=== PATIENT | male | born 1945 | race Caucasian/White ===

== ENCOUNTER 2017-12-15 09:26 | Emergency (ER) | payer MEDICARE ==
--- NOTE | 2017-12-15 09:56 | ED ---
General Adult HPI <Izaiah Huerta - Last Filed: 12/15/17 10:13> - General Source: patient, RN notes reviewed Mode of arrival: ambulatory Limitations: no limitations <Chan Jerome - Last Filed: 12/15/17 10:28> - General Chief complaint: Upper Respiratory Infection Stated complaint: Cough, Poss Bronchitis Time Seen by Provider: 12/15/17 09:39 - History of Present Illness Initial comments: Patient 72-year-old male presented to the emergency room today with a chief complaint of possible bronchitis. He admits to cough congestion that started yesterday. He admits to positive sputum production has been white in color. Patient states this feels like bronchitis that is had in the past. He denies any other complaints or symptoms. Patient denies any recent shortness of breath , chest pain, back pain, abdominal pain, nausea or vomiting, numbness or tingling, dysuria or hematuria, constipation or diarrhea, headaches or visual changes, or any other complaints. (Chan Jerome) - Related Data Home Medications Medication Instructions Recorded Confirmed Aspirin EC [Ecotrin Low Dose] 81 mg PO DAILY 12/15/17 12/15/17 Lisinopril [Zestril] 20 mg PO DAILY 12/15/17 12/15/17 Pantoprazole Sodium [Protonix] 40 mg PO DAILY 12/15/17 12/15/17 Simvastatin [Zocor] 10 mg PO DAILY 12/15/17 12/15/17 Previous Rx's Medication Instructions Recorded Azithromycin [Zithromax Z-pack] 0 mg PO DIRECTED #6 tab 12/15/17 Allergies Allergy/AdvReac Type Severity Reaction Status Date / Time No Known Allergies Allergy Verified 12/15/17 10:10 Review of Systems ROS Other: All systems not noted in ROS Statement are negative. <Izaiah Huerta - Last Filed: 12/15/17 10:13> ROS Other: All systems not noted in ROS Statement are negative. <Chan Jerome - Last Filed: 12/15/17 10:28> ROS Statement: Those systems with pertinent positive or pertinent negative responses have been documented in the HPI. Past Medical History Past Medical History: Hypertension Additional Past Medical History / Comment(s): polio History of Any Multi-Drug Resistant Organisms: None Reported Past Surgical History: Orthopedic Surgery Past Psychological History: No Psychological Hx Reported Smoking Status: Never smoker Past Alcohol Use History: None Reported Past Drug Use History: None Reported <Chan Jerome - Last Filed: 12/15/17 10:28> General Exam <Izaiah Huerta - Last Filed: 12/15/17 10:13> Limitations: no limitations <Chan Jerome - Last Filed: 12/15/17 10:28> - General Exam Comments Initial Comments: General: The patient is awake and alert, in no distress, and does not appear acutely ill. Eye: Pupils are equal, round and reactive to light, extra-ocular movements are intact. No nystagmus. There is normal conjunctiva bilaterally. No signs of icterus. Ears, nose, mouth and throat: There are moist mucous membranes and no oral lesions. Neck: The neck is supple, there is no tenderness or JVD. Cardiovascular: There is a regular rate and rhythm. No murmur, rub or gallop is appreciated. Respiratory: Lungs are clear to auscultation, respirations are non-labored, breath sounds are equal. No wheezes, stridor, rales, or rhonchi. Musculoskeletal: Normal ROM, no tenderness. Strength 5/5. Sensation intact. Pulses equal bilaterally 2+. Neurological: A&O x 3. CN II-XII intact, There are no obvious motor or sensory deficits. Coordination appears grossly intact. Speech is normal. Skin: Skin is warm and dry and no rashes or lesions are noted. Psychiatric: Cooperative, appropriate mood & affect, normal judgment. (Chan Jerome) Course <Izaiah Huerta - Last Filed: 12/15/17 10:13> <Chan Jerome - Last Filed: 12/15/17 10:28> Vital Signs 12/15/17 09:29 Temperature 100.1 F H Pulse Rate 82 Respiratory 20 Rate Blood Pressure 171/80 O2 Sat by Pulse 96 Oximetry - Reevaluation(s) Reevaluation #1: 12/15/17 10:13 PA supervision: I personally saw and examined the patient I have reviewed and agree with the PAs findings including all diagnostic interpretations and treatment plans is written unless otherwise stated. Patient states he is not ALLERGIC to any medication. The presentation is consistent with a bronchitis. ( Izaiah Huerta) Medical Decision Making <Izaiah Huerta - Last Filed: 12/15/17 10:13> <Chan Jerome - Last Filed: 12/15/17 10:28> - Medical Decision Making Patient chest x-ray reviewed showing no sign of pneumonia. Does have history of bronchitis. Fever 100.1 here in emergency room. Patient otherwise doing well. Patient given dose Rocephin and started on azithromycin for his advised close follow-up over the next 2 days return if symptoms increase or worsen. ( Chan Jerome) Disposition <Izaiah Huerta - Last Filed: 12/15/17 10:13> Is patient prescribed a controlled substance at d/c from ED?: No Time of Disposition: 10:28 <Chan Jerome - Last Filed: 12/15/17 10:28> Clinical Impression: Acute bronchitis Disposition: HOME SELF-CARE Condition: Good Instructions: Acute Bronchitis (ED) Additional Instructions: Please use medication as discussed. Please follow-up with family doctor in the next 2 days of symptoms have not improved. Please return to emergency room if the symptoms increase or worsen or for any other concerns. Prescriptions: Azithromycin [Zithromax Z-pack] 0 mg PO DIRECTED #6 tab Referrals: Ismael Gregorio MD [Primary Care Provider] - 1-2 days
--- NOTE | 2017-12-15 09:56 | XR ---
EXAMINATION TYPE: XR chest 2V DATE OF EXAM: 12/15/2017 COMPARISON: NONE TECHNIQUE: PA and lateral views submitted. HISTORY: Productive cough FINDINGS: The lungs are clear and there is no pneumothorax, pleural effusion, or focal pneumonia. Hypertrophi c and degenerative changes spine. Mild cardiomegaly. Apical pleural thickening. Shoulders. No overt f ailure IMPRESSION: 1. No acute process.
[2017-12-15] MEDS ORDERED: cefTRIAXone 1,000 MG VIAL (IM USE) IM STA (10:24)
[2017-12-15 10:52] VITALS: BP 164/75; PULSE 77; RESP 18; TEMP 101.2
== END 2017-12-15 10:48 | disposition home or self-care (01) ==
LOC: EC 09:26
DX: J20.9 Acute bronchitis, unspecified (principal); I10 Essential (primary) hypertension; Z86.12 Personal history of poliomyelitis; Z79.82 Long term (current) use of aspirin; Z79.899 Other long term (current) drug therapy
CPT/HCPCS: 71046; 99283; 96372; J0696

== ENCOUNTER → 2018-03-28 | Outpatient (CLI) | payer MEDICARE, OTHER ==
[~2018-03-28] MED LIST: REGADENOSON 0.4 MG/5 ML SYRINGE IV ONE
--- NOTE | 2018-03-28 11:29 | EST ---
EXERCISE STRESS DATE OF SERVICE: 03/28/2018 AGE: 72 SEX: Male HT: 5'8" WT: 209 pounds PROTOCOL: Lexiscan Cardiolite STAGE: DURATION OF EXERCISE: HEART RATE REST: 56 BLOOD PRESSURE REST: 146/82 MAXIMUM HEART RATE ACHIEVED: 84 MAXIMUM BLOOD PRESSURE: 150/75 85% MPHR: 127 100% MPHR: 144 METS: INDICATIONS: Abnormal EKG. CLINICAL INFORMATION: Pretesting physical examination showed a heart rate of 56, pressure is 146/82 mmHg. Baseline EKG showed sinus mechanism. A 0.4 mg of Lexiscan was given over 15 seconds per protocol. Max heart rate was 84 beats per minute and maximum pressure was 150/75 mmHg. Clinically the patient did not have any symptoms and the EKG did not show any significant ST or T-wave abnormalities concerning for ischemia. CONCLUSION: 1. Nondiagnostic electrocardiogram stress testing in response to Lexiscan. 2. Please follow up on the Cardiolite portion on separate report from radiology department. MMODL / IJN: [id number] /
--- NOTE | 2018-03-28 12:51 | NM ---
"EXAMINATION TYPE: NM stress lexiscan cardiolite DATE OF EXAM: 03/28/2018 COMPARISON: NONE HISTORY: Chest pain TECHNIQUE: After the intravenous administration of 9.91 mCi Tc 99m Sestamibi - Cardiolite resting SP ECT images acquired 45 minutes post injection. The patient received 0.4mg Lexiscan, 25.9 mCi Tc 99m Sestamibi - Stress images obtained [address] injection FINDINGS: Review of stress and rest SPECT images demonstrates a area of stress-induced reversible ischemia invo lving the anterior and anteroapical portion of the myocardium.. Gated analysis shows an estimated l eft ventricular ejection fraction of 40 %. Reduced small motion activity involving the apex and anter ior portion of the myocardium. IMPRESSION: 1. Exam positive for stress-induced reversible ischemia involving the apical and anteroapical portion of the myocardium. A [place] level critical message alert has been initiated for Ismael Gregorio MD via the [employer] 36 0 | Critical Results System on 03/28/2018 12:48 PM. This message alert has been sent to Ismael batista MD via the preferences provided by the clinician for the receipt of Radiology Critical Findings. [facility] – [place] [id number]."
== END ==
LOC: RADNMMAIN 08:00
PROVIDERS: ATTEND Family Medicine
DX: G45.9 Transient cerebral ischemic attack, unspecified (principal); I99.8 Other disorder of circulatory system
CPT/HCPCS: 93017; 78452; A9500; J2785

== ENCOUNTER 2018-04-04 05:49 | Day surgery (SDC) | payer MEDICARE, OTHER ==
[2018-03-30 10:41] VITALS: BMI 31.6
[~2018-04-04 05:49] MED LIST changes: +ALPRAZolam 0.25 MG TAB PO PRN; +ALPRAZolam 0.5 MG TAB PO PRN; +ASPIRIN 325 MG TAB PO STA; +NITROGLYCERIN SL TABS 0.4 MG TAB SUBLINGUAL PRN; -REGADENOSON 0.4 MG/5 ML SYRINGE IV ONE; +SODIUM CHLORIDE 0.9% 1,000 ML in EMPTY BAG 1 BAG IV ONE
[2018-04-04] MEDS ORDERED: ATORVASTATIN 80 MG TAB PO ONE (07:00)
[2018-04-04 07:14] VITALS: RESP 18; TEMP 98.1
[2018-04-04] MEDS ORDERED: fentaNYL (PF) 50 MCG/ML 2 ML AMP ONE (07:15)
[2018-04-04] MEDS ORDERED: MIDAZOLAM 2 MG/2 ML VIAL ONE (07:15)
[2018-04-04] MEDS ORDERED: fentaNYL (PF) 50 MCG/ML 2 ML AMP IV ONE (07:25)
[2018-04-04] MEDS ORDERED: MIDAZOLAM 2 MG/2 ML VIAL IV ONE (07:25)
[2018-04-04] MEDS ORDERED: LIDOCAINE 1% INJ 10MG/ML (20 ML MDV) SQ ONE (07:30)
[2018-04-04] MEDS ORDERED: IOPAMIDOL-370 50ML BTL INJ ONE (07:42)
[2018-04-04] MEDS ORDERED: IOPAMIDOL-370 125ML BTL INJ ONE (07:43)
[2018-04-04] MEDS ORDERED: RX INFO: IV CONTRAST WAS GIVEN 1 EACH MISC MISCELLANE PRN (07:51)
[2018-04-04] MEDS ORDERED: SODIUM CHLORIDE 0.9% 1,000 ML IV SCH (08:00)
--- NOTE | 2018-04-04 08:02 | P.CARDCATH ---
Date of Procedure: 04/04/18 Preoperative Diagnosis: Positive stress test hypertension and hyperlipidemia Postoperative Diagnosis: Critical lesion involving the LAD and mild to moderate disease in the left main Description of Procedure: HISTORY: This is a 73-year-old gentleman with history of hypertension and hyperlipidemia who recently had a stress test which showed evidence of ischemia involving the anterior wall and apex. Patient was advised to have a cardiac catheterization for definitive diagnosis. Patient denies any chest pains. CONSENT:I have discussed the risks, benefits and alternative therapies for the above-mentioned procedure and for both sedation/analgesia as well as necessary blood product administration, if indicated, as they pertain to this patient. The patient has indicated understanding and acceptance of the risks and procedures discussed. PROCEDURE: Patient was brought to the lab in a fasting state. Patient was given some IV sedation. The right groin is infiltrated with lidocaine and right femoral artery was entered using Seldinger technique. A 6-Yakut catheter was left in place and selective coronary arteriography and left ventriculography was performed. Patient tolerated the procedure well. Femoral angiogram was performed and Angio-Seal was applied for hemostasis. No immediate complications were noted and patient was transferred to [facility] in a stable condition Conscious Sedation: Versed 1mg Fentanyl 25 g Duration 15minutes HEMODYNAMICS: The aortic pressure is 114/66. Left ankle end-diastolic pressure is about 16-20. There was no gradient across the aortic valve SELECTIVE CORONARY ARTERIOGRAPHY: LEFT MAIN: There is mild ostial stenosis with about 30 -40% narrowing THE LEFT ANTERIOR DESCENDING CORONARY ARTERY:. This is a small-caliber vessel. This is a long stenosis involving the proximal portion and almost looks like a string. There is faint flow into the LAD and diagonal. There is competent to flow in the distal LAD from collaterals THE LEFT CIRCUMFLEX AND IS CORONARY ARTERY:. This is a moderate caliber vessel giving rise to good-sized OM branch and AV groove segment. The vessel is free of any occlusive disease THE RIGHT CORONARY ARTERY:. His is a huge and dominant vessel giving rise to good-sized PDA and PLV LEFT VENTRICULOGRAPHY:. 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 There is collateral flow from the right to the LAD. The circumflex and the right coronary artery are free of occlusive disease. There is mild disease involving the left main PLAN: Maximum medical therapy. Consultation was applied for possible revascularization PROGNOSIS: Guarded
[2018-04-04] MEDS ORDERED: METOPROLOL TARTRATE 25 MG TAB PO SCH (09:00)
[2018-04-04] MEDS ORDERED: ISOSORBIDE MONONITRATE ER 15 MG TAB PO SCH (09:00)
--- NOTE | 2018-04-04 12:36 | ECHOF ---
Referral Reason:LVF MEASUREMENTS -------- HEIGHT: 172.7 cm WEIGHT: 94.3 kg BP: 139/64 RVIDd: 3.3 cm (< 3.3) IVSd: 1.3 cm (0.6 - 1.1) LVIDd: 5.0 cm (3.9 - 5.3) LVPWd: 1.4 cm (0.6 - 1.1) IVSs: 1.9 cm LVIDs: 3.6 cm LVPWs: 1.8 cm LA Diam: 3.5 cm (2.7 - 3.8) LAESV Index (A-L): 24.22 ml/m Ao Diam: 4.0 cm (2.0 - 3.7) AV Cusp: 2.1 cm (1.5 - 2.6) MV EXCURSION: 16.659 mm (> 18.000) MV EF SLOPE: 51 mm/s (70 - 150) EPSS: 1.1 cm MV E Gamaliel: 0.69 m/s MV DecT: 220 ms MV A Gamaliel: 0.92 m/s MV E/A Ratio: 0.76 FINDINGS -------- Sinus rhythm. This was a technically difficult study with suboptimal views. The left ventricular size is normal. There is moderate concentric left ventricular hypertrophy. O verall left ventricular systolic function is mild-moderately impaired with, an EF between 40 - 45 %. Apical anterior LV wall motion is hypokinetic. Apical septum LV wall motion is hypokinetic. The right ventricle is normal in size. Normal LA size by volume 22+/-6 ml/m2. The right atrium is normal in size. 3 ml of Lumason was utilized for enhancement of images. Aortic valve is trileaflet and is mildly thickened. The mitral valve is normal. The tricuspid valve appears structurally normal. There is no pulmonic regurgitation present. The aortic root is dilated measuring 4.0cm. IVC Not well visulized. There is no pericardial effusion. CONCLUSIONS -------- 1. Sinus rhythm. 2. This was a technically difficult study with suboptimal views. 3. The left ventricular size is normal. 4. There is moderate concentric left ventricular hypertrophy. 5. Overall left ventricular systolic function is mild-moderately impaired with, an EF between 40 - 45 %. 6. Apical anterior LV wall motion is hypokinetic. 7. Apical septum LV wall motion is hypokinetic. 8. The right ventricle is normal in size. 9. Normal LA size by volume 22+/-6 ml/m2. 10. The right atrium is normal in size. 11. 3 ml of Lumason was utilized for enhancement of images. 12. Aortic valve is trileaflet and is mildly thickened. 13. The mitral valve is normal. 14. The tricuspid valve appears structurally normal. 15. There is no pulmonic regurgitation present. 16. The aortic root is dilated measuring 4.0cm. 17. IVC Not well visulized. 18. There is no pericardial effusion. [employer] OPERATOR: Tania Love RDCS
[2018-04-04 14:20] LABS: Appearance,Urine Clear (Clear); Bilirubin,Urine Negative (Negative); Blood,Urine Negative (Negative); Color,Urine Light Yellow; Glucose,Urine (UA) Negative (Negative); Ketones,Urine Negative (Negative); Leukocyte Esterase,Urine Negative (Negative); Nitrite,Urine Negative (Negative); PH, Urine 6.5 (5.0-8.0); Protein,Urine Negative (Negative); Specific Gravity,Urine 1.021 (1.001-1.035); Urobilinogen,Urine <2.0 mg/dL (<2.0)
[2018-04-04 15:26] LABS: Basophils % (A) 0 %; Eosinophils # (A) 0.2 k/uL (0-0.7); Eosinophils % (A) 3 %; HCT 41.6 % (39.0-53.0); HGB 13.6 gm/dL (13.0-17.5); Lymphocytes # (A) 1.4 k/uL (1.0-4.8); Lymphocytes % (A) 21 %; MCH 28.5 pg (25.0-35.0); MCHC 32.7 g/dL (31.0-37.0); MCV 87.1 fL (80.0-100.0); Mean Platelet Volume 7.1; Monocytes # (A) 0.5 k/uL (0-1.0); Monocytes % (A) 7 %; Neutrophils # (A) 4.7 k/uL (1.3-7.7); Neutrophils % (A) 68 %; Platelet Count 218 k/uL (150-450); RBC 4.77 m/uL (4.30-5.90); RDW 13.5 % (11.5-15.5); WBC 6.9 k/uL (3.8-10.6)
[2018-04-04 15:38] VITALS: PULSE 56
[2018-04-04 15:38] LABS: Albumin 3.8 g/dL (3.5-5.0); Calcium 10.2 mg/dL (8.4-10.2); Magnesium 2.2 mg/dL (1.6-2.3); Partial Thromboplastin Time 24.6 sec (22.0-30.0); Potassium 4.7 mmol/L (3.5-5.1); Prothrombin Time 10.1 sec (9.0-12.0); Total Bilirubin 0.8 mg/dL (0.2-1.3); Total Protein 6.5 g/dL (6.3-8.2)
[2018-04-04 15:44] VITALS: BP 127/60
--- NOTE | 2018-04-04 15:48 | US ---
EXAMINATION TYPE: US carotid duplex BILAT DATE OF EXAM: 04/04/2018 COMPARISON: NONE CLINICAL HISTORY: PreOp Cardiac Surgery. EXAM MEASUREMENTS: RIGHT: Peak Systolic Velocity (PSV) cm/sec ----- Right CCA: 50.3 ----- Right ICA: 76.4 ----- Right ECA: 123.7 ICA/CCA ratio: 1.5 RIGHT: End Diastole cm/sec ----- Right CCA: 14.5 ----- Right ICA: 21.5 ----- Right ECA: 0.0 LEFT: Peak Systolic Velocity (PSV) cm/sec ----- Left CCA: 57.8 ----- Left ICA: 121.1 ----- Left ECA: 161.7 ICA/CCA ratio: 2.1 LEFT: End Diastole cm/sec ----- Left CCA: 11.7 ----- Left ICA: 18.0 ----- Left ECA: 20.0 VERTEBRALS (direction of flow): Right Vertebral: no audible PW Doppler present or color flow is seen Left Vertebral: Antegrade Rhythm: Normal Grayscale, color Doppler, spectral Doppler imaging performed of the carotid arteries. Waveform analys is doesn't show significant stenosis of the proximal internal carotid arteries by Doppler. IMPRESSION: No hemodynamic significant stenosis of the proximal internal carotid arteries bilaterall y by Doppler criteria, an indirect measurement of carotid stenosis. Additional findings above.
--- NOTE | 2018-04-04 16:27 | XR ---
EXAMINATION TYPE: XR chest 2V DATE OF EXAM: 04/04/2018 COMPARISON: Prior chest x-ray 12/15/2017 HISTORY: Preop cardiac surgery TECHNIQUE: Frontal and lateral views of the chest are obtained. FINDINGS: There is no focal air space opacity, pleural effusion, or pneumothorax seen. The cardiac silhouette size is stable, borderline enlarged. There is eventration of the right hemidiaphragm. Th e osseous structures are intact. IMPRESSION: No acute cardiopulmonary process.
--- NOTE | 2018-04-04 18:03 | P.GSCN ---
History of Present Illness Consult date: 04/04/18 Reason for Consult: Positive stress test, coronary artery disease. Requesting physician: Butch Townsend History of present illness: This is a 73-year-old gentleman who is followed by Dr. Ismael Gregorio on an outpatient basis. His past medical history significant for hypertension, hyperlipidemia, gastroesophageal reflux disease, history of TIA in 2015 with no residual effects, history of a DVT to his left arm in 1972, obesity with a BMI of 31.6 kg/m, significant family history for early onset coronary artery disease with 2 brothers and 3 sisters having myocardial infarctions in their 50s , history of polio and he denies any history of diabetes although his most recent hemoglobin A1c in March 2018 was 6.5%. In February 2018 the patient presented to Dr. Gregorio's office for an annual physical exam. He underwent a 12-lead EKG which was suggestive of possible anterior wall infarct. For further evaluation the patient underwent a stress test Cardiolite study which showed ischemia involving the anterior wall and apex. The patient denies any complaints of chest pain, shortness of breath, nausea, vomiting, syncope. He does report that he has had some recent falls although, blames his falls on his weakness to his right leg from his history of polio. Due to the patient's abnormal EKG and stress test he was referred to Dr. Townsend from [facility] for further cardiac workup. Today 04/04/2018 the patient underwent an elective heart catheterization which demonstrated a 30-40% stenosis to his left main coronary artery, and a long 99% stenosis involving his proximal portion of his left anterior descending coronary artery with competent flow into the distal left anterior descending artery from collateral circulation. Also during the heart catheterization the left ventriculography was completed which revealed a normal sized cardiac silhouette with hypokinesis of the mid anterior wall and mild hypokinesis in the anterior apical wall. Due to the patient's abnormal stress test and cardiac catheterization results a consult was placed to Dr. Niki Cabrales from cardiothoracic surgery for recommendations on myocardial revascularization surgery. Review of Systems A 14 point review of systems was completed and was negative except as mentioned in HPI. Past Medical History Past Medical History: CVA/TIA, Deep Vein Thrombosis (DVT), GERD/Reflux, Hyperlipidemia, Hypertension Additional Past Medical History / Comment(s): Hx Polio, TIA 2016, no residual effects. States "episodes of breathing heavy and quits breathing at night per ." Lightheaded X1 recently. Hx blood clot in left arm after injury to fingers in 1972. History of Any Multi-Drug Resistant Organisms: None Reported Past Surgical History: Heart Catheterization, Orthopedic Surgery Additional Past Surgical History / Comment(s): 3 right foot surgeries due to Polio 1948. Heart catheterization 04/04/2018. Past Anesthesia/Blood Transfusion Reactions: No Reported Reaction Past Psychological History: No Psychological Hx Reported Smoking Status: Never smoker Past Alcohol Use History: None Reported Past Drug Use History: None Reported - Past Family History Mother Sister(s) Family Medical History: CVA/TIA, Hypertension Additional Family Medical History / Comment(s): His mother from a stroke at age 81 Father Family Medical History: CVA/TIA Additional Family Medical History / Comment(s): His father from a stroke at age 80. Brother(s) Family Medical History: Myocardial Infarction ([place]) Additional Family Medical History / Comment(s): 2 of his brothers have had myocardial infarctions one at age 50, and one at age 48. Sister(s) Family Medical History: Myocardial Infarction ([place]) Additional Family Medical History / Comment(s): He is 13 total siblings. One of his sisters had a myocardial infarction in her late 50s and another sister had a myocardial infarction in her 40s. Medications and Allergies Home Medications Medication Instructions Recorded Confirmed Type Aspirin EC [Ecotrin Low Dose] 81 mg PO HS 12/15/17 04/04/18 History Lisinopril [Zestril] 20 mg PO HS 12/15/17 04/04/18 History Pantoprazole Sodium [Protonix] 40 mg PO HS 12/15/17 04/04/18 History Metoprolol Succinate (ER) [Toprol 50 mg PO HS 03/30/18 04/04/18 History XL] Nitroglycerin Sl Tabs [Nitrostat] 0.4 mg SUBLINGUAL Q5M PRN 03/30/18 04/04/18 History Simvastatin 40 mg PO HS 03/30/18 04/04/18 History Isosorbide Mononitrate ER [Imdur] 15 mg PO DAILY #30 dose 04/04/18 Rx Allergies Allergy/AdvReac Type Severity Reaction Status Date / Time No Known Allergies Allergy Verified 04/04/18 06:45 Surgical - Exam Vital Signs Temp Pulse Resp BP Pulse Ox 98.1 F 60 18 159/76 97 04/04/18 07:12 04/04/18 07:12 04/04/18 07:12 04/04/18 07:12 04/04/18 07:12 - General well developed, well nourished, no distress, no pain, obese - Eyes PERRL, normal ocular movement - ENT normal pinna, normal nares, normal mucosa, no hearing loss, no congestion, dentures (Upper and lowers.) - Neck Neck is supple, no lymphadenopathy. no masses, no bruits, trachea midline, no venous distension - Respiratory Lung sounds essentially clear throughout, respirations are symmetrical and nonlabored. Oxygen saturation are 96% on room air. Recent FEV1 showed a predicted value of 3.47 which was 85% of his predicted value. - Cardiovascular Regular rhythm and rate. S1 and S2 present, negative for S3, gallop or murmur. Bedside telemetry showing sinus bradycardia heart rate 53. No edema present. - Abdomen Abdomen is soft, nontender and nondistended. Active bowel sounds all 4 abdominal quadrants. No guarding or rigidity. No organomegaly. - Genitourinary Deferred - Rectum Deferred - Integumentary no rash, no growths, no abnormal pigmentation - Neurologic normal coordination, normal sensation - Musculoskeletal Weakness to his right lower extremity. normal posture - Psychiatric oriented to time, oriented to person, oriented to place, speech is normal, memory intact Results - Labs 04/04/18 14:43 04/04/18 14:43 - Imaging Comments: Heart catheterization results reviewed. Bedside FEV1 results reviewed. Assessment and Plan (1) Coronary artery disease Current Visit: Yes Status: Acute Code(s): I25.10 - ATHSCL HEART DISEASE OF [place] CORONARY ARTERY W/O ANG PCTRS SNOMED Code(s): 60490605 (2) Hypertension Current Visit: Yes Status: Acute Code(s): I10 - ESSENTIAL (PRIMARY) HYPERTENSION SNOMED Code(s): 69945302 (3) Hyperlipidemia Current Visit: Yes Status: Acute Code(s): E78.5 - HYPERLIPIDEMIA, UNSPECIFIED SNOMED Code(s): 55851796 (4) Elevated hemoglobin A1c Current Visit: Yes Status: Acute Code(s): R73.09 - OTHER ABNORMAL GLUCOSE SNOMED Code(s): 634564621 (5) History of poliomyelitis Current Visit: Yes Status: Acute Code(s): Z86.12 - PERSONAL HISTORY OF POLIOMYELITIS SNOMED Code(s): 533462727 (6) GERD (gastroesophageal reflux disease) Current Visit: Yes Status: Acute Code(s): K21.9 - GASTRO-ESOPHAGEAL REFLUX DISEASE WITHOUT ESOPHAGITIS SNOMED Code(s): 389556724 (7) History of recent fall Current Visit: Yes Status: Acute Code(s): Z91.81 - HISTORY OF FALLING SNOMED Code(s): 138959251 (8) History of TIA (transient ischemic attack) Current Visit: Yes Status: Acute Code(s): Z86.73 - PRSNL HX OF TIA (TIA), AND CEREB INFRC W/O RESID DEFICITS SNOMED Code(s): 881691841 (9) History of deep venous thrombosis Current Visit: Yes Status: Acute Code(s): Z86.718 - PERSONAL HISTORY OF OTHER VENOUS THROMBOSIS AND EMBOLISM SNOMED Code(s): 998855720 Plan: Patient was seen and examined. His chart and diagnostics were reviewed. His case was discussed with Dr. Cabrales from cardiothoracic surgery. Preoperative testing and preoperative teaching has been initiated. Continue to optimize with medical management, aspirin, EVIE inhibitor, statin, indoor and beta nj. Medical management recommendations per Dr. Gregorio, cardiology recommendations per Dr. Townsend. Dr Cabrales has seen and examined the patient. Dr Cabrales will review all of the preoperative testing results and the patient will follow up with Dr Cabrales in the office to discuss possible myocardial revascularization surgery. The patient may benefit from a BETHEA to LAD. Thank you Dr. Townsend for this consult and we will look forward to working with you in the care of your patient. Time with Patient: Greater than 30
[2018-04-05 14:25] LABS: Hepatitis A Antibody IgM Non-Reactive (Non-Reactive); Hepatitis B Core IgM Non-Reactive (Non-Reactive)
== END 2018-04-04 18:10 | disposition home or self-care (01) ==
LOC: CATHCVL 05:49
PROVIDERS: ATTEND Internal Medicine Cardiovascular Disease
DX: I25.10 Atherosclerotic heart disease of native coronary artery without angina pectoris (principal); I11.9 Hypertensive heart disease without heart failure; R94.39 Abnormal result of other cardiovascular function study; E78.00 Pure hypercholesterolemia, unspecified; E78.5 Hyperlipidemia, unspecified; E11.9 Type 2 diabetes mellitus without complications; K21.9 Gastro-esophageal reflux disease without esophagitis; E66.9 Obesity, unspecified; Z68.31 Body mass index [BMI] 31.0-31.9, adult; Z79.82 Long term (current) use of aspirin; Z79.899 Other long term (current) drug therapy; Z82.49 Family history of ischemic heart disease and other diseases of the circulatory system; Z86.73 Personal history of transient ischemic attack (TIA), and cerebral infarction without residual deficits; Z86.718 Personal history of other venous thrombosis and embolism; Z86.12 Personal history of poliomyelitis; Z91.81 History of falling
CPT/HCPCS: 93458; 80053; 80074; 84443; 83735; 85025; 85610; 85730; 81003; 87070; 87086; 71046; 93970; 93880; C8929; C1760; C1894; C1769; J2250; J2001; J3010; Q9950; Q9967 ×2; 93306

== ENCOUNTER → 2018-06-14 | Outpatient (CLI) | payer MEDICARE, OTHER ==
[2018-06-14 10:23] LABS: INR 0.9 (<1.2); Prothrombin Time 10.2 sec (9.0-12.0)
[2018-06-14 10:24] LABS: Partial Thromboplastin Time 24.9 sec (22.0-30.0)
--- NOTE | 2018-06-14 10:59 | XR ---
EXAMINATION TYPE: XR chest 2V DATE OF EXAM: 06/14/2018 COMPARISON: 04/04/2018 TECHNIQUE: PA and lateral views submitted. HISTORY: Presurgical FINDINGS: The lungs are clear and there is no pneumothorax, pleural effusion, or focal pneumonia. Hypertrophi c and degenerative change of the spine. Subsegmental changes at both lung bases. No overt failure. Ar thropathy of the shoulders. IMPRESSION: 1. Basilar atelectasis favored over infiltrate correlate clinically..
[2018-06-14 11:48] LABS: HCT 41.4 % (39.0-53.0); HGB 13.7 gm/dL (13.0-17.5); MCH 29.1 pg (25.0-35.0); MCHC 33.1 g/dL (31.0-37.0); MCV 87.7 fL (80.0-100.0); Mean Platelet Volume 7.8; Platelet Count 212 k/uL (150-450); RBC 4.72 m/uL (4.30-5.90); RDW 13.1 % (11.5-15.5); WBC 7.3 k/uL (3.8-10.6)
--- NOTE | 2018-06-14 14:00 | P.PN ---
Progress Note - Text Progress Note Date: 06/14/18 5 meter walk test completed 06/14/18: #1 4.93 sec #2 5.76 sec #3 4.63 sec
[2018-06-14 16:29] LABS: Albumin 4.3 g/dL (3.80-4.90); Albumin/Globulin Ratio 2.39 (1.20-2.10); Anion Gap 7.4 mmol/L (4.00-12.00); Calcium 10.1 mg/dL (8.7-10.3); Carbon Dioxide 26.6 mmol/L (21.6-31.8); Globulin 1.8 g/dL (1.6-3.3); LDL Cholesterol,Calculated 84.8 mg/dL (0.0-131.0); Potassium 4.9 mmol/L (3.5-5.5); Total Bilirubin 0.6 mg/dL (0.2-1.2); Total Protein 6.1 g/dL (6.2-8.2); VLDL Calculation 27.2 mg/dL (5.00-40.00)
[2018-06-14 17:39] LABS: Hemoglobin A1C 5.4 % (4.0-6.0)
== END | disposition home or self-care (01) ==
LOC: LABWHC1 09:21
PROVIDERS: ATTEND Surgery
DX: Z01.810 Encounter for preprocedural cardiovascular examination (principal); J98.11 Atelectasis; Z01.812 Encounter for preprocedural laboratory examination; Z01.818 Encounter for other preprocedural examination
CPT/HCPCS: 36415; 71046; 80053; 80061; 83036; 85027; 85610; 85730; 93005; 94150

== ENCOUNTER 2018-06-20 05:30 | Inpatient (IN) | payer MEDICARE, OTHER ==
[~2018-06-20 05:30] MED LIST changes: +ALBUMIN HUMAN 25% 50 ML IV ONE; +ALBUMIN HUMAN 5% 250 ML IVPB ONE; -ALPRAZolam 0.25 MG TAB PO PRN; -ALPRAZolam 0.5 MG TAB PO PRN; +ASPIRIN 325 MG TAB PO ONE; -ASPIRIN 325 MG TAB PO STA; +ATORVASTATIN 10 MG TAB PO ONE; +CALCIUM CHLORIDE 100 MG/ML 10 ML SYRINGE IV ONE; +CHLORHEXIDINE GLUCONATE 15 ML CUP MUCOUS MEM ONE; +DEXTROSE 5% IN WATER 1,000 ML with POTASSIUM CHLORIDE 110 MEQ, MAGNESIUM SULFATE 16 MEQ... IV ONE; +DEXTROSE 5% IN WATER 1,000 ML with POTASSIUM CHLORIDE 25 MEQ, SODIUM CHLORIDE 2.5MEQ/ML... IRRIGATION ONE; +HEPARIN SODIUM 1,000 UN/ML (10ML VL) IV ONE; +HEPARIN SODIUM,PORCINE 5,000 UNIT in SODIUM CHLORIDE 0.9% 500 ML 500 ML IV ONE; +INSULIN REGULAR 100 UNIT in SODIUM CHLORIDE 0.9% 100 ML IV ONE; +LACTATED RINGERS 1,000 ML IV ONE; +LACTATED RINGERS 1,000 ML IV SCH; +MAGNESIUM SULFATE MG 500 MG/ML IV ONE; +MANNITOL 25% 12.5 GM/50 ML VIAL IV ONE; +METOPROLOL TARTRATE 12.5 MG TAB PO ONE; +MIDAZOLAM (PF) 2 MG/2 ML VIAL IV PRN; +MUPIROCIN 2% OINT 22 GM TUBE NASAL ONE; -NITROGLYCERIN SL TABS 0.4 MG TAB SUBLINGUAL PRN; +NITROGLYCERIN-D5W PMX 25 MG/250 ML BTL IV ONE; +NITROGLYCERIN-D5W PMX 50 MG in DEXTROSE/WATER 1 250ML.BAG IV ONE; +NOREPINEPHRINE 4 MG in SODIUM CHLORIDE 0.9% 250 ML IV ONE; +PAPAVERINE 360 MG in SODIUM CHLORIDE 0.9% 90 ML IV ONE; +PHENYLEPHRINE 40 MG in SODIUM CHLORIDE 0.9% 250 ML IV ONE; +PHENYLEPHRINE-0.9% NACL SYG 1 MG/10 ML SYRINGE IV ONE; +PROPOFOL 1,000 MG/100 ML VIAL IV ONE; +PROTAMINE SULFATE 10 MG/ML 25 ML VIAL IV ONE; +PROTAMINE SULFATE 250 MG in EMPTY BAG 1 BAG IV ONE; +SODIUM BICARB 8.4% 50 ML SYR (1 MEQ/ML) IV ONE; +SODIUM CHLORIDE 0.9% 1,000 ML IV ONE; -SODIUM CHLORIDE 0.9% 1,000 ML in EMPTY BAG 1 BAG IV ONE; +TRANEXAMIC ACID 2,000 MG in SODIUM CHLORIDE 0.9% 180 ML IV ONE; +ceFAZolin 1,000 MG in SODIUM CHLORIDE 0.9% IRRIGATIO 1,000 ML IRRIGATION ONE; +ceFAZolin 2,000 MG in SODIUM CHLORIDE 0.9% 30 ML IVPB ONE
[2018-06-20] MEDS ORDERED: MAGNESIUM SULFATE 4 MEQ/ML 10ML VIAL ONE (07:21)
[2018-06-20] MEDS ORDERED: PROPOFOL 10 MG/ML 20 ML VIAL IV ONE (07:21)
[2018-06-20] MEDS ORDERED: LIDOCAINE 1% INJ 10MG/ML (20 ML MDV) ONE (07:21)
[2018-06-20] MEDS ORDERED: SODIUM CHLORIDE 0.9% IRRIG 1,000 ML BTL IRRIGATION ONE (07:21)
[2018-06-20] MEDS ORDERED: CALCIUM CHLORIDE 100 MG/ML 10 ML SYRINGE ONE (07:21)
[2018-06-20] MEDS ORDERED: fentaNYL (PF) 50 MCG/ML 2 ML AMP ONE (07:21)
[2018-06-20] MEDS ORDERED: ELECTROLYTE-R (PH 7.4) 1,000 ML IV.SOLN IV ONE (07:21)
[2018-06-20] MEDS ORDERED: POTASSIUM CHLORIDE OPEN HEART 20 MEQ/50 ML BAG IVPB ONE (07:21)
[2018-06-20] MEDS ORDERED: fentaNYL (PF) 50 MCG/ML 50 ML VIAL ONE (07:21)
[2018-06-20] MEDS ORDERED: MIDAZOLAM 2 MG/2 ML VIAL ONE (07:21)
[2018-06-20] MEDS ORDERED: ALBUMIN HUMAN 5% (25gm) 500 ML VIAL IVPB ONE (07:21)
[2018-06-20] MEDS ORDERED: ceFAZolin 1,000 MG VIAL ONE (07:21)
[2018-06-20] MEDS ORDERED: TRANEXAMIC ACID 1,000 MG/10 ML VIAL ONE (07:21)
[2018-06-20] MEDS ORDERED: HEPARIN SODIUM,PORCINE 10,000 UNIT/ML 1 ML VIAL ONE (07:21)
[2018-06-20] MEDS ORDERED: VECURONIUM 10 MG VIAL IV ONE (07:21)
[2018-06-20] MEDS ORDERED: SODIUM CHLORIDE 0.9% 250 ML BAG ONE (07:21)
[2018-06-20] MEDS ORDERED: PROTAMINE SULFATE 10 MG/ML 25 ML VIAL IV ONE (07:21)
[2018-06-20] MEDS ORDERED: ALBUMIN HUMAN 5% (12.5gm) 250 ML BOTTLE IVPB ONE (07:21)
[2018-06-20 08:35] LABS: ABG Base Excess -0.2 mmol/L; ABG HCO3 25 mmol/L (21-25); ABG PCO2 41 mmHg (35-45); ABG PH 7.39 (7.35-7.45); ABG Potassium Whole Blood 4.2 mmol/L (3.4-4.5); ABG Sodium Whole Blood 140 mmol/L (135-146); ABG TCO2 26 mmol/L (19-24)
[2018-06-20 08:40] LABS: ABG Base Excess -0.3 mmol/L; ABG HCO3 25 mmol/L (21-25); ABG PCO2 40 mmHg (35-45); ABG PH 7.39 (7.35-7.45); ABG PO2 392 mmHg (83-108); ABG Potassium Whole Blood 4.2 mmol/L (3.4-4.5); ABG Sodium Whole Blood 140 mmol/L (135-146); ABG TCO2 26 mmol/L (19-24)
[2018-06-20 09:27] LABS: ABG PO2 >420 mmHg (83-108)
[2018-06-20 11:28] LABS: ABG Base Excess -0.3 mmol/L; ABG HCO3 24 mmol/L (21-25); ABG PCO2 38 mmHg (35-45); ABG PH 7.41 (7.35-7.45); ABG PO2 316 mmHg (83-108); ABG Sodium Whole Blood 133 mmol/L (135-146); ABG TCO2 25 mmol/L (19-24)
[2018-06-20 12:05] LABS: ABG Base Excess -0.9 mmol/L; ABG HCO3 24 mmol/L (21-25); ABG PCO2 38 mmHg (35-45); ABG PH 7.41 (7.35-7.45); ABG PO2 372 mmHg (83-108); ABG Sodium Whole Blood 134 mmol/L (135-146); ABG TCO2 25 mmol/L (19-24)
[2018-06-20 12:31] LABS: ABG Base Excess -1.7 mmol/L; ABG HCO3 23 mmol/L (21-25); ABG PCO2 39 mmHg (35-45); ABG PH 7.39 (7.35-7.45); ABG PO2 326 mmHg (83-108); ABG Potassium Whole Blood 4.6 mmol/L (3.4-4.5); ABG Sodium Whole Blood 134 mmol/L (135-146); ABG TCO2 24 mmol/L (19-24)
[2018-06-20 13:02] LABS: ABG Base Excess -2.8 mmol/L; ABG HCO3 23 mmol/L (21-25); ABG PCO2 42 mmHg (35-45); ABG PH 7.34 (7.35-7.45); ABG PO2 214 mmHg (83-108); ABG Sodium Whole Blood 136 mmol/L (135-146); ABG TCO2 24 mmol/L (19-24)
[2018-06-20 13:14] LABS: ABG Base Excess -0.5 mmol/L; ABG HCO3 25 mmol/L (21-25); ABG PCO2 43 mmHg (35-45); ABG PH 7.37 (7.35-7.45); ABG PO2 389 mmHg (83-108); ABG Potassium Whole Blood 4.1 mmol/L (3.4-4.5); ABG Sodium Whole Blood 140 mmol/L (135-146); ABG TCO2 26 mmol/L (19-24)
[2018-06-20 13:50] LABS: ABG Base Excess 2.1 mmol/L; ABG HCO3 26 mmol/L (21-25); ABG PCO2 36 mmHg (35-45); ABG PH 7.47 (7.35-7.45); ABG PO2 268 mmHg (83-108); ABG Potassium Whole Blood 3.9 mmol/L (3.4-4.5); ABG Sodium Whole Blood 138 mmol/L (135-146); ABG TCO2 27 mmol/L (19-24)
--- NOTE | 2018-06-20 14:07 | P.PN ---
Progress Note - Text Procedure performed: Transesophageal echocardiography Indication for the procedure: Coronary artery bypass graft surgery, ischemia monitoring, assessment of valvular function, intracardiac air monitoring, assessment of regional wall motion abnormalities and hemodynamic monitoring. Probe insertion: Under general anesthesia, uneventful. Pre-bypass findings: Left ventricle mildly hypertrophied and LV ejection fraction is approximately 45 - 50%. Mild apical septal and anterior hypokinesia present. Left atrium Normal in size. No thrombus seen in the appendage. Right atrium normal in size. No patent foramen ovale or ASD seen. Right ventricle normal in structure and function. Aortic valve appears to be mildly sclerotic .No Aortic Regurgitation seen. Mitral valve normal in anatomy. Mild mitral regurgitation seen. Trace tricuspid regurgitation seen. Pulmonic valve appears to be normal. Descending aorta grade 2 atheroma seen. Small pericardial effusion noted. Post-bypass findings: LV ejection fraction is 55-60%. No new regional wall motion abnormalities seen. Rest of the examination is same as pre-bypass.
[2018-06-20] MEDS ORDERED: ALBUMIN HUMAN 5% 250 ML in EMPTY BAG 1 BAG IVPB PRN (14:16)
[2018-06-20] MEDS ORDERED: IPRATROPIUM-ALBUTEROL 3 ML NEB INHALATION PRN (14:16)
[2018-06-20] MEDS ORDERED: NITROGLYCERIN-D5W PMX 50 MG in DEXTROSE/WATER 1 250ML.BAG IV SCH (14:16)
[2018-06-20] MEDS ORDERED: Phosphorus Replacement Protoco 1 EACH MISC MISCELLANE PRN (14:16)
[2018-06-20] MEDS ORDERED: BENZOCAINE/MENTHOL LOZENG 1 EACH LOZENGE MUCOUS MEM PRN (14:16)
[2018-06-20] MEDS ORDERED: Potassium Replacement Protocol 1 EACH MISC MISCELLANE PRN (14:16)
[2018-06-20] MEDS ORDERED: INSULIN REGULAR 100 UNIT in SODIUM CHLORIDE 0.9% 100 ML IV SCH (14:16)
[2018-06-20] MEDS ORDERED: CALCIUM CHLORIDE 1,000 MG in SODIUM CHLORIDE 0.9% 100 ML IV PRN (14:16)
[2018-06-20] MEDS ORDERED: AMIODARONE 450 MG in DEXTROSE 5% IN WATER 250 ML IV PRN ×2 (14:16)
[2018-06-20] MEDS ORDERED: METOCLOPRAMIDE 5 MG/ML 2 ML VIAL IVP PRN (14:16)
[2018-06-20] MEDS ORDERED: DEXTROSE 5% IN WATER 100 ML with AMIODARONE 150 MG IV PRN (14:16)
[2018-06-20] MEDS ORDERED: PROPOFOL 1,000 MG in EMPTY BAG 1 BAG IV SCH (14:16)
[2018-06-20] MEDS ORDERED: MORPHINE SULFATE 4 MG/ML SYRINGE IVP PRN (14:16)
[2018-06-20] MEDS ORDERED: Magnesium Replacement Protocol 1 EACH MISC MISCELLANE PRN (14:16)
[2018-06-20] MEDS: LACTATED RINGERS 1,000 ML IV SCH (14:30)
--- NOTE | 2018-06-20 14:45 | OP ---
OPERATIVE REPORT DATE OF SURGERY: 06/20/2018. SURGEON: Niki Cabrales MD. DISSOLVER OPERATOR: Ivelisse Solis and David Mcadams. PREOPERATIVE DIAGNOSIS: Coronary artery disease with totally occluded left anterior descending artery and ostial left main disease, hypertension, hyperlipidemia, polio myelitis, TIA's. POSTOPERATIVE DIAGNOSIS: Coronary artery disease with totally occluded left anterior descending artery and ostial left main disease, hypertension, hyperlipidemia, polio myelitis, TIA's. PROCEDURE: 1. Double coronary artery bypass grafting using the left internal mammary artery to the left anterior descending artery/diagonal system, reverse saphenous vein graft from the aorta to the ramus intermedius artery. 2. Endoscopic harvesting of the right greater saphenous vein from the groin to just below knee level. 3. Intraoperative transesophageal echocardiogram and epiaortic scanning. 4. Intraoperative graft flow measurements using the Medi-Stim system. INDICATION FOR SURGERY: Patient is a gentleman with progressive shortness of breath and found to have a totally occluded left anterior descending artery system collateralized by a large dominant disease-free right coronary artery. However, his ostial left main seems to be significant leading to two high obtuse marginal arteries and the plan today is to proceed with revascularization of the LAD system and the marginal system. The SDS risk was discussed with him and his family. They understood them and agreed to proceed. DESCRIPTION OF THE PROCEDURE: Patient in supine position. The right internal jugular [place]-Jaswant catheter and right radial arterial line were placed. The patient had the PA pressure 40/20,. cardiac index of 2.3. Subsequently, general endotracheal anesthesia was induced uneventfully. Patient received 2 g of cefazolin intravenously. Simms catheter was inserted. The chest, abdomen and both lower extremities were prepped and draped using ChloraPrep. Ioban was used to cover the skin. Transesophageal echocardiogram showed global mild hypokinesia. There was mild mitral valve regurgitation. Midline sternotomy was performed and the bone was quite dense. No bone wax was used. The left hemisternum was elevated and left internal mammary artery was harvested in a semi-skeletonized fashion. The left pleura was intentionally opened in this process and was drained with a 19-Albanian Alphonse drain. There were adhesions between the lung and the chest wall inferiorly. They were left alone. In the same setting, the right greater saphenous vein was harvested endoscopically from groin to below-knee level after administration of 2000 units of heparin. The branches were tied. The leg incisions were closed over a drain. The vein appeared to be of excellent quality, around 4 mm in diameter. Mediastinal fat was transected between 2 ties and I could not see the innominate vein. Epiaortic scanning revealed concentric intimal thickening but no protruding atheroma. The pericardium was opened in an inverted T-fashion and a pericardial cradle was created. Findings included normal size heart and normal size aorta. There was no evidence of persistent left superior vena cava. After systemic heparinization after placement of respective pledgeted pursestring, aortic cannulation with a 21-Albanian soft flow cannula and venous cannulation with a 3- stage 29-Albanian cannula was performed. Antegrade as well as retrograde cardioplegia catheter were placed. The mammary artery was double clipped distally and tied and transected had an excellent pulsatile flow in it and was around 2 mm in diameter. Cardiopulmonary bypass was initiated with the heart empty and warm and beating we looked at the target. The LAD diagonal system was a trifurcating system and I picked a spot before one of the bifurcations which was quite deep intrapericardial leading to even a deeper main vessel high up by the base of the heart as site for bypass. That would probably correspond to the very high diagonal system which is in communication with the LAD. The LAD distally appeared to be a very small vessel. Looking at the lateral wall, we were able to find the high ramus intermedius artery and the rest appeared to be very small, nonbypassable small vessels. Aorta was clamped and during aortic clamping, myocardial protection was achieved with initial dose of 600 mL of antegrade cold blood cardioplegia with adequate arrest at around 3:00 am mL followed by 400 mL of retrograde cold blood cardioplegia. All subsequent doses were given combined antegrade and retrograde at 15-20 minute interval. I started by identifying a small vessel at the mid ventricular aspect of the lateral wall. In that vessel, it appeared to be small. However, I thought it could be bypassed. I opened it and actually would not except a 1 mm probe and could not put a 1 mm shunt in it, making it almost not feasible to bypass it. For that reason, that small branch was oversewn with Prolene 7-0 in each over the arteriotomy opening. Looking more medially, I was able to trace back a bifurcating small branches and get to a main trunk which correspond to one of the high obtuse marginal arteries. That was opened. It was around 1.25 mm in diameter and a piece of reverse saphenous vein graft was anastomosed to it using Prolene 7-0 in continuous fashion. There was excellent flow into the vein, which was cut to length and suspended. The second to last distal anastomosis was between the left internal mammary artery in the very high LAD/diagonal system, which was opened, was around 1.5 mm in diameter using Prolene 7-0 in continuous fashion. At the shunt in each of the 2 anastomosis effectively probing the heel and toe. Rewarming was started as we punched out a button of 5 mm of the ascending aorta and anastomosed the vein with Prolene 6 0. The patient was given lidocaine and magnesium. De-airing maneuvers were done and the aorta was unclamped. The patient regained spontaneous sinus rhythm. There were no evidence of any ischemia. After a period of reperfusion, we were able to wean off the bypass without the need of any inotropic or vasopressor support. CHON showed much improved left ventricle function. With that test was then full dose protamine was given. Floseal was sprayed over the scratched area on the lateral wall and over each anastomosis. One bipolar ventricular pacing wires was placed via the inferior aspect of the right ventricle. No atrial pacing wires were placed. A groove was made in the left pleura pericardial fat to accommodate the mammary artery medial to the lung and away from the posterior sternal table. The mammary artery pedicle was affixed to the epicardium with 1 Prolene 6-0 suture. Decannulation was done and the aortic as well as the venous cannulation site were both oversewn with Prolene. After ensuring adequate hemostasis, hemodynamic and after correct sponge, instrument, and needle count, the sternum was closed using a pineal cable after interposing fibular between the sternal edges. Thorough irrigation of cefazolin followed. The rest of the closure proceeded in layers. Skin glue was applied. Patient did not receive any blood bank product but received around 350 mL of Cell Saver blood. Transferred to the ICU with excellent hemodynamic on low-dose nitroglycerin. Graft flow measurements, which had been performed obviously before closing the sternum showed excellent functioning graft with a flow into the vein of around 46 mL/minute, and diastolic filling of 76% and a pulsatility index of 1.7 showing an excellent functioning graft. The flow into the mammary artery was 45 mL/minute, pulsatility index of 2, and diastolic filling of 77% showing also excellent graft. With that, the procedure was terminated. LEIA / RACQUEL: [id number] /
[2018-06-20 14:57] LABS: Glucose,Whole Blood 105 mg/dL (75-99)
[2018-06-20 15:03] LABS: Basophils % (A) 0 %; Eosinophils # (A) 0.1 k/uL (0-0.7); Eosinophils % (A) 2 %; Lymphocytes # (A) 0.9 k/uL (1.0-4.8); Lymphocytes % (A) 14 %; MCH 29.5 pg (25.0-35.0); MCHC 34.1 g/dL (31.0-37.0); MCV 86.6 fL (80.0-100.0); Mean Platelet Volume 8.4; Monocytes # (A) 0.5 k/uL (0-1.0); Monocytes % (A) 8 %; Neutrophils # (A) 5.1 k/uL (1.3-7.7); Neutrophils % (A) 76 %; RBC 2.66 m/uL (4.30-5.90); WBC 6.7 k/uL (3.8-10.6)
[2018-06-20 15:10] LABS: ABG Base Excess 1.4 mmol/L; ABG HCO3 27 mmol/L (21-25); ABG PCO2 46 mmHg (35-45); ABG PH 7.37 (7.35-7.45); ABG PO2 338 mmHg (83-108); ABG TCO2 28 mmol/L (19-24)
[2018-06-20 15:10] LABS: INR 1.3 (<1.2); Partial Thromboplastin Time 34.1 sec (22.0-30.0); Prothrombin Time 12.9 sec (9.0-12.0)
--- NOTE | 2018-06-20 15:10 | XR ---
EXAMINATION TYPE: XR chest 1V portable DATE OF EXAM: 06/20/2018 CLINICAL HISTORY: Post open cardiac surgery. TECHNIQUE: Single AP portable semiupright view of the chest is obtained. COMPARISON: Chest x-ray from June 14, 2018. FINDINGS: There is new endotracheal tube with tip at inferior clavicular margin approximately 5 to 6 cm above lora. There is new orogastric tube terminating distal esophageal level needs to be advanc ed roughly 12 cm. There is new right internal jugular [place]-Jaswant catheter with tip not well identified may be in right ventricle or beginning of the pulmonary outflow track. There is new mediastinal drai nage catheter and left-sided chest tube. New sternal wires and mediastinal clips are present. Cardiomegaly is identified with central vascular congestion now seen. No large pleural effusion or pn eumothorax is noted bilaterally. Multilevel spurring in thoracic spine is noted. IMPRESSION: 1. New tubes and lines as detailed above. Advise advancement of orogastric tube. 2. Cardiomegaly with mild central vascular congestion felt present.
[2018-06-20 15:15] LABS: HGB 7.8 gm/dL (13.0-17.5)
[2018-06-20] MEDS: IPRATROPIUM-ALBUTEROL 3 ML NEB INHALATION SCH ×3 (15:32→20:42)
[2018-06-20 15:38] LABS: Albumin 2.4 g/dL (3.5-5.0); Calcium 7.9 mg/dL (8.4-10.2); Magnesium 2.8 mg/dL (1.6-2.3); Potassium 4.5 mmol/L (3.5-5.1); Total Bilirubin 0.8 mg/dL (0.2-1.3); Total Protein 3.9 g/dL (6.3-8.2)
[2018-06-20] MEDS: ceFAZolin IN SWFI 2 GM/20 ML SYRINGE IVP SCH ×2 (15:39→23:58)
--- NOTE | 2018-06-20 15:39 | P.CNPUL ---
History of Present Illness Consult date: 06/20/18 Chief complaint: Post thoracotomy, coronary artery bypass surgery History of present illness: A 73-year-old male patient, known history of coronary artery disease, previous history of anterior wall myocardial infarction, underwent a repeat cardiac catheterization and following that the patient was advised to undergo bypass surgery. The cath showed critical lesion in the LAD and a moderate lesion in the left main. This patient has an overall LV function of 40-45% in addition to segmental wall motion abnormalities. The patient was taken to bypass surgery and the patient underwent double vessel bypass surgery with BETHEA to LAD and saphenous vein graft to ramus intermedius artery. and following that the patient was brought into the intensive care unit intubated on a mechanical ventilator. Currently, the patient assist-control mode of ventilation with a rate of 12, tidal volume of 500, FiO2 of 100% and a PEEP of 5. The blood gases after arriving this patient to the ICU showed a pH of 7.37 with a pCO2 of 45 and pO2 of around 338. This x-ray showed a. She'll that is sitting high in the trachea. This was pushed by another centimeters. Meanwhile, hemodynamically the patient is doing well. The patient is sedated with Diprivan. The patient has, comfortable and sedated with the mechanical ventilator. The cardiac output is at 4.5, index is at 2.1, PA pressures 38/24, the output from the left pleural chest tube is 400 mL since arrival from the operating room and mediastinal chest tube is around 35 mL. The patient is on nitroglycerin drip. Review of Systems ROS unobtainable: due to endotracheal tube Past Medical History Past Medical History: CVA/TIA, Deep Vein Thrombosis (DVT), GERD/Reflux, Hyperlipidemia, Hypertension, Osteoarthritis (OA) Additional Past Medical History / Comment(s): Coronary artery disease, history of polio, history of TIA back in 2016, history of a blood clot in the left upper extremity, chronic back pain, hypertension, hyperlipidemia, acid reflux, osteoarthritis History of Any Multi-Drug Resistant Organisms: None Reported Past Surgical History: Heart Catheterization, Orthopedic Surgery Additional Past Surgical History / Comment(s): 3 right foot surgeries due to Polio 1948. Heart catheterization 04/04/2018. Past Anesthesia/Blood Transfusion Reactions: No Reported Reaction Smoking Status: Never smoker - Past Family History Mother Sister(s) Family Medical History: CVA/TIA, Hypertension Additional Family Medical History / Comment(s): His mother from a stroke at age 81 Father Family Medical History: CVA/TIA Additional Family Medical History / Comment(s): His father from a stroke at age 80. Brother(s) Family Medical History: Myocardial Infarction ([place]) Additional Family Medical History / Comment(s): 2 of his brothers have had myocardial infarctions one at age 50, and one at age 48. Sister(s) Family Medical History: Myocardial Infarction ([place]) Additional Family Medical History / Comment(s): He is 13 total siblings. One of his sisters had a myocardial infarction in her late 50s and another sister had a myocardial infarction in her 40s. Medications and Allergies Home Medications Medication Instructions Recorded Confirmed Type Aspirin EC [Ecotrin Low Dose] 81 mg PO HS 12/15/17 06/20/18 History Lisinopril [Zestril] 20 mg PO QAM 12/15/17 06/20/18 History Pantoprazole Sodium [Protonix] 40 mg PO QAM 12/15/17 06/20/18 History Metoprolol Succinate (ER) [Toprol 50 mg PO QAM 03/30/18 06/20/18 History XL] Nitroglycerin Sl Tabs [Nitrostat] 0.4 mg SUBLINGUAL Q5M PRN 03/30/18 06/20/18 History Simvastatin 40 mg PO QAM 03/30/18 06/20/18 History Isosorbide Mononitrate ER [Imdur] 15 mg PO DAILY #30 dose 04/04/18 06/20/18 Rx Allergies Allergy/AdvReac Type Severity Reaction Status Date / Time atorvastatin [From Lipitor] AdvReac muscle Verified 06/20/18 14:43 cramps Physical Exam Vitals: Vital Signs Temp Pulse Pulse Resp BP BP Pulse Ox 06/20/18 06:10 98.1 F 67 68 16 145/65 169/80 96 Intake and Output 06/20/18 06/20/18 06/20/18 06:59 14:59 22:59 Intake Total 3 Output Total 1800 Balance -1797 Intake: IV 3 Output: Urine 600 Estimated Blood Loss 1200 Other: Weight 96.3 kg Gen. appearance intubated, comfortable sedated on mechanical ventilator, orogastric and orotracheal tube are both in place. The patient has a right IJ [place]-Jaswant catheter. Head exam was generally normal. There was no scleral icterus or corneal arcus. Mucous membranes were moist. Neck was supple and without jugular venous distension, thyromegaly, or carotid bruits. Carotids were easily palpable bilaterally. There was no adenopathy. Lungs were clear to auscultation and percussion, and with normal diaphragmatic excursion. No wheezes or rales were noted. Sternum stable clean and intact. Cardiac exam revealed the PMI to be normally situated and sized. The rhythm was regular and no extrasystoles were noted during several minutes of auscultation. The first and second heart sounds were normal and physiologic splitting of the second heart sound was noted. There were no murmurs, rubs, clicks, or gallops. Patient has a chest tube including a left pleural chest tube and a mediastinal chest tube. Abdominal exam revealed normal bowel sounds. The abdomen was soft, non-tender, and without masses, organomegaly, or appreciable enlargement of the abdominal aorta. Examination of the extremities revealed easily palpable radial, femoral and pedal pulses. There was no cyanosis, clubbing or edema. Examination of the skin revealed no evidence of significant rashes, suspicious appearing nevi or other concerning lesions. Results - Laboratory Findings CBC and BMP: 06/20/18 14:45 ABG ABG pH 7.37 (7.35-7.45) 06/20/18 15:05 ABG pCO2 46 mmHg (35-45) H 06/20/18 15:05 ABG pO2 338 mmHg (83-108) H 06/20/18 15:05 ABG O2 Saturation 100.0 % (94-97) H 06/20/18 15:05 PT/INR, D-dimer PT 12.9 sec (9.0-12.0) H 06/20/18 14:45 INR 1.3 (<1.2) H 06/20/18 14:45 Abnormal lab findings: Abnormal Labs 06/14/18 06/20/18 06/20/18 09:25 08:35 08:40 RBC Hgb Hct PT INR APTT ABG pH ABG pCO2 ABG pO2 >420 H 392 H ABG HCO3 ABG Total CO2 26 H 26 H ABG O2 Saturation 100.0 H 100.0 H ABG Hematocrit ABG Sodium ABG Potassium ABG Ionized Calcium ABG Glucose ABG Lactic Acid Hemoglobin 12.2 L 12.2 L POC Glucose (mg/dL) Arterial Blood Potassium Arterial Blood Glucose Crossmatch See Detail 06/20/18 06/20/18 06/20/18 10:17 11:28 12:05 RBC Hgb Hct PT INR APTT ABG pH ABG pCO2 ABG pO2 389 H 316 H 372 H ABG HCO3 ABG Total CO2 26 H 25 H 25 H ABG O2 Saturation 100.0 H 100.0 H 100.0 H ABG Hematocrit 26 L 26 L ABG Sodium 133 L 134 L ABG Potassium 5.0 H 5.0 H ABG Ionized Calcium ABG Glucose 113 H 241 H 232 H ABG Lactic Acid 2.1 H Hemoglobin 11.6 L 8.6 L 8.6 L POC Glucose (mg/dL) Arterial Blood Potassium 5.0 H 5.0 H Arterial Blood Glucose 113 H 241 H 232 H Crossmatch 06/20/18 06/20/18 06/20/18 12:31 13:01 13:56 RBC Hgb Hct PT INR APTT ABG pH 7.34 L 7.47 H ABG pCO2 ABG pO2 326 H 214 H 268 H ABG HCO3 26 H ABG Total CO2 27 H ABG O2 Saturation 100.0 H 100.0 H 100.0 H ABG Hematocrit 25 L 25 L 25 L ABG Sodium 134 L ABG Potassium 4.6 H ABG Ionized Calcium 4.4 L ABG Glucose 221 H 183 H 122 H ABG Lactic Acid 2.5 H* 2.8 H* 2.3 H* Hemoglobin 8.2 L 8.0 L 8.1 L POC Glucose (mg/dL) Arterial Blood Potassium 4.6 H Arterial Blood Glucose 221 H 183 H 122 H Crossmatch 06/20/18 06/20/18 06/20/18 14:45 14:45 14:45 RBC 2.66 L Hgb 7.8 L D Hct 23.0 L PT 12.9 H INR 1.3 H APTT 34.1 H ABG pH ABG pCO2 ABG pO2 ABG HCO3 ABG Total CO2 ABG O2 Saturation ABG Hematocrit ABG Sodium ABG Potassium ABG Ionized Calcium ABG Glucose ABG Lactic Acid Hemoglobin POC Glucose (mg/dL) 105 H Arterial Blood Potassium Arterial Blood Glucose Crossmatch 06/20/18 15:05 RBC Hgb Hct PT INR APTT ABG pH ABG pCO2 46 H ABG pO2 338 H ABG HCO3 27 H ABG Total CO2 28 H ABG O2 Saturation 100.0 H ABG Hematocrit ABG Sodium ABG Potassium ABG Ionized Calcium ABG Glucose ABG Lactic Acid Hemoglobin POC Glucose (mg/dL) Arterial Blood Potassium Arterial Blood Glucose Crossmatch - Diagnostic Findings Chest x-ray: image reviewed Assessment and Plan Plan: Assessment 1 coronary artery disease, status post two-vessel bypass surgery with BETHEA to LAD and saphenous graft to ramus intermedius artery. The patient is postop day 0. The patient is hemodynamically stable at this point in time. 2 post thoracotomy, currently intubated on a mechanical ventilator. 3 previous history of TIA 4 acid reflux 5 hypertension 6 hyperlipidemia 7 history of polio Plan Wean down the FiO2 as tolerated to maintain a saturation above 90%. Monitor the output from the chest tubes. Keep the patient sedated for now. Gradually wean down the sedation and assess the patient's weaning parameters and assess his candidacy to wean over the next few hours. Anticipate extubation within less than 6 hours from the time to arrival to the ICU. The patient is hemodynamically stable.
[2018-06-20 16:01] LABS: Anisocytosis (M) Present; Hypochromasia (M) Present; Platelet Count 94 k/uL (150-450); Polychromasia Present
[2018-06-20 16:04] LABS: Glucose,Whole Blood 95 mg/dL (75-99)
--- NOTE | 2018-06-20 16:15 | CONS ---
CONSULTATION Mr. Bro is a 73-year-old male who has underwent coronary artery bypass grafting today. The patient has been followed by Dr. Townsend and has underwent a cardiac catheterization in March of 2018. He has a history of hypertension, hyperlipidemia and a family history of premature coronary artery disease. He was complaining of symptoms of discomfort. He subsequently underwent a cardiac catheterization that showed hypokinesis of the mid anterior anteroapical wall with near total occlusion of the left anterior descending artery with collaterals from the right to the LAD. He underwent coronary bypass grafting today by Dr. Cabrales and he received a BETHEA to the LAD and saphenous vein graft to the ramus intermedius. His past history is remarkable for history of polio, history of TIA, hyperlipidemia and hypertension. The patient is intubated and sedated at this point. His echocardiogram preoperatively showed an ejection fraction of 40% to 45% with apical anterior wall and septal hypokinesis. MEDICATION: Prior to the admission included simvastatin 40 mg daily, metoprolol succinate 50 mg daily, lisinopril 20 mg daily, isosorbide mononitrate 15 mg daily and aspirin once a day. REVIEW OF SYSTEMS: Could not be obtained at this time. PHYSICAL EXAMINATION: He is a 73-year-old male, intubated, sedated. Blood pressure 145/60 with a heart rate in the 60s. HEAD: Normocephalic. Eyes sclerae anicteric. Neck [place]-Jaswant noted. LUNGS: Clear to auscultation anteriorly. HEART: Regular rhythm S1, S2. No S3. No rub appreciated. ABDOMEN: Soft. Hypoactive bowel sounds. No organomegaly. EXTREMITIES: Rajeev wrapping in place. IMPRESSION: 1. Status post coronary artery bypass grafting. 2. Hypertension. 3. Hyperlipidemia. 4. History of polio. RECOMMENDATIONS: From the cardiac standpoint, we will continue routine postoperative care. I am hoping that he can be extubated soon and will resume his oral medication. Thank you for this consult. We will follow with you. MMODL / IJN: [id number] /
--- NOTE | 2018-06-20 16:23 | P.CONS ---
History of Present Illness - Reason for Consult Consult date: 06/20/18 medical mangement Requesting physician: Niki Cabrales - History of Present Illness HPI: This is a 73-year-old male patient being seen examined and evaluated today for consultation while covering for Dr. Ismael Gregorio. This patient does have a history of IA and underwent a cardiac catheterization and he was advised to undergo a CABG. With cardiothoracic surgeon. He did have a CABG today and had BETHEA to the LAD and SVG to the ramus. The patient is currently on mechanical ventilation with propofol for sedation. He is on assist control mode with respiratory of rate of 12, tidal volume 500, FiO2 50% and a PEEP of 5. He is being followed with an malt liquors sales supervisor as well. Currently the patient is hemodynamically stable. He does have 2 chest tubes present please see flowsheet for output. He continues on a nitro drip. Please see surgical notes for further details. Review of Systems Review of systems unable to be obtained due to endotracheal intubation Past Medical History Past Medical History: CVA/TIA, Deep Vein Thrombosis (DVT), GERD/Reflux, Hyperlipidemia, Hypertension, Osteoarthritis (OA) Additional Past Medical History / Comment(s): Coronary artery disease, history of polio, history of TIA back in 2016, history of a blood clot in the left upper extremity, chronic back pain, hypertension, hyperlipidemia, acid reflux, osteoarthritis History of Any Multi-Drug Resistant Organisms: None Reported Past Surgical History: Heart Catheterization, Orthopedic Surgery Additional Past Surgical History / Comment(s): 3 right foot surgeries due to Polio 1948. Heart catheterization 04/04/2018. Past Anesthesia/Blood Transfusion Reactions: No Reported Reaction Smoking Status: Never smoker - Past Family History Mother Sister(s) Family Medical History: CVA/TIA, Hypertension Additional Family Medical History / Comment(s): His mother from a stroke at age 81 Father Family Medical History: CVA/TIA Additional Family Medical History / Comment(s): His father from a stroke at age 80. Brother(s) Family Medical History: Myocardial Infarction (IA) Additional Family Medical History / Comment(s): 2 of his brothers have had myocardial infarctions one at age 50, and one at age 48. Sister(s) Family Medical History: Myocardial Infarction (IA) Additional Family Medical History / Comment(s): He is 13 total siblings. One of his sisters had a myocardial infarction in her late 50s and another sister had a myocardial infarction in her 40s. Medications and Allergies Home Medications Medication Instructions Recorded Confirmed Type Aspirin EC [Ecotrin Low Dose] 81 mg PO HS 12/15/17 06/20/18 History Lisinopril [Zestril] 20 mg PO QAM 12/15/17 06/20/18 History Pantoprazole Sodium [Protonix] 40 mg PO QAM 12/15/17 06/20/18 History Metoprolol Succinate (ER) [Toprol 50 mg PO QAM 03/30/18 06/20/18 History XL] Nitroglycerin Sl Tabs [Nitrostat] 0.4 mg SUBLINGUAL Q5M PRN 03/30/18 06/20/18 History Simvastatin 40 mg PO QAM 03/30/18 06/20/18 History Isosorbide Mononitrate ER [Imdur] 15 mg PO DAILY #30 dose 04/04/18 06/20/18 Rx Allergies Allergy/AdvReac Type Severity Reaction Status Date / Time atorvastatin [From Lipitor] AdvReac muscle Verified 06/20/18 14:43 cramps Physical Exam Vitals: Vital Signs Temp Pulse Pulse Pulse Resp BP BP 06/20/18 15:50 61 06/20/18 15:32 62 06/20/18 15:30 63 12 06/20/18 15:15 61 12 06/20/18 15:00 62 16 06/20/18 14:45 59 L 12 06/20/18 14:32 63 21 06/20/18 06:10 98.1 F 67 68 16 145/65 169/80 Pulse Ox 06/20/18 15:50 06/20/18 15:32 06/20/18 15:30 100 06/20/18 15:15 100 06/20/18 15:00 100 06/20/18 14:45 100 06/20/18 14:32 06/20/18 06:10 96 Intake and Output 06/20/18 06/20/18 06/20/18 06:59 14:59 22:59 Intake Total 3 Output Total 1800 Balance -1797 Intake: IV 3 Output: Urine 600 Estimated Blood Loss 1200 Other: Weight 96.3 kg ABP, PAP, CO, CI - Last 8 Hours Arterial Blood Pressure 118/57 Arterial Blood Pressure 116/56 Arterial Blood Pressure 128/62 Arterial Blood Pressure 120/59 Pulmonary Artery Pressure 39/23 Pulmonary Artery Pressure 35/20 Pulmonary Artery Pressure 37/21 Pulmonary Artery Pressure 40/22 Cardiac Output 4.5 Cardiac Output 4.5 Cardiac Output 4.5 Cardiac Index 2.1 GENERAL EXAM: On mechanical ventilation with propofol for sedation HEAD: Normocephalic. EYES: Normal reaction of pupils, equal size. NOSE: Clear with pink turbinates. THROAT: No erythema or exudates. NECK: No masses, no JVD. Right IJ [place]-Jaswant catheter CHEST: Midline incision clean dry and intact, left pleural chest tube and mediastinal chest tube LUNGS: Equal air entry with no crackles, wheeze, rhonchi or dullness. Bases diminished CVS: S1 and S2 normal with no audible mumurs, regular rhythm. ABDOMEN: No hepatosplenomegaly, normal bowel sounds, no guarding or rigidity. EXTREMITIES: No edema noted, pedal pulses palpable. CENTRAL NERVOUS SYSTEM: Sedated Results CBC & Chem 7: 06/20/18 14:45 06/20/18 14:45 Labs: Abnormal Lab Results - Last 24 Hours (Table) 06/14/18 06/20/18 06/20/18 Range/Units 09:25 08:35 08:40 RBC (4.30-5.90) m/uL Hgb (13.0-17.5) gm/dL Hct (39.0-53.0) % Plt Count (150-450) k/uL Lymphocytes # (1.0-4.8) k/uL PT (9.0-12.0) sec INR (<1.2) APTT (22.0-30.0) sec ABG pH (7.35-7.45) ABG pCO2 (35-45) mmHg ABG pO2 >420 H 392 H (83-108) mmHg ABG HCO3 (21-25) mmol/L ABG Total CO2 26 H 26 H (19-24) mmol/L ABG O2 Saturation 100.0 H 100.0 H (94-97) % ABG Hematocrit (34.0-46.0) % ABG Sodium (135-146) mmol/L ABG Potassium (3.4-4.5) mmol/L ABG Ionized Calcium (4.5-5.3) mg/dL ABG Glucose (75-99) mg/dL ABG Lactic Acid (0.5-1.6) mmol/L Hemoglobin 12.2 L 12.2 L (13.0-17.5) gm/dL Chloride (98-107) mmol/L POC Glucose (mg/dL) (75-99) mg/dL Calcium (8.4-10.2) mg/dL Magnesium (1.6-2.3) mg/dL Alkaline Phosphatase (38-126) U/L Total Protein (6.3-8.2) g/dL Albumin (3.5-5.0) g/dL Arterial Blood Potassium (3.4-4.5) mmol/L Arterial Blood Glucose (75-99) mg/dL Crossmatch See Detail 06/20/18 06/20/18 06/20/18 Range/Units 10:17 11:28 12:05 RBC (4.30-5.90) m/uL Hgb (13.0-17.5) gm/dL Hct (39.0-53.0) % Plt Count (150-450) k/uL Lymphocytes # (1.0-4.8) k/uL PT (9.0-12.0) sec INR (<1.2) APTT (22.0-30.0) sec ABG pH (7.35-7.45) ABG pCO2 (35-45) mmHg ABG pO2 389 H 316 H 372 H (83-108) mmHg ABG HCO3 (21-25) mmol/L ABG Total CO2 26 H 25 H 25 H (19-24) mmol/L ABG O2 Saturation 100.0 H 100.0 H 100.0 H (94-97) % ABG Hematocrit 26 L 26 L (34.0-46.0) % ABG Sodium 133 L 134 L (135-146) mmol/L ABG Potassium 5.0 H 5.0 H (3.4-4.5) mmol/L ABG Ionized Calcium (4.5-5.3) mg/dL ABG Glucose 113 H 241 H 232 H (75-99) mg/dL ABG Lactic Acid 2.1 H (0.5-1.6) mmol/L Hemoglobin 11.6 L 8.6 L 8.6 L (13.0-17.5) gm/dL Chloride (98-107) mmol/L POC Glucose (mg/dL) (75-99) mg/dL Calcium (8.4-10.2) mg/dL Magnesium (1.6-2.3) mg/dL Alkaline Phosphatase (38-126) U/L Total Protein (6.3-8.2) g/dL Albumin (3.5-5.0) g/dL Arterial Blood Potassium 5.0 H 5.0 H (3.4-4.5) mmol/L Arterial Blood Glucose 113 H 241 H 232 H (75-99) mg/dL Crossmatch 06/20/18 06/20/18 06/20/18 Range/Units 12:31 13:01 13:56 RBC (4.30-5.90) m/uL Hgb (13.0-17.5) gm/dL Hct (39.0-53.0) % Plt Count (150-450) k/uL Lymphocytes # (1.0-4.8) k/uL PT (9.0-12.0) sec INR (<1.2) APTT (22.0-30.0) sec ABG pH 7.34 L 7.47 H (7.35-7.45) ABG pCO2 (35-45) mmHg ABG pO2 326 H 214 H 268 H (83-108) mmHg ABG HCO3 26 H (21-25) mmol/L ABG Total CO2 27 H (19-24) mmol/L ABG O2 Saturation 100.0 H 100.0 H 100.0 H (94-97) % ABG Hematocrit 25 L 25 L 25 L (34.0-46.0) % ABG Sodium 134 L (135-146) mmol/L ABG Potassium 4.6 H (3.4-4.5) mmol/L ABG Ionized Calcium 4.4 L (4.5-5.3) mg/dL ABG Glucose 221 H 183 H 122 H (75-99) mg/dL ABG Lactic Acid 2.5 H* 2.8 H* 2.3 H* (0.5-1.6) mmol/L Hemoglobin 8.2 L 8.0 L 8.1 L (13.0-17.5) gm/dL Chloride (98-107) mmol/L POC Glucose (mg/dL) (75-99) mg/dL Calcium (8.4-10.2) mg/dL Magnesium (1.6-2.3) mg/dL Alkaline Phosphatase (38-126) U/L Total Protein (6.3-8.2) g/dL Albumin (3.5-5.0) g/dL Arterial Blood Potassium 4.6 H (3.4-4.5) mmol/L Arterial Blood Glucose 221 H 183 H 122 H (75-99) mg/dL Crossmatch 06/20/18 06/20/18 06/20/18 Range/Units 14:45 14:45 14:45 RBC 2.66 L (4.30-5.90) m/uL Hgb 7.8 L D (13.0-17.5) gm/dL Hct 23.0 L (39.0-53.0) % Plt Count 94 L D (150-450) k/uL Lymphocytes # 0.9 L (1.0-4.8) k/uL PT 12.9 H (9.0-12.0) sec INR 1.3 H (<1.2) APTT 34.1 H (22.0-30.0) sec ABG pH (7.35-7.45) ABG pCO2 (35-45) mmHg ABG pO2 (83-108) mmHg ABG HCO3 (21-25) mmol/L ABG Total CO2 (19-24) mmol/L ABG O2 Saturation (94-97) % ABG Hematocrit (34.0-46.0) % ABG Sodium (135-146) mmol/L ABG Potassium (3.4-4.5) mmol/L ABG Ionized Calcium (4.5-5.3) mg/dL ABG Glucose (75-99) mg/dL ABG Lactic Acid (0.5-1.6) mmol/L Hemoglobin (13.0-17.5) gm/dL Chloride 108 H (98-107) mmol/L POC Glucose (mg/dL) (75-99) mg/dL Calcium 7.9 L (8.4-10.2) mg/dL Magnesium 2.8 H (1.6-2.3) mg/dL Alkaline Phosphatase 27 L (38-126) U/L Total Protein 3.9 L (6.3-8.2) g/dL Albumin 2.4 L (3.5-5.0) g/dL Arterial Blood Potassium (3.4-4.5) mmol/L Arterial Blood Glucose (75-99) mg/dL Crossmatch 06/20/18 06/20/18 Range/Units 14:45 15:05 RBC (4.30-5.90) m/uL Hgb (13.0-17.5) gm/dL Hct (39.0-53.0) % Plt Count (150-450) k/uL Lymphocytes # (1.0-4.8) k/uL PT (9.0-12.0) sec INR (<1.2) APTT (22.0-30.0) sec ABG pH (7.35-7.45) ABG pCO2 46 H (35-45) mmHg ABG pO2 338 H (83-108) mmHg ABG HCO3 27 H (21-25) mmol/L ABG Total CO2 28 H (19-24) mmol/L ABG O2 Saturation 100.0 H (94-97) % ABG Hematocrit (34.0-46.0) % ABG Sodium (135-146) mmol/L ABG Potassium (3.4-4.5) mmol/L ABG Ionized Calcium (4.5-5.3) mg/dL ABG Glucose (75-99) mg/dL ABG Lactic Acid (0.5-1.6) mmol/L Hemoglobin (13.0-17.5) gm/dL Chloride (98-107) mmol/L POC Glucose (mg/dL) 105 H (75-99) mg/dL Calcium (8.4-10.2) mg/dL Magnesium (1.6-2.3) mg/dL Alkaline Phosphatase (38-126) U/L Total Protein (6.3-8.2) g/dL Albumin (3.5-5.0) g/dL Arterial Blood Potassium (3.4-4.5) mmol/L Arterial Blood Glucose (75-99) mg/dL Crossmatch Chest x-ray: report reviewed, image reviewed Assessment and Plan Assessment: Assessment Coronary artery disease status post CABG BETHEA to the LAD and SVG to the ramus History of TIA GERD history of polio history of DVT in the left arm History of TIA in 2016 no deficits Hypertension Plan Medications have been reviewed and will be continued as ordered. Appreciate input of the malt liquors sales supervisor, cardiothoracic surgeon Extubation per malt liquors sales supervisor Monitor chest tubes Continue with pulmonary hygiene, coughing and deep breathing exercises, and supportive care. Supplemental oxygen to maintain oxygen saturations of 92% or better. GI and DVT prophylaxis. We will continue to monitor labs/results and adjust treatment as necessary. Further recommendations pending. I, the signing physician performed an examination of the patient, discussed and directed their management with the nurse practitioner. I have reviewed the nurse practitioner's note and agree with the documented findings, orders and plan of care. Nurse practitioner acting as a scribe for the signing physician. Please note we are covering for Dr. Ismael Gregorio
[2018-06-20] MEDS: CLEVIDIPINE BUTYRATE 25 MG in EMPTY BAG 1 BAG IV SCH (16:30)
[2018-06-20] MEDS: CLEVIDIPINE BUTYRATE 25 MG in EMPTY BAG 1 BAG IV ONE (16:30)
[2018-06-20] MEDS: ACETAMINOPHEN IV (For NPO) 1,000 MG in EMPTY BAG 1 BAG IVPB SCH (17:37)
[2018-06-20 17:42] LABS: Glucose,Whole Blood 139 mg/dL (75-99)
[2018-06-20 18:53] LABS: Glucose,Whole Blood 159 mg/dL (75-99)
[2018-06-20 18:55] LABS: Basophils % (A) 0 %; Eosinophils # (A) 0.1 k/uL (0-0.7); Eosinophils % (A) 1 %; HCT 29.2 % (39.0-53.0); Lymphocytes # (A) 0.9 k/uL (1.0-4.8); Lymphocytes % (A) 6 %; MCHC 33.1 g/dL (31.0-37.0); MCV 87.7 fL (80.0-100.0); Monocytes # (A) 0.9 k/uL (0-1.0); Monocytes % (A) 7 %; Neutrophils # (A) 11.4 k/uL (1.3-7.7); Neutrophils % (A) 86 %; RBC 3.33 m/uL (4.30-5.90); RDW 13.4 % (11.5-15.5); WBC 13.3 k/uL (3.8-10.6)
[2018-06-20 19:01] LABS: HGB 9.7 gm/dL (13.0-17.5); Platelet Count 167 k/uL (150-450)
[2018-06-20 19:20] LABS: Glucose,Whole Blood 175 mg/dL (75-99)
[2018-06-20 19:53] LABS: ABG Base Excess -1.5 mmol/L; ABG HCO3 24 mmol/L (21-25); ABG Oxygen Saturation 93.9 % (94-97); ABG PCO2 46 mmHg (35-45); ABG PH 7.33 (7.35-7.45); ABG PO2 68 mmHg (83-108); ABG TCO2 26 mmol/L (19-24)
[2018-06-20 20:21] LABS: Glucose,Whole Blood 172 mg/dL (75-99)
[2018-06-20] MEDS ORDERED: METOPROLOL TARTRATE 12.5 MG TAB PO ONE (21:00)
[2018-06-20 21:11] LABS: Glucose,Whole Blood 165 mg/dL (75-99)
[2018-06-20] MEDS: ONDANSETRON 4 MG/2 ML VIAL IVP PRN (21:36)
[2018-06-20 22:15] LABS: Glucose,Whole Blood 145 mg/dL (75-99)
[2018-06-20 22:39] LABS: HCT 27.2 % (39.0-53.0); HGB 9.3 gm/dL (13.0-17.5); MCH 29.8 pg (25.0-35.0); MCHC 34.1 g/dL (31.0-37.0); MCV 87.5 fL (80.0-100.0); Mean Platelet Volume 8.5; Platelet Count 130 k/uL (150-450); RBC 3.11 m/uL (4.30-5.90); RDW 13.2 % (11.5-15.5); WBC 11.5 k/uL (3.8-10.6)
[2018-06-20 22:52] LABS: Calcium 8.5 mg/dL (8.4-10.2); Potassium 5.2 mmol/L (3.5-5.1)
[2018-06-20 23:13] LABS: Glucose,Whole Blood 133 mg/dL (75-99)
[2018-06-20] MEDS: HEPARIN SODIUM,PORCINE 5,000 UNIT/ML 1 ML VIAL SQ SCH (23:21)
[2018-06-20] MEDS: MUPIROCIN 2% OINT 22 GM TUBE NASAL SCH (23:57)
[2018-06-21] MEDS: ACETAMINOPHEN IV (For NPO) 1,000 MG in EMPTY BAG 1 BAG IVPB SCH ×4 (00:04→17:13)
[2018-06-21 00:21] LABS: Glucose,Whole Blood 117 mg/dL (75-99)
[2018-06-21 01:26] LABS: Glucose,Whole Blood 119 mg/dL (75-99)
[2018-06-21 02:24] LABS: Glucose,Whole Blood 122 mg/dL (75-99)
[2018-06-21 03:13] LABS: Glucose,Whole Blood 121 mg/dL (75-99)
[2018-06-21 04:31] LABS: Glucose,Whole Blood 126 mg/dL (75-99)
[2018-06-21 04:33] LABS: Ionized Calcium 4.9 mg/dL (4.5-5.3)
[2018-06-21 04:42] LABS: Albumin 2.9 g/dL (3.5-5.0); Calcium 8.5 mg/dL (8.4-10.2); Magnesium 2.4 mg/dL (1.6-2.3); Potassium 5.4 mmol/L (3.5-5.1); Total Bilirubin 0.8 mg/dL (0.2-1.3); Total Protein 4.6 g/dL (6.3-8.2)
[2018-06-21 04:47] LABS: Basophils % (A) 0 %; Eosinophils % (A) 0 %; HCT 27.6 % (39.0-53.0); HGB 8.6 gm/dL (13.0-17.5); Lymphocytes # (A) 0.5 k/uL (1.0-4.8); Lymphocytes % (A) 5 %; MCH 27.4 pg (25.0-35.0); MCHC 31.3 g/dL (31.0-37.0); MCV 87.5 fL (80.0-100.0); Mean Platelet Volume 8.8; Monocytes # (A) 0.8 k/uL (0-1.0); Monocytes % (A) 7 %; Neutrophils # (A) 10.2 k/uL (1.3-7.7); Neutrophils % (A) 88 %; Platelet Count 131 k/uL (150-450); RBC 3.15 m/uL (4.30-5.90); RDW 13.5 % (11.5-15.5); WBC 11.6 k/uL (3.8-10.6)
[2018-06-21 04:52] LABS: Partial Thromboplastin Time 29.6 sec (22.0-30.0)
[2018-06-21 06:13] LABS: Glucose,Whole Blood 128 mg/dL (75-99)
[2018-06-21] MEDS: ONDANSETRON 4 MG/2 ML VIAL IVP PRN (06:13)
[2018-06-21 07:23] LABS: Glucose,Whole Blood 129 mg/dL (75-99)
[2018-06-21] MEDS: IPRATROPIUM-ALBUTEROL 3 ML NEB INHALATION SCH ×4 (07:30→20:32)
[2018-06-21] MEDS: ceFAZolin IN SWFI 2 GM/20 ML SYRINGE IVP SCH (08:13)
--- NOTE | 2018-06-21 08:15 | XR ---
EXAMINATION TYPE: XR chest 1V portable DATE OF EXAM: 06/21/2018 COMPARISON: Prior chest x-ray dated 06/20/2018 HISTORY: Status post cardiac surgery TECHNIQUE: Single frontal view of the chest is obtained. FINDINGS: Endotracheal tube and NG tube have been removed. Right jugular central venous sheath and c oaxial [place]-Jaswant catheter remain in place, the catheter tip is overlying the pulmonary artery. There are cardiac leads. There is a left chest tube, median sternal drain in place. No sizable pneumothorax or pleural effusion. Heart remains enlarged. Mediastinal widening is stable status post median bethea otomy. Interstitium mildly increased, lung volumes are low, patchy bibasilar density is noted. IMPRESSION: Interval extubation. There may be a component of volume overload, pulmonary venous hyper tension and interstitial edema, basilar atelectasis, additional follow-up recommended.
[2018-06-21] MEDS: METOPROLOL TARTRATE 12.5 MG TAB PO SCH ×2 (08:16→08:17)
[2018-06-21] MEDS: HEPARIN SODIUM,PORCINE 5,000 UNIT/ML 1 ML VIAL SQ SCH ×3 (08:17→23:32)
[2018-06-21] MEDS: CLOPIDOGREL 75 MG TAB PO SCH (08:17)
[2018-06-21] MEDS: ASPIRIN 325 MG TAB PO SCH (08:17)
[2018-06-21] MEDS: MUPIROCIN 2% OINT 22 GM TUBE NASAL SCH ×2 (08:18→20:59)
[2018-06-21] MEDS ORDERED: METOPROLOL TARTRATE 12.5 MG TAB PO ONE (08:30)
--- NOTE | 2018-06-21 08:37 | PN ---
PROGRESS NOTE Mr. Bro is a 73-year-old male who underwent coronary artery bypass grafting yesterday. He is doing well this morning. He denies any symptoms of chest pain. His breathing is stable. He got extubated yesterday. He denies any dizziness or palpitation. He continued be in sinus mechanism. He continues to be on IV nitroglycerin and IV insulin, aspirin, Lipitor and metoprolol 12.5 mg twice a day. PHYSICAL EXAMINATION: Blood pressure 124/50 with the heart rate in 70s. LUNGS: A few crackles at the bases. HEART: Regular rate and rhythm. S1, S2. No S3. No rub appreciated. ABDOMEN: Soft, nontender. Positive bowel sounds. EXTREMITIES: No edema. IMPRESSION: 1. Status post coronary artery bypass grafting, stable. 2. History of hyperlipidemia. 3. History of polio. 4. Hypertension. RECOMMENDATION: From the cardiac standpoint, we will continue present therapy. Continue to increase his activity. Continue incentive spirometry and depending on his progress further recommendation will be made. MMODL / IJN: [id number] /
[2018-06-21 08:42] LABS: Glucose,Whole Blood 131 mg/dL (75-99)
[2018-06-21] MEDS ORDERED: METOPROLOL TARTRATE 12.5 MG TAB PO SCH (09:00)
[2018-06-21] MEDS ORDERED: PANTOPRAZOLE 40 MG/10 ML VIAL IVP SCH (09:00)
--- NOTE | 2018-06-21 09:11 | P.PN ---
Subjective Progress Note Date: 06/21/18 Principal diagnosis: Coronary artery disease with totally occluded left anterior descending artery and ostial left main disease, hypertension, hyperlipidemia, diabetes with preoperative hemoglobin A1c 5.4%, poliomyelitis, TIAs, GERD, DVT in 1972, obesity, significant family history for early onset coronary artery disease with 2 brothers and 3 sisters having myocardial infarctions in their 50s. POD #1 double coronary artery bypass grafting using the left internal mammary artery to the left anterior descending artery/diagonal system, reverse saphenous vein graft from the aorta to the ramus intermedius artery. Endoscopic harvesting of the right greater saphenous vein from the groin to just below the knee level. Intraoperative transesophageal echocardiogram and epi-aortic scanning. Intraoperative graft flow measurements using the M2G system. Postoperative acute blood loss anemia, expected outcome of surgery secondary to cardiopulmonary bypass pump and hemodilution. The patient's currently sitting up in a recliner in no acute distress in the intensive care unit. He was successfully extubated last night at 20:20. Remains hemodynamically stable on no inotropes or pressors. Working diligently on his incentive spirometry. States surgical pain is well-controlled on current medication regimen, denies shortness of breath. No new complaints. Objective - Vital Signs Vital signs: Vital Signs Temp 36 F L 06/21/18 08:00 Pulse 79 06/21/18 08:00 Resp 12 06/21/18 08:00 BP 169/80 06/20/18 06:10 Pulse Ox 97 06/21/18 08:00 Intake & Output 06/20/18 06/21/18 06/21/18 18:59 06:59 18:59 Intake Total 223.439 665.379 70 Output Total 2730 1102 98 Balance -2506.561 -436.621 -28 Weight 99.79 kg Intake: IV 203 600 70 Lactated Ringers 1,000 ml 200 600 70 @ 20 mls/hr IV .Q24H [facility] Rx#:[id number] Intake, IV Titration 20.439 65.379 Amount Clevidipine Butyrate 25 7.5 42.5 mg In Empty Bag 1 bag @ 1 MG/HR 2 mls/hr IV .Q24H [facility] Rx#:[id number] Insulin Regular 100 unit 22.879 In Sodium Chloride 0.9% 100 ml @ Per Protocol IV .Q0M [facility] Rx#:[id number] Propofol 1,000 mg In 12.939 Empty Bag 1 bag @ Titrate IV .Q0M [facility] Rx#: [id number] Output: Chest Tube Drainage 390 245 30 Chest Tube Left Lateral 270 50 10 Chest Chest Tube Mediastinal 120 195 20 Urine 1140 857 68 Estimated Blood Loss 1200 Other: Voiding Method Indwelling Catheter Indwelling Catheter Indwelling Catheter ABP, PAP, CO, CI - Last Documented Arterial Blood Pressure 129/52 Pulmonary Artery Pressure 24/4 Cardiac Output 6.3 Cardiac Index 2.9 - Constitutional General appearance: Present: cooperative, no acute distress, obese - Respiratory Details: Lungs sounds diminished bilaterally. Respirations even, nonlabored. Currently on 2 L nasal cannula with oxygen saturation 96%. Strong cough. Able to achieve 1750 mL on his incentive spirometry. Mediastinal chest tube to continuous wall suction, 355 mL serosanguineous drainage in the last 12 hours, 540 mL since surgery. Left pleural chest tube to continuous wall suction, 120 mL serosanguineous drainage in the last 12 hours, 450 mL since surgery. No air leaks present. - Cardiovascular Details: S1, S2 present. Regular rate and rhythm, sinus rhythm on telemetry. Sternum stable. Ventricular epicardial pacemaker wires present, grounded. Palpable peripheral pulses bilaterally. No edema present. No calf pain or tenderness noted. Right internal jugular [place], right brachial arterial line present. Last CO/CI 6.1/2.9 on no inotropes or pressors. Heart hugger in place with patient demonstrating appropriate use. Antiembolism stockings, SCDs present. - Gastrointestinal Gastrointestinal Comment(s): Abdomen soft, nontender, nondistended. Hypoactive bowel sounds present 4 quadrants. Tolerating clear liquids although did have some nausea last night. Positive belching, negative flatus. - Genitourinary Genitourinary Comment(s): Simms present draining clear, yellow urine. Output 40-65 mL per hour overnight. - Integumentary Integumentary Comment(s): Skin is warm and dry with evidence of good perfusion. Anterior chest incision well approximated and covered with dry intact dressing. Right lower extremity EVH site well approximated, HAZEL drain present with minimal serosanguineous drainage. - Neurologic Neurologic: Present: CNII-XII intact - Musculoskeletal Musculoskeletal: Present: strength equal bilaterally - Psychiatric Psychiatric: Present: A&O x's 3, appropriate affect, intact judgment & insight - Labs CBC & Chem 7: 06/21/18 04:18 06/21/18 04:18 Labs: Abnormal Lab Results - Last 24 Hours (Table) 06/14/18 06/20/18 06/20/18 Range/Units 09:25 08:35 08:40 WBC (3.8-10.6) k/uL RBC (4.30-5.90) m/uL Hgb (13.0-17.5) gm/dL Hct (39.0-53.0) % Plt Count (150-450) k/uL Neutrophils # (1.3-7.7) k/uL Lymphocytes # (1.0-4.8) k/uL PT (9.0-12.0) sec INR (<1.2) APTT (22.0-30.0) sec ABG pH (7.35-7.45) ABG pCO2 (35-45) mmHg ABG pO2 >420 H 392 H (83-108) mmHg ABG HCO3 (21-25) mmol/L ABG Total CO2 26 H 26 H (19-24) mmol/L ABG O2 Saturation 100.0 H 100.0 H (94-97) % ABG Hematocrit (34.0-46.0) % ABG Sodium (135-146) mmol/L ABG Potassium (3.4-4.5) mmol/L ABG Ionized Calcium (4.5-5.3) mg/dL ABG Glucose (75-99) mg/dL ABG Lactic Acid (0.5-1.6) mmol/L Hemoglobin 12.2 L 12.2 L (13.0-17.5) gm/dL Potassium (3.5-5.1) mmol/L Chloride (98-107) mmol/L Glucose (74-99) mg/dL POC Glucose (mg/dL) (75-99) mg/dL Calcium (8.4-10.2) mg/dL Magnesium (1.6-2.3) mg/dL AST (17-59) U/L Alkaline Phosphatase (38-126) U/L Total Protein (6.3-8.2) g/dL Albumin (3.5-5.0) g/dL Arterial Blood Potassium (3.4-4.5) mmol/L Arterial Blood Glucose (75-99) mg/dL Crossmatch See Detail 06/20/18 06/20/18 06/20/18 Range/Units 10:17 11:28 12:05 WBC (3.8-10.6) k/uL RBC (4.30-5.90) m/uL Hgb (13.0-17.5) gm/dL Hct (39.0-53.0) % Plt Count (150-450) k/uL Neutrophils # (1.3-7.7) k/uL Lymphocytes # (1.0-4.8) k/uL PT (9.0-12.0) sec INR (<1.2) APTT (22.0-30.0) sec ABG pH (7.35-7.45) ABG pCO2 (35-45) mmHg ABG pO2 389 H 316 H 372 H (83-108) mmHg ABG HCO3 (21-25) mmol/L ABG Total CO2 26 H 25 H 25 H (19-24) mmol/L ABG O2 Saturation 100.0 H 100.0 H 100.0 H (94-97) % ABG Hematocrit 26 L 26 L (34.0-46.0) % ABG Sodium 133 L 134 L (135-146) mmol/L ABG Potassium 5.0 H 5.0 H (3.4-4.5) mmol/L ABG Ionized Calcium (4.5-5.3) mg/dL ABG Glucose 113 H 241 H 232 H (75-99) mg/dL ABG Lactic Acid 2.1 H (0.5-1.6) mmol/L Hemoglobin 11.6 L 8.6 L 8.6 L (13.0-17.5) gm/dL Potassium (3.5-5.1) mmol/L Chloride (98-107) mmol/L Glucose (74-99) mg/dL POC Glucose (mg/dL) (75-99) mg/dL Calcium (8.4-10.2) mg/dL Magnesium (1.6-2.3) mg/dL AST (17-59) U/L Alkaline Phosphatase (38-126) U/L Total Protein (6.3-8.2) g/dL Albumin (3.5-5.0) g/dL Arterial Blood Potassium 5.0 H 5.0 H (3.4-4.5) mmol/L Arterial Blood Glucose 113 H 241 H 232 H (75-99) mg/dL Crossmatch 06/20/18 06/20/18 06/20/18 Range/Units 12:31 13:01 13:56 WBC (3.8-10.6) k/uL RBC (4.30-5.90) m/uL Hgb (13.0-17.5) gm/dL Hct (39.0-53.0) % Plt Count (150-450) k/uL Neutrophils # (1.3-7.7) k/uL Lymphocytes # (1.0-4.8) k/uL PT (9.0-12.0) sec INR (<1.2) APTT (22.0-30.0) sec ABG pH 7.34 L 7.47 H (7.35-7.45) ABG pCO2 (35-45) mmHg ABG pO2 326 H 214 H 268 H (83-108) mmHg ABG HCO3 26 H (21-25) mmol/L ABG Total CO2 27 H (19-24) mmol/L ABG O2 Saturation 100.0 H 100.0 H 100.0 H (94-97) % ABG Hematocrit 25 L 25 L 25 L (34.0-46.0) % ABG Sodium 134 L (135-146) mmol/L ABG Potassium 4.6 H (3.4-4.5) mmol/L ABG Ionized Calcium 4.4 L (4.5-5.3) mg/dL ABG Glucose 221 H 183 H 122 H (75-99) mg/dL ABG Lactic Acid 2.5 H* 2.8 H* 2.3 H* (0.5-1.6) mmol/L Hemoglobin 8.2 L 8.0 L 8.1 L (13.0-17.5) gm/dL Potassium (3.5-5.1) mmol/L Chloride (98-107) mmol/L Glucose (74-99) mg/dL POC Glucose (mg/dL) (75-99) mg/dL Calcium (8.4-10.2) mg/dL Magnesium (1.6-2.3) mg/dL AST (17-59) U/L Alkaline Phosphatase (38-126) U/L Total Protein (6.3-8.2) g/dL Albumin (3.5-5.0) g/dL Arterial Blood Potassium 4.6 H (3.4-4.5) mmol/L Arterial Blood Glucose 221 H 183 H 122 H (75-99) mg/dL Crossmatch 06/20/18 06/20/18 06/20/18 Range/Units 14:45 14:45 14:45 WBC (3.8-10.6) k/uL RBC 2.66 L (4.30-5.90) m/uL Hgb 7.8 L D (13.0-17.5) gm/dL Hct 23.0 L (39.0-53.0) % Plt Count 94 L D (150-450) k/uL Neutrophils # (1.3-7.7) k/uL Lymphocytes # 0.9 L (1.0-4.8) k/uL PT 12.9 H (9.0-12.0) sec INR 1.3 H (<1.2) APTT 34.1 H (22.0-30.0) sec ABG pH (7.35-7.45) ABG pCO2 (35-45) mmHg ABG pO2 (83-108) mmHg ABG HCO3 (21-25) mmol/L ABG Total CO2 (19-24) mmol/L ABG O2 Saturation (94-97) % ABG Hematocrit (34.0-46.0) % ABG Sodium (135-146) mmol/L ABG Potassium (3.4-4.5) mmol/L ABG Ionized Calcium (4.5-5.3) mg/dL ABG Glucose (75-99) mg/dL ABG Lactic Acid (0.5-1.6) mmol/L Hemoglobin (13.0-17.5) gm/dL Potassium (3.5-5.1) mmol/L Chloride 108 H (98-107) mmol/L Glucose (74-99) mg/dL POC Glucose (mg/dL) (75-99) mg/dL Calcium 7.9 L (8.4-10.2) mg/dL Magnesium 2.8 H (1.6-2.3) mg/dL AST (17-59) U/L Alkaline Phosphatase 27 L (38-126) U/L Total Protein 3.9 L (6.3-8.2) g/dL Albumin 2.4 L (3.5-5.0) g/dL Arterial Blood Potassium (3.4-4.5) mmol/L Arterial Blood Glucose (75-99) mg/dL Crossmatch 06/20/18 06/20/18 06/20/18 Range/Units 14:45 15:05 17:31 WBC (3.8-10.6) k/uL RBC (4.30-5.90) m/uL Hgb (13.0-17.5) gm/dL Hct (39.0-53.0) % Plt Count (150-450) k/uL Neutrophils # (1.3-7.7) k/uL Lymphocytes # (1.0-4.8) k/uL PT (9.0-12.0) sec INR (<1.2) APTT (22.0-30.0) sec ABG pH (7.35-7.45) ABG pCO2 46 H (35-45) mmHg ABG pO2 338 H (83-108) mmHg ABG HCO3 27 H (21-25) mmol/L ABG Total CO2 28 H (19-24) mmol/L ABG O2 Saturation 100.0 H (94-97) % ABG Hematocrit (34.0-46.0) % ABG Sodium (135-146) mmol/L ABG Potassium (3.4-4.5) mmol/L ABG Ionized Calcium (4.5-5.3) mg/dL ABG Glucose (75-99) mg/dL ABG Lactic Acid (0.5-1.6) mmol/L Hemoglobin (13.0-17.5) gm/dL Potassium (3.5-5.1) mmol/L Chloride (98-107) mmol/L Glucose (74-99) mg/dL POC Glucose (mg/dL) 105 H 139 H (75-99) mg/dL Calcium (8.4-10.2) mg/dL Magnesium (1.6-2.3) mg/dL AST (17-59) U/L Alkaline Phosphatase (38-126) U/L Total Protein (6.3-8.2) g/dL Albumin (3.5-5.0) g/dL Arterial Blood Potassium (3.4-4.5) mmol/L Arterial Blood Glucose (75-99) mg/dL Crossmatch 06/20/18 06/20/18 06/20/18 Range/Units 18:40 18:41 19:09 WBC 13.3 H (3.8-10.6) k/uL RBC 3.33 L (4.30-5.90) m/uL Hgb 9.7 L D (13.0-17.5) gm/dL Hct 29.2 L (39.0-53.0) % Plt Count (150-450) k/uL Neutrophils # 11.4 H (1.3-7.7) k/uL Lymphocytes # 0.9 L (1.0-4.8) k/uL PT (9.0-12.0) sec INR (<1.2) APTT (22.0-30.0) sec ABG pH (7.35-7.45) ABG pCO2 (35-45) mmHg ABG pO2 (83-108) mmHg ABG HCO3 (21-25) mmol/L ABG Total CO2 (19-24) mmol/L ABG O2 Saturation (94-97) % ABG Hematocrit (34.0-46.0) % ABG Sodium (135-146) mmol/L ABG Potassium (3.4-4.5) mmol/L ABG Ionized Calcium (4.5-5.3) mg/dL ABG Glucose (75-99) mg/dL ABG Lactic Acid (0.5-1.6) mmol/L Hemoglobin (13.0-17.5) gm/dL Potassium (3.5-5.1) mmol/L Chloride (98-107) mmol/L Glucose (74-99) mg/dL POC Glucose (mg/dL) 159 H 175 H (75-99) mg/dL Calcium (8.4-10.2) mg/dL Magnesium (1.6-2.3) mg/dL AST (17-59) U/L Alkaline Phosphatase (38-126) U/L Total Protein (6.3-8.2) g/dL Albumin (3.5-5.0) g/dL Arterial Blood Potassium (3.4-4.5) mmol/L Arterial Blood Glucose (75-99) mg/dL Crossmatch 06/20/18 06/20/18 06/20/18 Range/Units 19:47 20:10 21:00 WBC (3.8-10.6) k/uL RBC (4.30-5.90) m/uL Hgb (13.0-17.5) gm/dL Hct (39.0-53.0) % Plt Count (150-450) k/uL Neutrophils # (1.3-7.7) k/uL Lymphocytes # (1.0-4.8) k/uL PT (9.0-12.0) sec INR (<1.2) APTT (22.0-30.0) sec ABG pH 7.33 L (7.35-7.45) ABG pCO2 46 H (35-45) mmHg ABG pO2 68 L (83-108) mmHg ABG HCO3 (21-25) mmol/L ABG Total CO2 26 H (19-24) mmol/L ABG O2 Saturation 93.9 L (94-97) % ABG Hematocrit (34.0-46.0) % ABG Sodium (135-146) mmol/L ABG Potassium (3.4-4.5) mmol/L ABG Ionized Calcium (4.5-5.3) mg/dL ABG Glucose (75-99) mg/dL ABG Lactic Acid (0.5-1.6) mmol/L Hemoglobin (13.0-17.5) gm/dL Potassium (3.5-5.1) mmol/L Chloride (98-107) mmol/L Glucose (74-99) mg/dL POC Glucose (mg/dL) 172 H 165 H (75-99) mg/dL Calcium (8.4-10.2) mg/dL Magnesium (1.6-2.3) mg/dL AST (17-59) U/L Alkaline Phosphatase (38-126) U/L Total Protein (6.3-8.2) g/dL Albumin (3.5-5.0) g/dL Arterial Blood Potassium (3.4-4.5) mmol/L Arterial Blood Glucose (75-99) mg/dL Crossmatch 06/20/18 06/20/18 06/20/18 Range/Units 22:04 22:20 22:20 WBC 11.5 H (3.8-10.6) k/uL RBC 3.11 L (4.30-5.90) m/uL Hgb 9.3 L (13.0-17.5) gm/dL Hct 27.2 L (39.0-53.0) % Plt Count 130 L (150-450) k/uL Neutrophils # (1.3-7.7) k/uL Lymphocytes # (1.0-4.8) k/uL PT (9.0-12.0) sec INR (<1.2) APTT (22.0-30.0) sec ABG pH (7.35-7.45) ABG pCO2 (35-45) mmHg ABG pO2 (83-108) mmHg ABG HCO3 (21-25) mmol/L ABG Total CO2 (19-24) mmol/L ABG O2 Saturation (94-97) % ABG Hematocrit (34.0-46.0) % ABG Sodium (135-146) mmol/L ABG Potassium (3.4-4.5) mmol/L ABG Ionized Calcium (4.5-5.3) mg/dL ABG Glucose (75-99) mg/dL ABG Lactic Acid (0.5-1.6) mmol/L Hemoglobin (13.0-17.5) gm/dL Potassium 5.2 H (3.5-5.1) mmol/L Chloride (98-107) mmol/L Glucose 129 H (74-99) mg/dL POC Glucose (mg/dL) 145 H (75-99) mg/dL Calcium (8.4-10.2) mg/dL Magnesium (1.6-2.3) mg/dL AST (17-59) U/L Alkaline Phosphatase (38-126) U/L Total Protein (6.3-8.2) g/dL Albumin (3.5-5.0) g/dL Arterial Blood Potassium (3.4-4.5) mmol/L Arterial Blood Glucose (75-99) mg/dL Crossmatch 06/20/18 06/21/18 06/21/18 Range/Units 23:01 00:10 01:14 WBC (3.8-10.6) k/uL RBC (4.30-5.90) m/uL Hgb (13.0-17.5) gm/dL Hct (39.0-53.0) % Plt Count (150-450) k/uL Neutrophils # (1.3-7.7) k/uL Lymphocytes # (1.0-4.8) k/uL PT (9.0-12.0) sec INR (<1.2) APTT (22.0-30.0) sec ABG pH (7.35-7.45) ABG pCO2 (35-45) mmHg ABG pO2 (83-108) mmHg ABG HCO3 (21-25) mmol/L ABG Total CO2 (19-24) mmol/L ABG O2 Saturation (94-97) % ABG Hematocrit (34.0-46.0) % ABG Sodium (135-146) mmol/L ABG Potassium (3.4-4.5) mmol/L ABG Ionized Calcium (4.5-5.3) mg/dL ABG Glucose (75-99) mg/dL ABG Lactic Acid (0.5-1.6) mmol/L Hemoglobin (13.0-17.5) gm/dL Potassium (3.5-5.1) mmol/L Chloride (98-107) mmol/L Glucose (74-99) mg/dL POC Glucose (mg/dL) 133 H 117 H 119 H (75-99) mg/dL Calcium (8.4-10.2) mg/dL Magnesium (1.6-2.3) mg/dL AST (17-59) U/L Alkaline Phosphatase (38-126) U/L Total Protein (6.3-8.2) g/dL Albumin (3.5-5.0) g/dL Arterial Blood Potassium (3.4-4.5) mmol/L Arterial Blood Glucose (75-99) mg/dL Crossmatch 06/21/18 06/21/18 06/21/18 Range/Units 02:12 03:01 04:18 WBC 11.6 H (3.8-10.6) k/uL RBC 3.15 L (4.30-5.90) m/uL Hgb 8.6 L (13.0-17.5) gm/dL Hct 27.6 L (39.0-53.0) % Plt Count 131 L (150-450) k/uL Neutrophils # 10.2 H (1.3-7.7) k/uL Lymphocytes # 0.5 L (1.0-4.8) k/uL PT (9.0-12.0) sec INR (<1.2) APTT (22.0-30.0) sec ABG pH (7.35-7.45) ABG pCO2 (35-45) mmHg ABG pO2 (83-108) mmHg ABG HCO3 (21-25) mmol/L ABG Total CO2 (19-24) mmol/L ABG O2 Saturation (94-97) % ABG Hematocrit (34.0-46.0) % ABG Sodium (135-146) mmol/L ABG Potassium (3.4-4.5) mmol/L ABG Ionized Calcium (4.5-5.3) mg/dL ABG Glucose (75-99) mg/dL ABG Lactic Acid (0.5-1.6) mmol/L Hemoglobin (13.0-17.5) gm/dL Potassium (3.5-5.1) mmol/L Chloride (98-107) mmol/L Glucose (74-99) mg/dL POC Glucose (mg/dL) 122 H 121 H (75-99) mg/dL Calcium (8.4-10.2) mg/dL Magnesium (1.6-2.3) mg/dL AST (17-59) U/L Alkaline Phosphatase (38-126) U/L Total Protein (6.3-8.2) g/dL Albumin (3.5-5.0) g/dL Arterial Blood Potassium (3.4-4.5) mmol/L Arterial Blood Glucose (75-99) mg/dL Crossmatch 06/21/18 06/21/18 06/21/18 Range/Units 04:18 04:19 06:02 WBC (3.8-10.6) k/uL RBC (4.30-5.90) m/uL Hgb (13.0-17.5) gm/dL Hct (39.0-53.0) % Plt Count (150-450) k/uL Neutrophils # (1.3-7.7) k/uL Lymphocytes # (1.0-4.8) k/uL PT (9.0-12.0) sec INR (<1.2) APTT (22.0-30.0) sec ABG pH (7.35-7.45) ABG pCO2 (35-45) mmHg ABG pO2 (83-108) mmHg ABG HCO3 (21-25) mmol/L ABG Total CO2 (19-24) mmol/L ABG O2 Saturation (94-97) % ABG Hematocrit (34.0-46.0) % ABG Sodium (135-146) mmol/L ABG Potassium (3.4-4.5) mmol/L ABG Ionized Calcium (4.5-5.3) mg/dL ABG Glucose (75-99) mg/dL ABG Lactic Acid (0.5-1.6) mmol/L Hemoglobin (13.0-17.5) gm/dL Potassium 5.4 H (3.5-5.1) mmol/L Chloride 108 H (98-107) mmol/L Glucose 118 H (74-99) mg/dL POC Glucose (mg/dL) 126 H 128 H (75-99) mg/dL Calcium (8.4-10.2) mg/dL Magnesium 2.4 H (1.6-2.3) mg/dL AST 62 H (17-59) U/L Alkaline Phosphatase 37 L (38-126) U/L Total Protein 4.6 L (6.3-8.2) g/dL Albumin 2.9 L (3.5-5.0) g/dL Arterial Blood Potassium (3.4-4.5) mmol/L Arterial Blood Glucose (75-99) mg/dL Crossmatch 06/21/18 06/21/18 Range/Units 07:06 08:32 WBC (3.8-10.6) k/uL RBC (4.30-5.90) m/uL Hgb (13.0-17.5) gm/dL Hct (39.0-53.0) % Plt Count (150-450) k/uL Neutrophils # (1.3-7.7) k/uL Lymphocytes # (1.0-4.8) k/uL PT (9.0-12.0) sec INR (<1.2) APTT (22.0-30.0) sec ABG pH (7.35-7.45) ABG pCO2 (35-45) mmHg ABG pO2 (83-108) mmHg ABG HCO3 (21-25) mmol/L ABG Total CO2 (19-24) mmol/L ABG O2 Saturation (94-97) % ABG Hematocrit (34.0-46.0) % ABG Sodium (135-146) mmol/L ABG Potassium (3.4-4.5) mmol/L ABG Ionized Calcium (4.5-5.3) mg/dL ABG Glucose (75-99) mg/dL ABG Lactic Acid (0.5-1.6) mmol/L Hemoglobin (13.0-17.5) gm/dL Potassium (3.5-5.1) mmol/L Chloride (98-107) mmol/L Glucose (74-99) mg/dL POC Glucose (mg/dL) 129 H 131 H (75-99) mg/dL Calcium (8.4-10.2) mg/dL Magnesium (1.6-2.3) mg/dL AST (17-59) U/L Alkaline Phosphatase (38-126) U/L Total Protein (6.3-8.2) g/dL Albumin (3.5-5.0) g/dL Arterial Blood Potassium (3.4-4.5) mmol/L Arterial Blood Glucose (75-99) mg/dL Crossmatch - Imaging and Cardiology Chest x-ray: report reviewed, image reviewed Assessment and Plan (1) Obesity (BMI 30-39.9) Current Visit: Yes Status: Chronic Code(s): E66.9 - OBESITY, UNSPECIFIED SNOMED Code(s): 007446394 (2) Family history of early CAD Current Visit: Yes Status: Chronic Code(s): Z82.49 - FAMILY HX OF I[place]HE[place] HEART DIS AND OTH DIS OF THE CIRC SYS SNOMED Code(s): 526818410 (3) Diabetes mellitus Current Visit: Yes Status: Chronic Code(s): E11.9 - TYPE 2 DIABETES MELLITUS WITHOUT COMPLICATIONS SNOMED Code(s): 88677203 (4) Coronary artery disease Current Visit: Yes Status: Chronic Code(s): I25.10 - ATHSCL HEART DISEASE OF [place] CORONARY ARTERY W/O ANG PCTRS SNOMED Code(s): 21659701 (5) GERD (gastroesophageal reflux disease) Current Visit: Yes Status: Chronic Code(s): K21.9 - GASTRO-ESOPHAGEAL REFLUX DISEASE WITHOUT ESOPHAGITIS SNOMED Code(s): 442586469 (6) History of TIA (transient ischemic attack) Current Visit: No Status: Resolved Code(s): Z86.73 - PRSNL HX OF TIA (TIA), AND CEREB INFRC W/O RESID DEFICITS SNOMED Code(s): 356827242 (7) History of deep venous thrombosis Current Visit: No Status: Resolved Code(s): Z86.718 - PERSONAL HISTORY OF OTHER VENOUS THROMBOSIS AND EMBOLISM SNOMED Code(s): 122229032 (8) History of poliomyelitis Current Visit: Yes Status: Chronic Code(s): Z86.12 - PERSONAL HISTORY OF POLIOMYELITIS SNOMED Code(s): 994478084 (9) Hyperlipidemia Current Visit: Yes Status: Chronic Code(s): E78.5 - HYPERLIPIDEMIA, UNSPECIFIED SNOMED Code(s): 45429496 (10) Hypertension Current Visit: Yes Status: Chronic Code(s): I10 - ESSENTIAL (PRIMARY) HYPERTENSION SNOMED Code(s): 37544020 Plan: 1. Continue aspirin, statin, Plavix, nj therapy. Will increase beta nj therapy as tolerated, increased today to 25 mg twice daily. Will add EVIE inhibitor as tolerated. 2. Wean O2 as tolerated. Encourage incentive spirometry use 10 times every hour while awake. 3. Bronchodilators per pulmonology. 4. Increase activity, ambulate as tolerated. PT/OT/cardiac rehab following. 5. Discontinue [place] catheter. Connect Cordis to continuous CVP monitoring. 6. Pain control with current medication regimen. Toradol added. 7. Will monitor daily labs, x-rays. Electrolyte replacement per protocol. No transfusion at this point. 8. Insulin management per primary care service. 9. GI prophylaxis with Protonix. DVT prophylaxis with subcu heparin, SCDs. 10. Will keep chest tubes, [place]ms catheter for another 24 hours. 11. More recommendations to follow based on patient's progress. Time with Patient: Greater than 30
[2018-06-21 10:07] VITALS: BMI 33.4
[2018-06-21 10:51] LABS: Glucose,Whole Blood 117 mg/dL (75-99)
--- NOTE | 2018-06-21 10:53 | P.PN ---
Subjective Progress Note Date: 06/21/18 A 73-year-old male patient, known history of coronary artery disease, previous history of anterior wall myocardial infarction, underwent a repeat cardiac catheterization and following that the patient was advised to undergo bypass surgery. The cath showed critical lesion in the LAD and a moderate lesion in the left main. This patient has an overall LV function of 40-45% in addition to segmental wall motion abnormalities. The patient was taken to bypass surgery and the patient underwent double vessel bypass surgery with BETHEA to LAD and saphenous vein graft to ramus intermedius artery. and following that the patient was brought into the intensive care unit intubated on a mechanical ventilator. Currently, the patient assist-control mode of ventilation with a rate of 12, tidal volume of 500, FiO2 of 100% and a PEEP of 5. The blood gases after arriving this patient to the ICU showed a pH of 7.37 with a pCO2 of 45 and pO2 of around 338. This x-ray showed a. She'll that is sitting high in the trachea. This was pushed by another centimeters. Meanwhile, hemodynamically the patient is doing well. The patient is sedated with Diprivan. The patient has, comfortable and sedated with the mechanical ventilator. The cardiac output is at 4.5, index is at 2.1, PA pressures 38/24, the output from the left pleural chest tube is 400 mL since arrival from the operating room and mediastinal chest tube is around 35 mL. The patient is on nitroglycerin drip. On 06/21/2018 I'm seeing this patient for a follow-up in the patient's postop day #1. The patient underwent a two-vessel bypass surgery. He is doing extremely well. He was extubated immediately allowing surgery and overnight the patient was resting comfortably in bed without any major complaints or complications. Hemodynamically stable. The patient is using incentive spirometer and pulling approximately 1500 on the incentive spirometer. Chest x- ray from today shows the tubes being all in good location. There has been no other significant issues or events over the past 24 hours. Chest tubes are in place. The cardiac rhythm is sinus. The total output from the mediastinal chest tube has been to 195 mL over the past 8 hours and 50 mL from the left pleural chest tube. The cardiac output is at 6.3 with an index of 2.9. Objective - Vital Signs Vital signs: Vital Signs Temp 36 F L 06/21/18 08:00 Pulse 73 06/21/18 10:00 Resp 10 L 06/21/18 10:00 BP 169/80 06/20/18 06:10 Pulse Ox 94 L 06/21/18 10:00 Intake & Output 06/20/18 06/21/18 06/21/18 18:59 06:59 18:59 Intake Total 223.439 665.379 181.918 Output Total 2730 1102 188 Balance -2506.561 -436.621 -6.082 Weight 99.79 kg 99.79 kg Intake: IV 203 600 170 Lactated Ringers 1,000 ml 200 600 170 @ 20 mls/hr IV .Q24H RAÚL Rx#:[id number] Intake, IV Titration 20.439 65.379 11.918 Amount Clevidipine Butyrate 25 7.5 42.5 mg In Empty Bag 1 bag @ 1 MG/HR 2 mls/hr IV .Q24H RAÚL Rx#:[id number] Insulin Regular 100 unit 22.879 11.918 In Sodium Chloride 0.9% 100 ml @ Per Protocol IV .Q0M RAÚL Rx#:[id number] Propofol 1,000 mg In 12.939 Empty Bag 1 bag @ Titrate IV .Q0M RAÚL Rx#: [id number] Output: Chest Tube Drainage 390 245 60 Chest Tube Left Lateral 270 50 20 Chest Chest Tube Mediastinal 120 195 40 Urine 1140 857 128 Estimated Blood Loss 1200 Other: Voiding Method Indwelling Catheter Indwelling Catheter Indwelling Catheter ABP, PAP, CO, CI - Last Documented Arterial Blood Pressure 135/50 Pulmonary Artery Pressure 23/6 Cardiac Output 6.3 Cardiac Index 2.9 - Exam - Constitutional General appearance: Present: cooperative, no acute distress, obese - Respiratory Details: Lungs sounds diminished bilaterally. Respirations even, nonlabored. Currently on 2 L nasal cannula with oxygen saturation 96%. Strong cough. Able to achieve 1750 mL on his incentive spirometry. Mediastinal chest tube to continuous wall suction, 355 mL serosanguineous drainage in the last 12 hours, 540 mL since surgery. Left pleural chest tube to continuous wall suction, 120 mL serosanguineous drainage in the last 12 hours, 450 mL since surgery. No air leaks present. - Cardiovascular Details: S1, S2 present. Regular rate and rhythm, sinus rhythm on telemetry. Sternum stable. Ventricular epicardial pacemaker wires present, grounded. Palpable peripheral pulses bilaterally. No edema present. No calf pain or tenderness noted. Right internal jugular [place]is, right brachial arterial line present. Last CO/CI 6.1/2.9 on no inotropes or pressors. Heart hugger in place with patient demonstrating appropriate use. Antiembolism stockings, SCDs present. - Gastrointestinal Gastrointestinal Comment(s): Abdomen soft, nontender, nondistended. Hypoactive bowel sounds present 4 quadrants. Tolerating clear liquids although did have some nausea last night. Positive belching, negative flatus. - Genitourinary Genitourinary Comment(s): Simms present draining clear, yellow urine. Output 40-65 mL per hour overnight. - Integumentary Integumentary Comment(s): Skin is warm and dry with evidence of good perfusion. Anterior chest incision well approximated and covered with dry intact dressing. Right lower extremity EVH site well approximated, HAZEL drain present with minimal serosanguineous drainage. - Neurologic Neurologic: Present: CNII-XII intact - Musculoskeletal Musculoskeletal: Present: strength equal bilaterally - Psychiatric Psychiatric: Present: A&O x's 3, appropriate affect, intact judgment & insight - Labs CBC & Chem 7: 06/21/18 04:18 06/21/18 04:18 Labs: Abnormal Lab Results - Last 24 Hours (Table) 06/14/18 06/20/18 06/20/18 Range/Units 09:25 10:17 11:28 WBC (3.8-10.6) k/uL RBC (4.30-5.90) m/uL Hgb (13.0-17.5) gm/dL Hct (39.0-53.0) % Plt Count (150-450) k/uL Neutrophils # (1.3-7.7) k/uL Lymphocytes # (1.0-4.8) k/uL PT (9.0-12.0) sec INR (<1.2) APTT (22.0-30.0) sec ABG pH (7.35-7.45) ABG pCO2 (35-45) mmHg ABG pO2 389 H 316 H (83-108) mmHg ABG HCO3 (21-25) mmol/L ABG Total CO2 26 H 25 H (19-24) mmol/L ABG O2 Saturation 100.0 H 100.0 H (94-97) % ABG Hematocrit 26 L (34.0-46.0) % ABG Sodium 133 L (135-146) mmol/L ABG Potassium 5.0 H (3.4-4.5) mmol/L ABG Ionized Calcium (4.5-5.3) mg/dL ABG Glucose 113 H 241 H (75-99) mg/dL ABG Lactic Acid (0.5-1.6) mmol/L Hemoglobin 11.6 L 8.6 L (13.0-17.5) gm/dL Potassium (3.5-5.1) mmol/L Chloride (98-107) mmol/L Glucose (74-99) mg/dL POC Glucose (mg/dL) (75-99) mg/dL Calcium (8.4-10.2) mg/dL Magnesium (1.6-2.3) mg/dL AST (17-59) U/L Alkaline Phosphatase (38-126) U/L Total Protein (6.3-8.2) g/dL Albumin (3.5-5.0) g/dL Arterial Blood Potassium 5.0 H (3.4-4.5) mmol/L Arterial Blood Glucose 113 H 241 H (75-99) mg/dL Crossmatch See Detail 06/20/18 06/20/18 06/20/18 Range/Units 12:05 12:31 13:01 WBC (3.8-10.6) k/uL RBC (4.30-5.90) m/uL Hgb (13.0-17.5) gm/dL Hct (39.0-53.0) % Plt Count (150-450) k/uL Neutrophils # (1.3-7.7) k/uL Lymphocytes # (1.0-4.8) k/uL PT (9.0-12.0) sec INR (<1.2) APTT (22.0-30.0) sec ABG pH 7.34 L (7.35-7.45) ABG pCO2 (35-45) mmHg ABG pO2 372 H 326 H 214 H (83-108) mmHg ABG HCO3 (21-25) mmol/L ABG Total CO2 25 H (19-24) mmol/L ABG O2 Saturation 100.0 H 100.0 H 100.0 H (94-97) % ABG Hematocrit 26 L 25 L 25 L (34.0-46.0) % ABG Sodium 134 L 134 L (135-146) mmol/L ABG Potassium 5.0 H 4.6 H (3.4-4.5) mmol/L ABG Ionized Calcium 4.4 L (4.5-5.3) mg/dL ABG Glucose 232 H 221 H 183 H (75-99) mg/dL ABG Lactic Acid 2.1 H 2.5 H* 2.8 H* (0.5-1.6) mmol/L Hemoglobin 8.6 L 8.2 L 8.0 L (13.0-17.5) gm/dL Potassium (3.5-5.1) mmol/L Chloride (98-107) mmol/L Glucose (74-99) mg/dL POC Glucose (mg/dL) (75-99) mg/dL Calcium (8.4-10.2) mg/dL Magnesium (1.6-2.3) mg/dL AST (17-59) U/L Alkaline Phosphatase (38-126) U/L Total Protein (6.3-8.2) g/dL Albumin (3.5-5.0) g/dL Arterial Blood Potassium 5.0 H 4.6 H (3.4-4.5) mmol/L Arterial Blood Glucose 232 H 221 H 183 H (75-99) mg/dL Crossmatch 06/20/18 06/20/18 06/20/18 Range/Units 13:56 14:45 14:45 WBC (3.8-10.6) k/uL RBC 2.66 L (4.30-5.90) m/uL Hgb 7.8 L D (13.0-17.5) gm/dL Hct 23.0 L (39.0-53.0) % Plt Count 94 L D (150-450) k/uL Neutrophils # (1.3-7.7) k/uL Lymphocytes # 0.9 L (1.0-4.8) k/uL PT (9.0-12.0) sec INR (<1.2) APTT (22.0-30.0) sec ABG pH 7.47 H (7.35-7.45) ABG pCO2 (35-45) mmHg ABG pO2 268 H (83-108) mmHg ABG HCO3 26 H (21-25) mmol/L ABG Total CO2 27 H (19-24) mmol/L ABG O2 Saturation 100.0 H (94-97) % ABG Hematocrit 25 L (34.0-46.0) % ABG Sodium (135-146) mmol/L ABG Potassium (3.4-4.5) mmol/L ABG Ionized Calcium (4.5-5.3) mg/dL ABG Glucose 122 H (75-99) mg/dL ABG Lactic Acid 2.3 H* (0.5-1.6) mmol/L Hemoglobin 8.1 L (13.0-17.5) gm/dL Potassium (3.5-5.1) mmol/L Chloride 108 H (98-107) mmol/L Glucose (74-99) mg/dL POC Glucose (mg/dL) (75-99) mg/dL Calcium 7.9 L (8.4-10.2) mg/dL Magnesium 2.8 H (1.6-2.3) mg/dL AST (17-59) U/L Alkaline Phosphatase 27 L (38-126) U/L Total Protein 3.9 L (6.3-8.2) g/dL Albumin 2.4 L (3.5-5.0) g/dL Arterial Blood Potassium (3.4-4.5) mmol/L Arterial Blood Glucose 122 H (75-99) mg/dL Crossmatch 06/20/18 06/20/18 06/20/18 Range/Units 14:45 14:45 15:05 WBC (3.8-10.6) k/uL RBC (4.30-5.90) m/uL Hgb (13.0-17.5) gm/dL Hct (39.0-53.0) % Plt Count (150-450) k/uL Neutrophils # (1.3-7.7) k/uL Lymphocytes # (1.0-4.8) k/uL PT 12.9 H (9.0-12.0) sec INR 1.3 H (<1.2) APTT 34.1 H (22.0-30.0) sec ABG pH (7.35-7.45) ABG pCO2 46 H (35-45) mmHg ABG pO2 338 H (83-108) mmHg ABG HCO3 27 H (21-25) mmol/L ABG Total CO2 28 H (19-24) mmol/L ABG O2 Saturation 100.0 H (94-97) % ABG Hematocrit (34.0-46.0) % ABG Sodium (135-146) mmol/L ABG Potassium (3.4-4.5) mmol/L ABG Ionized Calcium (4.5-5.3) mg/dL ABG Glucose (75-99) mg/dL ABG Lactic Acid (0.5-1.6) mmol/L Hemoglobin (13.0-17.5) gm/dL Potassium (3.5-5.1) mmol/L Chloride (98-107) mmol/L Glucose (74-99) mg/dL POC Glucose (mg/dL) 105 H (75-99) mg/dL Calcium (8.4-10.2) mg/dL Magnesium (1.6-2.3) mg/dL AST (17-59) U/L Alkaline Phosphatase (38-126) U/L Total Protein (6.3-8.2) g/dL Albumin (3.5-5.0) g/dL Arterial Blood Potassium (3.4-4.5) mmol/L Arterial Blood Glucose (75-99) mg/dL Crossmatch 06/20/18 06/20/18 06/20/18 Range/Units 17:31 18:40 18:41 WBC 13.3 H (3.8-10.6) k/uL RBC 3.33 L (4.30-5.90) m/uL Hgb 9.7 L D (13.0-17.5) gm/dL Hct 29.2 L (39.0-53.0) % Plt Count (150-450) k/uL Neutrophils # 11.4 H (1.3-7.7) k/uL Lymphocytes # 0.9 L (1.0-4.8) k/uL PT (9.0-12.0) sec INR (<1.2) APTT (22.0-30.0) sec ABG pH (7.35-7.45) ABG pCO2 (35-45) mmHg ABG pO2 (83-108) mmHg ABG HCO3 (21-25) mmol/L ABG Total CO2 (19-24) mmol/L ABG O2 Saturation (94-97) % ABG Hematocrit (34.0-46.0) % ABG Sodium (135-146) mmol/L ABG Potassium (3.4-4.5) mmol/L ABG Ionized Calcium (4.5-5.3) mg/dL ABG Glucose (75-99) mg/dL ABG Lactic Acid (0.5-1.6) mmol/L Hemoglobin (13.0-17.5) gm/dL Potassium (3.5-5.1) mmol/L Chloride (98-107) mmol/L Glucose (74-99) mg/dL POC Glucose (mg/dL) 139 H 159 H (75-99) mg/dL Calcium (8.4-10.2) mg/dL Magnesium (1.6-2.3) mg/dL AST (17-59) U/L Alkaline Phosphatase (38-126) U/L Total Protein (6.3-8.2) g/dL Albumin (3.5-5.0) g/dL Arterial Blood Potassium (3.4-4.5) mmol/L Arterial Blood Glucose (75-99) mg/dL Crossmatch 06/20/18 06/20/18 06/20/18 Range/Units 19:09 19:47 20:10 WBC (3.8-10.6) k/uL RBC (4.30-5.90) m/uL Hgb (13.0-17.5) gm/dL Hct (39.0-53.0) % Plt Count (150-450) k/uL Neutrophils # (1.3-7.7) k/uL Lymphocytes # (1.0-4.8) k/uL PT (9.0-12.0) sec INR (<1.2) APTT (22.0-30.0) sec ABG pH 7.33 L (7.35-7.45) ABG pCO2 46 H (35-45) mmHg ABG pO2 68 L (83-108) mmHg ABG HCO3 (21-25) mmol/L ABG Total CO2 26 H (19-24) mmol/L ABG O2 Saturation 93.9 L (94-97) % ABG Hematocrit (34.0-46.0) % ABG Sodium (135-146) mmol/L ABG Potassium (3.4-4.5) mmol/L ABG Ionized Calcium (4.5-5.3) mg/dL ABG Glucose (75-99) mg/dL ABG Lactic Acid (0.5-1.6) mmol/L Hemoglobin (13.0-17.5) gm/dL Potassium (3.5-5.1) mmol/L Chloride (98-107) mmol/L Glucose (74-99) mg/dL POC Glucose (mg/dL) 175 H 172 H (75-99) mg/dL Calcium (8.4-10.2) mg/dL Magnesium (1.6-2.3) mg/dL AST (17-59) U/L Alkaline Phosphatase (38-126) U/L Total Protein (6.3-8.2) g/dL Albumin (3.5-5.0) g/dL Arterial Blood Potassium (3.4-4.5) mmol/L Arterial Blood Glucose (75-99) mg/dL Crossmatch 06/20/18 06/20/18 06/20/18 Range/Units 21:00 22:04 22:20 WBC (3.8-10.6) k/uL RBC (4.30-5.90) m/uL Hgb (13.0-17.5) gm/dL Hct (39.0-53.0) % Plt Count (150-450) k/uL Neutrophils # (1.3-7.7) k/uL Lymphocytes # (1.0-4.8) k/uL PT (9.0-12.0) sec INR (<1.2) APTT (22.0-30.0) sec ABG pH (7.35-7.45) ABG pCO2 (35-45) mmHg ABG pO2 (83-108) mmHg ABG HCO3 (21-25) mmol/L ABG Total CO2 (19-24) mmol/L ABG O2 Saturation (94-97) % ABG Hematocrit (34.0-46.0) % ABG Sodium (135-146) mmol/L ABG Potassium (3.4-4.5) mmol/L ABG Ionized Calcium (4.5-5.3) mg/dL ABG Glucose (75-99) mg/dL ABG Lactic Acid (0.5-1.6) mmol/L Hemoglobin (13.0-17.5) gm/dL Potassium 5.2 H (3.5-5.1) mmol/L Chloride (98-107) mmol/L Glucose 129 H (74-99) mg/dL POC Glucose (mg/dL) 165 H 145 H (75-99) mg/dL Calcium (8.4-10.2) mg/dL Magnesium (1.6-2.3) mg/dL AST (17-59) U/L Alkaline Phosphatase (38-126) U/L Total Protein (6.3-8.2) g/dL Albumin (3.5-5.0) g/dL Arterial Blood Potassium (3.4-4.5) mmol/L Arterial Blood Glucose (75-99) mg/dL Crossmatch 06/20/18 06/20/18 06/21/18 Range/Units 22:20 23:01 00:10 WBC 11.5 H (3.8-10.6) k/uL RBC 3.11 L (4.30-5.90) m/uL Hgb 9.3 L (13.0-17.5) gm/dL Hct 27.2 L (39.0-53.0) % Plt Count 130 L (150-450) k/uL Neutrophils # (1.3-7.7) k/uL Lymphocytes # (1.0-4.8) k/uL PT (9.0-12.0) sec INR (<1.2) APTT (22.0-30.0) sec ABG pH (7.35-7.45) ABG pCO2 (35-45) mmHg ABG pO2 (83-108) mmHg ABG HCO3 (21-25) mmol/L ABG Total CO2 (19-24) mmol/L ABG O2 Saturation (94-97) % ABG Hematocrit (34.0-46.0) % ABG Sodium (135-146) mmol/L ABG Potassium (3.4-4.5) mmol/L ABG Ionized Calcium (4.5-5.3) mg/dL ABG Glucose (75-99) mg/dL ABG Lactic Acid (0.5-1.6) mmol/L Hemoglobin (13.0-17.5) gm/dL Potassium (3.5-5.1) mmol/L Chloride (98-107) mmol/L Glucose (74-99) mg/dL POC Glucose (mg/dL) 133 H 117 H (75-99) mg/dL Calcium (8.4-10.2) mg/dL Magnesium (1.6-2.3) mg/dL AST (17-59) U/L Alkaline Phosphatase (38-126) U/L Total Protein (6.3-8.2) g/dL Albumin (3.5-5.0) g/dL Arterial Blood Potassium (3.4-4.5) mmol/L Arterial Blood Glucose (75-99) mg/dL Crossmatch 06/21/18 06/21/18 06/21/18 Range/Units 01:14 02:12 03:01 WBC (3.8-10.6) k/uL RBC (4.30-5.90) m/uL Hgb (13.0-17.5) gm/dL Hct (39.0-53.0) % Plt Count (150-450) k/uL Neutrophils # (1.3-7.7) k/uL Lymphocytes # (1.0-4.8) k/uL PT (9.0-12.0) sec INR (<1.2) APTT (22.0-30.0) sec ABG pH (7.35-7.45) ABG pCO2 (35-45) mmHg ABG pO2 (83-108) mmHg ABG HCO3 (21-25) mmol/L ABG Total CO2 (19-24) mmol/L ABG O2 Saturation (94-97) % ABG Hematocrit (34.0-46.0) % ABG Sodium (135-146) mmol/L ABG Potassium (3.4-4.5) mmol/L ABG Ionized Calcium (4.5-5.3) mg/dL ABG Glucose (75-99) mg/dL ABG Lactic Acid (0.5-1.6) mmol/L Hemoglobin (13.0-17.5) gm/dL Potassium (3.5-5.1) mmol/L Chloride (98-107) mmol/L Glucose (74-99) mg/dL POC Glucose (mg/dL) 119 H 122 H 121 H (75-99) mg/dL Calcium (8.4-10.2) mg/dL Magnesium (1.6-2.3) mg/dL AST (17-59) U/L Alkaline Phosphatase (38-126) U/L Total Protein (6.3-8.2) g/dL Albumin (3.5-5.0) g/dL Arterial Blood Potassium (3.4-4.5) mmol/L Arterial Blood Glucose (75-99) mg/dL Crossmatch 06/21/18 06/21/18 06/21/18 Range/Units 04:18 04:18 04:19 WBC 11.6 H (3.8-10.6) k/uL RBC 3.15 L (4.30-5.90) m/uL Hgb 8.6 L (13.0-17.5) gm/dL Hct 27.6 L (39.0-53.0) % Plt Count 131 L (150-450) k/uL Neutrophils # 10.2 H (1.3-7.7) k/uL Lymphocytes # 0.5 L (1.0-4.8) k/uL PT (9.0-12.0) sec INR (<1.2) APTT (22.0-30.0) sec ABG pH (7.35-7.45) ABG pCO2 (35-45) mmHg ABG pO2 (83-108) mmHg ABG HCO3 (21-25) mmol/L ABG Total CO2 (19-24) mmol/L ABG O2 Saturation (94-97) % ABG Hematocrit (34.0-46.0) % ABG Sodium (135-146) mmol/L ABG Potassium (3.4-4.5) mmol/L ABG Ionized Calcium (4.5-5.3) mg/dL ABG Glucose (75-99) mg/dL ABG Lactic Acid (0.5-1.6) mmol/L Hemoglobin (13.0-17.5) gm/dL Potassium 5.4 H (3.5-5.1) mmol/L Chloride 108 H (98-107) mmol/L Glucose 118 H (74-99) mg/dL POC Glucose (mg/dL) 126 H (75-99) mg/dL Calcium (8.4-10.2) mg/dL Magnesium 2.4 H (1.6-2.3) mg/dL AST 62 H (17-59) U/L Alkaline Phosphatase 37 L (38-126) U/L Total Protein 4.6 L (6.3-8.2) g/dL Albumin 2.9 L (3.5-5.0) g/dL Arterial Blood Potassium (3.4-4.5) mmol/L Arterial Blood Glucose (75-99) mg/dL Crossmatch 06/21/18 06/21/18 06/21/18 Range/Units 06:02 07:06 08:32 WBC (3.8-10.6) k/uL RBC (4.30-5.90) m/uL Hgb (13.0-17.5) gm/dL Hct (39.0-53.0) % Plt Count (150-450) k/uL Neutrophils # (1.3-7.7) k/uL Lymphocytes # (1.0-4.8) k/uL PT (9.0-12.0) sec INR (<1.2) APTT (22.0-30.0) sec ABG pH (7.35-7.45) ABG pCO2 (35-45) mmHg ABG pO2 (83-108) mmHg ABG HCO3 (21-25) mmol/L ABG Total CO2 (19-24) mmol/L ABG O2 Saturation (94-97) % ABG Hematocrit (34.0-46.0) % ABG Sodium (135-146) mmol/L ABG Potassium (3.4-4.5) mmol/L ABG Ionized Calcium (4.5-5.3) mg/dL ABG Glucose (75-99) mg/dL ABG Lactic Acid (0.5-1.6) mmol/L Hemoglobin (13.0-17.5) gm/dL Potassium (3.5-5.1) mmol/L Chloride (98-107) mmol/L Glucose (74-99) mg/dL POC Glucose (mg/dL) 128 H 129 H 131 H (75-99) mg/dL Calcium (8.4-10.2) mg/dL Magnesium (1.6-2.3) mg/dL AST (17-59) U/L Alkaline Phosphatase (38-126) U/L Total Protein (6.3-8.2) g/dL Albumin (3.5-5.0) g/dL Arterial Blood Potassium (3.4-4.5) mmol/L Arterial Blood Glucose (75-99) mg/dL Crossmatch Assessment and Plan Plan: Assessment 1 coronary artery disease, status post two-vessel bypass surgery with BETHEA to LAD and saphenous graft to ramus intermedius artery. The patient is postop day 1. 2 post thoracotomy, the patient was extubated and the patient is currently off the mechanical ventilator. No active pulmonary issues for now. Chest tubes are in place. Hemodynamically stable. No pressors. 3 previous history of TIA 4 acid reflux 5 hypertension 6 hyperlipidemia 7 history of polio 8 postoperative anemia, and expected outcome of surgery, he'll go is at 8.6 Plan The patient leak continue using incentive spirometer. Continue aspirin. Continue Plavix. Continue beta blockers and the patient, Toprol 25 mg by mouth twice a day. Add EVIE inhibitor. Continue statins. Chest tube will be kept in place for today. May remove the [place]as[place] catheter. Keep the patient ICU and will continue to follow. No altered mentation. Hemodynamic is stable. Reasonable recovery following cardiac surgery.
[2018-06-21 11:22] LABS: Glucose,Whole Blood 109 mg/dL (75-99)
--- NOTE | 2018-06-21 11:50 | P.PN ---
Subjective Progress Note Date: 06/21/18 HPI: This is a 73-year-old male patient being seen examined and evaluated today for consultation while covering for Dr. Ismael Gregorio. This patient does have a history of [place] and underwent a cardiac catheterization and he was advised to undergo a CABG. With cardiothoracic surgeon. He did have a CABG today and had BETHEA to the LAD and SVG to the ramus. The patient is currently on mechanical ventilation with propofol for sedation. He is on assist control mode with respiratory of rate of 12, tidal volume 500, FiO2 50% and a PEEP of 5. He is being followed with an assisted living housekeeper as well. Currently the patient is hemodynamically stable. He does have 2 chest tubes present please see flowsheet for output. He continues on a nitro drip. Please see surgical notes for further details. Interval history: 06/21/2018- patient is being seen examined and evaluated today while covering for Dr. Gregorio on rounds in the intensive care unit. He has postop day 2. The patient was successfully extubated yesterday. His chest x-ray is reviewed and does show some volume overload with some interstitial edema and bibasilar atelectasis. The patient has been hemodynamically stable. Using his incentive spirometer and pulling volumes of 1500 ML's. His Stephenson-Jaswant catheter should be removed today. His chest tubes will remain. See chest tube flowsheet for output. Objective - Vital Signs Vital signs: Vital Signs Temp 36 F L 06/21/18 08:00 Pulse 69 06/21/18 11:40 Resp 10 L 06/21/18 11:36 BP 169/80 06/20/18 06:10 Pulse Ox 98 06/21/18 11:00 Intake & Output 06/20/18 06/21/18 06/21/18 18:59 06:59 18:59 Intake Total 223.439 665.379 233.353 Output Total 2730 1102 243 Balance -2506.561 -436.621 -9.647 Weight 99.79 kg 99.79 kg Intake: IV 203 600 220 Lactated Ringers 1,000 ml 200 600 220 @ 20 mls/hr IV .Q24H RAÚL Rx#:[id number] Intake, IV Titration 20.439 65.379 13.353 Amount Clevidipine Butyrate 25 7.5 42.5 mg In Empty Bag 1 bag @ 1 MG/HR 2 mls/hr IV .Q24H RAÚL Rx#:[id number] Insulin Regular 100 unit 22.879 13.353 In Sodium Chloride 0.9% 100 ml @ Per Protocol IV .Q0M RAÚL Rx#:[id number] Propofol 1,000 mg In 12.939 Empty Bag 1 bag @ Titrate IV .Q0M RAÚL Rx#: [id number] Output: Chest Tube Drainage 390 245 80 Chest Tube Left Lateral 270 50 20 Chest Chest Tube Mediastinal 120 195 60 Urine 1140 857 163 Estimated Blood Loss 1200 Other: Voiding Method Indwelling Catheter Indwelling Catheter Indwelling Catheter ABP, PAP, CO, CI - Last Documented Arterial Blood Pressure 130/48 Pulmonary Artery Pressure 23/6 Cardiac Output 6.3 Cardiac Index 2.9 - Exam GENERAL EXAM: Alert, comfortable in no apparent distress. HEAD: Normocephalic. EYES: Normal reaction of pupils, equal size. NOSE: Clear with pink turbinates. THROAT: No erythema or exudates. NECK: No masses, no JVD. Right IJ Stephenson-Jaswant catheter CHEST: Midline incision clean dry and intact, left pleural chest tube and mediastinal chest tube LUNGS: Equal air entry with no crackles, wheeze, rhonchi or dullness. CVS: S1 and S2 normal with no audible mumurs, regular rhythm. ABDOMEN: No hepatosplenomegaly, normal bowel sounds, no guarding or rigidity. EXTREMITIES: No edema noted, pedal pulses palpable. CENTRAL NERVOUS SYSTEM: No focal deficits, tone is normal in all 4 extremities. - Labs CBC & Chem 7: 06/21/18 04:18 06/21/18 04:18 Labs: Abnormal Lab Results - Last 24 Hours (Table) 06/14/18 06/20/18 06/20/18 Range/Units 09:25 10:17 11:28 WBC (3.8-10.6) k/uL RBC (4.30-5.90) m/uL Hgb (13.0-17.5) gm/dL Hct (39.0-53.0) % Plt Count (150-450) k/uL Neutrophils # (1.3-7.7) k/uL Lymphocytes # (1.0-4.8) k/uL PT (9.0-12.0) sec INR (<1.2) APTT (22.0-30.0) sec ABG pH (7.35-7.45) ABG pCO2 (35-45) mmHg ABG pO2 389 H 316 H (83-108) mmHg ABG HCO3 (21-25) mmol/L ABG Total CO2 26 H 25 H (19-24) mmol/L ABG O2 Saturation 100.0 H 100.0 H (94-97) % ABG Hematocrit 26 L (34.0-46.0) % ABG Sodium 133 L (135-146) mmol/L ABG Potassium 5.0 H (3.4-4.5) mmol/L ABG Ionized Calcium (4.5-5.3) mg/dL ABG Glucose 113 H 241 H (75-99) mg/dL ABG Lactic Acid (0.5-1.6) mmol/L Hemoglobin 11.6 L 8.6 L (13.0-17.5) gm/dL Potassium (3.5-5.1) mmol/L Chloride (98-107) mmol/L Glucose (74-99) mg/dL POC Glucose (mg/dL) (75-99) mg/dL Calcium (8.4-10.2) mg/dL Magnesium (1.6-2.3) mg/dL AST (17-59) U/L Alkaline Phosphatase (38-126) U/L Total Protein (6.3-8.2) g/dL Albumin (3.5-5.0) g/dL Arterial Blood Potassium 5.0 H (3.4-4.5) mmol/L Arterial Blood Glucose 113 H 241 H (75-99) mg/dL Crossmatch See Detail 06/20/18 06/20/18 06/20/18 Range/Units 12:05 12:31 13:01 WBC (3.8-10.6) k/uL RBC (4.30-5.90) m/uL Hgb (13.0-17.5) gm/dL Hct (39.0-53.0) % Plt Count (150-450) k/uL Neutrophils # (1.3-7.7) k/uL Lymphocytes # (1.0-4.8) k/uL PT (9.0-12.0) sec INR (<1.2) APTT (22.0-30.0) sec ABG pH 7.34 L (7.35-7.45) ABG pCO2 (35-45) mmHg ABG pO2 372 H 326 H 214 H (83-108) mmHg ABG HCO3 (21-25) mmol/L ABG Total CO2 25 H (19-24) mmol/L ABG O2 Saturation 100.0 H 100.0 H 100.0 H (94-97) % ABG Hematocrit 26 L 25 L 25 L (34.0-46.0) % ABG Sodium 134 L 134 L (135-146) mmol/L ABG Potassium 5.0 H 4.6 H (3.4-4.5) mmol/L ABG Ionized Calcium 4.4 L (4.5-5.3) mg/dL ABG Glucose 232 H 221 H 183 H (75-99) mg/dL ABG Lactic Acid 2.1 H 2.5 H* 2.8 H* (0.5-1.6) mmol/L Hemoglobin 8.6 L 8.2 L 8.0 L (13.0-17.5) gm/dL Potassium (3.5-5.1) mmol/L Chloride (98-107) mmol/L Glucose (74-99) mg/dL POC Glucose (mg/dL) (75-99) mg/dL Calcium (8.4-10.2) mg/dL Magnesium (1.6-2.3) mg/dL AST (17-59) U/L Alkaline Phosphatase (38-126) U/L Total Protein (6.3-8.2) g/dL Albumin (3.5-5.0) g/dL Arterial Blood Potassium 5.0 H 4.6 H (3.4-4.5) mmol/L Arterial Blood Glucose 232 H 221 H 183 H (75-99) mg/dL Crossmatch 06/20/18 06/20/18 06/20/18 Range/Units 13:56 14:45 14:45 WBC (3.8-10.6) k/uL RBC 2.66 L (4.30-5.90) m/uL Hgb 7.8 L D (13.0-17.5) gm/dL Hct 23.0 L (39.0-53.0) % Plt Count 94 L D (150-450) k/uL Neutrophils # (1.3-7.7) k/uL Lymphocytes # 0.9 L (1.0-4.8) k/uL PT (9.0-12.0) sec INR (<1.2) APTT (22.0-30.0) sec ABG pH 7.47 H (7.35-7.45) ABG pCO2 (35-45) mmHg ABG pO2 268 H (83-108) mmHg ABG HCO3 26 H (21-25) mmol/L ABG Total CO2 27 H (19-24) mmol/L ABG O2 Saturation 100.0 H (94-97) % ABG Hematocrit 25 L (34.0-46.0) % ABG Sodium (135-146) mmol/L ABG Potassium (3.4-4.5) mmol/L ABG Ionized Calcium (4.5-5.3) mg/dL ABG Glucose 122 H (75-99) mg/dL ABG Lactic Acid 2.3 H* (0.5-1.6) mmol/L Hemoglobin 8.1 L (13.0-17.5) gm/dL Potassium (3.5-5.1) mmol/L Chloride 108 H (98-107) mmol/L Glucose (74-99) mg/dL POC Glucose (mg/dL) (75-99) mg/dL Calcium 7.9 L (8.4-10.2) mg/dL Magnesium 2.8 H (1.6-2.3) mg/dL AST (17-59) U/L Alkaline Phosphatase 27 L (38-126) U/L Total Protein 3.9 L (6.3-8.2) g/dL Albumin 2.4 L (3.5-5.0) g/dL Arterial Blood Potassium (3.4-4.5) mmol/L Arterial Blood Glucose 122 H (75-99) mg/dL Crossmatch 06/20/18 06/20/18 06/20/18 Range/Units 14:45 14:45 15:05 WBC (3.8-10.6) k/uL RBC (4.30-5.90) m/uL Hgb (13.0-17.5) gm/dL Hct (39.0-53.0) % Plt Count (150-450) k/uL Neutrophils # (1.3-7.7) k/uL Lymphocytes # (1.0-4.8) k/uL PT 12.9 H (9.0-12.0) sec INR 1.3 H (<1.2) APTT 34.1 H (22.0-30.0) sec ABG pH (7.35-7.45) ABG pCO2 46 H (35-45) mmHg ABG pO2 338 H (83-108) mmHg ABG HCO3 27 H (21-25) mmol/L ABG Total CO2 28 H (19-24) mmol/L ABG O2 Saturation 100.0 H (94-97) % ABG Hematocrit (34.0-46.0) % ABG Sodium (135-146) mmol/L ABG Potassium (3.4-4.5) mmol/L ABG Ionized Calcium (4.5-5.3) mg/dL ABG Glucose (75-99) mg/dL ABG Lactic Acid (0.5-1.6) mmol/L Hemoglobin (13.0-17.5) gm/dL Potassium (3.5-5.1) mmol/L Chloride (98-107) mmol/L Glucose (74-99) mg/dL POC Glucose (mg/dL) 105 H (75-99) mg/dL Calcium (8.4-10.2) mg/dL Magnesium (1.6-2.3) mg/dL AST (17-59) U/L Alkaline Phosphatase (38-126) U/L Total Protein (6.3-8.2) g/dL Albumin (3.5-5.0) g/dL Arterial Blood Potassium (3.4-4.5) mmol/L Arterial Blood Glucose (75-99) mg/dL Crossmatch 06/20/18 06/20/18 06/20/18 Range/Units 17:31 18:40 18:41 WBC 13.3 H (3.8-10.6) k/uL RBC 3.33 L (4.30-5.90) m/uL Hgb 9.7 L D (13.0-17.5) gm/dL Hct 29.2 L (39.0-53.0) % Plt Count (150-450) k/uL Neutrophils # 11.4 H (1.3-7.7) k/uL Lymphocytes # 0.9 L (1.0-4.8) k/uL PT (9.0-12.0) sec INR (<1.2) APTT (22.0-30.0) sec ABG pH (7.35-7.45) ABG pCO2 (35-45) mmHg ABG pO2 (83-108) mmHg ABG HCO3 (21-25) mmol/L ABG Total CO2 (19-24) mmol/L ABG O2 Saturation (94-97) % ABG Hematocrit (34.0-46.0) % ABG Sodium (135-146) mmol/L ABG Potassium (3.4-4.5) mmol/L ABG Ionized Calcium (4.5-5.3) mg/dL ABG Glucose (75-99) mg/dL ABG Lactic Acid (0.5-1.6) mmol/L Hemoglobin (13.0-17.5) gm/dL Potassium (3.5-5.1) mmol/L Chloride (98-107) mmol/L Glucose (74-99) mg/dL POC Glucose (mg/dL) 139 H 159 H (75-99) mg/dL Calcium (8.4-10.2) mg/dL Magnesium (1.6-2.3) mg/dL AST (17-59) U/L Alkaline Phosphatase (38-126) U/L Total Protein (6.3-8.2) g/dL Albumin (3.5-5.0) g/dL Arterial Blood Potassium (3.4-4.5) mmol/L Arterial Blood Glucose (75-99) mg/dL Crossmatch 06/20/18 06/20/18 06/20/18 Range/Units 19:09 19:47 20:10 WBC (3.8-10.6) k/uL RBC (4.30-5.90) m/uL Hgb (13.0-17.5) gm/dL Hct (39.0-53.0) % Plt Count (150-450) k/uL Neutrophils # (1.3-7.7) k/uL Lymphocytes # (1.0-4.8) k/uL PT (9.0-12.0) sec INR (<1.2) APTT (22.0-30.0) sec ABG pH 7.33 L (7.35-7.45) ABG pCO2 46 H (35-45) mmHg ABG pO2 68 L (83-108) mmHg ABG HCO3 (21-25) mmol/L ABG Total CO2 26 H (19-24) mmol/L ABG O2 Saturation 93.9 L (94-97) % ABG Hematocrit (34.0-46.0) % ABG Sodium (135-146) mmol/L ABG Potassium (3.4-4.5) mmol/L ABG Ionized Calcium (4.5-5.3) mg/dL ABG Glucose (75-99) mg/dL ABG Lactic Acid (0.5-1.6) mmol/L Hemoglobin (13.0-17.5) gm/dL Potassium (3.5-5.1) mmol/L Chloride (98-107) mmol/L Glucose (74-99) mg/dL POC Glucose (mg/dL) 175 H 172 H (75-99) mg/dL Calcium (8.4-10.2) mg/dL Magnesium (1.6-2.3) mg/dL AST (17-59) U/L Alkaline Phosphatase (38-126) U/L Total Protein (6.3-8.2) g/dL Albumin (3.5-5.0) g/dL Arterial Blood Potassium (3.4-4.5) mmol/L Arterial Blood Glucose (75-99) mg/dL Crossmatch 06/20/18 06/20/18 06/20/18 Range/Units 21:00 22:04 22:20 WBC (3.8-10.6) k/uL RBC (4.30-5.90) m/uL Hgb (13.0-17.5) gm/dL Hct (39.0-53.0) % Plt Count (150-450) k/uL Neutrophils # (1.3-7.7) k/uL Lymphocytes # (1.0-4.8) k/uL PT (9.0-12.0) sec INR (<1.2) APTT (22.0-30.0) sec ABG pH (7.35-7.45) ABG pCO2 (35-45) mmHg ABG pO2 (83-108) mmHg ABG HCO3 (21-25) mmol/L ABG Total CO2 (19-24) mmol/L ABG O2 Saturation (94-97) % ABG Hematocrit (34.0-46.0) % ABG Sodium (135-146) mmol/L ABG Potassium (3.4-4.5) mmol/L ABG Ionized Calcium (4.5-5.3) mg/dL ABG Glucose (75-99) mg/dL ABG Lactic Acid (0.5-1.6) mmol/L Hemoglobin (13.0-17.5) gm/dL Potassium 5.2 H (3.5-5.1) mmol/L Chloride (98-107) mmol/L Glucose 129 H (74-99) mg/dL POC Glucose (mg/dL) 165 H 145 H (75-99) mg/dL Calcium (8.4-10.2) mg/dL Magnesium (1.6-2.3) mg/dL AST (17-59) U/L Alkaline Phosphatase (38-126) U/L Total Protein (6.3-8.2) g/dL Albumin (3.5-5.0) g/dL Arterial Blood Potassium (3.4-4.5) mmol/L Arterial Blood Glucose (75-99) mg/dL Crossmatch 06/20/18 06/20/18 06/21/18 Range/Units 22:20 23:01 00:10 WBC 11.5 H (3.8-10.6) k/uL RBC 3.11 L (4.30-5.90) m/uL Hgb 9.3 L (13.0-17.5) gm/dL Hct 27.2 L (39.0-53.0) % Plt Count 130 L (150-450) k/uL Neutrophils # (1.3-7.7) k/uL Lymphocytes # (1.0-4.8) k/uL PT (9.0-12.0) sec INR (<1.2) APTT (22.0-30.0) sec ABG pH (7.35-7.45) ABG pCO2 (35-45) mmHg ABG pO2 (83-108) mmHg ABG HCO3 (21-25) mmol/L ABG Total CO2 (19-24) mmol/L ABG O2 Saturation (94-97) % ABG Hematocrit (34.0-46.0) % ABG Sodium (135-146) mmol/L ABG Potassium (3.4-4.5) mmol/L ABG Ionized Calcium (4.5-5.3) mg/dL ABG Glucose (75-99) mg/dL ABG Lactic Acid (0.5-1.6) mmol/L Hemoglobin (13.0-17.5) gm/dL Potassium (3.5-5.1) mmol/L Chloride (98-107) mmol/L Glucose (74-99) mg/dL POC Glucose (mg/dL) 133 H 117 H (75-99) mg/dL Calcium (8.4-10.2) mg/dL Magnesium (1.6-2.3) mg/dL AST (17-59) U/L Alkaline Phosphatase (38-126) U/L Total Protein (6.3-8.2) g/dL Albumin (3.5-5.0) g/dL Arterial Blood Potassium (3.4-4.5) mmol/L Arterial Blood Glucose (75-99) mg/dL Crossmatch 06/21/18 06/21/18 06/21/18 Range/Units 01:14 02:12 03:01 WBC (3.8-10.6) k/uL RBC (4.30-5.90) m/uL Hgb (13.0-17.5) gm/dL Hct (39.0-53.0) % Plt Count (150-450) k/uL Neutrophils # (1.3-7.7) k/uL Lymphocytes # (1.0-4.8) k/uL PT (9.0-12.0) sec INR (<1.2) APTT (22.0-30.0) sec ABG pH (7.35-7.45) ABG pCO2 (35-45) mmHg ABG pO2 (83-108) mmHg ABG HCO3 (21-25) mmol/L ABG Total CO2 (19-24) mmol/L ABG O2 Saturation (94-97) % ABG Hematocrit (34.0-46.0) % ABG Sodium (135-146) mmol/L ABG Potassium (3.4-4.5) mmol/L ABG Ionized Calcium (4.5-5.3) mg/dL ABG Glucose (75-99) mg/dL ABG Lactic Acid (0.5-1.6) mmol/L Hemoglobin (13.0-17.5) gm/dL Potassium (3.5-5.1) mmol/L Chloride (98-107) mmol/L Glucose (74-99) mg/dL POC Glucose (mg/dL) 119 H 122 H 121 H (75-99) mg/dL Calcium (8.4-10.2) mg/dL Magnesium (1.6-2.3) mg/dL AST (17-59) U/L Alkaline Phosphatase (38-126) U/L Total Protein (6.3-8.2) g/dL Albumin (3.5-5.0) g/dL Arterial Blood Potassium (3.4-4.5) mmol/L Arterial Blood Glucose (75-99) mg/dL Crossmatch 06/21/18 06/21/18 06/21/18 Range/Units 04:18 04:18 04:19 WBC 11.6 H (3.8-10.6) k/uL RBC 3.15 L (4.30-5.90) m/uL Hgb 8.6 L (13.0-17.5) gm/dL Hct 27.6 L (39.0-53.0) % Plt Count 131 L (150-450) k/uL Neutrophils # 10.2 H (1.3-7.7) k/uL Lymphocytes # 0.5 L (1.0-4.8) k/uL PT (9.0-12.0) sec INR (<1.2) APTT (22.0-30.0) sec ABG pH (7.35-7.45) ABG pCO2 (35-45) mmHg ABG pO2 (83-108) mmHg ABG HCO3 (21-25) mmol/L ABG Total CO2 (19-24) mmol/L ABG O2 Saturation (94-97) % ABG Hematocrit (34.0-46.0) % ABG Sodium (135-146) mmol/L ABG Potassium (3.4-4.5) mmol/L ABG Ionized Calcium (4.5-5.3) mg/dL ABG Glucose (75-99) mg/dL ABG Lactic Acid (0.5-1.6) mmol/L Hemoglobin (13.0-17.5) gm/dL Potassium 5.4 H (3.5-5.1) mmol/L Chloride 108 H (98-107) mmol/L Glucose 118 H (74-99) mg/dL POC Glucose (mg/dL) 126 H (75-99) mg/dL Calcium (8.4-10.2) mg/dL Magnesium 2.4 H (1.6-2.3) mg/dL AST 62 H (17-59) U/L Alkaline Phosphatase 37 L (38-126) U/L Total Protein 4.6 L (6.3-8.2) g/dL Albumin 2.9 L (3.5-5.0) g/dL Arterial Blood Potassium (3.4-4.5) mmol/L Arterial Blood Glucose (75-99) mg/dL Crossmatch 06/21/18 06/21/18 06/21/18 Range/Units 06:02 07:06 08:32 WBC (3.8-10.6) k/uL RBC (4.30-5.90) m/uL Hgb (13.0-17.5) gm/dL Hct (39.0-53.0) % Plt Count (150-450) k/uL Neutrophils # (1.3-7.7) k/uL Lymphocytes # (1.0-4.8) k/uL PT (9.0-12.0) sec INR (<1.2) APTT (22.0-30.0) sec ABG pH (7.35-7.45) ABG pCO2 (35-45) mmHg ABG pO2 (83-108) mmHg ABG HCO3 (21-25) mmol/L ABG Total CO2 (19-24) mmol/L ABG O2 Saturation (94-97) % ABG Hematocrit (34.0-46.0) % ABG Sodium (135-146) mmol/L ABG Potassium (3.4-4.5) mmol/L ABG Ionized Calcium (4.5-5.3) mg/dL ABG Glucose (75-99) mg/dL ABG Lactic Acid (0.5-1.6) mmol/L Hemoglobin (13.0-17.5) gm/dL Potassium (3.5-5.1) mmol/L Chloride (98-107) mmol/L Glucose (74-99) mg/dL POC Glucose (mg/dL) 128 H 129 H 131 H (75-99) mg/dL Calcium (8.4-10.2) mg/dL Magnesium (1.6-2.3) mg/dL AST (17-59) U/L Alkaline Phosphatase (38-126) U/L Total Protein (6.3-8.2) g/dL Albumin (3.5-5.0) g/dL Arterial Blood Potassium (3.4-4.5) mmol/L Arterial Blood Glucose (75-99) mg/dL Crossmatch 06/21/18 06/21/18 Range/Units 10:21 11:11 WBC (3.8-10.6) k/uL RBC (4.30-5.90) m/uL Hgb (13.0-17.5) gm/dL Hct (39.0-53.0) % Plt Count (150-450) k/uL Neutrophils # (1.3-7.7) k/uL Lymphocytes # (1.0-4.8) k/uL PT (9.0-12.0) sec INR (<1.2) APTT (22.0-30.0) sec ABG pH (7.35-7.45) ABG pCO2 (35-45) mmHg ABG pO2 (83-108) mmHg ABG HCO3 (21-25) mmol/L ABG Total CO2 (19-24) mmol/L ABG O2 Saturation (94-97) % ABG Hematocrit (34.0-46.0) % ABG Sodium (135-146) mmol/L ABG Potassium (3.4-4.5) mmol/L ABG Ionized Calcium (4.5-5.3) mg/dL ABG Glucose (75-99) mg/dL ABG Lactic Acid (0.5-1.6) mmol/L Hemoglobin (13.0-17.5) gm/dL Potassium (3.5-5.1) mmol/L Chloride (98-107) mmol/L Glucose (74-99) mg/dL POC Glucose (mg/dL) 117 H 109 H (75-99) mg/dL Calcium (8.4-10.2) mg/dL Magnesium (1.6-2.3) mg/dL AST (17-59) U/L Alkaline Phosphatase (38-126) U/L Total Protein (6.3-8.2) g/dL Albumin (3.5-5.0) g/dL Arterial Blood Potassium (3.4-4.5) mmol/L Arterial Blood Glucose (75-99) mg/dL Crossmatch Assessment and Plan Assessment: Assessment Coronary artery disease status post CABG BETHEA to the LAD and SVG to the ramus History of TIA GERD history of polio history of DVT in the left arm History of TIA in 2016 no deficits Hypertension Plan Medications have been reviewed and will be continued as ordered. Appreciate input of the assisted living housekeeper, cardiothoracic surgeon Hemodynamically stable Monitor chest tubes Continue with pulmonary hygiene, coughing and deep breathing exercises, and supportive care. Supplemental oxygen to maintain oxygen saturations of 92% or better. GI and DVT prophylaxis. We will continue to monitor labs/results and adjust treatment as necessary. Further recommendations pending. I, the signing physician performed an examination of the patient, discussed and directed their management with the nurse practitioner. I have reviewed the nurse practitioner's note and agree with the documented findings, orders and plan of care. Nurse practitioner acting as a scribe for the signing physician. Please note we are covering for Dr. Ismael Gregorio
[2018-06-21] MEDS: KETOROLAC 30 MG/ML 1 ML VIAL IVP SCH ×3 (12:20→23:32)
[2018-06-21 12:28] LABS: Glucose,Whole Blood 120 mg/dL (75-99)
[2018-06-21] MEDS ORDERED: BISACODYL 10 MG SUPP RECTAL PRN (14:09)
[2018-06-21] MEDS ORDERED: HYDROcodone/APAP 5-325MG 1 EACH TAB PO PRN (14:09)
[2018-06-21] MEDS ORDERED: MAGNESIUM HYDROXIDE 2,400 MG/10 ML CUP PO PRN (14:09)
[2018-06-21 14:18] LABS: Glucose,Whole Blood 141 mg/dL (75-99)
[2018-06-21 15:01] LABS: Glucose,Whole Blood 124 mg/dL (75-99)
[2018-06-21] MEDS: CLEVIDIPINE BUTYRATE 25 MG in EMPTY BAG 1 BAG IV SCH (15:38)
[2018-06-21 16:10] LABS: Glucose,Whole Blood 112 mg/dL (75-99)
[2018-06-21 17:14] LABS: Glucose,Whole Blood 142 mg/dL (75-99)
[2018-06-21] MEDS: INSULIN ASPART 100 UNIT/ML 1 ML 10 ML VIAL SQ SCH ×2 (17:20→20:58)
[2018-06-21] MEDS: SENNOSIDES-DOCUSATE SODIUM 1 EACH TAB PO SCH (20:57)
[2018-06-21] MEDS: PRAVASTATIN SODIUM 40 MG TAB PO SCH (20:58)
[2018-06-21] MEDS: METOPROLOL TARTRATE 25 MG TAB PO SCH (20:58)
[2018-06-21] MEDS: LACTATED RINGERS 1,000 ML IV SCH (20:59)
[2018-06-21 21:03] LABS: Glucose,Whole Blood 147 mg/dL (75-99)
[2018-06-22 05:40] LABS: Basophils % (A) 0 %; Eosinophils # (A) 0.2 k/uL (0-0.7); Eosinophils % (A) 2 %; HCT 23.7 % (39.0-53.0); HGB 7.9 gm/dL (13.0-17.5); Lymphocytes # (A) 1.4 k/uL (1.0-4.8); Lymphocytes % (A) 13 %; MCH 30.1 pg (25.0-35.0); MCHC 33.6 g/dL (31.0-37.0); MCV 89.6 fL (80.0-100.0); Mean Platelet Volume 8.1; Monocytes # (A) 0.7 k/uL (0-1.0); Monocytes % (A) 6 %; Neutrophils # (A) 8.5 k/uL (1.3-7.7); Neutrophils % (A) 78 %; Platelet Count 117 k/uL (150-450); RBC 2.64 m/uL (4.30-5.90); RDW 13.7 % (11.5-15.5)
[2018-06-22] MEDS: KETOROLAC 30 MG/ML 1 ML VIAL IVP SCH (05:45)
[2018-06-22 05:48] LABS: Ionized Calcium 5.1 mg/dL (4.5-5.3)
[2018-06-22 06:03] LABS: Albumin 2.7 g/dL (3.5-5.0); Calcium 8.5 mg/dL (8.4-10.2); Total Protein 4.5 g/dL (6.3-8.2)
[2018-06-22 06:16] LABS: Magnesium 2.5 mg/dL (1.6-2.3); Potassium 4.9 mmol/L (3.5-5.1)
[2018-06-22] MEDS: IPRATROPIUM-ALBUTEROL 3 ML NEB INHALATION SCH ×4 (07:29→20:20)
--- NOTE | 2018-06-22 08:02 | PN ---
PROGRESS NOTE Mr. Bro is a 73-year-old male who has underwent coronary artery bypass grafting. He is feeling well today. He is sitting up in the chair. He is in sinus mechanism. He has no chest pain. No dizziness. No palpitation. He denies any nausea. Hemodynamically, he has been stable and he is on no pressors. He continues to be on aspirin once a day, Plavix 75 mg daily, metoprolol tartrate 25 mg twice a day. PHYSICAL EXAMINATION: Blood pressure 106/50 with the heart rate in the 60s. LUNGS: With few crackles at the bases. HEART: Regular rate and rhythm. S1, S2. No S3. No rub appreciated. No rub. ABDOMEN: Soft, obese, nontender. EXTREMITIES: No significant edema. LAB DATA: Lab data revealed a hemoglobin 7.9. BUN and creatinine 22 and 1.28. IMPRESSION: 1. Status post coronary artery bypass grafting appears to be stable. 2. History of hyperlipidemia. 3. History of polio. 4. Hypertension. RECOMMENDATION: We will continue present therapy. Follow his renal function closely. Increase his level of activity and continue incentive spirometry. Depending on his progress, further recommendation will be made. MMODL / IJN: [id number] /
[2018-06-22] MEDS ORDERED: FUROSEMIDE 10 MG/ML 2 ML VIAL IV ONE (08:29)
[2018-06-22] MEDS: INSULIN ASPART 100 UNIT/ML 1 ML 10 ML VIAL SQ SCH ×4 (08:54→21:10)
[2018-06-22] MEDS: ASPIRIN 325 MG TAB PO SCH (08:56)
[2018-06-22] MEDS: METOPROLOL TARTRATE 25 MG TAB PO SCH ×2 (08:56→21:15)
[2018-06-22] MEDS: PANTOPRAZOLE 40 MG TABLET PO SCH (08:56)
[2018-06-22] MEDS: HEPARIN SODIUM,PORCINE 5,000 UNIT/ML 1 ML VIAL SQ SCH ×2 (08:56→18:55)
[2018-06-22] MEDS: CLOPIDOGREL 75 MG TAB PO SCH (08:56)
[2018-06-22] MEDS: MUPIROCIN 2% OINT 22 GM TUBE NASAL SCH ×2 (08:57→21:15)
[2018-06-22 08:59] LABS: Glucose,Whole Blood 161 mg/dL (75-99)
--- NOTE | 2018-06-22 09:26 | XR ---
EXAMINATION TYPE: XR chest 1V portable DATE OF EXAM: 06/22/2018 COMPARISON: Prior chest x-ray 06/21/2018 HISTORY: Postop cardiac surgery TECHNIQUE: Single frontal view of the chest is obtained. FINDINGS: There is been interval removal of the central venous catheter. Right jugular central venou s sheath and left-sided chest tube, median sternal drain remain in place. No evident pneumothorax or pleural effusion. Heart remains enlarged. Suspect some improvement in aeration. Aorta is dense, possi salvatore aneurysmal. Mediastinum remains widened. IMPRESSION: Improved aeration. Additional findings above.
--- NOTE | 2018-06-22 10:29 | P.PN ---
Subjective Progress Note Date: 06/22/18 Principal diagnosis: Coronary artery disease with totally occluded left anterior descending artery and ostial left main disease, hypertension, hyperlipidemia, diabetes with preoperative hemoglobin A1c 5.4%, poliomyelitis, TIAs, GERD, DVT in 1972, obesity, significant family history for early onset coronary artery disease with 2 brothers and 3 sisters having myocardial infarctions in their 50s. POD #2 double coronary artery bypass grafting using the left internal mammary artery to the left anterior descending artery/diagonal system, reverse saphenous vein graft from the aorta to the ramus intermedius artery. Endoscopic harvesting of the right greater saphenous vein from the groin to just below the knee level. Intraoperative transesophageal echocardiogram and epi-aortic scanning. Intraoperative graft flow measurements using the [employer] system. Postoperative acute blood loss anemia, expected outcome of surgery secondary to cardiopulmonary bypass pump and hemodilution. The patient's currently sitting up in a recliner in no acute distress in the intensive care unit. Remains hemodynamically stable on no inotropes or pressors. Working diligently on his incentive spirometry. States surgical pain is well-controlled on current medication regimen, denies shortness of breath. No new complaints. Objective - Vital Signs Vital signs: Vital Signs Temp 98.7 F 06/22/18 08:00 Pulse 76 06/22/18 09:00 Resp 17 06/22/18 09:00 BP 106/45 06/22/18 09:00 Pulse Ox 96 06/22/18 09:00 Intake & Output 06/21/18 06/22/18 06/22/18 18:59 06:59 18:59 Intake Total 677.814 260 46 Output Total 643 1005 20 Balance 34.814 -745 26 Weight 99.79 kg 102.6 kg Intake: IV 420 260 46 Lactated Ringers 1,000 ml 420 260 40 @ 20 mls/hr IV .Q24H RAÚL Rx#:[id number] pressure bag 6 Intake, IV Titration 17.814 Amount Insulin Regular 100 unit 17.814 In Sodium Chloride 0.9% 100 ml @ Per Protocol IV .Q0M RAÚL Rx#:[id number] Oral 240 Output: Chest Tube Drainage 240 160 0 Chest Tube Left Lateral 60 110 0 Chest Chest Tube Mediastinal 180 50 0 Urine 403 845 20 Other: Voiding Method Indwelling Catheter Indwelling Catheter ABP, PAP, CO, CI - Last Documented Arterial Blood Pressure 115/48 Pulmonary Artery Pressure 23/6 Cardiac Output 6.3 Cardiac Index 2.9 - Constitutional General appearance: Present: cooperative, no acute distress, obese - Respiratory Details: Lungs sounds diminished bilaterally. Respirations even, nonlabored. Currently on 2 L nasal cannula with oxygen saturation 97%. Strong cough. Able to achieve 1500 mL on his incentive spirometry. Mediastinal chest tube to continuous wall suction, 50 mL serosanguineous drainage in the last 8 hours, 150 mL in the last 24 hours. Left pleural chest tube to continuous wall suction , 110 mL serosanguineous drainage in the last 8 hours, 150 mL since surgery. No air leaks present. - Cardiovascular Details: S1, S2 present. Regular rate and rhythm, sinus rhythm on telemetry. Sternum stable. Ventricular epicardial pacemaker wires present, grounded. Palpable peripheral pulses bilaterally. No edema present. No calf pain or tenderness noted. Right internal jugular cordis, right brachial arterial line present. Heart hugger in place with patient demonstrating appropriate use. Antiembolism stockings, SCDs present. - Gastrointestinal Gastrointestinal Comment(s): Abdomen soft, nontender, nondistended. Hypoactive bowel sounds present 4 quadrants. Tolerating diet. Positive flatus, negative bowel movement. - Genitourinary Genitourinary Comment(s): Simms present draining clear, yellow urine. Output 35-125 mL per hour overnight. - Integumentary Integumentary Comment(s): Skin is warm and dry with evidence of good perfusion. Anterior chest incision well approximated and covered with dry intact dressing. Right lower extremity EVH site well approximated, HAZEL drain present with minimal serosanguineous drainage. - Neurologic Neurologic: Present: CNII-XII intact - Musculoskeletal Musculoskeletal: Present: strength equal bilaterally - Psychiatric Psychiatric: Present: A&O x's 3, appropriate affect, intact judgment & insight - Allied health notes Allied health notes reviewed: nursing - Labs CBC & Chem 7: 06/22/18 04:50 06/22/18 04:50 Labs: Abnormal Lab Results - Last 24 Hours (Table) 06/21/18 06/21/18 06/21/18 Range/Units 10:21 11:11 12:17 WBC (3.8-10.6) k/uL RBC (4.30-5.90) m/uL Hgb (13.0-17.5) gm/dL Hct (39.0-53.0) % Plt Count (150-450) k/uL Neutrophils # (1.3-7.7) k/uL Sodium (137-145) mmol/L BUN (9-20) mg/dL Creatinine (0.66-1.25) mg/dL Glucose (74-99) mg/dL POC Glucose (mg/dL) 117 H 109 H 120 H (75-99) mg/dL Magnesium (1.6-2.3) mg/dL Alkaline Phosphatase (38-126) U/L Total Protein (6.3-8.2) g/dL Albumin (3.5-5.0) g/dL 06/21/18 06/21/18 06/21/18 Range/Units 14:02 14:49 15:58 WBC (3.8-10.6) k/uL RBC (4.30-5.90) m/uL Hgb (13.0-17.5) gm/dL Hct (39.0-53.0) % Plt Count (150-450) k/uL Neutrophils # (1.3-7.7) k/uL Sodium (137-145) mmol/L BUN (9-20) mg/dL Creatinine (0.66-1.25) mg/dL Glucose (74-99) mg/dL POC Glucose (mg/dL) 141 H 124 H 112 H (75-99) mg/dL Magnesium (1.6-2.3) mg/dL Alkaline Phosphatase (38-126) U/L Total Protein (6.3-8.2) g/dL Albumin (3.5-5.0) g/dL 06/21/18 06/21/18 06/22/18 Range/Units 17:03 20:52 04:50 WBC (3.8-10.6) k/uL RBC (4.30-5.90) m/uL Hgb (13.0-17.5) gm/dL Hct (39.0-53.0) % Plt Count (150-450) k/uL Neutrophils # (1.3-7.7) k/uL Sodium 133 L (137-145) mmol/L BUN 22 H (9-20) mg/dL Creatinine 1.28 H (0.66-1.25) mg/dL Glucose 119 H (74-99) mg/dL POC Glucose (mg/dL) 142 H 147 H (75-99) mg/dL Magnesium 2.5 H (1.6-2.3) mg/dL Alkaline Phosphatase 34 L (38-126) U/L Total Protein 4.5 L (6.3-8.2) g/dL Albumin 2.7 L (3.5-5.0) g/dL 06/22/18 06/22/18 Range/Units 04:50 08:47 WBC 11.0 H (3.8-10.6) k/uL RBC 2.64 L (4.30-5.90) m/uL Hgb 7.9 L (13.0-17.5) gm/dL Hct 23.7 L (39.0-53.0) % Plt Count 117 L (150-450) k/uL Neutrophils # 8.5 H (1.3-7.7) k/uL Sodium (137-145) mmol/L BUN (9-20) mg/dL Creatinine (0.66-1.25) mg/dL Glucose (74-99) mg/dL POC Glucose (mg/dL) 161 H (75-99) mg/dL Magnesium (1.6-2.3) mg/dL Alkaline Phosphatase (38-126) U/L Total Protein (6.3-8.2) g/dL Albumin (3.5-5.0) g/dL - Imaging and Cardiology Chest x-ray: report reviewed, image reviewed Assessment and Plan (1) Obesity (BMI 30-39.9) Current Visit: Yes Status: Chronic Code(s): E66.9 - OBESITY, UNSPECIFIED SNOMED Code(s): 456228121 (2) Family history of early CAD Current Visit: Yes Status: Chronic Code(s): Z82.49 - FAMILY HX OF ISCHEM HEART DIS AND OTH DIS OF [facility] SNOMED Code(s): 748039170 (3) Diabetes mellitus Current Visit: Yes Status: Chronic Code(s): E11.9 - TYPE 2 DIABETES MELLITUS WITHOUT COMPLICATIONS SNOMED Code(s): 33115401 (4) Coronary artery disease Current Visit: Yes Status: Chronic Code(s): I25.10 - ATHSCL HEART DISEASE OF [place] CORONARY ARTERY W/O ANG PCTRS SNOMED Code(s): 26082527 (5) GERD (gastroesophageal reflux disease) Current Visit: Yes Status: Chronic Code(s): K21.9 - GASTRO-ESOPHAGEAL REFLUX DISEASE WITHOUT ESOPHAGITIS SNOMED Code(s): 271092599 (6) History of TIA (transient ischemic attack) Current Visit: No Status: Resolved Code(s): Z86.73 - PRSNL HX OF TIA (TIA), AND CEREB INFRC W/O RESID DEFICITS SNOMED Code(s): 576234575 (7) History of deep venous thrombosis Current Visit: No Status: Resolved Code(s): Z86.718 - PERSONAL HISTORY OF OTHER VENOUS THROMBOSIS AND EMBOLISM SNOMED Code(s): 917471191 (8) History of poliomyelitis Current Visit: Yes Status: Chronic Code(s): Z86.12 - PERSONAL HISTORY OF POLIOMYELITIS SNOMED Code(s): 460372997 (9) Hyperlipidemia Current Visit: Yes Status: Chronic Code(s): E78.5 - HYPERLIPIDEMIA, UNSPECIFIED SNOMED Code(s): 47232110 (10) Hypertension Current Visit: Yes Status: Chronic Code(s): I10 - ESSENTIAL (PRIMARY) HYPERTENSION SNOMED Code(s): 08467185 Plan: 1. Continue aspirin, statin, Plavix, nj therapy. Will increase beta nj therapy as tolerated. Will add EVIE inhibitor as tolerated. 2. Wean O2 as tolerated. Encourage incentive spirometry use 10 times every hour while awake. 3. Bronchodilators per pulmonology. 4. Will give Lasix 20 mg IV push today. 5. Increase activity, ambulate as tolerated. PT/OT/cardiac rehab following. 6. Discontinue Cordis, arterial line. 7. Pain control with current medication regimen. 8. Will monitor daily labs, x-rays. Electrolyte replacement per protocol. No transfusion at this point. 9. Insulin management per primary care service. 10. GI prophylaxis with Protonix. DVT prophylaxis with subcu heparin, SCDs. 11. Will discontinue chest tubes, Simms catheter. 12. More recommendations to follow based on patient's progress. Time with Patient: Greater than 30
[2018-06-22] MEDS: HYDROcodone/APAP 5-325MG 1 EACH TAB PO PRN ×2 (10:44→21:16)
--- NOTE | 2018-06-22 11:41 | P.PN ---
Subjective Progress Note Date: 06/22/18 HPI: This is a 73-year-old male patient being seen examined and evaluated today for consultation while covering for Dr. Ismael Gregorio. This patient does have a history of [place] and underwent a cardiac catheterization and he was advised to undergo a CABG. With cardiothoracic surgeon. He did have a CABG today and had BETHEA to the LAD and SVG to the ramus. The patient is currently on mechanical ventilation with propofol for sedation. He is on assist control mode with respiratory of rate of 12, tidal volume 500, FiO2 50% and a PEEP of 5. He is being followed with an machine shop instructor as well. Currently the patient is hemodynamically stable. He does have 2 chest tubes present please see flowsheet for output. He continues on a nitro drip. Please see surgical notes for further details. Interval history: 06/21/2018- patient is being seen examined and evaluated today while covering for Dr. Gregorio on rounds in the intensive care unit. He has postop day 2. The patient was successfully extubated yesterday. His chest x-ray is reviewed and does show some volume overload with some interstitial edema and bibasilar atelectasis. The patient has been hemodynamically stable. Using his incentive spirometer and pulling volumes of 1500 ML's. His [place] catheter should be removed today. His chest tubes will remain. See chest tube flowsheet for output. 06/22/18- patient is being seen examined and evaluated today on rounds while covering for Dr. Ismael Gregorio. He is resting up in bedside chair and is doing well. His chest x-ray shows improved aeration. He will potentially have his chest tubes removed today. He is on 2 L of supplemental oxygen via nasal cannula continues to actively use his incentive spirometer. States overall he is feeling much better today. Objective - Vital Signs Vital signs: Vital Signs Temp 98.7 F 06/22/18 08:00 Pulse 72 06/22/18 11:17 Resp 15 06/22/18 10:00 BP 106/45 06/22/18 10:00 Pulse Ox 96 06/22/18 10:00 Intake & Output 06/21/18 06/22/18 06/22/18 18:59 06:59 18:59 Intake Total 677.814 260 69 Output Total 643 1005 420 Balance 34.814 -745 -351 Weight 99.79 kg 102.6 kg Intake: IV 420 260 69 Lactated Ringers 1,000 ml 420 260 60 @ 20 mls/hr IV .Q24H RAÚL Rx#:[id number] pressure bag 9 Intake, IV Titration 17.814 Amount Insulin Regular 100 unit 17.814 In Sodium Chloride 0.9% 100 ml @ Per Protocol IV .Q0M RAÚL Rx#:[id number] Oral 240 Output: Chest Tube Drainage 240 160 0 Chest Tube Left Lateral 60 110 0 Chest Chest Tube Mediastinal 180 50 0 Drainage 50 Right Calf 50 Urine 403 845 370 Other: Voiding Method Indwelling Catheter Indwelling Catheter ABP, PAP, CO, CI - Last Documented Arterial Blood Pressure 111/47 Pulmonary Artery Pressure 23/6 Cardiac Output 6.3 Cardiac Index 2.9 - Exam GENERAL EXAM: Alert, comfortable in no apparent distress. HEAD: Normocephalic. EYES: Normal reaction of pupils, equal size. NOSE: Clear with pink turbinates. THROAT: No erythema or exudates. NECK: No masses, no JVD. Right IJ cordis catheter CHEST: Midline incision clean dry and intact, left pleural chest tube and mediastinal chest tube LUNGS: Equal air entry with no crackles, wheeze, rhonchi or dullness. CVS: S1 and S2 normal with no audible mumurs, regular rhythm. ABDOMEN: No hepatosplenomegaly, normal bowel sounds, no guarding or rigidity. EXTREMITIES: No edema noted, pedal pulses palpable. CENTRAL NERVOUS SYSTEM: No focal deficits, tone is normal in all 4 extremities. - Labs CBC & Chem 7: 06/22/18 04:50 06/22/18 04:50 Labs: Abnormal Lab Results - Last 24 Hours (Table) 06/21/18 06/21/18 06/21/18 Range/Units 12:17 14:02 14:49 WBC (3.8-10.6) k/uL RBC (4.30-5.90) m/uL Hgb (13.0-17.5) gm/dL Hct (39.0-53.0) % Plt Count (150-450) k/uL Neutrophils # (1.3-7.7) k/uL Sodium (137-145) mmol/L BUN (9-20) mg/dL Creatinine (0.66-1.25) mg/dL Glucose (74-99) mg/dL POC Glucose (mg/dL) 120 H 141 H 124 H (75-99) mg/dL Magnesium (1.6-2.3) mg/dL Alkaline Phosphatase (38-126) U/L Total Protein (6.3-8.2) g/dL Albumin (3.5-5.0) g/dL 06/21/18 06/21/18 06/21/18 Range/Units 15:58 17:03 20:52 WBC (3.8-10.6) k/uL RBC (4.30-5.90) m/uL Hgb (13.0-17.5) gm/dL Hct (39.0-53.0) % Plt Count (150-450) k/uL Neutrophils # (1.3-7.7) k/uL Sodium (137-145) mmol/L BUN (9-20) mg/dL Creatinine (0.66-1.25) mg/dL Glucose (74-99) mg/dL POC Glucose (mg/dL) 112 H 142 H 147 H (75-99) mg/dL Magnesium (1.6-2.3) mg/dL Alkaline Phosphatase (38-126) U/L Total Protein (6.3-8.2) g/dL Albumin (3.5-5.0) g/dL 06/22/18 06/22/18 06/22/18 Range/Units 04:50 04:50 08:47 WBC 11.0 H (3.8-10.6) k/uL RBC 2.64 L (4.30-5.90) m/uL Hgb 7.9 L (13.0-17.5) gm/dL Hct 23.7 L (39.0-53.0) % Plt Count 117 L (150-450) k/uL Neutrophils # 8.5 H (1.3-7.7) k/uL Sodium 133 L (137-145) mmol/L BUN 22 H (9-20) mg/dL Creatinine 1.28 H (0.66-1.25) mg/dL Glucose 119 H (74-99) mg/dL POC Glucose (mg/dL) 161 H (75-99) mg/dL Magnesium 2.5 H (1.6-2.3) mg/dL Alkaline Phosphatase 34 L (38-126) U/L Total Protein 4.5 L (6.3-8.2) g/dL Albumin 2.7 L (3.5-5.0) g/dL Assessment and Plan Assessment: Assessment Coronary artery disease status post CABG BETHEA to the LAD and SVG to the ramus History of TIA GERD history of polio history of DVT in the left arm History of TIA in 2016 no deficits Hypertension Plan Patient is currently hemodynamically stable Medications have been reviewed and will be continued as ordered. Appreciate input of the machine shop instructor, cardiothoracic surgeon Hemodynamically stable Monitor chest tubes Continue with pulmonary hygiene, coughing and deep breathing exercises, and supportive care. Supplemental oxygen to maintain oxygen saturations of 92% or better. GI and DVT prophylaxis. We will continue to monitor labs/results and adjust treatment as necessary. Further recommendations pending. I, the signing physician performed an examination of the patient, discussed and directed their management with the nurse practitioner. I have reviewed the nurse practitioner's note and agree with the documented findings, orders and plan of care. Nurse practitioner acting as a scribe for the signing physician. Please note we are covering for Dr. Ismael Gregorio
[2018-06-22 12:24] LABS: Glucose,Whole Blood 122 mg/dL (75-99)
[2018-06-22] MEDS: LACTATED RINGERS 1,000 ML IV SCH (13:14)
[2018-06-22 17:03] LABS: Glucose,Whole Blood 122 mg/dL (75-99)
--- NOTE | 2018-06-22 17:37 | P.PN ---
Subjective Progress Note Date: 06/22/18 Principal diagnosis: Coronary artery disease status post coronary artery bypass grafting. A 73-year-old male patient, known history of coronary artery disease, previous history of anterior wall myocardial infarction, underwent a repeat cardiac catheterization and following that the patient was advised to undergo bypass surgery. The cath showed critical lesion in the LAD and a moderate lesion in the left main. This patient has an overall LV function of 40-45% in addition to segmental wall motion abnormalities. The patient was taken to bypass surgery and the patient underwent double vessel bypass surgery with BETHEA to LAD and saphenous vein graft to ramus intermedius artery. and following that the patient was brought into the intensive care unit intubated on a mechanical ventilator. Currently, the patient assist-control mode of ventilation with a rate of 12, tidal volume of 500, FiO2 of 100% and a PEEP of 5. The blood gases after arriving this patient to the ICU showed a pH of 7.37 with a pCO2 of 45 and pO2 of around 338. This x-ray showed a. She'll that is sitting high in the trachea. This was pushed by another centimeters. Meanwhile, hemodynamically the patient is doing well. The patient is sedated with Diprivan. The patient has, comfortable and sedated with the mechanical ventilator. The cardiac output is at 4.5, index is at 2.1, PA pressures 38/24, the output from the left pleural chest tube is 400 mL since arrival from the operating room and mediastinal chest tube is around 35 mL. The patient is on nitroglycerin drip. On 06/21/2018 I'm seeing this patient for a follow-up in the patient's postop day #1. The patient underwent a two-vessel bypass surgery. He is doing extremely well. He was extubated immediately allowing surgery and overnight the patient was resting comfortably in bed without any major complaints or complications. Hemodynamically stable. The patient is using incentive spirometer and pulling approximately 1500 on the incentive spirometer. Chest x- ray from today shows the tubes being all in good location. There has been no other significant issues or events over the past 24 hours. Chest tubes are in place. The cardiac rhythm is sinus. The total output from the mediastinal chest tube has been to 195 mL over the past 8 hours and 50 mL from the left pleural chest tube. The cardiac output is at 6.3 with an index of 2.9. Patient is seen today 06/22/2017 in follow-up in the intensive care unit. He is postoperative day #2. He is currently sitting up in a chair at the bedside. He is awake and alert in no acute distress. He is maintaining good O2 saturations in the 90s on 2 L/m per nasal cannula. His been afebrile. Hemodynamically stable. X-ray continues to show improved aeration. He continues to work well with the incentive spirometer. Pulling approximately 1500 ML's. Mediastinal and left pleural chest tubes remain in place. White count 11.0. Hemoglobin 7.9. Creatinine 1.28. He did receive Lasix 20 mg IV push times one this morning. Objective - Vital Signs Vital signs: Vital Signs Temp 98.4 F 06/22/18 12:00 Pulse 74 06/22/18 17:09 Resp 14 06/22/18 12:00 BP 111/54 06/22/18 12:00 Pulse Ox 92 L 06/22/18 12:00 Intake & Output 06/21/18 06/22/18 06/22/18 18:59 06:59 18:59 Intake Total 677.814 260 89 Output Total 643 1005 820 Balance 34.814 -745 -731 Weight 99.79 kg 102.6 kg Intake: IV 420 260 89 Lactated Ringers 1,000 ml 420 260 80 @ 20 mls/hr IV .Q24H RAÚL Rx#:[id number] pressure bag 9 Intake, IV Titration 17.814 Amount Insulin Regular 100 unit 17.814 In Sodium Chloride 0.9% 100 ml @ Per Protocol IV .Q0M RAÚL Rx#:[id number] Oral 240 Output: Chest Tube Drainage 240 160 0 Chest Tube Left Lateral 60 110 0 Chest Chest Tube Mediastinal 180 50 0 Drainage 50 Right Calf 50 Urine 403 845 770 Other: Voiding Method Indwelling Catheter Indwelling Catheter ABP, PAP, CO, CI - Last Documented Arterial Blood Pressure 106/45 Pulmonary Artery Pressure 23/6 Cardiac Output 6.3 Cardiac Index 2.9 - Exam GENERAL EXAM: Alert, active, comfortable in no apparent distress. On 2 L nasal cannula. HEAD: Normocephalic. EYES: Normal reaction of pupils, equal size. NOSE: Clear with pink turbinates. THROAT: No erythema or exudates. NECK: No masses, no JVD. CHEST: Sternal dressing is 90. Heart Hugger in place. He is sternal and left chest tube in place. LUNGS: Equal air entry with crackles in the posterior bases. CVS: S1 and S2 normal with no audible murmur, regular rhythm. ABDOMEN: No hepatosplenomegaly, normal bowel sounds, no guarding or rigidity. SPINE: No scoliosis or deformity SKIN: No rashes CENTRAL NERVOUS SYSTEM: No focal deficits, tone is normal in all 4 extremities. EXTREMITIES: There is 1-2+ peripheral edema. Right lower extremity HAZEL drain in place. No clubbing, no cyanosis. Peripheral pulses are intact. - Labs CBC & Chem 7: 06/22/18 04:50 06/22/18 04:50 Labs: Abnormal Lab Results - Last 24 Hours (Table) 06/21/18 06/22/18 06/22/18 Range/Units 20:52 04:50 04:50 WBC 11.0 H (3.8-10.6) k/uL RBC 2.64 L (4.30-5.90) m/uL Hgb 7.9 L (13.0-17.5) gm/dL Hct 23.7 L (39.0-53.0) % Plt Count 117 L (150-450) k/uL Neutrophils # 8.5 H (1.3-7.7) k/uL Sodium 133 L (137-145) mmol/L BUN 22 H (9-20) mg/dL Creatinine 1.28 H (0.66-1.25) mg/dL Glucose 119 H (74-99) mg/dL POC Glucose (mg/dL) 147 H (75-99) mg/dL Magnesium 2.5 H (1.6-2.3) mg/dL Alkaline Phosphatase 34 L (38-126) U/L Total Protein 4.5 L (6.3-8.2) g/dL Albumin 2.7 L (3.5-5.0) g/dL 06/22/18 06/22/18 06/22/18 Range/Units 08:47 12:20 16:48 WBC (3.8-10.6) k/uL RBC (4.30-5.90) m/uL Hgb (13.0-17.5) gm/dL Hct (39.0-53.0) % Plt Count (150-450) k/uL Neutrophils # (1.3-7.7) k/uL Sodium (137-145) mmol/L BUN (9-20) mg/dL Creatinine (0.66-1.25) mg/dL Glucose (74-99) mg/dL POC Glucose (mg/dL) 161 H 122 H 122 H (75-99) mg/dL Magnesium (1.6-2.3) mg/dL Alkaline Phosphatase (38-126) U/L Total Protein (6.3-8.2) g/dL Albumin (3.5-5.0) g/dL Assessment and Plan Assessment: Assessment 1 coronary artery disease, status post two-vessel bypass surgery with BETHEA to LAD and saphenous graft to ramus intermedius artery. The patient is postop day 2. 2 post thoracotomy, the patient was extubated and the patient is currently off the mechanical ventilator. No active pulmonary issues for now. Chest tubes are in place. 3 previous history of TIA 4 acid reflux 5 hypertension 6 hyperlipidemia 7 history of polio 8 postoperative anemia, and expected outcome of surgery, current hemoglobin 7.9. Plan The patient was seen and evaluated by Dr. Hartley. Chest x-ray and labs were reviewed. Continues to improve both clinically and radiographically. Chest tubes remain in place. Working well with the incentive spirometer. Tolerating increased activity. He does remain on insulin drip at 2 units per hour. Heparin for DVT prophylaxis. We will continue to follow and make further recommendations based on his clinical status. I, the cosigning physician, performed a history & physical examination of the patient. Lungs sounds with few scattered rhonchi, faint crackles in the posterior bases. Maintaining good O2 saturations in the 90s on 2 L/m per nasal cannula. I discussed the assessment and plan of care with my nurse practitioner , Perla Wood. I attest to the above note as dictated by her. Time with Patient: Greater than 30
[2018-06-22 20:23] LABS: Glucose,Whole Blood 126 mg/dL (75-99)
[2018-06-22] MEDS: PRAVASTATIN SODIUM 40 MG TAB PO SCH (21:15)
[2018-06-22] MEDS: SENNOSIDES-DOCUSATE SODIUM 1 EACH TAB PO SCH (21:15)
[2018-06-23] MEDS: HEPARIN SODIUM,PORCINE 5,000 UNIT/ML 1 ML VIAL SQ SCH ×4 (00:15→22:50)
[2018-06-23 01:39] LABS: Glucose,Whole Blood 125 mg/dL (75-99)
[2018-06-23] MEDS: CLEVIDIPINE BUTYRATE 25 MG in EMPTY BAG 1 BAG IV ONE (03:52)
[2018-06-23] MEDS: HYDROcodone/APAP 5-325MG 1 EACH TAB PO PRN ×4 (05:23→22:52)
[2018-06-23 05:45] LABS: Glucose,Whole Blood 116 mg/dL (75-99)
[2018-06-23] MEDS: INSULIN ASPART 100 UNIT/ML 1 ML 10 ML VIAL SQ SCH ×4 (05:49→22:04)
[2018-06-23] MEDS: PANTOPRAZOLE 40 MG TABLET PO SCH (06:40)
[2018-06-23] MEDS ORDERED: ACETAMINOPHEN TAB 325 MG TAB PO PRN ×2 (06:41)
[2018-06-23] MEDS: METOPROLOL TARTRATE 25 MG TAB PO SCH ×2 (08:17→21:56)
[2018-06-23] MEDS: ASPIRIN 325 MG TAB PO SCH (08:17)
[2018-06-23] MEDS: CLOPIDOGREL 75 MG TAB PO SCH (08:18)
[2018-06-23 08:20] LABS: Albumin 2.9 g/dL (3.5-5.0); Calcium 9.1 mg/dL (8.4-10.2); Potassium 4.9 mmol/L (3.5-5.1); Total Bilirubin 0.8 mg/dL (0.2-1.3)
[2018-06-23 08:24] LABS: HCT 25.8 % (39.0-53.0); HGB 8.5 gm/dL (13.0-17.5); MCH 29.9 pg (25.0-35.0); MCHC 32.8 g/dL (31.0-37.0); MCV 91.1 fL (80.0-100.0); Mean Platelet Volume 7.7; Platelet Count 147 k/uL (150-450); RBC 2.84 m/uL (4.30-5.90); RDW 13.9 % (11.5-15.5); WBC 11.1 k/uL (3.8-10.6)
[2018-06-23] MEDS ORDERED: FUROSEMIDE 10 MG/ML 2 ML VIAL IV ONE (09:02)
--- NOTE | 2018-06-23 09:05 | P.PN ---
Subjective Progress Note Date: 06/23/18 Principal diagnosis: Coronary artery disease with totally occluded left anterior descending artery and ostial left main disease, hypertension, hyperlipidemia, diabetes with preoperative hemoglobin A1c 5.4%, poliomyelitis, TIAs, GERD, DVT in 1972, obesity, significant family history for early onset coronary artery disease with 2 brothers and 3 sisters having myocardial infarctions in their 50s. POD #3 double coronary artery bypass grafting using the left internal mammary artery to the left anterior descending artery/diagonal system, reverse saphenous vein graft from the aorta to the ramus intermedius artery. Endoscopic harvesting of the right greater saphenous vein from the groin to just below the knee level. Intraoperative transesophageal echocardiogram and epi-aortic scanning. Intraoperative graft flow measurements using the OOTU system. Postoperative acute blood loss anemia, expected outcome of surgery secondary to cardiopulmonary bypass pump and hemodilution. The patient's currently sitting up in a recliner in no acute distress. Was transferred out of ICU to 3 S cardiac stepdown unit yesterday. States surgical pain is well-controlled on current medication regimen, denies shortness of breath. No new complaints. Objective - Vital Signs Vital signs: Vital Signs Temp 98.0 F 06/23/18 05:24 Pulse 85 06/23/18 05:24 Resp 16 06/23/18 05:24 BP 131/62 06/23/18 05:24 Pulse Ox 95 06/23/18 05:24 Intake & Output 06/22/18 06/23/18 06/23/18 18:59 06:59 18:59 Intake Total 89 Output Total 1270 1380 30 Balance -1181 -1380 -30 Weight 81.5 kg Intake: IV 89 Lactated Ringers 1,000 ml 80 @ 20 mls/hr IV .Q24H [facility] Rx#:[id number] pressure bag 9 Output: Chest Tube Drainage 0 Chest Tube Left Lateral 0 Chest Chest Tube Mediastinal 0 Drainage 50 30 30 Right Calf 50 30 30 Urine 1220 1350 Other: Voiding Method Indwelling Catheter Urinal ABP, PAP, CO, CI - Last Documented Arterial Blood Pressure 106/45 Pulmonary Artery Pressure 23/6 Cardiac Output 6.3 Cardiac Index 2.9 - Constitutional General appearance: Present: cooperative, no acute distress, obese - Respiratory Details: Lungs sounds diminished bilaterally. Respirations even, nonlabored. Currently on 2 L nasal cannula with oxygen saturation 95%. Strong productive cough. Able to achieve 1500 mL on his incentive spirometry. - Cardiovascular Details: S1, S2 present. Regular rate and rhythm, sinus rhythm on telemetry. Sternum stable. Ventricular epicardial pacemaker wires present, grounded. Palpable peripheral pulses bilaterally. No edema present. No calf pain or tenderness noted. Heart hugger in place with patient demonstrating appropriate use. Antiembolism stockings, SCDs present. - Gastrointestinal Gastrointestinal Comment(s): Abdomen soft, nontender, nondistended. Active bowel sounds present 4 quadrants. Tolerating diet. Positive flatus, negative bowel movement. - Genitourinary Genitourinary Comment(s): Simms discontinued yesterday. Patient has voided clear, yellow urine approximated 400-550 mL every 4 hours. - Integumentary Integumentary Comment(s): Skin is warm and dry with evidence of good perfusion. Anterior chest incision well approximated and covered with dry intact dressing. Right lower extremity EVH site well approximated, HAZEL drain present with minimal serosanguineous drainage. - Neurologic Neurologic: Present: CNII-XII intact - Musculoskeletal Musculoskeletal: Present: gait normal, generalized weakness, strength equal bilaterally - Psychiatric Psychiatric: Present: A&O x's 3, appropriate affect, intact judgment & insight - Allied health notes Allied health notes reviewed: nursing - Labs CBC & Chem 7: 06/23/18 07:26 06/23/18 07:26 Labs: Abnormal Lab Results - Last 24 Hours (Table) 06/22/18 06/22/18 06/22/18 Range/Units 08:47 12:20 16:48 POC Glucose (mg/dL) 161 H 122 H 122 H (75-99) mg/dL 06/22/18 06/23/18 06/23/18 Range/Units 20:11 01:34 05:44 POC Glucose (mg/dL) 126 H 125 H 116 H (75-99) mg/dL - Imaging and Cardiology Chest x-ray: image reviewed Assessment and Plan (1) Obesity (BMI 30-39.9) Current Visit: Yes Status: Chronic Code(s): E66.9 - OBESITY, UNSPECIFIED SNOMED Code(s): 992056628 (2) Family history of early CAD Current Visit: Yes Status: Chronic Code(s): Z82.49 - FAMILY HX OF ISCHEM HEART DIS AND OTH DIS OF THE CIRC SYS SNOMED Code(s): 196124281 (3) Diabetes mellitus Current Visit: Yes Status: Chronic Code(s): E11.9 - TYPE 2 DIABETES MELLITUS WITHOUT COMPLICATIONS SNOMED Code(s): 56972463 (4) Coronary artery disease Current Visit: Yes Status: Chronic Code(s): I25.10 - ATHSCL HEART DISEASE OF [place] CORONARY ARTERY W/O ANG PCTRS SNOMED Code(s): 60043739 (5) GERD (gastroesophageal reflux disease) Current Visit: Yes Status: Chronic Code(s): K21.9 - GASTRO-ESOPHAGEAL REFLUX DISEASE WITHOUT ESOPHAGITIS SNOMED Code(s): 830930589 (6) History of TIA (transient ischemic attack) Current Visit: No Status: Resolved Code(s): Z86.73 - PRSNL HX OF TIA (TIA), AND CEREB INFRC W/O RESID DEFICITS SNOMED Code(s): 005947055 (7) History of deep venous thrombosis Current Visit: No Status: Resolved Code(s): Z86.718 - PERSONAL HISTORY OF OTHER VENOUS THROMBOSIS AND EMBOLISM SNOMED Code(s): 193791156 (8) History of poliomyelitis Current Visit: Yes Status: Chronic Code(s): Z86.12 - PERSONAL HISTORY OF POLIOMYELITIS SNOMED Code(s): 876123710 (9) Hyperlipidemia Current Visit: Yes Status: Chronic Code(s): E78.5 - HYPERLIPIDEMIA, UNSPECIFIED SNOMED Code(s): 72748473 (10) Hypertension Current Visit: Yes Status: Chronic Code(s): I10 - ESSENTIAL (PRIMARY) HYPERTENSION SNOMED Code(s): 46760122 Plan: 1. Continue aspirin, statin, Plavix, nj therapy. Will increase beta nj therapy as tolerated. Will add lisinopril 5 mg daily today. 2. Wean O2 as tolerated. Encourage incentive spirometry use 10 times every hour while awake. 3. Bronchodilators per pulmonology. 4. Will give 20 mg IV Lasix today. 5. Increase activity, ambulate as tolerated. PT/OT/cardiac rehab following. 6. Pain control with current medication regimen. 7. Will monitor daily labs, x-rays. Electrolyte replacement per protocol. No transfusion at this point. 8. Insulin management per primary care service. 9. GI prophylaxis with Protonix. DVT prophylaxis with subcu heparin, SCDs. 10. Likely to discharge to home with home care versus inpatient rehab in the next 24-48 hours. Will depend on patient's physical abilities today. If unable to ambulate in the hallway will consult Dr. Ferro for inpatient rehab. 11. More recommendations to follow based on patient's progress. Time with Patient: Greater than 30
[2018-06-23] MEDS: IPRATROPIUM-ALBUTEROL 3 ML NEB INHALATION SCH ×4 (09:07→20:57)
--- NOTE | 2018-06-23 09:28 | XR ---
EXAMINATION TYPE: XR chest 2V DATE OF EXAM: 06/23/2018 COMPARISON: 06/22/2017 TECHNIQUE: PA and lateral views submitted. HISTORY: Post cardiac surgery FINDINGS: There is right-sided consolidation and pleural effusion. Tiny left pleural effusion noted there is ca rdiomegaly and postoperative changes with no sizable pneumothorax. No overt failure. Arthropathy of t he shoulders. Hypertrophic and degenerative change of the vertebral column. IMPRESSION: Right lower lobe infiltrate with tiny bilateral effusions are stable. No overt failure.
--- NOTE | 2018-06-23 10:54 | P.PN ---
Subjective Progress Note Date: 06/23/18 HPI: This is a 73-year-old male patient being seen examined and evaluated today for consultation while covering for Dr. Ismael Gregorio. This patient does have a history of SD and underwent a cardiac catheterization and he was advised to undergo a CABG. With cardiothoracic surgeon. He did have a CABG today and had BETHEA to the LAD and SVG to the ramus. The patient is currently on mechanical ventilation with propofol for sedation. He is on assist control mode with respiratory of rate of 12, tidal volume 500, FiO2 50% and a PEEP of 5. He is being followed with an clinical services consultant as well. Currently the patient is hemodynamically stable. He does have 2 chest tubes present please see flowsheet for output. He continues on a nitro drip. Please see surgical notes for further details. Interval history: 06/21/2018- patient is being seen examined and evaluated today while covering for Dr. Gregorio on rounds in the intensive care unit. He has postop day 2. The patient was successfully extubated yesterday. His chest x-ray is reviewed and does show some volume overload with some interstitial edema and bibasilar atelectasis. The patient has been hemodynamically stable. Using his incentive spirometer and pulling volumes of 1500 ML's. His [place] catheter should be removed today. His chest tubes will remain. See chest tube flowsheet for output. 06/22/18- patient is being seen examined and evaluated today on rounds while covering for Dr. Ismael Gregorio. He is resting up in bedside chair and is doing well. His chest x-ray shows improved aeration. He will potentially have his chest tubes removed today. He is on 2 L of supplemental oxygen via nasal cannula continues to actively use his incentive spirometer. States overall he is feeling much better today. 06/23/18- patient is being seen examined and evaluated today on rounds COVERING Dr. Ismael Gregorio. He was downgraded from the intensive care unit yesterday. He had his chest tubes removed yesterday. He has been hemodynamically stable. Has been ambulating in the hallway. Tolerating his diet well. All labs and reports reviewed. Continues to use his incentive spirometer frequently. Objective - Vital Signs Vital signs: Vital Signs Temp 99.0 F 06/23/18 07:53 Pulse 88 06/23/18 09:17 Resp 18 06/23/18 07:53 BP 122/60 06/23/18 07:53 Pulse Ox 96 06/23/18 07:53 Intake & Output 06/22/18 06/23/18 06/23/18 18:59 06:59 18:59 Intake Total 89 360 Output Total 1270 1380 30 Balance -1181 -1380 330 Weight 81.5 kg Intake: IV 89 Lactated Ringers 1,000 ml 80 @ 20 mls/hr IV .Q24H [facility] Rx#:[id number] pressure bag 9 Oral 360 Output: Chest Tube Drainage 0 Chest Tube Left Lateral 0 Chest Chest Tube Mediastinal 0 Drainage 50 30 30 Right Calf 50 30 30 Urine 1220 1350 Other: Voiding Method Indwelling Catheter Urinal ABP, PAP, CO, CI - Last Documented Arterial Blood Pressure 106/45 Pulmonary Artery Pressure 23/6 Cardiac Output 6.3 Cardiac Index 2.9 - Exam GENERAL EXAM: Alert, comfortable in no apparent distress. HEAD: Normocephalic. EYES: Normal reaction of pupils, equal size. NOSE: Clear with pink turbinates. THROAT: No erythema or exudates. NECK: No masses, no JVD. CHEST: Midline incision clean dry and intact, LUNGS: Equal air entry with no crackles, wheeze, rhonchi or dullness. CVS: S1 and S2 normal with no audible mumurs, regular rhythm. ABDOMEN: No hepatosplenomegaly, normal bowel sounds, no guarding or rigidity. EXTREMITIES: No edema noted, pedal pulses palpable. CENTRAL NERVOUS SYSTEM: No focal deficits, tone is normal in all 4 extremities. - Labs CBC & Chem 7: 06/23/18 07:26 06/23/18 07:26 Labs: Abnormal Lab Results - Last 24 Hours (Table) 06/22/18 06/22/18 06/22/18 Range/Units 12:20 16:48 20:11 WBC (3.8-10.6) k/uL RBC (4.30-5.90) m/uL Hgb (13.0-17.5) gm/dL Hct (39.0-53.0) % Plt Count (150-450) k/uL BUN (9-20) mg/dL Glucose (74-99) mg/dL POC Glucose (mg/dL) 122 H 122 H 126 H (75-99) mg/dL ALT (21-72) U/L Total Protein (6.3-8.2) g/dL Albumin (3.5-5.0) g/dL 06/23/18 06/23/18 06/23/18 Range/Units 01:34 05:44 07:26 WBC (3.8-10.6) k/uL RBC (4.30-5.90) m/uL Hgb (13.0-17.5) gm/dL Hct (39.0-53.0) % Plt Count (150-450) k/uL BUN 23 H (9-20) mg/dL Glucose 105 H (74-99) mg/dL POC Glucose (mg/dL) 125 H 116 H (75-99) mg/dL ALT 19 L (21-72) U/L Total Protein 5.0 L (6.3-8.2) g/dL Albumin 2.9 L (3.5-5.0) g/dL 06/23/18 Range/Units 07:26 WBC 11.1 H (3.8-10.6) k/uL RBC 2.84 L (4.30-5.90) m/uL Hgb 8.5 L (13.0-17.5) gm/dL Hct 25.8 L (39.0-53.0) % Plt Count 147 L (150-450) k/uL BUN (9-20) mg/dL Glucose (74-99) mg/dL POC Glucose (mg/dL) (75-99) mg/dL ALT (21-72) U/L Total Protein (6.3-8.2) g/dL Albumin (3.5-5.0) g/dL Assessment and Plan Assessment: Assessment Coronary artery disease status post CABG BETHEA to the LAD and SVG to the ramus History of TIA GERD history of polio history of DVT in the left arm History of TIA in 2016 no deficits Hypertension Plan Patient has been downgraded from the intensive care unit Patient is currently hemodynamically stable Medications have been reviewed and will be continued as ordered. Appreciate input of the clinical services consultant, cardiothoracic surgeon Hemodynamically stable Monitor chest tubes Continue with pulmonary hygiene, coughing and deep breathing exercises, and supportive care. Supplemental oxygen to maintain oxygen saturations of 92% or better. GI and DVT prophylaxis. We will continue to monitor labs/results and adjust treatment as necessary. Further recommendations pending. I, the signing physician performed an examination of the patient, discussed and directed their management with the nurse practitioner. I have reviewed the nurse practitioner's note and agree with the documented findings, orders and plan of care. Nurse practitioner acting as a scribe for the signing physician. Please note we are covering for Dr. Ismael Gregorio
[2018-06-23] MEDS: MUPIROCIN 2% OINT 22 GM TUBE NASAL SCH ×2 (10:59→22:00)
[2018-06-23 11:13] LABS: Glucose,Whole Blood 169 mg/dL (75-99)
[2018-06-23] MEDS: LISINOPRIL 5 MG TAB PO SCH (11:42)
--- NOTE | 2018-06-23 12:19 | P.CONS ---
History of Present Illness - Chief Complaint Cardiac debility - History of Present Illness I had the opportunity to see patient for inpatient rehab consultation guard to cardiac debility. He is admitted on June 20 for elective CABG which was performed on June 21, LAD to left main. Seen in consultation by Dr. Hartley. Chest x-ray demonstrates right lower lobe infiltrate and effusions. PT reports two-person minimal to moderate assistance and ambulated 92 feet. OT reports minimal assistance for upper dressing and moderate assistance for bathing. Two-person total assistance for lower dressing and, to person maximal assistance for toileting and two-person moderate assistance for functional debility and transfers. Previous functional history as elicited from patient corroborative by brother: 73-year-old right-handed white male who is lives in one floor home with . Retired. generally does the cooking and laundry. Patient dependent driving, sink bath standing and gait without device. Dr. Ismael Gregorio regular doctor. Patient denies tobacco or alcohol. Family history mother with hypertension in both parents with stroke. Review of Systems Review of systems: ENT: Denies sneezes or discharge. Eyes: Denies discharge or photophobia. Cardiac: Some midline sternal discomfort. Pulmonary: At least mild shortness of breath. Gastrointestinal: Denies nausea, emesis, constipation, diarrhea. Genitourinary: Denies discharge or frequency. Musculoskeletal: Denies muscle or bone aches. Neurologic: At least mild generalized weakness. Endocrine: Denies shakes or sweats. Oncology: Denies cancers. Dermatologic: Denies rash, itching, pruritus. ALLERGY/immunology: Denies sneezes, rashes. Past Medical History Past Medical History: CVA/TIA, Deep Vein Thrombosis (DVT), GERD/Reflux, Hyperlipidemia, Hypertension, Osteoarthritis (OA) Additional Past Medical History / Comment(s): Coronary artery disease, history of polio, history of TIA back in 2016, history of a blood clot in the left upper extremity, chronic back pain, hypertension, hyperlipidemia, acid reflux, osteoarthritis History of Any Multi-Drug Resistant Organisms: None Reported Past Surgical History: Heart Catheterization, Orthopedic Surgery Additional Past Surgical History / Comment(s): 3 right foot surgeries due to Polio 1948. Heart catheterization 04/04/2018. Past Anesthesia/Blood Transfusion Reactions: No Reported Reaction Smoking Status: Never smoker - Past Family History Mother Sister(s) Family Medical History: CVA/TIA, Hypertension Additional Family Medical History / Comment(s): His mother from a stroke at age 81 Father Family Medical History: CVA/TIA Additional Family Medical History / Comment(s): His father from a stroke at age 80. Brother(s) Family Medical History: Myocardial Infarction ([place]) Additional Family Medical History / Comment(s): 2 of his brothers have had myocardial infarctions one at age 50, and one at age 48. Sister(s) Family Medical History: Myocardial Infarction ([place]) Additional Family Medical History / Comment(s): He is 13 total siblings. One of his sisters had a myocardial infarction in her late 50s and another sister had a myocardial infarction in her 40s. Medications and Allergies Home Medications Medication Instructions Recorded Confirmed Type Aspirin EC [Ecotrin Low Dose] 81 mg PO HS 12/15/17 06/20/18 History Lisinopril [Zestril] 20 mg PO QA 12/15/17 06/20/18 History Pantoprazole Sodium [Protonix] 40 mg PO QAM 12/15/17 06/20/18 History Metoprolol Succinate (ER) [Toprol 50 mg PO QA 03/30/18 06/20/18 History XL] Nitroglycerin Sl Tabs [Nitrostat] 0.4 mg SUBLINGUAL Q5M PRN 03/30/18 06/20/18 History Simvastatin 40 mg PO QAM 03/30/18 06/20/18 History Isosorbide Mononitrate ER [Imdur] 15 mg PO DAILY #30 dose 04/04/18 06/20/18 Rx Allergies Allergy/AdvReac Type Severity Reaction Status Date / Time atorvastatin [From Lipitor] AdvReac muscle Verified 06/20/18 14:43 cramps Physical Exam Vitals: Vital Signs Temp Pulse Pulse Pulse Pulse Resp BP 06/23/18 12:06 88 06/23/18 12:01 85 06/23/18 11:25 98.2 F 06/23/18 11:24 76 16 06/23/18 09:17 88 06/23/18 09:09 80 06/23/18 07:53 99.0 F 86 18 06/23/18 05:24 98.0 F 85 16 06/23/18 04:00 86 18 06/23/18 01:39 98.5 F 86 18 06/23/18 00:00 98.4 F 73 15 125/73 06/22/18 20:30 80 16 06/22/18 20:20 84 16 06/22/18 20:00 98.9 F 98 13 120/57 06/22/18 17:09 74 06/22/18 17:01 76 06/22/18 16:00 98.7 F 73 15 96/55 BP BP Pulse Ox 06/23/18 12:06 06/23/18 12:01 06/23/18 11:25 06/23/18 11:24 120/58 98 06/23/18 09:17 06/23/18 09:09 06/23/18 07:53 122/60 96 06/23/18 05:24 131/62 95 06/23/18 04:00 06/23/18 01:39 125/86 97 06/23/18 00:00 95 06/22/18 20:30 06/22/18 20:20 06/22/18 20:00 95 06/22/18 17:09 06/22/18 17:01 06/22/18 16:00 95 Intake and Output 06/22/18 06/23/18 06/23/18 22:59 06:59 14:59 Intake Total 0 360 Output Total 1030 800 30 Balance -1030 -800 330 Intake: IV 0 Lactated Ringers 1,000 ml 0 @ 20 mls/hr IV .Q24H [facility] Rx#:[id number] Oral 360 Output: Drainage 30 30 Right Calf 30 30 Urine 1000 800 Other: Voiding Method Urinal Urinal Weight 81.5 kg Skin: Good color, texture, turgor. General: Medium build and comfortable appearance. Head: Normocephalic, atraumatic. Eyes: Symmetric. Pupils equal round. Ears: Symmetric. Hearing within normal limits. Mouth: Clear. Neck: Supple. Carotid without bruit. Cardiac: Regular rate and rhythm. During them clean and dressed. Wearing harness. Lungs: Clear anteriorly and posteriorly. Abdomen: Soft active nontender. Extremities: Normal tone. Neurological: Mental status: Alert, cooperative, pleasant. Cranial nerves: Symmetric facial tone and trapezius. Motor: Active movement all 4 limbs. Sensation: Intact throughout. DTRs: Symmetric and equal throughout. Mobility: Has been receiving assistance for mobility in room. Results CBC & Chem 7: 06/23/18 07:26 06/23/18 07:26 Labs: Abnormal Lab Results - Last 24 Hours (Table) 06/22/18 06/22/18 06/22/18 Range/Units 12:20 16:48 20:11 WBC (3.8-10.6) k/uL RBC (4.30-5.90) m/uL Hgb (13.0-17.5) gm/dL Hct (39.0-53.0) % Plt Count (150-450) k/uL BUN (9-20) mg/dL Glucose (74-99) mg/dL POC Glucose (mg/dL) 122 H 122 H 126 H (75-99) mg/dL ALT (21-72) U/L Total Protein (6.3-8.2) g/dL Albumin (3.5-5.0) g/dL 06/23/18 06/23/18 06/23/18 Range/Units 01:34 05:44 07:26 WBC (3.8-10.6) k/uL RBC (4.30-5.90) m/uL Hgb (13.0-17.5) gm/dL Hct (39.0-53.0) % Plt Count (150-450) k/uL BUN 23 H (9-20) mg/dL Glucose 105 H (74-99) mg/dL POC Glucose (mg/dL) 125 H 116 H (75-99) mg/dL ALT 19 L (21-72) U/L Total Protein 5.0 L (6.3-8.2) g/dL Albumin 2.9 L (3.5-5.0) g/dL 06/23/18 06/23/18 Range/Units 07:26 11:09 WBC 11.1 H (3.8-10.6) k/uL RBC 2.84 L (4.30-5.90) m/uL Hgb 8.5 L (13.0-17.5) gm/dL Hct 25.8 L (39.0-53.0) % Plt Count 147 L (150-450) k/uL BUN (9-20) mg/dL Glucose (74-99) mg/dL POC Glucose (mg/dL) 169 H (75-99) mg/dL ALT (21-72) U/L Total Protein (6.3-8.2) g/dL Albumin (3.5-5.0) g/dL Assessment and Plan (1) Coronary artery disease Current Visit: Yes Status: Chronic Code(s): I25.10 - ATHSCL HEART DISEASE OF [place] CORONARY ARTERY W/O ANG PCTRS SNOMED Code(s): 45831284 (2) Obesity (BMI 30-39.9) Current Visit: Yes Status: Chronic Code(s): E66.9 - OBESITY, UNSPECIFIED SNOMED Code(s): 580018576 Plan: Impression: 1. Medical debility. 2. Coronary disease with recent CABG. 3. Hypertension. 4. Dyslipidemia. 5. Osteoarthritis. 6. History of stroke and DVT. Comments and plan: At this time PT and OT are ongoing. Definite safety concerns noted. We'll have rehab acquisition marketing coordinator discussed case with and determine her needs or goals for patient to return home.
[2018-06-23] MEDS ORDERED: AMIODARONE 360 MG in DEXTROSE 5% IN WATER 200 ML IV PRN ×2 (14:35)
[2018-06-23] MEDS ORDERED: AMIODARONE 300 MG in DEXTROSE 5% IN WATER 250 ML IV PRN ×2 (14:35)
--- NOTE | 2018-06-23 14:44 | P.PN ---
Subjective Progress Note Date: 06/23/18 A 73-year-old male patient, known history of coronary artery disease, previous history of anterior wall myocardial infarction, underwent a repeat cardiac catheterization and following that the patient was advised to undergo bypass surgery. The cath showed critical lesion in the LAD and a moderate lesion in the left main. This patient has an overall LV function of 40-45% in addition to segmental wall motion abnormalities. The patient was taken to bypass surgery and the patient underwent double vessel bypass surgery with BETHEA to LAD and saphenous vein graft to ramus intermedius artery. Patient was seen and examined this morning, sitting up in a chair at bedside. Breathing overall stable. Reaching 1500 on his incentive spirometry. Blood pressure 120/50 with a heart rate in the 70s to 80s. White blood cell count 11.1, hemoglobin 8.5, platelet count 147. Sodium 137, potassium 4.9, BUN 23 and creatinine 1.2. Objective - Vital Signs Vital signs: Vital Signs Temp 98.2 F 06/23/18 11:25 Pulse 88 06/23/18 12:06 Resp 16 06/23/18 11:24 BP 120/58 06/23/18 11:24 Pulse Ox 98 06/23/18 11:24 Intake & Output 06/22/18 06/23/18 06/23/18 18:59 06:59 18:59 Intake Total 89 540 Output Total 1270 1380 30 Balance -1181 -1380 510 Weight 81.5 kg Intake: IV 89 Lactated Ringers 1,000 ml 80 @ 20 mls/hr IV .Q24H [facility] Rx#:[id number] pressure bag 9 Oral 540 Output: Chest Tube Drainage 0 Chest Tube Left Lateral 0 Chest Chest Tube Mediastinal 0 Drainage 50 30 30 Right Calf 50 30 30 Urine 1220 1350 Other: Voiding Method Indwelling Catheter Urinal Urinal # Voids 3 ABP, PAP, CO, CI - Last Documented Arterial Blood Pressure 106/45 Pulmonary Artery Pressure 23/6 Cardiac Output 6.3 Cardiac Index 2.9 - Exam GENERAL EXAM: Alert, active, comfortable in no apparent distress. On 2 L nasal cannula. HEAD: Normocephalic. EYES: Normal reaction of pupils, equal size. NOSE: Clear with pink turbinates. THROAT: No erythema or exudates. NECK: No masses, no JVD. CHEST: Sternal dressing is 90. Heart Hugger in place. He is sternal and left chest tube in place. LUNGS: Equal air entry with crackles in the posterior bases. CVS: S1 and S2 normal with no audible murmur, regular rhythm. ABDOMEN: No hepatosplenomegaly, normal bowel sounds, no guarding or rigidity. SPINE: No scoliosis or deformity SKIN: No rashes CENTRAL NERVOUS SYSTEM: No focal deficits, tone is normal in all 4 extremities. EXTREMITIES: There is 1-2+ peripheral edema. Right lower extremity HAZEL drain in place. No clubbing, no cyanosis. Peripheral pulses are intact. - Labs CBC & Chem 7: 06/23/18 07:26 06/23/18 07:26 Labs: Abnormal Lab Results - Last 24 Hours (Table) 06/22/18 06/22/18 06/23/18 Range/Units 16:48 20:11 01:34 WBC (3.8-10.6) k/uL RBC (4.30-5.90) m/uL Hgb (13.0-17.5) gm/dL Hct (39.0-53.0) % Plt Count (150-450) k/uL BUN (9-20) mg/dL Glucose (74-99) mg/dL POC Glucose (mg/dL) 122 H 126 H 125 H (75-99) mg/dL ALT (21-72) U/L Total Protein (6.3-8.2) g/dL Albumin (3.5-5.0) g/dL 06/23/18 06/23/18 06/23/18 Range/Units 05:44 07:26 07:26 WBC 11.1 H (3.8-10.6) k/uL RBC 2.84 L (4.30-5.90) m/uL Hgb 8.5 L (13.0-17.5) gm/dL Hct 25.8 L (39.0-53.0) % Plt Count 147 L (150-450) k/uL BUN 23 H (9-20) mg/dL Glucose 105 H (74-99) mg/dL POC Glucose (mg/dL) 116 H (75-99) mg/dL ALT 19 L (21-72) U/L Total Protein 5.0 L (6.3-8.2) g/dL Albumin 2.9 L (3.5-5.0) g/dL 06/23/18 Range/Units 11:09 WBC (3.8-10.6) k/uL RBC (4.30-5.90) m/uL Hgb (13.0-17.5) gm/dL Hct (39.0-53.0) % Plt Count (150-450) k/uL BUN (9-20) mg/dL Glucose (74-99) mg/dL POC Glucose (mg/dL) 169 H (75-99) mg/dL ALT (21-72) U/L Total Protein (6.3-8.2) g/dL Albumin (3.5-5.0) g/dL Assessment and Plan Plan: Assessment 1 coronary artery disease, status post two-vessel bypass surgery with BETHEA to LAD and saphenous graft to ramus intermedius artery. 2 post thoracotomy, the patient was extubated and the patient is currently off the mechanical ventilator. No active pulmonary issues for now. 3 previous history of TIA 4 acid reflux 5 hypertension 6 hyperlipidemia 7 history of polio 8 postoperative anemia, and expected outcome of surgery, current hemoglobin 8.5. Plan From cardiology's perspective, we'll recommend to continue the patient on his current medications. He's been encouraged also regarding the use of his incentive spirometry DNP note has been reviewed, I agree with a documented findings and plan of care. Patient was seen and examined.
--- NOTE | 2018-06-23 15:36 | P.PN ---
Subjective Progress Note Date: 06/23/18 Principal diagnosis: Coronary artery disease, status post coronary artery bypass grafting A 73-year-old male patient, known history of coronary artery disease, previous history of anterior wall myocardial infarction, underwent a repeat cardiac catheterization and following that the patient was advised to undergo bypass surgery. The cath showed critical lesion in the LAD and a moderate lesion in the left main. This patient has an overall LV function of 40-45% in addition to segmental wall motion abnormalities. The patient was taken to bypass surgery and the patient underwent double vessel bypass surgery with BETHEA to LAD and saphenous vein graft to ramus intermedius artery. and following that the patient was brought into the intensive care unit intubated on a mechanical ventilator. Currently, the patient assist-control mode of ventilation with a rate of 12, tidal volume of 500, FiO2 of 100% and a PEEP of 5. The blood gases after arriving this patient to the ICU showed a pH of 7.37 with a pCO2 of 45 and pO2 of around 338. This x-ray showed a. She'll that is sitting high in the trachea. This was pushed by another centimeters. Meanwhile, hemodynamically the patient is doing well. The patient is sedated with Diprivan. The patient has, comfortable and sedated with the mechanical ventilator. The cardiac output is at 4.5, index is at 2.1, PA pressures 38/24, the output from the left pleural chest tube is 400 mL since arrival from the operating room and mediastinal chest tube is around 35 mL. The patient is on nitroglycerin drip. On 06/21/2018 I'm seeing this patient for a follow-up in the patient's postop day #1. The patient underwent a two-vessel bypass surgery. He is doing extremely well. He was extubated immediately allowing surgery and overnight the patient was resting comfortably in bed without any major complaints or complications. Hemodynamically stable. The patient is using incentive spirometer and pulling approximately 1500 on the incentive spirometer. Chest x- ray from today shows the tubes being all in good location. There has been no other significant issues or events over the past 24 hours. Chest tubes are in place. The cardiac rhythm is sinus. The total output from the mediastinal chest tube has been to 195 mL over the past 8 hours and 50 mL from the left pleural chest tube. The cardiac output is at 6.3 with an index of 2.9. Patient is seen today 06/22/2017 in follow-up in the intensive care unit. He is postoperative day #2. He is currently sitting up in a chair at the bedside. He is awake and alert in no acute distress. He is maintaining good O2 saturations in the 90s on 2 L/m per nasal cannula. His been afebrile. Hemodynamically stable. X-ray continues to show improved aeration. He continues to work well with the incentive spirometer. Pulling approximately 1500 ML's. Mediastinal and left pleural chest tubes remain in place. White count 11.0. Hemoglobin 7.9. Creatinine 1.28. He did receive Lasix 20 mg IV push times one this morning. On 06/23/2018 patient [facility]. He is sitting in a recliner, in no acute distress, pulse oximetry liters per nasal cannula was 98%, lung sounds are clear, with some minimal crackles at the bases. She has been ambulating tolerating activity well. Today's chest x-ray showed right lower lobe infiltrate with tiny bilateral effusions. Today's labs have been noted. She is working on her incentive spirometer. Objective - Vital Signs Vital signs: Vital Signs Temp 98.2 F 06/23/18 11:25 Pulse 88 06/23/18 12:06 Resp 16 06/23/18 11:24 BP 120/58 06/23/18 11:24 Pulse Ox 98 06/23/18 11:24 Intake & Output 06/22/18 06/23/18 06/23/18 18:59 06:59 18:59 Intake Total 89 540 Output Total 1270 1380 50 Balance -1181 -1380 490 Weight 81.5 kg Intake: IV 89 Lactated Ringers 1,000 ml 80 @ 20 mls/hr IV .Q24H [facility] Rx#:[id number] pressure bag 9 Oral 540 Output: Chest Tube Drainage 0 Chest Tube Left Lateral 0 Chest Chest Tube Mediastinal 0 Drainage 50 30 50 Right Calf 50 30 50 Urine 1220 1350 Other: Voiding Method Indwelling Catheter Urinal Urinal # Voids 3 ABP, PAP, CO, CI - Last Documented Arterial Blood Pressure 106/45 Pulmonary Artery Pressure 23/6 Cardiac Output 6.3 Cardiac Index 2.9 - Exam GENERAL EXAM: Alert, pleasant, 73-year-old white male, currently on 2 L per nasal cannula comfortable in no apparent distress. HEAD: Normocephalic/atraumatic. EYES: Normal reaction of pupils, equal size. Conjunctiva pink, sclera white. NOSE: Clear with pink turbinates. THROAT: No erythema or exudates. NECK: No masses, no JVD, no thyroid enlargement, no adenopathy. CHEST: No chest wall deformity. Symmetrical expansion. Midsternal incision is clean dry and intact, well approximated, stable LUNGS: Equal air entry with no crackles, wheeze, rhonchi or dullness. CVS: Regular rate and rhythm, normal S1 and S2, no gallops, no murmurs, no rubs ABDOMEN: Soft, nontender. No hepatosplenomegaly, normal bowel sounds, no guarding or rigidity. EXTREMITIES: No clubbing, no edema, no cyanosis, 2+ pulses and upper and lower extremities. MUSCULOSKELETAL: Muscle strength and tone normal. SPINE: No scoliosis or deformity SKIN: No rashes CENTRAL NERVOUS SYSTEM: Alert and oriented -3. No focal deficits, tone is normal in all 4 extremities. PSYCHIATRIC: Alert and oriented -3. Appropriate affect. Intact judgment and insight. - Labs CBC & Chem 7: 06/23/18 07:26 06/23/18 07:26 Labs: Abnormal Lab Results - Last 24 Hours (Table) 06/22/18 06/22/18 06/23/18 Range/Units 16:48 20:11 01:34 WBC (3.8-10.6) k/uL RBC (4.30-5.90) m/uL Hgb (13.0-17.5) gm/dL Hct (39.0-53.0) % Plt Count (150-450) k/uL BUN (9-20) mg/dL Glucose (74-99) mg/dL POC Glucose (mg/dL) 122 H 126 H 125 H (75-99) mg/dL ALT (21-72) U/L Total Protein (6.3-8.2) g/dL Albumin (3.5-5.0) g/dL 06/23/18 06/23/18 06/23/18 Range/Units 05:44 07:26 07:26 WBC 11.1 H (3.8-10.6) k/uL RBC 2.84 L (4.30-5.90) m/uL Hgb 8.5 L (13.0-17.5) gm/dL Hct 25.8 L (39.0-53.0) % Plt Count 147 L (150-450) k/uL BUN 23 H (9-20) mg/dL Glucose 105 H (74-99) mg/dL POC Glucose (mg/dL) 116 H (75-99) mg/dL ALT 19 L (21-72) U/L Total Protein 5.0 L (6.3-8.2) g/dL Albumin 2.9 L (3.5-5.0) g/dL 06/23/18 Range/Units 11:09 WBC (3.8-10.6) k/uL RBC (4.30-5.90) m/uL Hgb (13.0-17.5) gm/dL Hct (39.0-53.0) % Plt Count (150-450) k/uL BUN (9-20) mg/dL Glucose (74-99) mg/dL POC Glucose (mg/dL) 169 H (75-99) mg/dL ALT (21-72) U/L Total Protein (6.3-8.2) g/dL Albumin (3.5-5.0) g/dL Assessment and Plan Plan: 1 coronary artery disease, status post two-vessel bypass surgery with BETHEA to LAD and saphenous graft to ramus intermedius artery. The patient is postop day 3. 2 post thoracotomy, the patient was extubated and the patient is currently off the mechanical ventilator. No active pulmonary issues for now. Chest tubes are in place. 3 previous history of TIA 4 acid reflux 5 hypertension 6 hyperlipidemia 7 history of polio 8 postoperative anemia, and expected outcome of surgery, current hemoglobin 7.9. Plan: Today's chest x-ray has been reviewed with Dr. Hartley, labs have been reviewed , patient is doing well, tolerating ambulation, working on his incentive spirometer, vital signs are stable. He still on 2 L per nasal cannula, his pulse ox is 98%, continue to wean FiO2. He received another dose of IV Lasix per CT surgery, he is being evaluated for inpatient rehab. Will continue to follow I performed a history & physical examination of the patient and discussed their management with my nurse practitioner, Rin Marino. I reviewed the nurse practitioner's note and agree with the documented findings and plan of care. Lung sounds are positive for management breath sounds with minimal crackles at the bases. The findings and the impression was discussed with the patient. I attest to the documentation by the nurse practitioner. Time with Patient: Less than 30
[2018-06-23 16:16] LABS: Glucose,Whole Blood 122 mg/dL (75-99)
[2018-06-23 20:00] LABS: Glucose,Whole Blood 250 mg/dL (75-99)
[2018-06-23] MEDS: SENNOSIDES-DOCUSATE SODIUM 1 EACH TAB PO SCH (21:56)
[2018-06-23] MEDS: PRAVASTATIN SODIUM 40 MG TAB PO SCH (21:56)
[2018-06-24 02:22] LABS: Glucose,Whole Blood 122 mg/dL (75-99)
[2018-06-24] MEDS: HYDROcodone/APAP 5-325MG 1 EACH TAB PO PRN (04:20)
[2018-06-24 05:56] LABS: Glucose,Whole Blood 114 mg/dL (75-99)
[2018-06-24] MEDS: INSULIN ASPART 100 UNIT/ML 1 ML 10 ML VIAL SQ SCH ×2 (06:25→11:47)
[2018-06-24] MEDS: PANTOPRAZOLE 40 MG TABLET PO SCH (06:34)
[2018-06-24 06:36] LABS: HCT 24.3 % (39.0-53.0); HGB 8.2 gm/dL (13.0-17.5); MCH 30.7 pg (25.0-35.0); MCHC 33.9 g/dL (31.0-37.0); MCV 90.4 fL (80.0-100.0); Mean Platelet Volume 7.6; Platelet Count 187 k/uL (150-450); RBC 2.69 m/uL (4.30-5.90); RDW 14.4 % (11.5-15.5); WBC 9.8 k/uL (3.8-10.6)
[2018-06-24 07:05] LABS: Albumin 2.9 g/dL (3.5-5.0); Calcium 9.1 mg/dL (8.4-10.2); Potassium 4.9 mmol/L (3.5-5.1); Total Bilirubin 0.8 mg/dL (0.2-1.3)
--- NOTE | 2018-06-24 08:22 | XR ---
EXAMINATION TYPE: XR chest 2V DATE OF EXAM: 06/24/2018 COMPARISON: Prior chest x-ray 06/23/2018 HISTORY: Status post cardiac surgery TECHNIQUE: Frontal and lateral views of the chest are obtained. FINDINGS: Patient is post median sternotomy and the heart remains enlarged. No evident pneumothorax or pleural effusion. There are cardiac leads. Pulmonary vascularity and paulo are not significantly ch anged. Prominent lung volume may be indicative of COPD. There is overlying artifact. Aorta is dense, possibly aneurysmal, mediastinal widening may be postoperative. IMPRESSION: Postop changes and cardiomegaly. Patient is rotated. Additional findings above.
[2018-06-24] MEDS: IPRATROPIUM-ALBUTEROL 3 ML NEB INHALATION SCH ×2 (08:32→11:41)
[2018-06-24] MEDS: METOPROLOL TARTRATE 25 MG TAB PO SCH (09:12)
[2018-06-24] MEDS: ASPIRIN 325 MG TAB PO SCH (09:12)
[2018-06-24] MEDS: CLOPIDOGREL 75 MG TAB PO SCH (09:12)
[2018-06-24] MEDS: HEPARIN SODIUM,PORCINE 5,000 UNIT/ML 1 ML VIAL SQ SCH (09:12)
--- NOTE | 2018-06-24 10:37 | P.PN ---
Subjective Progress Note Date: 06/24/18 Principal diagnosis: Coronary artery disease with totally occluded left anterior descending artery and ostial left main disease, hypertension, hyperlipidemia, diabetes with preoperative hemoglobin A1c 5.4%, poliomyelitis, TIAs, GERD, DVT in 1972, obesity, significant family history for early onset coronary artery disease with 2 brothers and 3 sisters having myocardial infarctions in their 50s. POD #4 double coronary artery bypass grafting using the left internal mammary artery to the left anterior descending artery/diagonal system, reverse saphenous vein graft from the aorta to the ramus intermedius artery. Endoscopic harvesting of the right greater saphenous vein from the groin to just below the knee level. Intraoperative transesophageal echocardiogram and epi-aortic scanning. Intraoperative graft flow measurements using the [facility]. Postoperative acute blood loss anemia, expected outcome of surgery secondary to cardiopulmonary bypass pump and hemodilution. The patient's currently sitting up in a recliner in no acute distress. States surgical pain is well-controlled on current medication regimen, denies shortness of breath. No new complaints. Ambulated in the hallway 4 times yesterday, however distance of only 30-40 feet. Objective - Vital Signs Vital signs: Vital Signs Temp 98.2 F 06/24/18 07:20 Pulse 80 06/24/18 07:20 Resp 16 06/24/18 08:27 BP 115/69 06/24/18 07:20 Pulse Ox 94 L 06/24/18 08:27 Intake & Output 06/23/18 06/24/18 06/24/18 18:59 06:59 18:59 Intake Total 780 250 240 Output Total 1450 430 Balance -670 -180 240 Weight 81.4 kg Intake: IV 10 0.9 10 Oral 780 240 240 Output: Drainage 50 30 Right Calf 50 30 Urine 1400 400 Other: Voiding Method Urinal Urinal # Voids 1 2 ABP, PAP, CO, CI - Last Documented Arterial Blood Pressure 106/45 Pulmonary Artery Pressure 23/6 Cardiac Output 6.3 Cardiac Index 2.9 - Constitutional General appearance: Present: cooperative, no acute distress - Respiratory Details: Lungs sounds diminished bilaterally. Respirations even, nonlabored. Currently on room air with oxygen saturation 94%. Strong productive cough. Able to achieve 1500 mL on his incentive spirometry. - Cardiovascular Details: S1, S2 present. Regular rate and rhythm, sinus rhythm on telemetry. Sternum stable. Ventricular epicardial pacemaker wires present, grounded. Palpable peripheral pulses bilaterally. No edema present. No calf pain or tenderness noted. Heart hugger in place with patient demonstrating appropriate use. Antiembolism stockings, SCDs present. - Gastrointestinal Gastrointestinal Comment(s): Abdomen soft, nontender, nondistended. Active bowel sounds present 4 quadrants. Tolerating diet. Positive bowel movement 2/7. - Genitourinary Genitourinary Comment(s): Patient has voided clear, yellow urine. - Integumentary Integumentary Comment(s): Skin is warm and dry with evidence of good perfusion. Anterior chest incision well approximated and covered with dry intact dressing. Right lower extremity EVH site well approximated, HAZEL drain present with minimal serosanguineous drainage. - Neurologic Neurologic: Present: CNII-XII intact - Musculoskeletal Musculoskeletal: Present: gait normal, generalized weakness, strength equal bilaterally - Psychiatric Psychiatric: Present: A&O x's 3, appropriate affect, intact judgment & insight - Allied health notes Allied health notes reviewed: nursing - Labs CBC & Chem 7: 06/24/18 05:41 06/24/18 05:41 Labs: Abnormal Lab Results - Last 24 Hours (Table) 06/23/18 06/23/18 06/23/18 Range/Units 11:09 16:03 19:59 RBC (4.30-5.90) m/uL Hgb (13.0-17.5) gm/dL Hct (39.0-53.0) % Sodium (137-145) mmol/L BUN (9-20) mg/dL Creatinine (0.66-1.25) mg/dL POC Glucose (mg/dL) 169 H 122 H 250 H (75-99) mg/dL Total Protein (6.3-8.2) g/dL Albumin (3.5-5.0) g/dL 06/24/18 06/24/18 06/24/18 Range/Units 02:20 05:41 05:41 RBC 2.69 L (4.30-5.90) m/uL Hgb 8.2 L (13.0-17.5) gm/dL Hct 24.3 L (39.0-53.0) % Sodium 135 L (137-145) mmol/L BUN 22 H (9-20) mg/dL Creatinine 1.31 H (0.66-1.25) mg/dL POC Glucose (mg/dL) 122 H (75-99) mg/dL Total Protein 5.0 L (6.3-8.2) g/dL Albumin 2.9 L (3.5-5.0) g/dL 06/24/18 Range/Units 05:55 RBC (4.30-5.90) m/uL Hgb (13.0-17.5) gm/dL Hct (39.0-53.0) % Sodium (137-145) mmol/L BUN (9-20) mg/dL Creatinine (0.66-1.25) mg/dL POC Glucose (mg/dL) 114 H (75-99) mg/dL Total Protein (6.3-8.2) g/dL Albumin (3.5-5.0) g/dL - Imaging and Cardiology Chest x-ray: report reviewed, image reviewed Assessment and Plan (1) Obesity (BMI 30-39.9) Current Visit: Yes Status: Chronic Code(s): E66.9 - OBESITY, UNSPECIFIED SNOMED Code(s): 121186398 (2) Family history of early CAD Current Visit: Yes Status: Chronic Code(s): Z82.49 - FAMILY HX OF ISCHEM HEART DIS AND OTH DIS OF THE CIRC SYS SNOMED Code(s): 879040805 (3) Diabetes mellitus Current Visit: Yes Status: Chronic Code(s): E11.9 - TYPE 2 DIABETES MELLITUS WITHOUT COMPLICATIONS SNOMED Code(s): 49271049 (4) Coronary artery disease Current Visit: Yes Status: Chronic Code(s): I25.10 - ATHSCL HEART DISEASE OF [place] CORONARY ARTERY W/O ANG PCTRS SNOMED Code(s): 38635001 (5) GERD (gastroesophageal reflux disease) Current Visit: Yes Status: Chronic Code(s): K21.9 - GASTRO-ESOPHAGEAL REFLUX DISEASE WITHOUT ESOPHAGITIS SNOMED Code(s): 371935655 (6) History of TIA (transient ischemic attack) Current Visit: No Status: Resolved Code(s): Z86.73 - PRSNL HX OF TIA (TIA), AND CEREB INFRC W/O RESID DEFICITS SNOMED Code(s): 706882842 (7) History of deep venous thrombosis Current Visit: No Status: Resolved Code(s): Z86.718 - PERSONAL HISTORY OF OTHER VENOUS THROMBOSIS AND EMBOLISM SNOMED Code(s): 676326201 (8) History of poliomyelitis Current Visit: Yes Status: Chronic Code(s): Z86.12 - PERSONAL HISTORY OF POLIOMYELITIS SNOMED Code(s): 924163693 (9) Hyperlipidemia Current Visit: Yes Status: Chronic Code(s): E78.5 - HYPERLIPIDEMIA, UNSPECIFIED SNOMED Code(s): 34147346 (10) Hypertension Current Visit: Yes Status: Chronic Code(s): I10 - ESSENTIAL (PRIMARY) HYPERTENSION SNOMED Code(s): 13051398 Plan: 1. Continue aspirin, statin, Plavix, lisinopril, nj therapy. Will increase beta nj therapy as tolerated. 2. Encourage incentive spirometry use 10 times every hour while awake. 3. Bronchodilators per pulmonology. 4. Increase activity, ambulate as tolerated. PT/OT/cardiac rehab following. 5. Pain control with current medication regimen. 6. Will monitor daily labs, x-rays. Electrolyte replacement per protocol. No transfusion at this point. 7. Insulin management per primary care service. 8. GI prophylaxis with Protonix. DVT prophylaxis with subcu heparin, SCDs. 9. Likely to discharge to inpatient rehab as soon as insurance authorization obtained and bed is available. 10. More recommendations to follow. Time with Patient: Greater than 30
[2018-06-24 11:01] VITALS: RESP 18
[2018-06-24 11:22] LABS: Glucose,Whole Blood 122 mg/dL (75-99)
[2018-06-24 11:26] VITALS: BP 121/57
--- NOTE | 2018-06-24 11:41 | P.DS ---
Providers Date of admission: 06/20/18 05:30 Expected date of discharge: 06/24/18 Attending physician: Niki Cabrales Consults: 06/20/18 14:16 Consult Physician Routine Consulting Provider: Linnette Hartley Consult Reason/Comments: Non Profit Director Consult: post cardiac surgery Do you want consulting provider notified?: Yes Consult Physician Routine Consulting Provider: Butch Townsend Consult Reason/Comments: Direct Sales Representative Consult: post cardiac surgery Do you want consulting provider notified?: Yes Consult Physician Routine Consulting Provider: Ismael Gregorio Consult Reason/Comments: medical management Do you want consulting provider notified?: Yes 06/23/18 11:31 Consult Physician Routine Consulting Provider: Hernesto Ferro Consult Reason/Comments: IPR Do you want consulting provider notified?: Yes Primary care physician: Ismael Gregorio - Discharge Diagnosis(es) (1) Obesity (BMI 30-39.9) Current Visit: Yes Status: Chronic (2) Family history of early CAD Current Visit: Yes Status: Chronic (3) Diabetes mellitus Current Visit: Yes Status: Chronic (4) Coronary artery disease Current Visit: Yes Status: Chronic (5) GERD (gastroesophageal reflux disease) Current Visit: Yes Status: Chronic (6) History of TIA (transient ischemic attack) Current Visit: No Status: Resolved (7) History of deep venous thrombosis Current Visit: No Status: Resolved (8) History of poliomyelitis Current Visit: Yes Status: Chronic (9) Hyperlipidemia Current Visit: Yes Status: Chronic (10) Hypertension Current Visit: Yes Status: Chronic Hospital Course: FINAL DIAGNOSIS: 1. Coronary artery disease with totally occluded left anterior descending artery and ostial left main disease 2. Hypertension 3. Hyperlipidemia 4. Diabetes with preoperative hemoglobin A1c 5.4% 5. History of poliomyelitis 6. TIAs 7. GERD 8. DVT in 1972 9. Obesity 10. Significant family history of early onset coronary artery disease 11. Postoperative acute blood loss anemia PRINCIPAL PROCEDURE: 1. Double coronary artery bypass grafting using the left internal mammary artery to the left anterior descending artery/diagonal system, reverse saphenous vein graft from the aorta to the ramus intermedius artery 2. Endoscopic harvesting of the right greater saphenous vein from the groin to just below the knee level 3. Intraoperative transesophageal echocardiogram 4. Epi-aortic scanning 5. Intraoperative graft flow measurements using the [employer] system HISTORY OF PRESENT ILLNESS: This is a 73-year-old gentleman who follows with Dr. Ismael Gregorio on an outpatient basis. In February [address] Gregorio's office for an annual physical exam. He underwent 12-lead EKG which was suggestive of possible anterior wall infarct. For further evaluation the patient underwent a stress test Cardiolite study which showed ischemia involving the anterior wall and apex. He denied any complaints of chest pain, short of breath, nausea, vomiting, or syncope. He did report that he had some recent falls although he blamed this on weakness to his right leg from his history of polio. He was referred to Dr. Townsend from [facility] for further workup. He underwent heart catheterization on 2017 demonstrating 30-40% stenosis to the left main coronary artery, and long 99 % stenosis involving his proximal left anterior descending coronary artery with competent flow into the distal left anterior descending artery from collateral circulation. Left ventriculogram was completed at that time demonstrating normal cardiac silhouette with hypokinesis of the mid anterior wall and mild hypokinesis in the anterior apical wall. The patient was referred to Dr. Cabrales from cardiothoracic surgery. He was recommended to undergo coronary artery bypass graft surgery. The usual perioperative course was discussed in detail with the patient and his family, all risks and benefits were explained, all questions were answered, and consent was obtained to proceed with surgery. The patient was discharged to home on maximal medical therapy to return as an outpatient for surgery. HOSPITAL COURSE: The patient was brought to the hospital on 06/20/2018, taken to the preoperative area, prepared in the usual fashion, and subsequently taken to the operating room where Dr. Cabrales performed double coronary artery bypass grafting using the left internal mammary artery to the left anterior descending artery/diagonal system, reverse saphenous vein graft from the aorta to the ramus intermedius artery, endoscopic harvesting of the right greater saphenous vein from the groin to just below the knee level, intraoperative transesophageal echocardiogram, epi-aortic scanning, and intraoperative graft flow measurements using the [employer] system. Upon completion of surgery the patient was transferred to the cardiovascular intensive care unit where he was recovered, monitored hemodynamically, and where he progressed to cardiac rehabilitation phase 1. He was extubated, all lines, tubes, and drips were discontinued when appropriate, and he was transferred to 3 cardiac stepdown unit for further monitoring and rehabilitation. His oxygen was titrated down although he did continue to require 2 L nasal cannula, he continued to work with physical and occupational therapy, he was tolerating oral diet, his pain was controlled, and he was ready to be discharged to [facility] inpatient rehab on postoperative day #4. He received written and verbal instruction regarding his medications, activity restrictions, signs and symptoms requiring physician notification, and follow-up appointments. COMPLICATIONS: The patient experienced no postoperative complications. Patient Condition at Discharge: Stable Plan - Discharge Summary Discharge Rx Participant: Yes New Discharge Prescriptions: New Acetaminophen Tab [Tylenol] 650 mg PO Q4HR PRN tab PRN Reason: MODERATE Fever and/ or Pain Acetaminophen Tab [Tylenol] 325 mg PO Q4HR PRN tab PRN Reason: MILD Fever and/ or Pain Aspirin 325 mg PO DAILY tab Clopidogrel [Plavix] 75 mg PO DAILY tab Heparin Sodium,Porcine [Heparin Sodium] 5,000 unit SQ Q8HR vial HYDROcodone/APAP 5-325MG [[place] 5-325] 1 each PO Q4HR PRN tab PRN Reason: Moderate Pain Insulin Aspart [NovoLOG (formulary)] 0 unit SQ ACHS vial Ipratropium-Albuterol Nebulize [Duoneb 0.5 mg-3 mg/3 ml Soln] 3 ml INHALATION RT-QID ampul.neb Ipratropium-Albuterol Nebulize [Duoneb 0.5 mg-3 mg/3 ml Soln] 3 ml INHALATION RT-Q2H PRN ampul.neb PRN Reason: Shortness Of Breath Or Wheezing Lisinopril [Zestril] 5 mg PO DAILY@1200 tab Magnesium Hydroxide [Milk of Magnesia Concentrate] 2,400 mg PO BID PRN ml PRN Reason: Constipation Metoprolol Tartrate [Lopressor] 25 mg PO BID tab Sennosides-Docusate Sodium [Senokot-S] 2 each PO HS tab Continue Pantoprazole Sodium [Protonix] 40 mg PO QAM Simvastatin 40 mg PO QAM Discontinued Aspirin EC [Ecotrin Low Dose] 81 mg PO HS Lisinopril [Zestril] 20 mg PO QAM Metoprolol Succinate (ER) [Toprol XL] 50 mg PO QAM Nitroglycerin Sl Tabs [Nitrostat] 0.4 mg SUBLINGUAL Q5M PRN PRN Reason: Chest Pain Isosorbide Mononitrate ER [Imdur] 15 mg PO DAILY #30 dose Discharge Medication List Pantoprazole Sodium [Protonix] 40 mg PO QAM 12/15/17 [History] Simvastatin 40 mg PO QAM 03/30/18 [History] Acetaminophen Tab [Tylenol] 325 mg PO Q4HR PRN tab 06/24/18 [Rx] Acetaminophen Tab [Tylenol] 650 mg PO Q4HR PRN tab 06/24/18 [Rx] Aspirin 325 mg PO DAILY tab 06/24/18 [Rx] Clopidogrel [Plavix] 75 mg PO DAILY tab 06/24/18 [Rx] HYDROcodone/APAP 5-325MG [[place] 5-325] 1 each PO Q4HR PRN tab 06/24/18 [Rx] Heparin Sodium,Porcine [Heparin Sodium] 5,000 unit SQ Q8HR vial 06/24/18 [Rx] Insulin Aspart [NovoLOG (formulary)] 0 unit SQ ACHS vial 06/24/18 [Rx] Ipratropium-Albuterol Nebulize [Duoneb 0.5 mg-3 mg/3 ml Soln] 3 ml INHALATION RT -Q2H PRN ampul.neb 06/24/18 [Rx] Ipratropium-Albuterol Nebulize [Duoneb 0.5 mg-3 mg/3 ml Soln] 3 ml INHALATION RT -QID ampul.neb 06/24/18 [Rx] Lisinopril [Zestril] 5 mg PO DAILY@1200 tab 06/24/18 [Rx] Magnesium Hydroxide [Milk of Magnesia Concentrate] 2,400 mg PO BID PRN ml 06/24 [Rx] Metoprolol Tartrate [Lopressor] 25 mg PO BID tab 06/24/18 [Rx] Sennosides-Docusate Sodium [Senokot-S] 2 each PO HS tab 06/24/18 [Rx] Follow up Appointment(s)/Referral(s): Niki Cabrales MD [STAFF PHYSICIAN] - 07/22/18 10:15 am Ismael Gregorio MD [Primary Care Provider] - 1 Week (Please call for appointment upon discharge from [facility] inpatient rehab) Butch Townsend MD [Family Provider] - 1 Week (Please call for appointment upon discharge from [facility] inpatient rehab) Linnette Hartley MD [STAFF PHYSICIAN] - 1 Week (Please call for appointment upon discharge from [facility] inpatient rehab) Estella Sweet NPC [Nurse Practitioner] - As Needed Ambulatory/Diagnostic Orders: Complete Blood Count w/diff [LAB.AMB] Time Frame: 3 Days, Location: None Selected Comprehensive Metabolic Panel [LAB.AMB] Time Frame: 3 Days, Location: None Selected Activity/Diet/Wound Care/Special Instructions: CONSULTS at [facility] inpatient rehab: 1. Dr. Townsend for cardiology 2. Dr. Hartley for pulmonology DISCHARGE INSTRUCTIONS: 1. No driving for 4 weeks, or until physician gives their ok. 2. The patient should sleep in their own bed, no medical bed needed. 3. Stairs are not an issue. If the bedroom is upstairs, it is advised that the patient go up at night and down in the morning for the first week. Go slowly, using handrail and take 1 step at a time. 4. SARAH hose are to be worn for 30 days or until physician discontinues. 5. Heart hugger is to be worn 100% of the time until physician discontinues.( except when showering) 6. No lifting, pushing, or pulling more than 10 pounds for 12 weeks. The physician will advise of any restriction changes. 7. The patient is expected to continue the prescribed walking program. 8. Continue pain control per as needed orders. 9. Continue with incentive spirometry and splinting/heart hugger until otherwise directed by the physician. 10. Must shower daily using liquid antibacterial soap and a separate white washcloth for each individual incision. 11. Routine sternal incision care. No powders, lotions, ointments on incisions. 12. Please call surgeon/MACHINE LEATHER TRIMMER for temp greater than 101 F or purulent drainage from incisions. 13. A Red armband has been placed on the patient. It should be worn for 30 days post surgery and will be removed by the cardiac surgeons. If an ER visit is necessary, please make sure the number on the Red armband is called. [facility] INPATIENT REHAB/HOME HEALTH SERVICES TO PROVIDE: RN SKILLED HOME CARE SERVICES FOR POST-OP SURGICAL PATIENTS WITH THE FOLLOWING: Coronary Artery Bypass Surgery (CABG), Mitral Valve Replacement/ Repair ( MVR), Aortic Valve Replacement/Repair (AVR) RN TO CONTINUE EDUCATION FROM ``ROAD TO A HEALTH HEART PATIENT EDUCATION MANUAL (GIVEN TO PATIENT IN THE HOSPITAL) MEDICATION RECONCILIATION WITH EDUCATION NEEDED ON FIRST HOME VISIT EMPHASIZE IMPORTANCE OF WEARING BREAST SUPPORT/HEART HUGGER ENCOURAGE USE OF INCENTIVE SPIROMETER 10 X EVERY HOUR WHILE AWAKE ENCOURAGE UTILIZATION OF LOWER EXTREMITY COMPRESSION STOCKINGS/SARAH HOSE and ELEVATE LEGS ABOVE LEVEL OF HEART WHILE AT REST. ENCOURAGE AMBULATION 3-5x/day INCREASING TOLERATES, WHILE AVOID EXTREMES IN TEMPERATURE FREQUENCY: RN TO OPEN THE PATIENT WITHIN 24 HOURS OF DISCHARGE FROM [facility] IPR WITH TELEHEALTH INSTALLED AT [facility] [place], RN TO VISIT 2-3 X A WEEK FOR 4 WEEKS ESTABLISHED BY PATIENT NEEDS. LABORATORY: CBC, CMP TO BE DRAWN ON THE THIRD DAY AT REHAB THEN PER PROTOCOL, (RAN STAT) FAX RESULTS TO [phone]. TELEHEALTH PARAMETERS: WEIGHT: NOTIFY MD OF WEIGHT GAIN OF 2 LBS IN 24 HOURS OR 5 LBS IN ONE WEEK HR: NOTIFY MD OF HR <55 BPM OR HR>100 BPM BP: NOTIFY MD IF BP <90/55 OR BP>140/100 O2 SAT: NOTIFY MD IF PO2<93% ON ROOM AIR SEND TELEHEALTH REPORT TO PATIENT RESOURCE SPECIALIST AND CARDIOVASCULAR SURGEON THE FIRST WEEK OF CARE AND THEN BI-WEEKLY. PLEASE ADDITIONALLY COMMUNICATE ANY ABNORMALS AND NEW FINDINGS TO THE SURGEONS OFFICE. Discharge Disposition: DC/TRNS INTERMEDIATE CARE FAC
[2018-06-24 11:52] VITALS: PULSE 80
--- NOTE | 2018-06-24 12:11 | P.PN ---
<Jacki Granda E - Last Filed: 06/24/18 12:10> Subjective Progress Note Date: 06/24/18 HPI: This is a 73-year-old male patient being seen examined and evaluated today for consultation while covering for Dr. Ismael Gregorio. This patient does have a history of PA and underwent a cardiac catheterization and he was advised to undergo a CABG. With cardiothoracic surgeon. He did have a CABG today and had BETHEA to the LAD and SVG to the ramus. The patient is currently on mechanical ventilation with propofol for sedation. He is on assist control mode with respiratory of rate of 12, tidal volume 500, FiO2 50% and a PEEP of 5. He is being followed with an mechanical service technician as well. Currently the patient is hemodynamically stable. He does have 2 chest tubes present please see flowsheet for output. He continues on a nitro drip. Please see surgical notes for further details. Interval history: 06/21/2018- patient is being seen examined and evaluated today while covering for Dr. Gregorio on rounds in the intensive care unit. He has postop day 2. The patient was successfully extubated yesterday. His chest x-ray is reviewed and does show some volume overload with some interstitial edema and bibasilar atelectasis. The patient has been hemodynamically stable. Using his incentive spirometer and pulling volumes of 1500 ML's. His [place]-Jaswant catheter should be removed today. His chest tubes will remain. See chest tube flowsheet for output. 06/22/18- patient is being seen examined and evaluated today on rounds while covering for Dr. Ismael Gregorio. He is resting up in bedside chair and is doing well. His chest x-ray shows improved aeration. He will potentially have his chest tubes removed today. He is on 2 L of supplemental oxygen via nasal cannula continues to actively use his incentive spirometer. States overall he is feeling much better today. 06/23/18- patient is being seen examined and evaluated today on rounds COVERING Dr. Ismael Gregorio. He was downgraded from the intensive care unit yesterday. He had his chest tubes removed yesterday. He has been hemodynamically stable. Has been ambulating in the hallway. Tolerating his diet well. All labs and reports reviewed. Continues to use his incentive spirometer frequently. 06/24/18- patient is being seen examined and evaluated today on rounds while covering for Dr. Ismael Gregorio. The patient is being discharged per cardiothoracic surgery to inpatient rehab at [facility] today. He has been hemodynamically stable. Chest x-ray consistent with postoperative changes. He is over all continuing to improve. He is excited to go to rehab to build strength. Objective - Vital Signs Vital signs: Vital Signs Temp 96.2 F L 06/24/18 09:00 Pulse 80 06/24/18 11:51 Resp 18 06/24/18 11:00 BP 124/60 06/24/18 11:00 Pulse Ox 98 06/24/18 11:00 Intake & Output 06/23/18 06/24/18 06/24/18 18:59 06:59 18:59 Intake Total 780 250 240 Output Total 1450 430 500 Balance -670 -180 -260 Weight 81.4 kg Intake: IV 10 0.9 10 Oral 780 240 240 Output: Drainage 50 30 Right Calf 50 30 Urine 1400 400 500 Other: Voiding Method Urinal Urinal Urinal # Voids 1 2 ABP, PAP, CO, CI - Last Documented Arterial Blood Pressure 106/45 Pulmonary Artery Pressure 23/6 Cardiac Output 6.3 Cardiac Index 2.9 - Exam GENERAL EXAM: Alert, comfortable in no apparent distress. HEAD: Normocephalic. EYES: Normal reaction of pupils, equal size. NOSE: Clear with pink turbinates. THROAT: No erythema or exudates. NECK: No masses, no JVD. CHEST: Midline incision clean dry and intact, LUNGS: Equal air entry with no crackles, wheeze, rhonchi or dullness. CVS: S1 and S2 normal with no audible mumurs, regular rhythm. ABDOMEN: No hepatosplenomegaly, normal bowel sounds, no guarding or rigidity. EXTREMITIES: No edema noted, pedal pulses palpable. CENTRAL NERVOUS SYSTEM: No focal deficits, tone is normal in all 4 extremities. - Labs CBC & Chem 7: 06/24/18 05:41 06/24/18 05:41 Labs: Abnormal Lab Results - Last 24 Hours (Table) 06/23/18 06/23/18 06/24/18 Range/Units 16:03 19:59 02:20 RBC (4.30-5.90) m/uL Hgb (13.0-17.5) gm/dL Hct (39.0-53.0) % Sodium (137-145) mmol/L BUN (9-20) mg/dL Creatinine (0.66-1.25) mg/dL POC Glucose (mg/dL) 122 H 250 H 122 H (75-99) mg/dL Total Protein (6.3-8.2) g/dL Albumin (3.5-5.0) g/dL 06/24/18 06/24/18 06/24/18 Range/Units 05:41 05:41 05:55 RBC 2.69 L (4.30-5.90) m/uL Hgb 8.2 L (13.0-17.5) gm/dL Hct 24.3 L (39.0-53.0) % Sodium 135 L (137-145) mmol/L BUN 22 H (9-20) mg/dL Creatinine 1.31 H (0.66-1.25) mg/dL POC Glucose (mg/dL) 114 H (75-99) mg/dL Total Protein 5.0 L (6.3-8.2) g/dL Albumin 2.9 L (3.5-5.0) g/dL 06/24/18 Range/Units 11:09 RBC (4.30-5.90) m/uL Hgb (13.0-17.5) gm/dL Hct (39.0-53.0) % Sodium (137-145) mmol/L BUN (9-20) mg/dL Creatinine (0.66-1.25) mg/dL POC Glucose (mg/dL) 122 H (75-99) mg/dL Total Protein (6.3-8.2) g/dL Albumin (3.5-5.0) g/dL Assessment and Plan Assessment: Assessment Coronary artery disease status post CABG BETHEA to the LAD and SVG to the ramus History of TIA GERD history of polio history of DVT in the left arm History of TIA in 2016 no deficits Hypertension Plan Patient will be discharged today per cardiothoracic surgery to inpatient rehab at [facility] Patient is currently hemodynamically stable Medications have been reviewed and will be continued as ordered. Appreciate input of the mechanical service technician, cardiothoracic surgeon Hemodynamically stable Continue with pulmonary hygiene, coughing and deep breathing exercises, and supportive care. Supplemental oxygen to maintain oxygen saturations of 92% or better. GI and DVT prophylaxis. We will continue to monitor labs/results and adjust treatment as necessary. Further recommendations pending. I, the signing physician performed an examination of the patient, discussed and directed their management with the nurse practitioner. I have reviewed the nurse practitioner's note and agree with the documented findings, orders and plan of care. Nurse practitioner acting as a scribe for the signing physician. Please note we are covering for Dr. Ismael Gregorio <Prachi Thakkar A - Last Filed: 06/24/18 15:35> Objective - Vital Signs Vital signs: Vital Signs Temp 98.4 F 06/24/18 12:19 Pulse 80 06/24/18 11:51 Resp 18 06/24/18 11:00 BP 124/60 06/24/18 11:00 Pulse Ox 98 06/24/18 11:00 Intake & Output 06/23/18 06/24/18 06/24/18 18:59 06:59 18:59 Intake Total 780 250 480 Output Total 1450 430 500 Balance -670 -180 -20 Weight 81.4 kg Intake: IV 10 0.9 10 Oral 780 240 480 Output: Drainage 50 30 Right Calf 50 30 Urine 1400 400 500 Other: Voiding Method Urinal Urinal Urinal # Voids 1 2 # Bowel Movements 1 ABP, PAP, CO, CI - Last Documented Arterial Blood Pressure 106/45 Pulmonary Artery Pressure 23/6 Cardiac Output 6.3 Cardiac Index 2.9 - Labs CBC & Chem 7: 06/24/18 05:41 06/24/18 05:41 Labs: Abnormal Lab Results - Last 24 Hours (Table) 06/23/18 06/23/18 06/24/18 Range/Units 16:03 19:59 02:20 RBC (4.30-5.90) m/uL Hgb (13.0-17.5) gm/dL Hct (39.0-53.0) % Sodium (137-145) mmol/L BUN (9-20) mg/dL Creatinine (0.66-1.25) mg/dL POC Glucose (mg/dL) 122 H 250 H 122 H (75-99) mg/dL Total Protein (6.3-8.2) g/dL Albumin (3.5-5.0) g/dL 06/24/18 06/24/18 06/24/18 Range/Units 05:41 05:41 05:55 RBC 2.69 L (4.30-5.90) m/uL Hgb 8.2 L (13.0-17.5) gm/dL Hct 24.3 L (39.0-53.0) % Sodium 135 L (137-145) mmol/L BUN 22 H (9-20) mg/dL Creatinine 1.31 H (0.66-1.25) mg/dL POC Glucose (mg/dL) 114 H (75-99) mg/dL Total Protein 5.0 L (6.3-8.2) g/dL Albumin 2.9 L (3.5-5.0) g/dL 06/24/18 Range/Units 11:09 RBC (4.30-5.90) m/uL Hgb (13.0-17.5) gm/dL Hct (39.0-53.0) % Sodium (137-145) mmol/L BUN (9-20) mg/dL Creatinine (0.66-1.25) mg/dL POC Glucose (mg/dL) 122 H (75-99) mg/dL Total Protein (6.3-8.2) g/dL Albumin (3.5-5.0) g/dL Assessment and Plan Assessment: Patient seen and examined. Plan for discharge to inpatient rehab. ~Prachi Thakkar DO
[2018-06-24 12:21] VITALS: TEMP 98.4
[2018-06-24] MEDS: LISINOPRIL 5 MG TAB PO SCH (12:42)
--- NOTE | 2018-06-24 15:13 | P.PN ---
Subjective Progress Note Date: 06/24/18 This is a pleasant 73-year-old male patient, known history of coronary artery disease, previous history of anterior wall myocardial infarction, underwent a repeat cardiac catheterization and following that the patient was advised to undergo bypass surgery. The cath showed critical lesion in the LAD and a moderate lesion in the left main. This patient has moderately impaired LV systolic function with an ejection fraction of 40-45% in addition to segmental wall motion abnormalities. The patient was taken to bypass surgery and the patient underwent double vessel bypass surgery with BETHEA to LAD and saphenous vein graft to ramus intermedius artery. Upon examination, patient is resting comfortably in bed. He is using his incentive spirometer and getting to 1500. He is anticipating discharge to rehab today. Objective - Vital Signs Vital signs: Vital Signs Temp 98.4 F 06/24/18 12:19 Pulse 80 06/24/18 11:51 Resp 18 06/24/18 11:00 BP 124/60 06/24/18 11:00 Pulse Ox 98 06/24/18 11:00 Intake & Output 06/23/18 06/24/18 06/24/18 18:59 06:59 18:59 Intake Total 780 250 480 Output Total 1450 430 500 Balance -670 -180 -20 Weight 81.4 kg Intake: IV 10 0.9 10 Oral 780 240 480 Output: Drainage 50 30 Right Calf 50 30 Urine 1400 400 500 Other: Voiding Method Urinal Urinal Urinal # Voids 1 2 # Bowel Movements 1 ABP, PAP, CO, CI - Last Documented Arterial Blood Pressure 106/45 Pulmonary Artery Pressure 23/6 Cardiac Output 6.3 Cardiac Index 2.9 - Exam PHYSICAL EXAMINATION: HEENT: Head is atraumatic, normocephalic. Pupils equal, round. Neck is supple. There is no elevated jugular venous pressure. HEART EXAMINATION: Heart sounds regular, S1 and S2 normal. No murmur or gallop heard. CHEST EXAMINATION: Lungs revealed faint crackles bilateral bases. No chest wall tenderness is noted on palpation or with deep breathing. Sternal dressing is dry and intact, high-grade in place ABDOMEN: Soft, nontender. Bowel sounds are heard. No organomegaly noted. EXTREMITIES: 1+ peripheral pulses with evidence of trace peripheral edema and no calf tenderness noted. NEUROLOGIC patient is awake, alert and oriented x3. . - Labs CBC & Chem 7: 06/24/18 05:41 06/24/18 05:41 Labs: Abnormal Lab Results - Last 24 Hours (Table) 06/23/18 06/23/18 06/24/18 Range/Units 16:03 19:59 02:20 RBC (4.30-5.90) m/uL Hgb (13.0-17.5) gm/dL Hct (39.0-53.0) % Sodium (137-145) mmol/L BUN (9-20) mg/dL Creatinine (0.66-1.25) mg/dL POC Glucose (mg/dL) 122 H 250 H 122 H (75-99) mg/dL Total Protein (6.3-8.2) g/dL Albumin (3.5-5.0) g/dL 06/24/18 06/24/18 06/24/18 Range/Units 05:41 05:41 05:55 RBC 2.69 L (4.30-5.90) m/uL Hgb 8.2 L (13.0-17.5) gm/dL Hct 24.3 L (39.0-53.0) % Sodium 135 L (137-145) mmol/L BUN 22 H (9-20) mg/dL Creatinine 1.31 H (0.66-1.25) mg/dL POC Glucose (mg/dL) 114 H (75-99) mg/dL Total Protein 5.0 L (6.3-8.2) g/dL Albumin 2.9 L (3.5-5.0) g/dL 06/24/18 Range/Units 11:09 RBC (4.30-5.90) m/uL Hgb (13.0-17.5) gm/dL Hct (39.0-53.0) % Sodium (137-145) mmol/L BUN (9-20) mg/dL Creatinine (0.66-1.25) mg/dL POC Glucose (mg/dL) 122 H (75-99) mg/dL Total Protein (6.3-8.2) g/dL Albumin (3.5-5.0) g/dL Assessment and Plan Assessment: #1 coronary artery disease, status post two-vessel bypass surgery with BETHEA to the LAD and saphenous vein graft to the ramus intermedius #2 post thoracotomy #3 history of TIA #4 hypertension #5 hyperlipidemia Plan: From cardiology's perspective, medications reviewed and we will continue the same. We'll follow up with the patient as an outpatient. 3D ANIMATOR note has been reviewed, I agree with a documented findings and plan of care. Patient was seen and examined.
--- NOTE | 2018-06-24 16:54 | P.PN ---
Subjective Progress Note Date: 06/24/18 Principal diagnosis: Coronary artery disease, status post coronary artery bypass grafting A 73-year-old male patient, known history of coronary artery disease, previous history of anterior wall myocardial infarction, underwent a repeat cardiac catheterization and following that the patient was advised to undergo bypass surgery. The cath showed critical lesion in the LAD and a moderate lesion in the left main. This patient has an overall LV function of 40-45% in addition to segmental wall motion abnormalities. The patient was taken to bypass surgery and the patient underwent double vessel bypass surgery with BETHEA to LAD and saphenous vein graft to ramus intermedius artery. and following that the patient was brought into the intensive care unit intubated on a mechanical ventilator. Currently, the patient assist-control mode of ventilation with a rate of 12, tidal volume of 500, FiO2 of 100% and a PEEP of 5. The blood gases after arriving this patient to the ICU showed a pH of 7.37 with a pCO2 of 45 and pO2 of around 338. This x-ray showed a. She'll that is sitting high in the trachea. This was pushed by another centimeters. Meanwhile, hemodynamically the patient is doing well. The patient is sedated with Diprivan. The patient has, comfortable and sedated with the mechanical ventilator. The cardiac output is at 4.5, index is at 2.1, PA pressures 38/24, the output from the left pleural chest tube is 400 mL since arrival from the operating room and mediastinal chest tube is around 35 mL. The patient is on nitroglycerin drip. On 06/21/2018 I'm seeing this patient for a follow-up in the patient's postop day #1. The patient underwent a two-vessel bypass surgery. He is doing extremely well. He was extubated immediately allowing surgery and overnight the patient was resting comfortably in bed without any major complaints or complications. Hemodynamically stable. The patient is using incentive spirometer and pulling approximately 1500 on the incentive spirometer. Chest x- ray from today shows the tubes being all in good location. There has been no other significant issues or events over the past 24 hours. Chest tubes are in place. The cardiac rhythm is sinus. The total output from the mediastinal chest tube has been to 195 mL over the past 8 hours and 50 mL from the left pleural chest tube. The cardiac output is at 6.3 with an index of 2.9. Patient is seen today 06/22/2017 in follow-up in the intensive care unit. He is postoperative day #2. He is currently sitting up in a chair at the bedside. He is awake and alert in no acute distress. He is maintaining good O2 saturations in the 90s on 2 L/m per nasal cannula. His been afebrile. Hemodynamically stable. X-ray continues to show improved aeration. He continues to work well with the incentive spirometer. Pulling approximately 1500 ML's. Mediastinal and left pleural chest tubes remain in place. White count 11.0. Hemoglobin 7.9. Creatinine 1.28. He did receive Lasix 20 mg IV push times one this morning. On 06/23/2018 patient seen in follow-up on selective care floor. He is sitting in a recliner, in no acute distress, pulse oximetry liters per nasal cannula was 98%, lung sounds are clear, with some minimal crackles at the bases. She has been ambulating tolerating activity well. Today's chest x-ray showed right lower lobe infiltrate with tiny bilateral effusions. Today's labs have been noted. She is working on her incentive spirometer. On June 24, 2018 he is seen in follow-up on selective care unit. patient is doing well, no difficulty breathing, pulse ox is 97% on 2 L per nasal cannula, today's chest x-ray showed cardiomegaly, and postoperative changes, no evident pneumothorax or pleural effusion. lab work showed a white blood cell count of 9.8, hemoglobin of 8.2, sodium of 135, potassium is 4.9, B1 is 22, creatinine is 1.31. Patient is stable, he is going to inpatient rehab today. Objective - Vital Signs Vital signs: Vital Signs Temp 98.4 F 06/24/18 12:19 Pulse 80 06/24/18 11:51 Resp 18 06/24/18 11:00 BP 124/60 06/24/18 11:00 Pulse Ox 98 06/24/18 11:00 Intake & Output 06/23/18 06/24/18 06/24/18 18:59 06:59 18:59 Intake Total 780 250 480 Output Total 1450 430 500 Balance -670 -180 -20 Weight 81.4 kg Intake: IV 10 0.9 10 Oral 780 240 480 Output: Drainage 50 30 Right Calf 50 30 Urine 1400 400 500 Other: Voiding Method Urinal Urinal Urinal # Voids 1 2 # Bowel Movements 1 ABP, PAP, CO, CI - Last Documented Arterial Blood Pressure 106/45 Pulmonary Artery Pressure 23/6 Cardiac Output 6.3 Cardiac Index 2.9 - Exam GENERAL EXAM: Alert, pleasant, 73-year-old white male, currently on 2 L per nasal cannula comfortable in no apparent distress. HEAD: Normocephalic/atraumatic. EYES: Normal reaction of pupils, equal size. Conjunctiva pink, sclera white. NOSE: Clear with pink turbinates. THROAT: No erythema or exudates. NECK: No masses, no JVD, no thyroid enlargement, no adenopathy. CHEST: No chest wall deformity. Symmetrical expansion. Midsternal incision is clean dry and intact, well approximated, stable LUNGS: Equal air entry with no crackles, wheeze, rhonchi or dullness. CVS: Regular rate and rhythm, normal S1 and S2, no gallops, no murmurs, no rubs ABDOMEN: Soft, nontender. No hepatosplenomegaly, normal bowel sounds, no guarding or rigidity. EXTREMITIES: No clubbing, no edema, no cyanosis, 2+ pulses and upper and lower extremities. MUSCULOSKELETAL: Muscle strength and tone normal. SPINE: No scoliosis or deformity SKIN: No rashes CENTRAL NERVOUS SYSTEM: Alert and oriented -3. No focal deficits, tone is normal in all 4 extremities. PSYCHIATRIC: Alert and oriented -3. Appropriate affect. Intact judgment and insight. - Labs CBC & Chem 7: 06/24/18 05:41 06/24/18 05:41 Labs: Abnormal Lab Results - Last 24 Hours (Table) 06/23/18 06/24/18 06/24/18 Range/Units 19:59 02:20 05:41 RBC 2.69 L (4.30-5.90) m/uL Hgb 8.2 L (13.0-17.5) gm/dL Hct 24.3 L (39.0-53.0) % Sodium (137-145) mmol/L BUN (9-20) mg/dL Creatinine (0.66-1.25) mg/dL POC Glucose (mg/dL) 250 H 122 H (75-99) mg/dL Total Protein (6.3-8.2) g/dL Albumin (3.5-5.0) g/dL 06/24/18 06/24/18 06/24/18 Range/Units 05:41 05:55 11:09 RBC (4.30-5.90) m/uL Hgb (13.0-17.5) gm/dL Hct (39.0-53.0) % Sodium 135 L (137-145) mmol/L BUN 22 H (9-20) mg/dL Creatinine 1.31 H (0.66-1.25) mg/dL POC Glucose (mg/dL) 114 H 122 H (75-99) mg/dL Total Protein 5.0 L (6.3-8.2) g/dL Albumin 2.9 L (3.5-5.0) g/dL Assessment and Plan Plan: 1 coronary artery disease, status post two-vessel bypass surgery with BETHEA to LAD and saphenous graft to ramus intermedius artery. The patient is postop day 4. 2 post thoracotomy, the patient was extubated and the patient is currently off the mechanical ventilator. No active pulmonary issues for now. Chest tubes are in place. 3 previous history of TIA 4 acid reflux 5 hypertension 6 hyperlipidemia 7 history of polio 8 postoperative anemia, and expected outcome of surgery, current hemoglobin 7.9. Plan: Patient is doing well, no worsening dyspnea, he has been ambulating, tolerating activity well, patient is being discharged to inpatient rehab today, will follow the patient there. Stable for discharge from pulmonary perspective. I performed a history & physical examination of the patient and discussed their management with my nurse practitioner, Rin Marino. I reviewed the nurse practitioner's note and agree with the documented findings and plan of care. Lung sounds are positive for management breath sounds with minimal crackles at the bases. The findings and the impression was discussed with the patient. I attest to the documentation by the nurse practitioner. Time with Patient: Less than 30
== END 2018-06-24 15:08 | DRG 236 ==
LOC: 2ORMAIN 05:30 → 2SICU 14:39 → 3SCARD 06-23 01:22
PROVIDERS: ADMIT Surgery; ATTEND Surgery
PROC: 06BP4ZZ Excision of Right Saphenous Vein, Percutaneous Endoscopic Approach (ICD-10-PCS; 2018-06-20)
PROC: 5A1221Z Performance of Cardiac Output, Continuous (ICD-10-PCS; 2018-06-20)
PROC: 30233N0 Transfusion of Autologous Red Blood Cells into Peripheral Vein, Percutaneous Approach (ICD-10-PCS; 2018-06-20)
PROC: B24BZZ4 Ultrasonography of Heart with Aorta, Transesophageal (ICD-10-PCS; 2018-06-20)
PROC: 02100Z9 Bypass Coronary Artery, One Artery from Left Internal Mammary, Open Approach (ICD-10-PCS; principal; 2018-06-20 08:00)
PROC: 021009W Bypass Coronary Artery, One Artery from Aorta with Autologous Venous Tissue, Open Approach (ICD-10-PCS; 2018-06-20 08:00)
DX: I25.10 Atherosclerotic heart disease of native coronary artery without angina pectoris (principal); D62 Acute posthemorrhagic anemia; J98.11 Atelectasis; E87.70 Fluid overload, unspecified; I25.82 Chronic total occlusion of coronary artery; I34.0 Nonrheumatic mitral (valve) insufficiency; I11.9 Hypertensive heart disease without heart failure; E11.9 Type 2 diabetes mellitus without complications; E66.9 Obesity, unspecified; E78.5 Hyperlipidemia, unspecified; I10 Essential (primary) hypertension; I25.2 Old myocardial infarction; K21.9 Gastro-esophageal reflux disease without esophagitis; M19.90 Unspecified osteoarthritis, unspecified site; G89.29 Other chronic pain; M54.9 Dorsalgia, unspecified; R29.6 Repeated falls; Z86.12 Personal history of poliomyelitis; Z86.718 Personal history of other venous thrombosis and embolism; Z86.73 Personal history of transient ischemic attack (TIA), and cerebral infarction without residual deficits; Z79.82 Long term (current) use of aspirin; Z79.899 Other long term (current) drug therapy; Z88.8 Allergy status to other drugs, medicaments and biological substances; Z68.30 Body mass index [BMI] 30.0-30.9, adult; Z82.3 Family history of stroke; Z82.49 Family history of ischemic heart disease and other diseases of the circulatory system
CPT/HCPCS: 71045; 71046; 80048; 80053; 82330; 82805; 83735; 85025; 85027; 85520; 85610; 85730; 86850; 86891; 86900; 86901; 86920; 94002; 94640

== ENCOUNTER 2018-08-15 16:22 | Emergency (ER) | payer OTHER, MEDICARE ==
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
[2018-08-15 17:50] LABS: Calcium 10.3 mg/dL (8.4-10.2); Potassium 4.4 mmol/L (3.5-5.1)
[2018-08-15 18:07] LABS: Basophils % (A) 1 %; Eosinophils # (A) 0.3 k/uL (0-0.7); Eosinophils % (A) 6 %; HCT 35.8 % (39.0-53.0); Lymphocytes # (A) 1.2 k/uL (1.0-4.8); Lymphocytes % (A) 22 %; MCHC 31.9 g/dL (31.0-37.0); Mean Platelet Volume 7.2; Monocytes # (A) 0.5 k/uL (0-1.0); Monocytes % (A) 9 %; Neutrophils # (A) 3.5 k/uL (1.3-7.7); Neutrophils % (A) 62 %; Platelet Count 206 k/uL (150-450); RBC 4.24 m/uL (4.30-5.90); RDW 14.4 % (11.5-15.5); WBC 5.7 k/uL (3.8-10.6)
[2018-08-15 18:08] LABS: Prothrombin Time 10.4 sec (9.0-12.0)
[2018-08-15 18:10] LABS: HGB 11.4 gm/dL (13.0-17.5); MCV 84.4 fL (80.0-100.0)
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
[2018-08-15 18:31] VITALS: BP 132/65; PULSE 64; RESP 20; TEMP 98
== END 2018-08-15 18:51 | disposition home or self-care (01) ==
LOC: EC 16:22
DX: M25.511 Pain in right shoulder (principal); K21.9 Gastro-esophageal reflux disease without esophagitis; E78.5 Hyperlipidemia, unspecified; I10 Essential (primary) hypertension; I25.10 Atherosclerotic heart disease of native coronary artery without angina pectoris; Z86.14 Personal history of Methicillin resistant Staphylococcus aureus infection; Z95.5 Presence of coronary angioplasty implant and graft; Z87.39 Personal history of other diseases of the musculoskeletal system and connective tissue; Z79.899 Other long term (current) drug therapy; Z88.8 Allergy status to other drugs, medicaments and biological substances; V89.2XXA Person injured in unspecified motor-vehicle accident, traffic, initial encounter; Y92.89 Other specified places as the place of occurrence of the external cause
CPT/HCPCS: 36415; 71046; 80048; 85025; 85610; 99284

== ENCOUNTER → 2018-12-21 | Outpatient (CLI) | payer MEDICARE, OTHER ==
--- NOTE | 2018-12-21 19:34 | CT ---
EXAMINATION TYPE: CT chest wo con DATE OF EXAM: 12/21/2018 COMPARISON: None HISTORY: Chronic bronchitis CT DLP: 434 mGycm. Automated Exposure Control for Dose Reduction was Utilized. TECHNIQUE: CT scan of the thorax is performed without IV contrast. FINDINGS: LUNGS: The lungs are grossly clear, there is no concerning parenchymal mass or nodule identified. T here is no pleural effusion or pneumothorax seen. The tracheobronchial tree is patent. There is mild interlobular septal thickening. MEDIASTINUM: Lack of IV contrast is noted to limit evaluation for mediastinal and especially hilar ad enopathy. There are no definitive greater than 1 cm hilar or mediastinal lymph nodes. The heart is en larged. Coronary artery calcification noted. Ascending aorta measures 4.2 cm compatible with mild ane urysmal dilation. OTHER: Poststernotomy changes are seen. Hypertrophic and degenerative changes of the vertebral column .. Parapelvic renal cysts are noted. IMPRESSION: 1. Mild interlobular septal thickening can be associated with chronic interstitial lung disease. Juwan elate clinically 2. Ascending thoracic aorta measures 4.2 cm compatible with mild aneurysmal dilation
== END | disposition home or self-care (01) ==
LOC: RADCTMAIN 16:07
PROVIDERS: ATTEND Family Medicine
DX: J98.4 Other disorders of lung (principal); J42 Unspecified chronic bronchitis
CPT/HCPCS: 71250

== ENCOUNTER 2019-01-09 08:45 | Observation (INO) | payer MEDICARE, OTHER ==
[2019-01-09] MEDS ORDERED: NITROGLYCERIN OINT 1 INCH/GM PACKET TOPICAL STA (09:07)
[2019-01-09] MEDS ORDERED: ASPIRIN 81 MG PO STA (09:07)
--- NOTE | 2019-01-09 09:11 | ED ---
General Adult HPI - General Chief complaint: Chest Pain Stated complaint: chest pain Time Seen by Provider: 01/09/19 08:48 Source: patient, RN notes reviewed Mode of arrival: ambulatory Limitations: no limitations - History of Present Illness Initial comments: Patient is a pleasant 73-year-old male presenting to the emergency Department with complaints of chest discomfort. Onset of symptoms was yesterday. Discomfort was mild yesterday and worse this morning. Patient describes discomfort as pressure. There is some radiation towards the back. Discomfort is now near resolved rated 1/10. Patient did have some nausea and vomiting this morning. No diaphoresis. No dyspnea. No history of similar symptoms previously. Patient did have CABG a proximally 6 months ago however did not have any symptoms prior to that. Discomfort was 8/10 earlier this morning. - Related Data Home Medications Medication Instructions Recorded Confirmed Pantoprazole Sodium [Protonix] 40 mg PO QAM 12/15/17 01/09/19 Simvastatin 40 mg PO HS 03/30/18 01/09/19 Nitroglycerin Sl Tabs [Nitrostat] 0.4 mg SUBLINGUAL Q5M PRN 08/15/18 01/09/19 Bisacodyl [Dulcolax] 5 mg PO DAILY PRN 01/09/19 01/09/19 Ipratropium-Albuterol Nebulize 3 ml INHALATION RT-TID 01/09/19 01/09/19 [Duoneb 0.5 mg-3 mg/3 ml Soln] Lisinopril [Zestril] 10 mg PO DAILY 01/09/19 01/09/19 Metoprolol Succinate [Toprol Xl] 50 mg PO DAILY 01/09/19 01/09/19 Previous Rx's Medication Instructions Recorded Aspirin 325 mg PO DAILY tab 06/24/18 Allergies Allergy/AdvReac Type Severity Reaction Status Date / Time atorvastatin [From Lipitor] AdvReac muscle Verified 01/09/19 09:08 cramps Review of Systems ROS Statement: Those systems with pertinent positive or pertinent negative responses have been documented in the HPI. ROS Other: All systems not noted in ROS Statement are negative. Constitutional: Denies: fever Eyes: Denies: eye pain ENT: Denies: ear pain Respiratory: Denies: cough, dyspnea Cardiovascular: Reports: chest pain Endocrine: Denies: fatigue Gastrointestinal: Reports: nausea, vomiting. Denies: abdominal pain Genitourinary: Denies: dysuria Musculoskeletal: Reports: as per HPI Skin: Denies: rash Neurological: Denies: weakness Past Medical History Past Medical History: CVA/TIA, Deep Vein Thrombosis (DVT), GERD/Reflux, Hyperlipidemia, Hypertension Additional Past Medical History / Comment(s): Coronary artery disease, history of polio, history of TIA back in 2016, history of a blood clot in the left upper extremity, chronic back pain, hypertension, hyperlipidemia, acid reflux, osteoarthritis, per pt has a aneurysm in his lung History of Any Multi-Drug Resistant Organisms: None Reported Past Surgical History: Coronary Bypass/CABG, Heart Catheterization, Orthopedic Surgery Additional Past Surgical History / Comment(s): 3 right foot surgeries due to Polio 1948. Heart catheterization 04/04/2018. Past Anesthesia/Blood Transfusion Reactions: No Reported Reaction Past Psychological History: No Psychological Hx Reported Smoking Status: Never smoker Past Alcohol Use History: None Reported Past Drug Use History: None Reported - Past Family History Mother Sister(s) Family Medical History: CVA/TIA, Hypertension Additional Family Medical History / Comment(s): His mother from a stroke at age 81 Father Family Medical History: CVA/TIA Additional Family Medical History / Comment(s): His father from a stroke at age 80. Brother(s) Family Medical History: Myocardial Infarction ([place]) Additional Family Medical History / Comment(s): 2 of his brothers have had myocardial infarctions one at age 50, and one at age 48. Sister(s) Family Medical History: Myocardial Infarction ([place]) Additional Family Medical History / Comment(s): He is 13 total siblings. One of his sisters had a myocardial infarction in her late 50s and another sister had a myocardial infarction in her 40s. General Exam Limitations: no limitations General appearance: alert, in no apparent distress Head exam: Present: atraumatic Eye exam: Present: normal appearance, PERRL ENT exam: Present: normal oropharynx Neck exam: Present: normal inspection Respiratory exam: Present: normal lung sounds bilaterally. Absent: chest wall tenderness Cardiovascular Exam: Present: regular rate, normal rhythm Expanded Peripheral pulses: 2+: Radial (R), Radial (L), Dorsalis Pedis (R), Dorsalis Pedis (L) GI/Abdominal exam: Present: soft. Absent: tenderness, pulsatile mass Extremities exam: Present: normal inspection. Absent: pedal edema, calf tenderness Neurological exam: Present: alert Psychiatric exam: Present: normal affect, normal mood Skin exam: Present: normal color Course Vital Signs 01/09/19 01/09/19 01/09/19 08:48 09:28 09:30 Temperature 97.9 F Pulse Rate 68 Respiratory 18 Rate Blood Pressure 155/87 124/64 O2 Sat by Pulse 97 97 95 Oximetry 01/09/19 01/09/19 01/09/19 10:00 10:16 11:22 Temperature Pulse Rate 59 L 59 L 55 L Respiratory 7 L 7 L 18 Rate Blood Pressure 132/71 132/71 121/66 O2 Sat by Pulse 96 96 95 Oximetry 01/09/19 12:38 Temperature 97.8 F Pulse Rate 58 L Respiratory 17 Rate Blood Pressure 127/89 O2 Sat by Pulse 98 Oximetry EKG Findings - EKG Comments: EKG Findings:: Sinus bradycardia 58. For screening AV block NM of 206. QRS 78. QT 436. QTc 428. Left axis. Septal Q waves. No acute ST change. Medical Decision Making - Medical Decision Making Patient reevaluated and resting comfortably in bed. Abdomen remained soft and nontender. Patient and family updated on results and plan. Case was discussed in detail with Dr. Gregorio, who will admit. He does agree with consults for both surgery and cardiology. - Lab Data Result diagrams: 01/09/19 09:25 01/09/19 09:25 Lab Results 01/09/19 01/09/19 01/09/19 Range/Units 09:25 09:25 09:25 WBC 8.4 (3.8-10.6) k/uL RBC 4.48 (4.30-5.90) m/uL Hgb 12.6 L (13.0-17.5) gm/dL Hct 38.2 L (39.0-53.0) % MCV 85.3 (80.0-100.0) fL MCH 28.1 (25.0-35.0) pg MCHC 32.9 (31.0-37.0) g/dL RDW 13.9 (11.5-15.5) % Plt Count 216 (150-450) k/uL Neutrophils % 84 % Lymphocytes % 7 % Monocytes % 6 % Eosinophils % 1 % Basophils % 0 % Neutrophils # 7.1 (1.3-7.7) k/uL Lymphocytes # 0.6 L (1.0-4.8) k/uL Monocytes # 0.5 (0-1.0) k/uL Eosinophils # 0.1 (0-0.7) k/uL Basophils # 0.0 (0-0.2) k/uL PT 9.8 (9.0-12.0) sec INR 0.9 (<1.2) APTT 22.6 (22.0-30.0) sec D-Dimer 1.47 H (<0.60) mg/L FEU Sodium 139 (137-145) mmol/L Potassium 4.4 (3.5-5.1) mmol/L Chloride 105 (98-107) mmol/L Carbon Dioxide 24 (22-30) mmol/L Anion Gap 10 mmol/L BUN 25 H (9-20) mg/dL Creatinine 1.47 H (0.66-1.25) mg/dL Est GFR (CKD-EPI)AfAm 54 (>60 ml/min/1.73 sqM) Est GFR (CKD-EPI)NonAf 47 (>60 ml/min/1.73 sqM) Glucose 127 H (74-99) mg/dL Calcium 10.3 H (8.4-10.2) mg/dL Magnesium 2.1 (1.6-2.3) mg/dL Total Bilirubin 2.5 H (0.2-1.3) mg/dL AST 410 H (17-59) U/L ALT 229 H (21-72) U/L Alkaline Phosphatase 107 (38-126) U/L Troponin I (0.000-0.034) ng/mL Total Protein 6.6 (6.3-8.2) g/dL Albumin 4.1 (3.5-5.0) g/dL Amylase 90 (30-110) U/L Lipase 559 H (23-300) U/L 01/09/19 Range/Units 09:25 WBC (3.8-10.6) k/uL RBC (4.30-5.90) m/uL Hgb (13.0-17.5) gm/dL Hct (39.0-53.0) % MCV (80.0-100.0) fL MCH (25.0-35.0) pg MCHC (31.0-37.0) g/dL RDW (11.5-15.5) % Plt Count (150-450) k/uL Neutrophils % % Lymphocytes % % Monocytes % % Eosinophils % % Basophils % % Neutrophils # (1.3-7.7) k/uL Lymphocytes # (1.0-4.8) k/uL Monocytes # (0-1.0) k/uL Eosinophils # (0-0.7) k/uL Basophils # (0-0.2) k/uL PT (9.0-12.0) sec INR (<1.2) APTT (22.0-30.0) sec D-Dimer (<0.60) mg/L FEU Sodium (137-145) mmol/L Potassium (3.5-5.1) mmol/L Chloride (98-107) mmol/L Carbon Dioxide (22-30) mmol/L Anion Gap mmol/L BUN (9-20) mg/dL Creatinine (0.66-1.25) mg/dL Est GFR (CKD-EPI)AfAm (>60 ml/min/1.73 sqM) Est GFR (CKD-EPI)NonAf (>60 ml/min/1.73 sqM) Glucose (74-99) mg/dL Calcium (8.4-10.2) mg/dL Magnesium (1.6-2.3) mg/dL Total Bilirubin (0.2-1.3) mg/dL AST (17-59) U/L ALT (21-72) U/L Alkaline Phosphatase (38-126) U/L Troponin I <0.012 (0.000-0.034) ng/mL Total Protein (6.3-8.2) g/dL Albumin (3.5-5.0) g/dL Amylase (30-110) U/L Lipase (23-300) U/L - Radiology Data Radiology results: report reviewed (Computed tomography scan of the chest shows no pulmonary embolism. 4 cm ascending aortic aneurysm. Fluid adjacent to the gallbladder.), image reviewed (Chest x-ray shows no acute process. Cardiomegaly. Postsurgical changes.) Disposition Clinical Impression: Chest pain Disposition: ADMITTED IP TO THIS HOSP Is patient prescribed a controlled substance at d/c from ED?: No Referrals: Ismael Gregorio MD [Primary Care Provider] - 1-2 days Decision Time: 12:58
[2019-01-09 09:53] LABS: Basophils % (A) 0 %; Eosinophils # (A) 0.1 k/uL (0-0.7); Eosinophils % (A) 1 %; HCT 38.2 % (39.0-53.0); HGB 12.6 gm/dL (13.0-17.5); Lymphocytes # (A) 0.6 k/uL (1.0-4.8); Lymphocytes % (A) 7 %; MCH 28.1 pg (25.0-35.0); MCHC 32.9 g/dL (31.0-37.0); MCV 85.3 fL (80.0-100.0); Monocytes # (A) 0.5 k/uL (0-1.0); Monocytes % (A) 6 %; Neutrophils # (A) 7.1 k/uL (1.3-7.7); Neutrophils % (A) 84 %; Platelet Count 216 k/uL (150-450); RBC 4.48 m/uL (4.30-5.90); RDW 13.9 % (11.5-15.5); WBC 8.4 k/uL (3.8-10.6)
--- NOTE | 2019-01-09 10:01 | XR ---
EXAMINATION TYPE: XR chest 2V DATE OF EXAM: 01/09/2019 COMPARISON: 08/15/2018 HISTORY: Chest pain and back pain TECHNIQUE: Frontal and lateral views of the chest are obtained. FINDINGS: Cardiomediastinal silhouette is enlarged with postoperative changes. Perihilar streak-like densities likely representing subsegmental atelectasis. No new focal consolidation, pleural effusion or pneumothorax. Small hiatal hernia suspected. Mild/moderate degenerative changes of the thoracic s pine. IMPRESSION: Persistent enlarged cardiomediastinal silhouette with postoperative changes and straight ening with probable perihilar atelectasis. Small hiatal hernia suspected.
[2019-01-09 10:02] LABS: Albumin 4.1 g/dL (3.5-5.0); Calcium 10.3 mg/dL (8.4-10.2); Magnesium 2.1 mg/dL (1.6-2.3); Potassium 4.4 mmol/L (3.5-5.1); Total Bilirubin 2.5 mg/dL (0.2-1.3); Total Protein 6.6 g/dL (6.3-8.2)
[2019-01-09 10:15] LABS: INR 0.9 (<1.2); Partial Thromboplastin Time 22.6 sec (22.0-30.0); Prothrombin Time 9.8 sec (9.0-12.0)
[2019-01-09 10:21] LABS: D-Dimer 1.47 mg/L FEU (<0.60)
--- NOTE | 2019-01-09 11:31 | CT ---
CT CHEST FOR PULMONARY EMBOLISM. EXAMINATION TYPE: CT angio chest DATE OF EXAM: 01/09/2019 INDICATION: Elevated d-dimer CT DLP: 475.3 mGycm, Automated exposure control for dose reduction was used. CONTRAST: Patient injected with 80 mL of Isovue 370. COMPARISON: 12/21/2018 TECHNIQUE: CT of the chest is performed on a spiral scan at 2 mm thick sections. Study is performed with intravenous contrast timed for evaluation for pulmonary embolism. This will limit additional po rtions of the evaluation. 3-D MIP images reconstructed by the technologist are reviewed on the compu ter in the coronal and sagittal planes. FINDINGS: No persistent filling defects are evident to suggest an acute pulmonary embolism. No mediastinal or hilar adenopathy enlarged by CT criteria is evident. The ascending aorta diameter at the level of the main pulmonary artery is 4.0 cm. The main pulmonary artery diameter at the bifur cation is 3.4 cm. Lung windows are clear. Limited CT sections are obtained through the upper abdomen. A small amount of pericholecystic fluid m ay be present. Correlate for acute cholecystitis. IMPRESSIONS: 1. No acute pulmonary embolism. 2. Minimal fluid adjacent to the gallbladder. Clinical correlation for acute cholecystitis is recomme nded. 3. Ascending thoracic aortic aneurysm measuring 4.0 cm.
[2019-01-09] MEDS ORDERED: NITROGLYCERIN SL TABS 0.4 MG TAB SUBLINGUAL PRN ×2 (12:59→16:43)
[2019-01-09] MEDS: SODIUM CHLORIDE 0.9% 1,000 ML IV SCH (13:11)
--- NOTE | 2019-01-09 14:03 | US ---
EXAMINATION TYPE: US gallbladder DATE OF EXAM: 01/09/2019 COMPARISON: CT chest angio 01/09/2019 CLINICAL HISTORY: Pain. Very difficult and limited exam due to overlying bowel gas EXAM MEASUREMENTS: Liver Length: 12.8 cm Gallbladder Wall: 0.4 cm CBD: 0.7 cm Right Kidney: 8.8 X 5.0 X 3.9 cm Pancreas: Obscured by bowel gas Liver: LImited visualization, wnl as visualized Gallbladder: Gallbladder wall thickened with pericholecystic fluid. Possible sludge visualized Evidence for sonographic Ibrahim's sign: No CBD: wnl Right Kidney: Measuring small. No hydronephrosis, no cystic or solid mass visualized IMPRESSION: 1. Limited exam demonstrates gallbladder wall thickening with ingestion of a tiny amount of perichole cystic fluid and gallbladder sludge. Correlate for cholecystitis.
[2019-01-09] MEDS ORDERED: BISACODYL 5 MG TABLET.DR PO PRN (16:43)
[2019-01-09 17:14] LABS: Amylase 81 U/L (30-110)
--- NOTE | 2019-01-09 19:04 | HP ---
HISTORY AND PHYSICAL CHIEF COMPLAINT: A 8-year-old white male, presented to the emergency room with some atypical chest discomfort, epigastric pain radiating to his back. He was found to have elevated lipase over 500 with cholecystitis on ultrasound of the gallbladder with gallstones. He had some vomiting at home. No prior history of symptoms. He had CABG 6 months ago. He has been asymptomatic at that point. He was admitted for acute pancreatitis secondary to acute cholecystitis. Surgery is consulted. ALLERGIES: Please see above. REVIEW OF SYMPTOMS: 14-point review of systems negative except for mentioned above. PAST MEDICAL HISTORY: CAB surgery, DVT, CVA, TIA, GERD, dyslipidemia, hypertension, coronary artery disease, status post bypass surgery, orthopedic surgery. FAMILY HISTORY: Mother, sister, hypertension. Father CVA TIA. Father myocardial infarction. Sister, myocardial infarction. PHYSICAL EXAMINATION: VITAL SIGNS: Vital signs reviewed. Afebrile. CARDIOVASCULAR: S1, S2. LUNGS clear. PSYCH: Fair mood and affect. NEUROLOGIC: Alert and orient x3. CARDIOVASCULAR: Posterior dorsalis pedis, posterior tibial and radial pulses are all normal. GI is distended, obesity, tender to palpation. Epigastric right upper quadrant. Mild guarding. No rebound. SKIN: No rash. Excoriation present. Temp 97.9, pulse 60 to 68, respiratory rate 16 to 18, blood pressure 120s to 150s over 60s to 80s. EKG sinus bradycardia. Hemoglobin 12.6, white count 8.4, BUN 25, creatinine 1.47. CT scan of the chest was negative with elevated D-dimer. ASSESSMENT AND PLAN: 1. Acute cholecystitis. 2. Acute gallbladder induced pancreatitis. 3. Acute abdominal pain and as mentioned to secondary to above, status post coronary artery bypass grafting. 4. Hypertension. 5. Possible chronic obstructive pulmonary disease. 6. Continue current treatments. 7. We will need a clear liquid diet versus n.p.o. 8. Check amylase, lipase, and liver enzymes in the morning. 9. Will need gallbladder removed in next 2-3 days when gallbladder calms down before pancreas calms down before discharge. 10.Consult to surgery. MMODL / IJN: [id number] /
[2019-01-09] MEDS: IPRATROPIUM-ALBUTEROL 3 ML NEB INHALATION SCH (20:25)
[2019-01-09] MEDS ORDERED: NON-FORMULARY DRUG (Simvastatin [Simvastatin] 40 MG) PO SCH (21:00)
[2019-01-10 07:31] LABS: Basophils % (A) 0 %; Eosinophils # (A) 0.2 k/uL (0-0.7); Eosinophils % (A) 3 %; HCT 35.4 % (39.0-53.0); HGB 11.5 gm/dL (13.0-17.5); Lymphocytes # (A) 1.2 k/uL (1.0-4.8); Lymphocytes % (A) 23 %; MCH 27.9 pg (25.0-35.0); MCHC 32.5 g/dL (31.0-37.0); MCV 85.9 fL (80.0-100.0); Mean Platelet Volume 8.2; Monocytes # (A) 0.4 k/uL (0-1.0); Monocytes % (A) 8 %; Neutrophils # (A) 3.1 k/uL (1.3-7.7); Neutrophils % (A) 63 %; Platelet Count 181 k/uL (150-450); RBC 4.12 m/uL (4.30-5.90); WBC 4.9 k/uL (3.8-10.6)
[2019-01-10] MEDS: IPRATROPIUM-ALBUTEROL 3 ML NEB INHALATION SCH ×3 (07:34→20:33)
[2019-01-10 07:50] LABS: Albumin 3.4 g/dL (3.5-5.0); Calcium 9.4 mg/dL (8.4-10.2); Potassium 4.2 mmol/L (3.5-5.1); Total Bilirubin 1.4 mg/dL (0.2-1.3); Total Protein 5.8 g/dL (6.3-8.2)
--- NOTE | 2019-01-10 08:06 | P.CRDCN ---
History of Present Illness Consult date: 01/10/19 Requesting physician: Ismael Gregorio Chief complaint: Abdominal Pain and vomiting History of present illness: This is a 73-year-old gentleman who follows regularly with Dr. Townsend in the office. He has a known history of coronary artery bypass grafting surgery 6 months ago, history of hypertension, hyperlipidemia, family history of premature coronary artery disease. At the time of his bypass the patient underwent a BETHEA to the LAD, saphenous vein graft to the ramus intermediate. He also has history of polio, history of TIA. He presents to the hospital on this occasion with symptoms of abdominal pain with associated vomiting. He denies any chest discomfort and no difficulty in breathing. Chest x-ray on presentation here revealed persistent enlarged cardiomediastinal silhouette with postoperative changes and probable perihilar atelectasis. CT of the chest did not reveal any acute pulmonary embolism, minimal fluid-filled adjacent to the gallbladder. Clinical correlation for acute cholecystitis is recommended. Gallbladder ultrasound demonstrates gallbladder wall thickening with ingestion of a tiny amount of pericholecystic fluid and gallbladder sludge. Correlate for cholecystitis. His EKG shows a normal sinus rhythm with no acute changes. White blood cell count is normal, hemoglobin 11.5, platelet count 181. D-dimer 1.4, sodium 142, potassium 4.2, BUN 25 on admission with a creatinine of 1.4, 19 and 1.3 this morning. Magnesium is 2.1, total bilirubin on admission 2.5, 1.4 this morning. AST 410, ALT 229, 258 and 339 this morning. Alkaline phosphatase is normal. Troponins are negative 3. Blood pressure 122/68 with a heart rate in the 60s, 96% on room air. 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 with past falls, TIA in 2016, DVT left upper extremity, thoracic aortic aneurysm, chronic low back pain, arthritis R foot, History of Any Multi-Drug Resistant Organisms: None Reported Past Surgical History: Coronary Bypass/CABG, Heart Catheterization, Orthopedic Surgery Additional Past Surgical History / Comment(s): 06/20/18 CABG 2 vessels, colonoscopy, 3 right foot surgeries due to polio 1948 Past Anesthesia/Blood Transfusion Reactions: No Reported Reaction Smoking Status: Never smoker - Past Family History Mother Sister(s) Family Medical History: CVA/TIA, Hypertension Additional Family Medical History / Comment(s): His mother from a stroke at age 81 Father Family Medical History: CVA/TIA Additional Family Medical History / Comment(s): His father from a stroke at age 80. Brother(s) Family Medical History: Myocardial Infarction ([place]) Additional Family Medical History / Comment(s): 2 of his brothers have had myocardial infarctions one at age 50, and one at age 48. Sister(s) Family Medical History: Myocardial Infarction ([place]) Additional Family Medical History / Comment(s): He is 13 total siblings. One of his sisters had a myocardial infarction in her late 50s and another sister had a myocardial infarction in her 40s. Medications and Allergies Home Medications Medication Instructions Recorded Confirmed Type Pantoprazole Sodium [Protonix] 40 mg PO QAM 12/15/17 01/09/19 History Simvastatin 40 mg PO HS 03/30/18 01/09/19 History Aspirin 325 mg PO DAILY tab 06/24/18 01/09/19 Rx Nitroglycerin Sl Tabs [Nitrostat] 0.4 mg SUBLINGUAL Q5M PRN 08/15/18 01/09/19 History Bisacodyl [Dulcolax] 5 mg PO DAILY PRN 01/09/19 01/09/19 History Ipratropium-Albuterol Nebulize 3 ml INHALATION RT-TID 01/09/19 01/09/19 History [Duoneb 0.5 mg-3 mg/3 ml Soln] Lisinopril [Zestril] 10 mg PO DAILY 01/09/19 01/09/19 History Metoprolol Succinate [Toprol Xl] 50 mg PO DAILY 01/09/19 01/09/19 History Allergies Allergy/AdvReac Type Severity Reaction Status Date / Time atorvastatin [From Lipitor] AdvReac muscle Verified 01/09/19 09:08 cramps Physical Exam Vitals: Vital Signs Temp Pulse Pulse Resp BP BP Pulse Ox 01/10/19 07:44 64 01/10/19 07:36 60 01/10/19 03:27 98.9 F 64 18 122/69 96 01/09/19 23:51 97.5 F L 59 L 18 122/69 95 01/09/19 20:18 98 01/09/19 20:00 96.9 F L 54 L 17 159/77 95 01/09/19 18:30 53 L 18 119/68 96 01/09/19 18:00 53 L 17 118/60 94 L 01/09/19 17:30 52 L 16 118/60 94 L 01/09/19 17:11 64 17 118/60 95 01/09/19 17:00 50 L 17 119/67 96 01/09/19 16:30 58 L 16 139/72 96 01/09/19 16:00 53 L 17 119/68 96 01/09/19 15:30 50 L 15 128/68 96 01/09/19 15:00 52 L 17 128/69 98 01/09/19 14:30 18 118/71 96 01/09/19 14:00 16 120/62 96 01/09/19 13:30 51 L 18 125/66 96 01/09/19 13:00 51 L 17 127/89 97 01/09/19 12:38 97.8 F 58 L 17 127/89 98 01/09/19 12:30 50 L 18 125/63 01/09/19 12:00 52 L 16 123/66 96 01/09/19 11:30 54 L 17 121/66 96 01/09/19 11:22 55 L 18 121/66 95 01/09/19 11:00 18 117/66 01/09/19 10:30 53 L 17 134/73 91 L 01/09/19 10:16 59 L 7 L 132/71 96 01/09/19 10:00 59 L 7 L 132/71 96 01/09/19 09:30 124/64 95 01/09/19 09:28 97 01/09/19 08:48 97.9 F 68 18 155/87 97 Intake and Output 01/09/19 01/10/19 01/10/19 22:59 06:59 14:59 Intake Total 600 Balance 600 Intake: Intake, IV Titration 600 Amount Sodium Chloride 0.9% 1, 600 000 ml @ 100 mls/hr IV . Q10H [facility] Rx#:[id number] Other: Voiding Method Toilet # Voids 1 2 Weight 92.4 kg PHYSICAL EXAMINATION: GENERAL: 73-year-old gentleman in no acute distress at the time of my examination HEENT: Head is atraumatic, normocephalic. Pupils equal, round. Sclera anicteric. Conjunctiva are clear. Mucous membranes of the mouth are moist. Neck is supple. There is no elevated jugular venous pressure. No carotid bruit is heard. HEART EXAMINATION: Heart S1, S2 normal. No murmur or gallop heard. CHEST EXAMINATION: Lungs are clear to auscultation and precussion. No chest wall tenderness is noted on palpation or with deep breathing. ABDOMEN: Soft, mild right upper quadrant tenderness, mid epigastric tenderness . Bowel sounds are heard. No organomegaly noted. EXTREMITIES: 2+ peripheral pulses with no evidence of peripheral edema and no calf tenderness noted. NEUROLOGIC patient is awake, alert and oriented 3 . . Results 01/10/19 06:53 01/10/19 06:53 Cardiac Enzymes 01/09/19 01/09/19 01/09/19 Range/Units 09:25 09:25 15:36 AST 410 H (17-59) U/L Troponin I <0.012 <0.012 (0.000-0.034) ng/mL 01/09/19 01/10/19 Range/Units 20:58 06:53 AST 258 H (17-59) U/L Troponin I <0.012 (0.000-0.034) ng/mL Coagulation 01/09/19 Range/Units 09:25 PT 9.8 (9.0-12.0) sec APTT 22.6 (22.0-30.0) sec Lipids 01/10/19 Range/Units 06:53 Triglycerides 81 (<150) mg/dL Cholesterol 110 (<200) mg/dL HDL Cholesterol 31 L (40-60) mg/dL CBC 01/09/19 01/10/19 Range/Units 09:25 06:53 WBC 8.4 4.9 (3.8-10.6) k/uL RBC 4.48 4.12 L (4.30-5.90) m/uL Hgb 12.6 L 11.5 L (13.0-17.5) gm/dL Hct 38.2 L 35.4 L (39.0-53.0) % Plt Count 216 181 (150-450) k/uL Comprehensive Metabolic Panel 01/09/19 01/10/19 Range/Units 09:25 06:53 Sodium 139 142 (137-145) mmol/L Potassium 4.4 4.2 (3.5-5.1) mmol/L Chloride 105 109 H (98-107) mmol/L Carbon Dioxide 24 25 (22-30) mmol/L BUN 25 H 19 (9-20) mg/dL Creatinine 1.47 H 1.34 H (0.66-1.25) mg/dL Glucose 127 H 86 (74-99) mg/dL Calcium 10.3 H 9.4 (8.4-10.2) mg/dL AST 410 H 258 H (17-59) U/L ALT 229 H 339 H (21-72) U/L Alkaline Phosphatase 107 121 (38-126) U/L Total Protein 6.6 5.8 L (6.3-8.2) g/dL Albumin 4.1 3.4 L (3.5-5.0) g/dL Current Medications Generic Name Dose Route Start Last Admin Trade Name Freq PRN Reason Stop Dose Admin Albuterol/Ipratropium 3 ml 01/09/19 20:00 01/10/19 07:34 Duoneb 0.5 Mg-3 Mg/3 Ml Soln INHALATION 3 ml RT-TID RAÚL Administration Aspirin 325 mg 01/10/19 09:00 Aspirin PO DAILY [facility] Bisacodyl 5 mg 01/09/19 16:43 Dulcolax PO DAILY PRN Constipation Sodium Chloride 1,000 mls @ 100 mls/hr 01/09/19 13:00 01/09/19 13:11 Saline 0.9% IV 100 mls/hr .Q10H RAÚL Administration Lisinopril 10 mg 01/10/19 09:00 Zestril PO DAILY [facility] Metoprolol Succinate 50 mg 01/10/19 09:00 Toprol Xl PO DAILY [facility] Nitroglycerin 0.4 mg 01/09/19 16:43 Nitrostat SUBLINGUAL Q5M PRN Chest Pain Non-Formulary Medication 40 mg 01/09/19 21:00 01/09/19 22:55 Simvastatin [Simvastatin] PO Not Given HS RAÚL Pantoprazole Sodium 40 mg 01/10/19 09:00 Protonix PO QAM RAÚL Intake and Output 01/09/19 01/10/19 01/10/19 22:59 06:59 14:59 Intake Total 600 Balance 600 Intake: Intake, IV Titration 600 Amount Sodium Chloride 0.9% 1, 600 000 ml @ 100 mls/hr IV . Q10H [facility] Rx#:[id number] Other: Voiding Method Toilet # Voids 1 2 Weight 92.4 kg 01/10/19 06:53 01/10/19 06:53 EKG Interpretations (text) EKG shows normal sinus rhythm with no acute changes Assessment and Plan Plan: Assessment and plan #1 symptoms of abdominal pain with associated vomiting. Ultrasound of the gallbladder showed limited exam but demonstrated gallbladder wall thickening with ingestion of a tiny amount of pericholecystic fluid and gallbladder sludge, correlate for cholecystitis. CTA of the chest negative for pulmonary embolism. Minimal fluid noted adjacent to the gallbladder. Ascending thoracic aortic aneurysm measuring 4.0 cm Are 2 known history of coronary artery disease with recent bypass surgery 6 months ago at which time the patient underwent a BETHEA to the LAD, saphenous vein graft to the ramus intermediate. #3 hypertension #4 hyperlipidemia #5 history of polio #6 TIA Plan We will decrease the patient's aspirin 81 mg daily, continue lisinopril, metoprolol, discontinue Nitropaste, resume statin. Obtain echocardiogram with Doppler study. Further recommendations to follow. DNP note has been reviewed, I agree with a documented findings and plan of care. Patient was seen and examined.
[2019-01-10] MEDS: ATORVASTATIN 40 MG TAB PO SCH (08:30)
[2019-01-10] MEDS: METOPROLOL SUCCINATE (ER) 50 MG TAB.ER.24H PO SCH (08:30)
[2019-01-10] MEDS: LISINOPRIL 10 MG TAB PO SCH (08:30)
[2019-01-10] MEDS: PANTOPRAZOLE 40 MG TABLET PO SCH (08:30)
[2019-01-10] MEDS: ASPIRIN 81 MG PO SCH (08:31)
[2019-01-10] MEDS: SODIUM CHLORIDE 0.9% 1,000 ML IV SCH ×3 (08:32→21:41)
[2019-01-10] MEDS ORDERED: ASPIRIN 325 MG TAB PO SCH ×2 (09:00)
--- NOTE | 2019-01-10 09:27 | P.GSCN ---
History of Present Illness Consult date: 01/09/19 Reason for Consult: Cholecystitis History of present illness: This a 71-year-old male who was admitted to the hospital for workup of atypical chest pain and abdominal pain. Patient states he had pain and nausea in his mid abdomen yesterday. It radiates to the right upper quadrant. His CAT scan shows evidence of cholecystitis with gallbladder wall thickening and pericholecystic fluid. 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 with past falls, TIA in 2016, DVT left upper extremity, thoracic aortic aneurysm, chronic low back pain, arthritis R foot, History of Any Multi-Drug Resistant Organisms: None Reported Past Surgical History: Coronary Bypass/CABG, Heart Catheterization, Orthopedic Surgery Additional Past Surgical History / Comment(s): 06/20/18 CABG 2 vessels, colonoscopy, 3 right foot surgeries due to polio 194 Past Anesthesia/Blood Transfusion Reactions: No Reported Reaction Smoking Status: Never smoker - Past Family History Mother Sister(s) Family Medical History: CVA/TIA, Hypertension Additional Family Medical History / Comment(s): His mother from a stroke at age 81 Father Family Medical History: CVA/TIA Additional Family Medical History / Comment(s): His father from a stroke at age 80. Brother(s) Family Medical History: Myocardial Infarction (OK) Additional Family Medical History / Comment(s): 2 of his brothers have had myocardial infarctions one at age 50, and one at age 48. Sister(s) Family Medical History: Myocardial Infarction (OK) Additional Family Medical History / Comment(s): He is 13 total siblings. One of his sisters had a myocardial infarction in her late 50s and another sister had a myocardial infarction in her 40s. Medications and Allergies Home Medications Medication Instructions Recorded Confirmed Type Pantoprazole Sodium [Protonix] 40 mg PO QAM 12/15/17 01/09/19 History Simvastatin 40 mg PO HS 03/30/18 01/09/19 History Aspirin 325 mg PO DAILY tab 06/24/18 01/09/19 Rx Nitroglycerin Sl Tabs [Nitrostat] 0.4 mg SUBLINGUAL Q5M PRN 08/15/18 01/09/19 History Bisacodyl [Dulcolax] 5 mg PO DAILY PRN 01/09/19 01/09/19 History Ipratropium-Albuterol Nebulize 3 ml INHALATION RT-TID 01/09/19 01/09/19 History [Duoneb 0.5 mg-3 mg/3 ml Soln] Lisinopril [Zestril] 10 mg PO DAILY 01/09/19 01/09/19 History Metoprolol Succinate [Toprol Xl] 50 mg PO DAILY 01/09/19 01/09/19 History Allergies Allergy/AdvReac Type Severity Reaction Status Date / Time atorvastatin [From Lipitor] AdvReac muscle Verified 01/09/19 09:08 cramps Surgical - Exam Vital Signs Temp Pulse Resp BP Pulse Ox 97.9 F 68 18 155/87 97 01/09/19 08:48 01/09/19 08:48 01/09/19 08:48 01/09/19 08:48 01/09/19 08:48 - General well developed, well nourished, no distress - Eyes PERRL - ENT normal pinna - Neck no masses - Respiratory normal expansion - Cardiovascular Rhythm: regular - Abdomen Mild right quadrant tenderness Abdomen: soft Results - Labs 01/10/19 06:53 01/10/19 06:53 Abnormal Lab Results - Last 24 Hours (Table) 01/09/19 01/09/19 01/09/19 Range/Units 09:25 09:25 09:25 RBC (4.30-5.90) m/uL Hgb 12.6 L (13.0-17.5) gm/dL Hct 38.2 L (39.0-53.0) % Lymphocytes # 0.6 L (1.0-4.8) k/uL D-Dimer 1.47 H (<0.60) mg/L FEU Chloride (98-107) mmol/L BUN 25 H (9-20) mg/dL Creatinine 1.47 H (0.66-1.25) mg/dL Glucose 127 H (74-99) mg/dL Calcium 10.3 H (8.4-10.2) mg/dL Total Bilirubin 2.5 H (0.2-1.3) mg/dL AST 410 H (17-59) U/L ALT 229 H (21-72) U/L Total Protein (6.3-8.2) g/dL Albumin (3.5-5.0) g/dL HDL Cholesterol (40-60) mg/dL Lipase 559 H (23-300) U/L 01/10/19 01/10/19 Range/Units 06:53 06:53 RBC 4.12 L (4.30-5.90) m/uL Hgb 11.5 L (13.0-17.5) gm/dL Hct 35.4 L (39.0-53.0) % Lymphocytes # (1.0-4.8) k/uL D-Dimer (<0.60) mg/L FEU Chloride 109 H (98-107) mmol/L BUN (9-20) mg/dL Creatinine 1.34 H (0.66-1.25) mg/dL Glucose (74-99) mg/dL Calcium (8.4-10.2) mg/dL Total Bilirubin 1.4 H (0.2-1.3) mg/dL AST 258 H (17-59) U/L ALT 339 H (21-72) U/L Total Protein 5.8 L (6.3-8.2) g/dL Albumin 3.4 L (3.5-5.0) g/dL HDL Cholesterol 31 L (40-60) mg/dL Lipase (23-300) U/L Diabetes panel 01/09/19 01/10/19 Range/Units 09:25 06:53 Sodium 139 142 (137-145) mmol/L Potassium 4.4 4.2 (3.5-5.1) mmol/L Chloride 105 109 H (98-107) mmol/L Carbon Dioxide 24 25 (22-30) mmol/L BUN 25 H 19 (9-20) mg/dL Creatinine 1.47 H 1.34 H (0.66-1.25) mg/dL Glucose 127 H 86 (74-99) mg/dL Calcium 10.3 H 9.4 (8.4-10.2) mg/dL AST 410 H 258 H (17-59) U/L ALT 229 H 339 H (21-72) U/L Alkaline Phosphatase 107 121 (38-126) U/L Total Protein 6.6 5.8 L (6.3-8.2) g/dL Albumin 4.1 3.4 L (3.5-5.0) g/dL Triglycerides 81 (<150) mg/dL HDL Cholesterol 31 L (40-60) mg/dL Calcium panel 01/09/19 01/10/19 Range/Units 09:25 06:53 Calcium 10.3 H 9.4 (8.4-10.2) mg/dL Albumin 4.1 3.4 L (3.5-5.0) g/dL Pituitary panel 01/09/19 01/10/19 Range/Units 09:25 06:53 Sodium 139 142 (137-145) mmol/L Potassium 4.4 4.2 (3.5-5.1) mmol/L Chloride 105 109 H (98-107) mmol/L Carbon Dioxide 24 25 (22-30) mmol/L BUN 25 H 19 (9-20) mg/dL Creatinine 1.47 H 1.34 H (0.66-1.25) mg/dL Glucose 127 H 86 (74-99) mg/dL Calcium 10.3 H 9.4 (8.4-10.2) mg/dL Adrenal panel 01/09/19 01/10/19 Range/Units 09:25 06:53 Sodium 139 142 (137-145) mmol/L Potassium 4.4 4.2 (3.5-5.1) mmol/L Chloride 105 109 H (98-107) mmol/L Carbon Dioxide 24 25 (22-30) mmol/L BUN 25 H 19 (9-20) mg/dL Creatinine 1.47 H 1.34 H (0.66-1.25) mg/dL Glucose 127 H 86 (74-99) mg/dL Calcium 10.3 H 9.4 (8.4-10.2) mg/dL Total Bilirubin 2.5 H 1.4 H (0.2-1.3) mg/dL AST 410 H 258 H (17-59) U/L ALT 229 H 339 H (21-72) U/L Alkaline Phosphatase 107 121 (38-126) U/L Total Protein 6.6 5.8 L (6.3-8.2) g/dL Albumin 4.1 3.4 L (3.5-5.0) g/dL Assessment and Plan Assessment: Right quadrant pain Cholecystitis Patient will undergo laparoscopic cholecystectomy.
[2019-01-10] MEDS ORDERED: IV FLUID CONTINUATION 1,000 ML IV ONE (11:01)
[2019-01-10] MEDS ORDERED: DEXAMETHASONE SOD PHOSPHATE 10 MG/ML 1 ML VIAL IV ONE (11:19)
[2019-01-10] MEDS ORDERED: ONDANSETRON 4 MG/2 ML VIAL IVP ONE (11:19)
[2019-01-10] MEDS ORDERED: HEPARIN SODIUM,PORCINE 5,000 UNIT/ML 1 ML VIAL SQ ONE (11:56)
[2019-01-10] MEDS ORDERED: LIDOCAINE 1% INJ 10MG/ML (20 ML MDV) ONE (12:11)
[2019-01-10] MEDS ORDERED: SUCCINYLCHOLINE CHLORIDE 100 MG/5 ML SYR IV ONE (12:11)
[2019-01-10] MEDS ORDERED: fentaNYL (PF) 50 MCG/ML 2 ML AMP ONE (12:11)
[2019-01-10] MEDS ORDERED: GLYCOPYRROLATE 0.2 MG/ML 2 ML VIAL ONE (12:11)
[2019-01-10] MEDS ORDERED: NEOSTIGMINE 1 MG/ML 10 ML VIAL ONE (12:11)
[2019-01-10] MEDS ORDERED: PROPOFOL 10 MG/ML 20 ML VIAL IV ONE (12:11)
[2019-01-10] MEDS ORDERED: ROCURONIUM BROMIDE 10 MG/ML 10 ML VIAL IV ONE (12:11)
[2019-01-10] MEDS ORDERED: KETOROLAC 30 MG/ML 1 ML VIAL ONE (12:11)
[2019-01-10] MEDS ORDERED: MIDAZOLAM 2 MG/2 ML VIAL ONE (12:11)
[2019-01-10] MEDS ORDERED: BUPIVACAIN-EPI 0.25%-1:200,000 30 ML VIAL SQ ONE (12:36)
--- NOTE | 2019-01-10 12:48 | P.OP ---
Date of Procedure: 01/10/19 Preoperative Diagnosis: Cholecystitis Postoperative Diagnosis: Cholecystitis Cholelithiasis Procedure(s) Performed: Laparoscopic cholecystectomy Anesthesia: YONATHAN Surgeon: Mike Watt Estimated Blood Loss (ml): 5 Pathology: other (Gallbladder) Condition: stable Disposition: PACU Description of Procedure: The patient was placed on the operating table. The patient received a general endotracheal tube anesthesia. The patients abdomen was prepped and draped in the usual sterile fashion. Through an infraumbilical stab incision, the fascia of the anterior abdominal wall was grasped with a pair of Kochers and then the Veress needle was placed in the peritoneal cavity. Position of the Veress needle was confirmed with positive drop test. The abdomen was then insufflated. After adequate insufflation, the 10 mm trocar was placed in the peritoneal cavity. Following this the laparoscope was placed in the peritoneal cavity. The patient was placed in the head-up, right side up position and then a 5 mm trocar was placed in the right lateral and right subcostal position under direct visualization. A 8 mm trocar was placed in the epigastric position. The gallbladder was grasped in the fundus and infundibulum. Traction on the gallbladder was placed in the lateral and the cephalad positions. The triangle of Calot was visualized.. The cystic duct was bluntly dissected until the union of the cystic duct and common bile duct was seen. A critical view of safety was achieved. The cystic duct was then divided and sealed with the Harmonic scissors. A PDS Endoloop was then placed throughout the cystic duct stump. The cystic artery divided and sealed with the Harmonic scissors. The gallbladder was then removed from the liver bed using Harmonic scissors. The gallbladder was then extracted through the epigastric port site. Operative field was checked for any bleeding spots and Harmonic scissors was used to coagulate the liver bed. The abdomen was irrigated. The trocars were removed. The skin was closed using interrupted 3-0 Vicryl suture. Dermabond dressing were applied. The patient tolerated the procedure well.
[2019-01-10] MEDS ORDERED: LABETALOL 5 MG/ML VIAL MDV IVP ONE (13:08)
[2019-01-10] MEDS ORDERED: HYDROmorphone 1 MG/ML 1 ML SYRINGE IVP ONE ×2 (13:10→13:20)
[2019-01-10] MEDS: HYDROmorphone 1 MG/ML 1 ML SYRINGE IVP PRN ×2 (14:48→21:20)
--- NOTE | 2019-01-10 18:28 | P.PN ---
Subjective Progress Note Date: 01/10/19 This is 73-year-old gentleman admitted with acute abdomen pain ,acute cholecystitis, acute gallbladder-induced pancreatitis in a patient with recent CABG and multiple other medical issues. Cardiology verbalizing clearance for surgery today. Patient is scheduled for cholecystectomy this morning. Afebrile . Denies chest pain, palpitations or shortness of breath. Vital signs stable, maintaining O2 sats in the high 90s on room air. Renal function mildly improved, BUN 19, creatinine 1.34. T bili down to 1.4, AST improved, to 58, ALT level increased to 339. Amylase and lipase significantly improved, 42, 65 respectively. Troponins negative 3. Echo pending. Objective - Vital Signs Vital signs: Vital Signs Temp 98.9 F 01/10/19 03:27 Pulse 64 01/10/19 08:00 Resp 16 01/10/19 08:00 BP 137/71 01/10/19 08:00 Pulse Ox 93 L 01/10/19 08:00 Intake & Output 01/09/19 01/10/19 01/10/19 18:59 06:59 18:59 Intake Total 600 Balance 600 Weight 93.44 kg 92.4 kg Intake: Intake, IV Titration 600 Amount Sodium Chloride 0.9% 1, 600 000 ml @ 100 mls/hr IV . [facility] Rx#:[id number] Other: Voiding Method Toilet # Voids 2 - Exam PHYSICAL EXAM: VITAL SIGNS: As above GENERAL: Sitting up in bed, no acute distress HEENT: Conjunctivae normal. eyes normal. Oral mucosa dry NECK: No JVD. No thyroid enlargement. No LNs CARDIOVASCULAR: S1, S2 regular.. No murmur RESPIRATION: Breath sounds diminished in the bases. No rhonchi or crackles. No bronchial breathing. ABDOMEN: Soft, mild right upper quadrant tenderness. No guarding. no masses palpable. Bowel sounds heard. LEGS: No edema. no swelling PSYCHIATRY: Alert and oriented X3, mood and affect normal. NERVOUS SYSTEM: Cranial N 2-12 grossly normal. Moves all 4 limbs. Diffuse weakness No focal deficits. Strength and sensation grossly intact.. Skin: no lesions, no rash Lymphatic system. No LN neck axilla or groin. - Labs CBC & Chem 7: 01/10/19 06:53 01/10/19 06:53 Labs: Abnormal Lab Results - Last 24 Hours (Table) 01/10/19 01/10/19 Range/Units 06:53 06:53 RBC 4.12 L (4.30-5.90) m/uL Hgb 11.5 L (13.0-17.5) gm/dL Hct 35.4 L (39.0-53.0) % Chloride 109 H (98-107) mmol/L Creatinine 1.34 H (0.66-1.25) mg/dL Total Bilirubin 1.4 H (0.2-1.3) mg/dL AST 258 H (17-59) U/L ALT 339 H (21-72) U/L Total Protein 5.8 L (6.3-8.2) g/dL Albumin 3.4 L (3.5-5.0) g/dL HDL Cholesterol 31 L (40-60) mg/dL Assessment and Plan Assessment: -Acute cholecystitis -Acute gallbladder-induced pancreatitis -Acute renal failure -Recent CABG -Hypertension -Possible COPD -Hyperlipidemia -History of TIA -History of polio Plan: Continue on current medication regime , aspirin, EVIE inhibitor, beta nj ,monitoring and symptomatic treatment. Patient is scheduled for cholecystectomy this am. Echo pending. Gentle IV fluid hydration .Close monitoring of renal function, LFTs, modulation with repeat labs ordered for a.m. Further recommendations to follow. The impression and plan of care has been dictated as directed. : I performed a history and examination of this patient, discussed the same with the dictator. I agree with the dictator's note ,documented as a scribe. Any additional findings or plans will be noted.
[2019-01-11] MEDS: HYDROmorphone 1 MG/ML 1 ML SYRINGE IVP PRN ×3 (01:02→15:42)
[2019-01-11] MEDS ORDERED: HYDROmorphone 1 MG/ML 1 ML SYRINGE ONE (05:15)
[2019-01-11] MEDS: SODIUM CHLORIDE 0.9% 1,000 ML IV SCH ×2 (06:24→15:42)
[2019-01-11 07:28] LABS: Basophils % (A) 0 %; Eosinophils % (A) 0 %; HCT 36.6 % (39.0-53.0); HGB 11.6 gm/dL (13.0-17.5); Lymphocytes # (A) 0.8 k/uL (1.0-4.8); Lymphocytes % (A) 8 %; MCH 27.9 pg (25.0-35.0); MCHC 31.8 g/dL (31.0-37.0); MCV 87.6 fL (80.0-100.0); Monocytes # (A) 0.7 k/uL (0-1.0); Monocytes % (A) 7 %; Neutrophils # (A) 8.3 k/uL (1.3-7.7); Neutrophils % (A) 84 %; Platelet Count 211 k/uL (150-450); RBC 4.17 m/uL (4.30-5.90); RDW 13.9 % (11.5-15.5); WBC 9.9 k/uL (3.8-10.6)
[2019-01-11 07:51] LABS: Albumin 3.4 g/dL (3.5-5.0); Calcium 9.4 mg/dL (8.4-10.2); Potassium 4.6 mmol/L (3.5-5.1); Total Bilirubin 0.7 mg/dL (0.2-1.3); Total Protein 5.8 g/dL (6.3-8.2)
[2019-01-11] MEDS: IPRATROPIUM-ALBUTEROL 3 ML NEB INHALATION SCH ×2 (08:58→12:34)
[2019-01-11] MEDS: ATORVASTATIN 40 MG TAB PO SCH (09:24)
[2019-01-11] MEDS: PANTOPRAZOLE 40 MG TABLET PO SCH (09:24)
[2019-01-11] MEDS: LISINOPRIL 10 MG TAB PO SCH (09:24)
[2019-01-11] MEDS: ASPIRIN 81 MG PO SCH (09:24)
[2019-01-11] MEDS: METOPROLOL SUCCINATE (ER) 50 MG TAB.ER.24H PO SCH (11:00)
--- NOTE | 2019-01-11 12:25 | P.PN ---
Subjective Progress Note Date: 01/11/19 Principal diagnosis: Cholecystitis Patient doing well today. Liver enzymes improved. Pain is controlled. Objective - Vital Signs Vital signs: Vital Signs Temp 98.0 F 01/11/19 05:00 Pulse 64 01/11/19 09:09 Resp 18 01/11/19 05:00 BP 136/78 01/11/19 05:00 Pulse Ox 98 01/11/19 05:00 Intake & Output 01/10/19 01/11/19 01/11/19 18:59 06:59 18:59 Intake Total 1190 800 Output Total 605 Balance 585 800 Weight 89.5 kg Intake: IV 950 Intake, IV Titration 800 Amount Sodium Chloride 0.9% 1, 800 000 ml @ 100 mls/hr IV . Q10H [facility] Rx#:[id number] Oral 240 Output: Urine 600 Estimated Blood Loss 5 Other: Voiding Method Toilet Toilet - Exam Abdomen: Soft, nondistended, incision clean and dry, mild tenderness - Labs CBC & Chem 7: 01/11/19 06:16 01/11/19 06:16 Labs: Abnormal Lab Results - Last 24 Hours (Table) 01/11/19 01/11/19 Range/Units 06:16 06:16 RBC 4.17 L (4.30-5.90) m/uL Hgb 11.6 L (13.0-17.5) gm/dL Hct 36.6 L (39.0-53.0) % Neutrophils # 8.3 H (1.3-7.7) k/uL Lymphocytes # 0.8 L (1.0-4.8) k/uL Chloride 108 H (98-107) mmol/L Creatinine 1.33 H (0.66-1.25) mg/dL Glucose 108 H (74-99) mg/dL AST 125 H (17-59) U/L ALT 227 H (21-72) U/L Total Protein 5.8 L (6.3-8.2) g/dL Albumin 3.4 L (3.5-5.0) g/dL Assessment and Plan Plan: Diet as tolerated. Ambulate. Home per primary service.
[2019-01-11 13:23] VITALS: BP 140/79; PULSE 62; RESP 20; TEMP 98.2
--- NOTE | 2019-01-11 17:23 | P.DS ---
Providers Date of admission: 01/09/19 12:59 Expected date of discharge: 01/11/19 Attending physician: Ismael Gregorio Consults: 01/09/19 12:58 Consult Physician Urgent Consulting Provider: Mike Watt Consult Reason/Comments: evaluate gallbladder Do you want consulting provider notified?: Yes 01/09/19 12:59 Consult Physician Urgent Consulting Provider: Puneet Gandara Consult Reason/Comments: cp Do you want consulting provider notified?: Yes [facility] Course: -Acute cholecystitis, status post laparoscopic cholecystectomy -Acute gallbladder-induced pancreatitis, improved -Acute renal failure, improving -Recent CABG -Hypertension -Possible COPD -Hyperlipidemia -History of TIA -History of polio -Chronic hypoxic respiratory failure, on 2 L nasal cannula Hospital course:This is 73-year-old gentleman admitted with acute abdomen pain ,acute cholecystitis, acute gallbladder-induced pancreatitis in a patient with recent CABG and multiple other medical issues. Cardiology verbalizing clearance for surgery today. Patient is scheduled for cholecystectomy this morning. Afebrile. Denies chest pain, palpitations or shortness of breath. Vital signs stable, maintaining O2 sats in the high 90s on room air. Renal function mildly improved, BUN 19, creatinine 1.34. T bili down to 1.4, AST improved, to 58, ALT level increased to 339. Amylase and lipase significantly improved, 42, 65 respectively. Troponins negative 3. Echo pending. Status post laparoscopic cholecystectomy. Time a procedure well. Liver enzymes and renal function improving. Pain controlled. Afebrile. Cleared by all consults for discharge. Patient is being discharged home in stable condition with guarded prognosis. EXAM: GENERAL: Alert and oriented 3, no acute distress. CARDIOVASCULAR: S1, S2 regular.. No murmur RESPIRATION: Breath sounds diminished in the bases. No rhonchi or crackles. No wheezing. ABDOMEN: Soft, status post surgery. No guarding. Bowel sounds heard. NERVOUS SYSTEM: No focal deficits. The impression and plan of care has been dictated as directed. : I performed a history and examination of this patient, discussed the same with the dictator. I agree with the dictator's note ,documented as a scribe. Any additional findings or plans will be noted. Time taken: 35 minutes Patient Condition at Discharge: Stable Plan - Discharge Summary Discharge Rx Participant: No New Discharge Prescriptions: New Docusate [Colace] 100 mg PO BID #20 capsule HYDROcodone/APAP 5-325MG [[place] 5-325] 1 tab PO Q6HR PRN #10 tab PRN Reason: Pain Aspirin 81 mg PO DAILY chew Continue Pantoprazole Sodium [Protonix] 40 mg PO QAM Simvastatin 40 mg PO HS Nitroglycerin Sl Tabs [Nitrostat] 0.4 mg SUBLINGUAL Q5M PRN PRN Reason: Chest Pain Lisinopril [Zestril] 10 mg PO DAILY Metoprolol Succinate [Toprol Xl] 50 mg PO DAILY Ipratropium-Albuterol Nebulize [Duoneb 0.5 mg-3 mg/3 ml Soln] 3 ml INHALATION RT-TID Bisacodyl [Dulcolax] 5 mg PO DAILY PRN PRN Reason: Constipation Discontinued Aspirin 325 mg PO DAILY tab Discharge Medication List Pantoprazole Sodium [Protonix] 40 mg PO QAM 12/15/17 [History] Simvastatin 40 mg PO HS 03/30/18 [History] Nitroglycerin Sl Tabs [Nitrostat] 0.4 mg SUBLINGUAL Q5M PRN 08/15/18 [History] Bisacodyl [Dulcolax] 5 mg PO DAILY PRN 01/09/19 [History] Ipratropium-Albuterol Nebulize [Duoneb 0.5 mg-3 mg/3 ml Soln] 3 ml INHALATION RT-TID 01/09/19 [History] Lisinopril [Zestril] 10 mg PO DAILY 01/09/19 [History] Metoprolol Succinate [Toprol Xl] 50 mg PO DAILY 01/09/19 [History] Docusate [Colace] 100 mg PO BID #20 capsule 01/10/19 [Rx] HYDROcodone/APAP 5-325MG [[place] 5-325] 1 tab PO Q6HR PRN #10 tab 01/10/19 [Rx] Aspirin 81 mg PO DAILY chew 01/11/19 [Rx] Follow up Appointment(s)/Referral(s): Ismael Gregorio MD [Primary Care Provider] - 1 Week [facility], [NON-STAFF] - 1 Week Butch Townsend MD [STAFF PHYSICIAN] - 2 Weeks Mike Watt MD [STAFF PHYSICIAN] - 1 Week Ambulatory/Diagnostic Orders: Complete Blood Count w/diff [LAB.AMB] Time Frame: 3 Days, Location: None Selected Patient Instructions/Handouts: Hydrocodone/Acetaminophen (By mouth), Laxative, Stool Softeners (By mouth), Chest Pain (DC)
== END 2019-01-11 19:05 | disposition home or self-care (01) ==
LOC: EC 08:45 → 3SCARD 12:59 → 3NMEDONC 01-10 21:32
PROVIDERS: ADMIT Family Medicine; ATTEND Family Medicine
DX: K80.12 Calculus of gallbladder with acute and chronic cholecystitis without obstruction (principal); K85.90 Acute pancreatitis without necrosis or infection, unspecified; N17.9 Acute kidney failure, unspecified; R07.89 Other chest pain; Z95.1 Presence of aortocoronary bypass graft; I10 Essential (primary) hypertension; E78.5 Hyperlipidemia, unspecified; Z86.73 Personal history of transient ischemic attack (TIA), and cerebral infarction without residual deficits; Z86.12 Personal history of poliomyelitis; J96.11 Chronic respiratory failure with hypoxia; R79.89 Other specified abnormal findings of blood chemistry; I25.10 Atherosclerotic heart disease of native coronary artery without angina pectoris; G89.29 Other chronic pain; M54.5 Low back pain; K21.9 Gastro-esophageal reflux disease without esophagitis; M19.071 Primary osteoarthritis, right ankle and foot; I71.2 Thoracic aortic aneurysm, without rupture; J45.909 Unspecified asthma, uncomplicated; Z79.899 Other long term (current) drug therapy; Z88.8 Allergy status to other drugs, medicaments and biological substances; Z86.718 Personal history of other venous thrombosis and embolism; I71.4 Abdominal aortic aneurysm, without rupture; Z99.81 Dependence on supplemental oxygen; Z91.81 History of falling; Z79.82 Long term (current) use of aspirin; Z82.49 Family history of ischemic heart disease and other diseases of the circulatory system; Z82.3 Family history of stroke
CPT/HCPCS: 47562; 99285; 36415; 94640 ×4; 94760; 93005; 97162; 85379; 88304; 80061; 80053 ×3; 82150 ×2; 83690 ×2; 83735; 84484; 85025 ×3; 85610; 85730; 71046; 76705; 71275; G0378 ×3; J2250; J1644; J1100; J2710; J0690; J2405; J2001; J3010; J1885; J1170 ×2; J0330; J2704; Q9967

== ENCOUNTER → 2020-09-13 | Outpatient (CLI) | payer MEDICARE, OTHER ==
--- NOTE | 2020-09-13 11:55 | CT ---
EXAMINATION TYPE: CT chest wo con DATE OF EXAM: 09/13/2020 COMPARISON: 01/09/2019 HISTORY: Shortness of breath. CT DLP: 606 mGycm. Automated Exposure Control for Dose Reduction was Utilized. TECHNIQUE: CT scan of the thorax is performed without IV contrast. FINDINGS: LUNGS: The lungs are grossly clear, there is no concerning parenchymal mass or nodule identified. T here is no pleural effusion or pneumothorax seen. The tracheobronchial tree is patent. Linear change s most typical of atelectasis in the right upper lobe. Mild interlobular septal thickening. MEDIASTINUM: Lack of IV contrast is noted to limit evaluation for mediastinal and especially hilar ad enopathy. There are no definitive greater than 1 cm hilar or mediastinal lymph nodes. Ascending aorta measures 4.2 cm or so. 1. Multiple projections. There is mild atherosclerotic changes. Coronary artery calcification is seen and there are sternotomy changes. Heart size stable from prior exam and slightly prominent in OTHER: Hypertrophic and degenerative changes spine. Sternotomy changes noted. Question tiny gallstone or surgical clips correlate with patient's history. IMPRESSION: 1. Stable 4.2 cm mild aneurysmal dilation ascending aorta. 2. No acute intrathoracic process. Very mild interlobular septal thickening can be associated with ch ronic interstitial lung disease
== END | disposition home or self-care (01) ==
LOC: RADCTMAIN 10:55
PROVIDERS: ATTEND Family Medicine
DX: J84.9 Interstitial pulmonary disease, unspecified (principal); I71.2 Thoracic aortic aneurysm, without rupture
CPT/HCPCS: 71250

== ENCOUNTER → 2021-08-28 | Outpatient (CLI) | payer MEDICARE, OTHER ==
--- NOTE | 2021-08-28 22:15 | CT ---
EXAMINATION TYPE: CT abdomen pelvis wo con CT DLP: 976 mGycm, Automated exposure control for dose reduction was used. DATE OF EXAM: 08/28/2021 4:02 PM COMPARISON: None CLINICAL INDICATION:Male, 76 years old with history of R10.9 ABDOMINAL PAIN; Abdominal pain, weight l oss TECHNIQUE: Standard CT of the abdomen and pelvis without IV or oral contrast. Lack of IV or oral co ntrast limits evaluation of solid and hollow organ viscera. Coronal and sagittal reformats were perfo rmed. FINDINGS: LOWER CHEST: Consolidation like changes within the right lung base. There is small/trace bilateral pl eural effusions. ABDOMEN LIVER: Unremarkable GALLBLADDER AND BILE DUCTS: The gallbladder appears surgically removed cystic remnant with gallstones layering within the lumen. PANCREAS: Unremarkable. SPLEEN: Unremarkable. ADRENAL GLANDS: Unremarkable. KIDNEYS AND URETERS: No evidence of hydronephrosis or renal calculus. The ureters are unremarkable. Left renal cyst measuring up to 29 mm. PELVIS BLADDER: Unremarkable REPRODUCTIVE: Unremarkable. ABDOMEN & PELVIS STOMACH AND BOWEL: No evidence of bowel obstruction. PERITONEUM: No evidence of pneumoperitoneum or free fluid. VASCULATURE: No evidence of aortic aneurysm. Scattered atherosclerotic disease of the arterial vascul ature. MUSCULOSKELETAL: No acute osseous abnormalities. Straightening of the spine with at least mild spinal canal stenosis at L3-L4. LYMPH NODES: No gross evidence for lymphadenopathy. SOFT TISSUE/ABDOMINAL WALL: Right fat filled inguinal hernia. IMPRESSION: 1. No evidence of acute process within the abdomen or pelvis to explain patient's symptoms. 2. Left peripelvic renal cysts. 3. Cystic duct remnant with suspected layering gallstone within the remnant. 4. New bilateral trace pleural effusions with consolidation like changes within the lower likely repr esenting atelectasis. No mildly moderately well without anomaly definitely better than mammography by 1 subluxed
== END | disposition home or self-care (01) ==
LOC: RADCTMAIN 15:07
PROVIDERS: ATTEND Family Medicine
DX: N28.1 Cyst of kidney, acquired (principal); R10.9 Unspecified abdominal pain
CPT/HCPCS: 74176

== ENCOUNTER 2021-10-15 12:08 | Inpatient (IN) | payer MEDICARE, OTHER ==
[2021-10-15] MEDS ORDERED: ALBUTEROL NEBULIZED 2.5 MG/3 ML INHALATION STA (12:20)
[2021-10-15] MEDS ORDERED: IPRATROPIUM 0.5 MG/2.5 ML NEBU INHALATION STA (12:20)
--- NOTE | 2021-10-15 12:26 | ED ---
General Adult HPI - General Chief complaint: Shortness of Breath Stated complaint: weak/sob Time Seen by Provider: 10/15/21 12:10 Source: patient, RN notes reviewed, old records reviewed Mode of arrival: ambulatory Limitations: no limitations - History of Present Illness Initial comments: This is a 76-year-old male with a past medical history significant for bypass surgery and a history of COPD. Patient states yesterday in the hot weather started having difficulty breathing and continued today. Patient states he also had about 5 minutes of central chest pain that eventually resolved. Patient states he is coughing but he has no fevers not coughing up any sputum. Patient denies any palpitations per patient states currently he has no chest pain. Patient states he did get the COVID vaccine and 2 boosters. Patient denies being on any water pills. Patient denies any abdominal pain patient is not vomiting diarrhea. - Related Data Home Medications Medication Instructions Recorded Confirmed Pantoprazole Sodium [Protonix] 40 mg PO DAILY 12/15/17 10/15/21 Simvastatin 40 mg PO DAILY 03/30/18 10/15/21 Aspirin EC [Ecotrin] 325 mg PO DAILY 10/15/21 10/15/21 FLUoxetine HCL [PROzac] 20 mg PO DAILY 10/15/21 10/15/21 Ferrous Sulfate [Feosol] 325 mg PO DAILY 10/15/21 10/15/21 Losartan Potassium 50 mg PO DAILY 10/15/21 10/15/21 Metoprolol Succinate (ER) [Toprol 100 mg PO DAILY 10/15/21 10/15/21 Xl] Montelukast [Singulair] 10 mg PO HS 10/15/21 10/15/21 Allergies Allergy/AdvReac Type Severity Reaction Status Date / Time atorvastatin [From Lipitor] AdvReac muscle Verified 10/15/21 13:57 cramps Review of Systems ROS Statement: Those systems with pertinent positive or pertinent negative responses have been documented in the HPI. ROS Other: All systems not noted in ROS Statement are negative. 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 with past falls, TIA in 2016, DVT left upper extremity, thoracic aortic aneurysm, chronic low back pain, arthritis R foot, History of Any Multi-Drug Resistant Organisms: None Reported Past Surgical History: Coronary Bypass/CABG, Heart Catheterization, Orthopedic Surgery Additional Past Surgical History / Comment(s): 06/20/18 CABG 2 vessels, colonoscopy, 3 right foot surgeries due to polio 1948 Past Anesthesia/Blood Transfusion Reactions: No Reported Reaction Past Psychological History: No Psychological Hx Reported Smoking Status: Never smoker Past Alcohol Use History: None Reported Past Drug Use History: None Reported - Past Family History Mother Sister(s) Family Medical History: CVA/TIA, Hypertension Additional Family Medical History / Comment(s): His mother from a stroke at age 81 Father Family Medical History: CVA/TIA Additional Family Medical History / Comment(s): His father from a stroke at age 80. Brother(s) Family Medical History: Myocardial Infarction ([place]) Additional Family Medical History / Comment(s): 2 of his brothers have had myocardial infarctions one at age 50, and one at age 48. Sister(s) Family Medical History: Myocardial Infarction ([place]) Additional Family Medical History / Comment(s): He is 13 total siblings. One of his sisters had a myocardial infarction in her late 50s and another sister had a myocardial infarction in her 40s. General Exam - General Exam Comments Initial Comments: GENERAL: Patient is well-developed and well-nourished. Patient is nontoxic and well- hydrated and is in mild distress. ENT: Neck is soft and supple. No significant lymphadenopathy is noted. Oropharynx is clear. Moist mucous membranes. Neck has full range of motion without eliciting any pain. EYES: The sclera were anicteric and conjunctiva were pink and moist. Extraocular movements were intact and pupils were equal round and reactive to light. Eyelids were unremarkable. PULMONARY: Patient is rhonchi bilaterally CARDIOVASCULAR: There is a regular rate and rhythm without any murmurs gallops or rubs. ABDOMEN: Soft and nontender with normal bowel sounds. SKIN: Skin is clear with no lesions or rashes and otherwise unremarkable. NEUROLOGIC: Patient is alert and oriented x3. Cranial nerves II through XII are grossly intact. Motor and sensory are also intact. Normal speech, volume and content. Symmetrical smile. MUSCULOSKELETAL: Normal extremities with adequate strength and full range of motion. LYMPHATICS: No significant lymphadenopathy is noted PSYCHIATRIC: Normal psychiatric evaluation. Limitations: no limitations Course Vital Signs 10/15/21 10/15/21 10/15/21 12:09 12:47 12:55 Temperature 98.7 F Pulse Rate 99 80 79 Respiratory 32 H 30 H 26 H Rate Blood Pressure 222/122 177/92 O2 Sat by Pulse 87 L 100 Oximetry 10/15/21 10/15/21 13:02 13:50 Temperature Pulse Rate 84 85 Respiratory 26 H 18 Rate Blood Pressure 165/87 O2 Sat by Pulse 97 Oximetry Medical Decision Making - Medical Decision Making EKG shows sinus rhythm at 80 bpm [place] interval is 185 QRSs 85 QT interval 358 QTC is 394. Patient's EKG shows no ST segment elevation or depression Chest x-ray shows pulmonary edema. Her patient received Lasix Nitropaste emergency department. I spoke with Dr. Gregorio and agreed to admit the patient admitted the patient and wrote admitting orders. Dr. Gregorio wanted antibiotics started on the patient. - Lab Data Result diagrams: 10/15/21 12:45 10/15/21 12:45 Lab Results 10/15/21 10/15/21 10/15/21 Range/Units 12:45 12:45 12:45 WBC 15.5 H (3.8-10.6) k/uL RBC 4.61 (4.30-5.90) m/uL Hgb 12.9 L (13.0-17.5) gm/dL Hct 41.0 (39.0-53.0) % MCV 88.9 (80.0-100.0) fL MCH 27.9 (25.0-35.0) pg MCHC 31.4 (31.0-37.0) g/dL RDW 13.2 (11.5-15.5) % Plt Count 168 (150-450) k/uL MPV 8.9 Neutrophils % 93 % Lymphocytes % 2 % Monocytes % 3 % Eosinophils % 1 % Basophils % 0 % Neutrophils # 14.5 H (1.3-7.7) k/uL Lymphocytes # 0.3 L (1.0-4.8) k/uL Monocytes # 0.4 (0-1.0) k/uL Eosinophils # 0.2 (0-0.7) k/uL Basophils # 0.0 (0-0.2) k/uL PT 10.9 (9.0-12.0) sec INR 1.0 (<1.2) APTT 19.6 L (22.0-30.0) sec Sodium 140 (137-145) mmol/L Potassium 4.2 (3.5-5.1) mmol/L Chloride 106 (98-107) mmol/L Carbon Dioxide 25 (22-30) mmol/L Anion Gap 9 mmol/L BUN 14 (9-20) mg/dL Creatinine 1.16 (0.66-1.25) mg/dL Est GFR (CKD-EPI)AfAm 71 (>60 ml/min/1.73 sqM) Est GFR (CKD-EPI)NonAf 62 (>60 ml/min/1.73 sqM) Glucose 147 H (74-99) mg/dL Plasma Lactic Acid Rodolfo (0.7-2.0) mmol/L Calcium 9.6 (8.4-10.2) mg/dL Magnesium 1.9 (1.6-2.3) mg/dL Total Bilirubin 1.2 (0.2-1.3) mg/dL AST 22 (17-59) U/L ALT 13 (4-49) U/L Alkaline Phosphatase 106 (38-126) U/L Troponin I (0.000-0.034) ng/mL NT-Pro-B Natriuret Pep pg/mL Total Protein 7.1 (6.3-8.2) g/dL Albumin 4.5 (3.5-5.0) g/dL Coronavirus (PCR) (Not Detectd) 10/15/21 10/15/21 10/15/21 Range/Units 12:45 12:45 12:45 WBC (3.8-10.6) k/uL RBC (4.30-5.90) m/uL Hgb (13.0-17.5) gm/dL Hct (39.0-53.0) % MCV (80.0-100.0) fL MCH (25.0-35.0) pg MCHC (31.0-37.0) g/dL RDW (11.5-15.5) % Plt Count (150-450) k/uL MPV Neutrophils % % Lymphocytes % % Monocytes % % Eosinophils % % Basophils % % Neutrophils # (1.3-7.7) k/uL Lymphocytes # (1.0-4.8) k/uL Monocytes # (0-1.0) k/uL Eosinophils # (0-0.7) k/uL Basophils # (0-0.2) k/uL PT (9.0-12.0) sec INR (<1.2) APTT (22.0-30.0) sec Sodium (137-145) mmol/L Potassium (3.5-5.1) mmol/L Chloride (98-107) mmol/L Carbon Dioxide (22-30) mmol/L Anion Gap mmol/L BUN (9-20) mg/dL Creatinine (0.66-1.25) mg/dL Est GFR (CKD-EPI)AfAm (>60 ml/min/1.73 sqM) Est GFR (CKD-EPI)NonAf (>60 ml/min/1.73 sqM) Glucose (74-99) mg/dL Plasma Lactic Acid Rodolfo 2.8 H* (0.7-2.0) mmol/L Calcium (8.4-10.2) mg/dL Magnesium (1.6-2.3) mg/dL Total Bilirubin (0.2-1.3) mg/dL AST (17-59) U/L ALT (4-49) U/L Alkaline Phosphatase (38-126) U/L Troponin I 0.069 H* (0.000-0.034) ng/mL NT-Pro-B Natriuret Pep 5430 pg/mL Total Protein (6.3-8.2) g/dL Albumin (3.5-5.0) g/dL Coronavirus (PCR) (Not Detectd) 10/15/21 Range/Units 12:45 WBC (3.8-10.6) k/uL RBC (4.30-5.90) m/uL Hgb (13.0-17.5) gm/dL Hct (39.0-53.0) % MCV (80.0-100.0) fL MCH (25.0-35.0) pg MCHC (31.0-37.0) g/dL RDW (11.5-15.5) % Plt Count (150-450) k/uL MPV Neutrophils % % Lymphocytes % % Monocytes % % Eosinophils % % Basophils % % Neutrophils # (1.3-7.7) k/uL Lymphocytes # (1.0-4.8) k/uL Monocytes # (0-1.0) k/uL Eosinophils # (0-0.7) k/uL Basophils # (0-0.2) k/uL PT (9.0-12.0) sec INR (<1.2) APTT (22.0-30.0) sec Sodium (137-145) mmol/L Potassium (3.5-5.1) mmol/L Chloride (98-107) mmol/L Carbon Dioxide (22-30) mmol/L Anion Gap mmol/L BUN (9-20) mg/dL Creatinine (0.66-1.25) mg/dL Est GFR (CKD-EPI)AfAm (>60 ml/min/1.73 sqM) Est GFR (CKD-EPI)NonAf (>60 ml/min/1.73 sqM) Glucose (74-99) mg/dL Plasma Lactic Acid Rodolfo (0.7-2.0) mmol/L Calcium (8.4-10.2) mg/dL Magnesium (1.6-2.3) mg/dL Total Bilirubin (0.2-1.3) mg/dL AST (17-59) U/L ALT (4-49) U/L Alkaline Phosphatase (38-126) U/L Troponin I (0.000-0.034) ng/mL NT-Pro-B Natriuret Pep pg/mL Total Protein (6.3-8.2) g/dL Albumin (3.5-5.0) g/dL Coronavirus (PCR) Not Detected (Not Detectd) Disposition Clinical Impression: Pulmonary edema, Elevated troponin, Bronchitis Disposition: ADMITTED IP TO THIS HOSP Referrals: Ismael Gregorio MD [Primary Care Provider] - 1-2 days Time of Disposition: 14:44
[2021-10-15] MEDS ORDERED: hydrALAZINE HCL 20 MG/ML 1 ML VIAL IVP STA (12:38)
[2021-10-15 13:03] LABS: Basophils % (A) 0 %; Eosinophils # (A) 0.2 k/uL (0-0.7); Eosinophils % (A) 1 %; HGB 12.9 gm/dL (13.0-17.5); Lymphocytes # (A) 0.3 k/uL (1.0-4.8); Lymphocytes % (A) 2 %; MCH 27.9 pg (25.0-35.0); MCHC 31.4 g/dL (31.0-37.0); MCV 88.9 fL (80.0-100.0); Mean Platelet Volume 8.9; Monocytes # (A) 0.4 k/uL (0-1.0); Monocytes % (A) 3 %; Neutrophils # (A) 14.5 k/uL (1.3-7.7); Neutrophils % (A) 93 %; Platelet Count 168 k/uL (150-450); RBC 4.61 m/uL (4.30-5.90); RDW 13.2 % (11.5-15.5); WBC 15.5 k/uL (3.8-10.6)
[2021-10-15 13:22] LABS: Albumin 4.5 g/dL (3.5-5.0); Calcium 9.6 mg/dL (8.4-10.2); Magnesium 1.9 mg/dL (1.6-2.3); Potassium 4.2 mmol/L (3.5-5.1); Total Bilirubin 1.2 mg/dL (0.2-1.3); Total Protein 7.1 g/dL (6.3-8.2)
--- NOTE | 2021-10-15 13:22 | XR ---
EXAMINATION TYPE: XR chest 2V DATE OF EXAM: 10/15/2021 COMPARISON: Chest x-ray dated 01/09/[address] 08/28/2021 HISTORY: Difficulty breathing TECHNIQUE: Frontal and lateral views of the chest are obtained. FINDINGS: Patient is post median sternotomy. There is no focal air space opacity, pleural effusion, o r pneumothorax seen. Question some prominence of the interstitium and central vascularity as compare d to prior exam. The cardiac silhouette size is borderline enlarged, likely stable accounting for dif ferences in technique, patient with epicardial fat pads which makes accentuate appearance. The osse ous structures are intact, there is multilevel spondylosis, acromioclavicular joints show arthropathy . IMPRESSION: Correlate to exclude early interstitial edema.
[2021-10-15 13:23] LABS: Prothrombin Time 10.9 sec (9.0-12.0)
[2021-10-15 13:38] LABS: Partial Thromboplastin Time 19.6 sec (22.0-30.0)
[2021-10-15] MEDS ORDERED: FUROSEMIDE 10 MG/ML 4 ML VIAL IV STA (14:10)
[2021-10-15] MEDS ORDERED: NITROGLYCERIN OINT 1 INCH/GM PACKET TOPICAL STA (14:10)
[2021-10-15] MEDS: FUROSEMIDE 10 MG/ML 4 ML VIAL IV SCH ×2 (14:56→22:44)
[2021-10-15] MEDS ORDERED: RX INFO: IV CONTRAST WAS GIVEN 1 EACH MISC MISCELLANE PRN (16:48)
--- NOTE | 2021-10-15 18:14 | P.CNPUL ---
History of Present Illness Consult date: 10/15/21 Reason for consult: dyspnea, cough, hypoxemia Chief complaint: Progressive shortness of breath for last 2 days History of present illness: Patient is a pleasant 76-year-old male with history of COPD as well as coronary artery disease patient starting having shortness of breath intermittent cough which started about 2 days ago also has chest pain earlier however by the time he presented into the hospital pain improved significantly, cough is mostly dry and nonproductive denies any sputum production denies any fever or chills past medical history significant for dyslipidemia coronary artery disease hypertension hypertensive cardiovascular disease as well as bronchial asthma. On arrival his chest x-ray positive for pulmonary edema occult pneumonia cannot be excluded, computed tomography scan of the chest just been done, hard copies reviewed, and report are pending however no major filling defects seen, no sig nificant infiltrate noted, bilateral small pleural effusion seen, pulmonary vascular congestion seen as well. White cell count is 15,500, hemoglobin hematocrit 12.8/41 PT/INR 10/19.6 chemistry BUN/creatinine is 14 1.16, lactic acid is 2.8 came down to 2.3, troponin 0.07807 second is up 2.6 BNP is 5430, covert testing is negative. 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 with past falls, TIA in 2016, DVT left upper extremity, thoracic a ortic aneurysm, chronic low back pain, arthritis R foot, History of Any Multi-Drug Resistant Organisms: None Reported Past Surgical History: Coronary Bypass/CABG, Heart Catheterization, Orthopedic Surgery Additional Past Surgical History / Comment(s): 06/20/18 CABG 2 vessels, colonoscopy, 3 right foot surgeries due to polio 194 Past Anesthesia/Blood Transfusion Reactions: No Reported Reaction Past Psychological History: No Psychological Hx Reported Smoking Status: Never smoker Past Alcohol Use History: None Reported Past Drug Use History: None Reported - Past Family History Mother Sister(s) Family Medical History: CVA/TIA, Hypertension Additional Family Medical History / Comment(s): His mother from a stroke at age 81 Father Family Medical History: CVA/TIA Additional Family Medical History / Comment(s): His father from a stroke at age 80. Brother(s) Family Medical History: Myocardial Infarction ([place]) Additional Family Medical History / Comment(s): 2 of his brothers have had myocardial infarctions one at age 50, and one at age 48. Sister(s) Family Medical History: Myocardial Infarction ([place]) Additional Family Medical History / Comment(s): He is 13 total siblings. One of his sisters had a myocardial infarction in her late 50s and another sister had a myocardial infarction in her 40s. Medications and Allergies Home Medications Medication Instructions Recorded Confirmed Type Pantoprazole Sodium [Protonix] 40 mg PO DAILY 12/15/17 10/15/21 History Simvastatin 40 mg PO DAILY 03/30/18 10/15/21 History Aspirin EC [Ecotrin] 325 mg PO DAILY 10/15/21 10/15/21 History FLUoxetine HCL [PROzac] 20 mg PO DAILY 10/15/21 10/15/21 History Ferrous Sulfate [Feosol] 325 mg PO DAILY 10/15/21 10/15/21 History Losartan Potassium 50 mg PO DAILY 10/15/21 10/15/21 History Metoprolol Succinate (ER) [Toprol 100 mg PO DAILY 10/15/21 10/15/21 History Xl] Montelukast [Singulair] 10 mg PO HS 10/15/21 10/15/21 History Allergies Allergy/AdvReac Type Severity Reaction Status Date / Time atorvastatin [From Lipitor] AdvReac muscle Verified 10/15/21 13:57 cramps Physical Exam Vitals: Vital Signs Temp Pulse Resp BP Pulse Ox 10/15/21 16:18 77 18 148/93 98 10/15/21 15:24 74 20 156/80 97 10/15/21 13:50 85 18 165/87 97 10/15/21 13:02 84 26 H 10/15/21 12:55 79 26 H 177/92 100 10/15/21 12:47 80 30 H 10/15/21 12:09 98.7 F 99 32 H 222/122 87 L Intake and Output 10/15/21 10/15/21 10/15/21 06:59 14:59 22:59 Other: Weight 94.801 kg - Constitutional General appearance: average body habitus, cooperative, disheveled - EENT Eyes: EOMI, PERRLA, normal appearance ENT: normal oropharynx Ears: bilateral: normal - Neck Neck: normal ROM Carotids: bilateral: upstroke normal Thyroid: bilateral: normal size - Respiratory Respiratory: bilateral: rales (Basal bilateral Rales), wheezing (Bilateral diffuse wheezing) - Cardiovascular Rhythm: irregularly irregular Heart sounds: normal: S1, S2 - Gastrointestinal General gastrointestinal: normal bowel sounds, soft - Integumentary Integumentary: normal turgor - Neurologic Neurologic: CNII-XII intact - Musculoskeletal Musculoskeletal: gait normal, generalized weakness, strength equal bilaterally - Psychiatric Psychiatric: A&O x's 3, appropriate affect, intact judgment & insight Results - Laboratory Findings CBC and BMP: 10/15/21 12:45 10/15/21 12:45 PT/INR, D-dimer PT 10.9 sec (9.0-12.0) 10/15/21 12:45 INR 1.0 (<1.2) 10/15/21 12:45 Abnormal lab findings: Abnormal Labs 10/15/21 10/15/21 10/15/21 12:45 12:45 12:45 WBC 15.5 H Hgb 12.9 L Neutrophils # 14.5 H Lymphocytes # 0.3 L APTT 19.6 L Glucose 147 H Plasma Lactic Acid Rodolfo Troponin I 10/15/21 10/15/21 10/15/21 12:45 12:45 15:42 WBC Hgb Neutrophils # Lymphocytes # APTT Glucose Plasma Lactic Acid Rodolfo 2.8 H* Troponin I 0.069 H* 0.614 H* 10/15/21 16:03 WBC Hgb Neutrophils # Lymphocytes # APTT Glucose Plasma Lactic Acid Rodolfo 2.3 H* Troponin I - Diagnostic Findings Chest x-ray: report reviewed, image reviewed (Finding as noted above) CT scan - chest: report reviewed, image reviewed (Finding as noted above however official report is pending) Assessment and Plan Assessment: Acute hypoxic respiratory failure Acute pulmonary edema Non-STEMI Occult pneumonia Sepsis History of significant coronary artery disease and bypass surgery History of COPD Plan: IV antibiotics Breathing treatments IV steroids Gentle diuresis Anticoagulation per cardiovascular services with further management of non-STEMI Supplemental oxygen Deep breathing exercises incentive spirometry Further plan of care as per clinical response of the patient Time with Patient: Greater than 30
--- NOTE | 2021-10-15 18:58 | CT ---
EXAMINATION TYPE: CT chest w con CT DLP: 442.7 mGycm, Automated exposure control for dose reduction was used. DATE OF EXAM: 10/15/2021 5:18 PM COMPARISON: Chest radiograph from same day. Multiple CTs of the chest with most recent on 01/09/2019 CLINICAL INDICATION:Male, 76 years old with history of cap, Community acquired pneumonia TECHNIQUE: Multiple axial images were obtained through the chest following the administration of 100 cc of Isovue 300. FINDINGS: LUNGS/ PLEURA: Trace bilateral pleural effusions. There is atelectasis within the lung bases. No pneu mothorax or focal airspace consolidation. AIRWAY: Patent and unremarkable. HEART: Size within normal limits. CABG changes. MEDIASTINUM: No gross evidence of adenopathy. VASCULATURE: No aortic aneurysm. No evidence of pulmonary embolism in this limited evaluation. MUSCULOSKELETAL: No acute osseous abnormalities. Sternotomy wires are present. SOFT TISSUES/LYMPH NODES: Unremarkable. LOWER NECK: No significant findings. UPPER ABDOMEN: Cholecystectomy clips are present. IMPRESSION: 1. Trace bilateral pleural effusions with associated atelectasis. No evidence for airspace consolidat ion. 2. No evidence of pulmonary embolism.
[2021-10-15] MEDS: methylPREDNISolone SOD SUCCI 40 MG/ML 1 ML VIAL IV SCH (19:20)
[2021-10-15] MEDS: NITROGLYCERIN OINT 1 INCH/GM PACKET TOPICAL SCH ×2 (19:20→22:44)
[2021-10-15] MEDS: IPRATROPIUM-ALBUTEROL 3 ML NEB INHALATION SCH (19:59)
[2021-10-15] MEDS: MONTELUKAST 10 MG TAB PO SCH (20:32)
[2021-10-15 22:11] LABS: Glucose,Whole Blood 134 mg/dL (75-99)
[2021-10-16] MEDS: methylPREDNISolone SOD SUCCI 40 MG/ML 1 ML VIAL IV SCH ×3 (00:06→16:40)
[2021-10-16] MEDS: FUROSEMIDE 10 MG/ML 4 ML VIAL IV SCH ×2 (07:00→14:22)
[2021-10-16] MEDS: PANTOPRAZOLE 40 MG TABLET PO SCH (07:00)
[2021-10-16] MEDS: IPRATROPIUM-ALBUTEROL 3 ML NEB INHALATION SCH ×4 (08:10→20:32)
[2021-10-16] MEDS ORDERED: ASPIRIN 325 MG TAB PO SCH (09:00)
[2021-10-16] MEDS: LOSARTAN 50 MG TAB PO SCH (09:59)
[2021-10-16] MEDS: FERROUS SULFATE 325 MG TAB PO SCH (09:59)
[2021-10-16] MEDS: FLUoxetine HCL 20 MG CAP PO SCH (09:59)
[2021-10-16] MEDS: NITROGLYCERIN OINT 1 INCH/GM PACKET TOPICAL SCH ×3 (10:01→19:01)
[2021-10-16] MEDS: NON FORMULARY DRUG (Simvastatin [Simvastatin] 40 MG Tablet) PO SCH (10:05)
[2021-10-16 10:38] VITALS: BMI 30.4
--- NOTE | 2021-10-16 10:41 | HP ---
HISTORY AND PHYSICAL DATE OF SERVICE: In the ER, 10/15/2021. HISTORY OF PRESENT ILLNESS: Fredy Bro came to the Emergency Room with congestive heart failure last night. 76- year-old white male 4 day history of significant shortness of breath. History of COPD, coronary artery disease with stent placement, dyslipidemia, hypertensive cardiovascular disease. He has bilateral effusion, increased congestive heart failure type symptoms. White count 15,000. He says he might have caught a bug at home over the past few days. BUN and creatinine is 14 and 1.16. Lactic acid elevated at 2.8. He is given Rocephin and Lasix and admitted to step-down ICU. PAST MEDICAL HISTORY: Coronary artery disease, CVA, TIA, DVT, GERD, hypertension, osteoarthritis, disorder, vascular disorder. He has a history of stents. FAMILY HISTORY: Mother hypertension. Father with CVA/TIA, brother, heart attack. REVIEW OF SYMPTOMS: 14-point review of systems positive for PND, orthopnea, unable to lay flat at home. PHYSICAL EXAMINATION: Blood pressure is 140s to 220s/110 over 122-93, respiratory rate is 18 to 26, pulse 70s to 90s, temp 98.7. CARDIOVASCULAR S1-S2. LUNGS: Rales at base. He has wheezes times 4. GI soft. HEMATOLOGY: 2+ edema. PSYCH: Fair mood and affect. NEUROLOGIC: Alert and oriented times three. White count 15.5, hemoglobin 12.9. Lactic acid 2.8. Troponins are elevated times two. Lactic acid 2.6. ASSESSMENT: 1. Acute hypoxemic respiratory failure. 2. Acute pulmonary edema. 3. Non-STEMI. 4. Occult pneumonia. 5. Sepsis. 6. History of coronary artery disease status post bypass, coronary artery disease. IV antibiotics, IV steroids, treatment for non STEMI per Cardiology. Please see further orders. MMODL / IJN: [id number] /
[2021-10-16] MEDS: METOPROLOL SUCCINATE (ER) 100 MG TAB.ER.24H PO SCH (11:19)
[2021-10-16] MEDS ORDERED: ASPIRIN 81 MG PO STA (12:07)
--- NOTE | 2021-10-16 13:47 | CONS ---
CONSULTATION Fredy Bro is a gentleman with a history of CAD, prior bypass surgery in 2019, hypertension, hyperlipidemia and also mild underlying depression. He also has bronchial asthma. This gentleman underwent aortocoronary bypass surgery that was performed in June 2018. He had a left internal mammary artery graft to the LAD and vein graft to the ramus intermedius. His echocardiogram at that time around March 2018 revealed an ejection fraction of 45% with apical and anteroapical septal hypokinesia. There was no significant pulmonary hypertension. Aortic root was prominent. He was doing fairly well but does have shortness of breath on a chronic basis. He came into the hospital with increasing shortness of breath yesterday; and for the last few days he was more short of breath, but he also had a brief episode of chest tightness and pressure, a bout of coughing. After arrival he was quite short of breath. He also had COVID infection in the past and boosters. He was initially treated with oxygen, subsequently placed on BiPAP with improvement. I am seeing him for possible congestive heart failure. Patient is clinically in heart failure. There is elevation of BNP noted, pulmonary vascular congestion noted on the chest x- ray as well. However, he is comfortable with diuresis. He feels much better today at the time of my evaluation. PAST MEDICAL HISTORY: 1. CAD with prior bypass surgery, known ejection fraction of 40% to 45% range. 2. Hypertension. 3. Hyperlipidemia. 4. History of mild depression. 5. Bronchial asthma. PHYSICAL EXAMINATION: On examination, blood pressure is 160/70, pulse rate 65 per minute, regular. HEENT unremarkable. Fundus was not examined by me. Neck is supple. There is JVD of 1 cm. No carotid bruit. S1-S2 heard normally. Short systolic murmur is audible. Lungs reveal bilateral scattered rhonchi and fine rales over bases. Abdomen is soft, nontender. Lower extremities reveal diminished pulses. Central nervous system is normal. EKG revealed sinus mechanism with evidence of old anterior PA with Q-waves in leads V1 to V3. IMPRESSION: 1. Exacerbation of systolic heart failure in a patient with known coronary artery disease and prior bypass surgery. 2. Hypertension. 3. Hyperlipidemia. 4. Bronchial asthma. RECOMMENDATIONS: I am recommending that we continue the diuresis. I will obtain echocardiogram, check a B_M____P tomorrow, switch him this evening from IV to oral Lasix and, based on clinical course, make further recommendations. Thank you very much for the consult. LEIA / IJN: [id number] / LEIA
[2021-10-16] MEDS: MONTELUKAST 10 MG TAB PO SCH (21:00)
[2021-10-17] MEDS: NITROGLYCERIN OINT 1 INCH/GM PACKET TOPICAL SCH ×5 (00:01→23:12)
[2021-10-17] MEDS: methylPREDNISolone SOD SUCCI 40 MG/ML 1 ML VIAL IV SCH ×4 (02:09→23:11)
[2021-10-17 06:23] LABS: HCT 42.1 % (39.0-53.0); HGB 13.1 gm/dL (13.0-17.5); MCH 27.6 pg (25.0-35.0); MCHC 31.2 g/dL (31.0-37.0); MCV 88.5 fL (80.0-100.0); Mean Platelet Volume 9.3; Platelet Count 222 k/uL (150-450); RBC 4.76 m/uL (4.30-5.90); RDW 13.1 % (11.5-15.5); WBC 22.2 k/uL (3.8-10.6)
[2021-10-17 06:58] LABS: Calcium 9.8 mg/dL (8.4-10.2); Potassium 3.8 mmol/L (3.5-5.1)
--- NOTE | 2021-10-17 07:30 | PN ---
PROGRESS NOTE He is in ICU. Pulmonary edema, elevated troponin, possible non STEMI. He had a recent stress test last week at [facility] office, which is normal except for poor ejection fraction. He has a history of stents. He is breathing better with IV Lasix and supplements, CHF with edema in his legs. Cardiovascular S1-S2. Lungs scattered rales. Hematologic 2+ edema. Cranial nerves are intact. Psych: Fair mood and affect. ASSESSMENT: 1. Congestive heart failure. 2. Acute hypoxemic respiratory failure. 3. Hypertension. 4. Elevated troponin. Continue with diuresis. Cardiology consult. Continue with IV Lasix. Prognosis guarded. MMODL / IJN: [id number] /
--- NOTE | 2021-10-17 08:30 | XR ---
EXAMINATION TYPE: XR chest 1V portable DATE OF EXAM: 10/17/2021 COMPARISON: Chest x-ray 10/15/2021 HISTORY: Shortness of breath TECHNIQUE: Single frontal view of the chest is obtained. FINDINGS: There is no focal air space opacity, pleural effusion, or pneumothorax seen. Patient is po st median sternotomy and rotated. Biapical pleural thickening is present. There is improvement in the central vascularity and interstitium. The cardiac silhouette size is stable. The osseous structure s are intact. IMPRESSION: Suspect improvement in patient's volume status
[2021-10-17] MEDS: IPRATROPIUM-ALBUTEROL 3 ML NEB INHALATION SCH ×4 (08:31→20:40)
[2021-10-17] MEDS ORDERED: FUROSEMIDE 10 MG/ML 4 ML VIAL IV SCH (09:00)
[2021-10-17] MEDS ORDERED: FUROSEMIDE 40 MG TAB PO SCH (09:00)
[2021-10-17] MEDS: FUROSEMIDE 40 MG TAB PO SCH (09:55)
[2021-10-17] MEDS: PANTOPRAZOLE 40 MG TABLET PO SCH (09:55)
[2021-10-17] MEDS: LOSARTAN 50 MG TAB PO SCH ×2 (09:56→18:31)
[2021-10-17] MEDS: FLUoxetine HCL 20 MG CAP PO SCH (09:56)
[2021-10-17] MEDS: METOPROLOL SUCCINATE (ER) 100 MG TAB.ER.24H PO SCH (09:56)
[2021-10-17] MEDS: FERROUS SULFATE 325 MG TAB PO SCH (09:57)
[2021-10-17] MEDS: hydrALAZINE HCL 50 MG TAB PO SCH ×2 (10:59→19:33)
[2021-10-17] MEDS: NON FORMULARY DRUG (Simvastatin [Simvastatin] 40 MG Tablet) PO SCH (11:00)
--- NOTE | 2021-10-17 16:18 | CDI ---
Documentation Clarification Form Date: 10/17/2021 04:04:32 PM From: Annette Thompson RN CCDS Admit Date: 10/15/2021 02:47:00 PM Patient Name: Fredy Bro Visit Number: [id number] Discharge Date: ATTENTION: The Clinical Documentation Specialists (CDI) and [facility] Coding Staff appreciate your assistance in clarifying documentation. Please respond to the clarification below the line at the bottom and electronically sign. The CDI & [facility] Coding staff will review the response and follow-up if needed. Please note: Queries are made part of the Legal Health Record. If you have any questions, please contact the author of this message via ITS. Dr. Ismael Gregorio Sepsis is documented H&P, 10/16, but is not noted in subsequent documentation. Clarification is requested. History/Risk Factors:76-year-old male presents to the ED for difficulty breathing and central chest pain that has resolved. Medical History: COPD, CABG, HTN and chronic back pain. 10/15, ED note. Clinical Indicators: Admitting diagnosis: Pulmonary edema; Acute hypoxemic respiratory failure;Pneumonia; NSTEMI and Sepsis. VSS:10/15 B/P 222/122; HR 99; Temp 98.7F Oral; RR 32; SpO2 88% room air LABS: 10/15 Wbc 15.5; Neutrophils 14.5; Lactic acid 2.8; Troponin 0.614, 0.560; BNP 5430. CXR: 10/15 Early interstitial edema Treatment: 10/15 Ceftriaxone 2gm IVPB x 1; 10/16 current Ceftriaxone 2gm Q24HR; Please clarify if the Sepsis is: [ ] Sepsis confirmed, remains under treatment [ ] Sepsis confirmed, resolved [ ] Sepsis ruled out [ ] Other condition, please specify [ ] Unable to determine (Template Last Revised: July 2020) MTDD
--- NOTE | 2021-10-17 17:02 | PN ---
PROGRESS NOTE Mr. Bro developed congestive heart failure. His blood pressure is elevated today. However, his heart failure symptoms have improved. Will switch him from IV to oral Lasix. Vitals are stable. JVD 1 cm. No carotid bruit. S1-S2 heard normally. Short systolic murmur is audible. Lungs reveal improved air entry. Abdomen and lower extremity exam unchanged. Blood pressure is elevated. I will add hydralazine 50 mg b.i.d., increase losartan, watch his renal function, and see how he does. Overall prognosis is fair. MMODL / IJN: [id number] /
--- NOTE | 2021-10-17 18:29 | CA ---
Transthoracic Echo Report Name: Fredy Bro Age: 76 Gender: M : 1945 Exam Date: 10/16/2021 13:21 Exam Location: [facility] Ht (in): 68 Wt (lb): 200 Ordering Physician: Avery Herrera MD ([id number]) Attending/Referring Phys: Blintze Roller Tania Love, YURY Procedure CPT: Indications: worsening SOB; elevated trop; hx CABG Cardiac Hx: Technical Quality: Fair Contrast 1: Total Dose (mL): Contrast 2: Total Dose (mL): MEASUREMENTS (Male / Female) Normal Values 2D ECHO LV Diastolic Diameter PLAX 5.2 cm 4.2 - 5.9 / 3.9 - 5.3 cm LV Systolic Diameter PLAX 3.9 cm IVS Diastolic Thickness 1.3 cm 0.6 - 1.0 / 0.6 - 0.9 cm LVPW Diastolic Thickness 1.3 cm 0.6 - 1.0 / 0.6 - 0.9 cm LV Relative Wall Thickness 0.5 RV Internal Dim ED PLAX 3.1 cm LA Systolic Diameter LX 4.3 cm 3.0 - 4.0 / 2.7 - 3.8 cm LA Volume 39.1 cm??? 18 - 58 / 22 - 52 cm??? M-MODE Aortic Root Diameter MM 4.0 cm MV E Point Septal Separation 0.8 cm AV Cusp Separation MM 2.2 cm DOPPLER AV Peak Velocity 142.2 cm/s AV Peak Gradient 8.1 mmHg MV Area PHT 1.9 cm??? Mitral E Point Velocity 59.7 cm/s Mitral A Point Velocity 83.4 cm/s Mitral E to A Ratio 0.7 MV Deceleration Time 406.6 ms MV E' Velocity 4.2 cm/s Mitral E to MV E' Ratio 14.3 TR Peak Velocity 210.4 cm/s TR Peak Gradient 17.7 mmHg Right Ventricular Systolic Press 22.7 mmHg FINDINGS Left Ventricle Left ventricular ejection fraction is estimated at 50-55 %. Left ventricular cavity size normal. Mild concentric left ventricular hypertrophy. Apical septum hypokinesis Right Ventricle Normal right ventricular size. Right ventricular systolic pressure within normal limits. Right Atrium Normal right atrial size. Left Atrium Normal left atrial size. No evidence for an atrial septal defect. Mitral Valve Trace to mild mitral regurgitation. Aortic Valve Trileaflet aortic valve. No aortic valve stenosis or regurgitation. Tricuspid Valve Trace to mild tricuspid regurgitation. Pulmonic Valve Trace pulmonic regurgitation. Pericardium Normal pericardium. Aorta Moderate aortic dilatation at the level of the sinuses of valsalva 41 mm CONCLUSIONS Left ventricular ejection fraction 50-55% Mild LVH Apical septum hypokinesis Trace to mild mitral regurgitation Aortic dilation with sinus of Valsalva measurement 41 mm Previewed by: Dr. Anurag Pack DO (Electronically Signed) Final Date: 17 October 2021 18:28
--- NOTE | 2021-10-17 18:44 | PN ---
PROGRESS NOTE This patient was admitted due to possible congestive heart failure, borderline elevated troponin. He passed his stress test at [facility] last week. He was switched from IV to oral Lasix and they added hydralazine and they increased his losartan. Watch his renal function. He is breathing better. Chest x-ray shows improvement in heart failure. He is on 2 L and oxygenation is 93, temperature 97.7, blood pressure 158/89, respiratory rate 16 to 18. ASSESSMENT: 1. Congestive heart failure, acute on chronic. 2. History of coronary artery disease with stent. 3. Recent passed stress test. PROGNOSIS: Guarded. Continue with diuresis. Send him home in a day or two. MMODL / IJN: [id number] /
[2021-10-17] MEDS: MONTELUKAST 10 MG TAB PO SCH (19:33)
[2021-10-18] MEDS: PANTOPRAZOLE 40 MG TABLET PO SCH (06:11)
[2021-10-18] MEDS: IPRATROPIUM-ALBUTEROL 3 ML NEB INHALATION SCH ×4 (08:17→19:58)
[2021-10-18] MEDS: methylPREDNISolone SOD SUCCI 40 MG/ML 1 ML VIAL IV SCH ×3 (08:29→19:34)
[2021-10-18] MEDS: hydrALAZINE HCL 50 MG TAB PO SCH ×2 (08:30→19:34)
[2021-10-18] MEDS: FUROSEMIDE 40 MG TAB PO SCH (08:30)
[2021-10-18] MEDS: METOPROLOL SUCCINATE (ER) 100 MG TAB.ER.24H PO SCH ×2 (08:30→08:32)
[2021-10-18] MEDS: FERROUS SULFATE 325 MG TAB PO SCH (08:30)
[2021-10-18] MEDS: FLUoxetine HCL 20 MG CAP PO SCH (08:30)
[2021-10-18] MEDS: LOSARTAN 50 MG TAB PO SCH (08:30)
[2021-10-18] MEDS: NITROGLYCERIN OINT 1 INCH/GM PACKET TOPICAL SCH (08:32)
[2021-10-18] MEDS: NON FORMULARY DRUG (Simvastatin [Simvastatin] 40 MG Tablet) PO SCH (08:34)
[2021-10-18 10:12] LABS: Basophils % (A) 0 %; Eosinophils % (A) 0 %; HCT 42.5 % (39.0-53.0); HGB 13.1 gm/dL (13.0-17.5); Lymphocytes # (A) 0.8 k/uL (1.0-4.8); Lymphocytes % (A) 4 %; MCH 27.2 pg (25.0-35.0); MCHC 30.9 g/dL (31.0-37.0); MCV 87.9 fL (80.0-100.0); Mean Platelet Volume 9.2; Monocytes # (A) 0.9 k/uL (0-1.0); Monocytes % (A) 5 %; Neutrophils # (A) 18.1 k/uL (1.3-7.7); Neutrophils % (A) 91 %; Platelet Count 251 k/uL (150-450); RBC 4.83 m/uL (4.30-5.90); RDW 13.5 % (11.5-15.5); WBC 20.1 k/uL (3.8-10.6)
[2021-10-18 10:23] LABS: Albumin 3.8 g/dL (3.5-5.0); Calcium 9.7 mg/dL (8.4-10.2); Potassium 3.7 mmol/L (3.5-5.1); Total Bilirubin 0.3 mg/dL (0.2-1.3); Total Protein 6.4 g/dL (6.3-8.2)
--- NOTE | 2021-10-18 10:41 | PN ---
PROGRESS NOTE This 76-year-old white male was admitted with tracheobronchitis and congestive heart failure. He remains on IV steroids. He remains on Rocephin through the IV. Cardiology has switched his Lasix to oral. He wants to stay one more day. He is improving greatly. Pulse is 70s to 80, respiratory rate 16 to 18, blood pressure 157/72, O2 saturation 96% on 2 L. Cardiovascular S1-S2. Lungs with mild rhonchi and wheeze. No rales. Hematology negative Homans. Psych fair mood and affect. ASSESSMENT: 1. Congestive heart failure. 2. Tracheobronchitis. 3. History of coronary artery disease with stent. Prognosis guarded. Possible discharge home tomorrow, as he is greatly improved. Echo was reviewed. MMODL / IJN: [id number] /
--- NOTE | 2021-10-18 11:33 | P.PN ---
Subjective HISTORY OF PRESENT ILLNESS: This is a 76-year-old male with a history of coronary artery disease with previous CABG, hypertension, hyperlipidemia, and bronchial asthma. Patient is admitted to the hospital secondary to congestive heart failure. Patient examined this morning at the bedside. Patient states he is feeling better today. He denies chest pain or pressure. He reports improvement in his shortness of breath. Echocardiogram completed revealing ejection fraction 50- 55%. PHYSICAL EXAM: VITAL SIGNS: Reviewed. GENERAL: Well-developed in no acute distress. NECK: Supple. No JVD or thyromegaly LUNGS: Respirations even and unlabored. Lungs diminished with expiratory wheezing noted. HEART: Regular rate and rhythm. S1 and S2 heard. EXTREMITIES: Normal range of motion. No clubbing or cyanosis. Peripheral pulses intact. 1+ lower extremity edema ASSESSMENT: Acute on chronic heart failure with preserved ejection fraction Coronary artery disease with previous CABG Hypertension Hyperlipidemia Bronchial asthma PLAN: Continue current cardiac medications Patient has been transitioned to oral Lasix Patient receiving IV steroids per primary medicine Further recommendations pending patient course Nurse practitioner note has been reviewed by physician. Signing provider agrees with the documented findings, assessment, and plan of care. Objective - Vital Signs Vital signs: Vital Signs Temp 97.7 F 10/17/21 16:00 Pulse 72 10/18/21 08:40 Resp 16 10/18/21 08:40 BP 157/72 10/18/21 08:40 Pulse Ox 96 10/18/21 08:40 FiO2 Intake & Output 10/17/21 10/18/21 10/18/21 18:59 06:59 18:59 Intake Total 240 240 Balance 240 240 Weight 89.4 kg Intake: Oral 240 240 Other: Voiding Method Urinal Urinal Urinal # Voids 1 2 # Bowel Movements 1 - Labs CBC & Chem 7: 10/18/21 09:24 10/18/21 09:24 Labs: Abnormal Lab Results - Last 24 Hours (Table) 10/18/21 10/18/21 Range/Units 09:24 09:24 WBC 20.1 H (3.8-10.6) k/uL MCHC 30.9 L (31.0-37.0) g/dL Neutrophils # 18.1 H (1.3-7.7) k/uL Lymphocytes # 0.8 L (1.0-4.8) k/uL BUN 40 H (9-20) mg/dL Creatinine 1.41 H (0.66-1.25) mg/dL Glucose 142 H (74-99) mg/dL Microbiology - Last 24 Hours (Table) 10/15/21 15:12 Blood Culture - Preliminary Blood No Growth after 48 hours 10/15/21 14:58 Blood Culture - Preliminary Blood No Growth after 48 hours
[2021-10-18] MEDS: ISOSORBIDE MONONITRATE ER 30 MG TAB.ER.24H PO SCH (12:16)
--- NOTE | 2021-10-18 16:01 | P.PN ---
Subjective Progress Note Date: 10/17/21 Principal diagnosis: Acute hypoxic respiratory failure Acute pulmonary edema Non-STEMI Occult pneumonia Sepsis History of significant coronary artery disease and bypass surgery History of COPD 10/17/2021, patient seen eval reexamined during the rounds care plan discussed with staff at length, blood pressure medicine are being adjusted by cardiovascular services, hydralazine 50 mg 2 times a day being admitted with the escalation in dose of losartan,, respiratory status more stable and improved now off of BiPAP machine on high flow oxygen 15 down 2 L is being titrated down, chest x-ray from today reviewed improved volume status with decreasing pleural effusion and interstitial edema noted. WBC count is 22,000 with stable chemistry BUN/creatinine however is 35/1.48, blood cultures no growth Patient is a pleasant 76-year-old male with history of COPD as well as coronary artery disease patient starting having shortness of breath intermittent cough which started about 2 days ago also has chest pain earlier however by the time he presented into the hospital pain improved significantly, cough is mostly dry and nonproductive denies any sputum production denies any fever or chills past medical history significant for dyslipidemia coronary artery disease hyperten radha hypertensive cardiovascular disease as well as bronchial asthma. On arrival his chest x-ray positive for pulmonary edema occult pneumonia cannot be excluded, computed tomography scan of the chest just been done, hard copies reviewed, and report are pending however no major filling defects seen, no significant infiltrate noted, bilateral small pleural effusion seen, pulmonary vascular congestion seen as well. White cell count is 15,500, hemoglobin hematocrit 12.8/41 PT/INR 10/19.6 chemistry BUN/creatinine is 14 1.16, lactic acid is 2.8 came down to 2.3, troponin 0.24298 second is up 2.6 BNP is 5430, covert testing is negative. Currently patient is on IV Rocephin 2 g was does have been given IV Lasix 40 mg every 8 continuation of home medications as well as IV Solu-Medrol Objective - Vital Signs Vital signs: Vital Signs Temp 97.7 F 10/17/21 12:00 Pulse 73 10/17/21 12:28 Resp 14 10/17/21 12:00 BP 147/83 10/17/21 12:00 Pulse Ox 92 L 10/17/21 12:00 FiO2 Intake & Output 10/16/21 10/17/21 10/17/21 18:59 06:59 18:59 Intake Total 410 Output Total 900 300 Balance -900 110 Weight 91 kg 90.9 kg Intake: IV 160 KVO 160 Oral 250 Output: Urine 900 300 Other: Voiding Method Urinal # Voids 1 - Exam - Constitutional General appearance: average body habitus, cooperative, disheveled - EENT Eyes: EOMI, PERRLA, normal appearance ENT: normal oropharynx Ears: bilateral: normal - Neck Neck: normal ROM Carotids: bilateral: upstroke normal Thyroid: bilateral: normal size - Respiratory Respiratory: bilateral: rales (Basal bilateral Rales), wheezing (Bilateral diffuse wheezing) - Cardiovascular Rhythm: irregularly irregular Heart sounds: normal: S1, S2 - Gastrointestinal General gastrointestinal: normal bowel sounds, soft - Integumentary Integumentary: normal turgor - Neurologic Neurologic: CNII-XII intact - Musculoskeletal Musculoskeletal: gait normal, generalized weakness, strength equal bilaterally - Psychiatric Psychiatric: A&O x's 3, appropriate affect, intact judgment & insight - Labs CBC & Chem 7: 10/18/21 09:24 10/18/21 09:24 Labs: Abnormal Lab Results - Last 24 Hours (Table) 10/17/21 10/17/21 Range/Units 05:58 05:58 WBC 22.2 H (3.8-10.6) k/uL BUN 35 H (9-20) mg/dL Creatinine 1.48 H (0.66-1.25) mg/dL Glucose 144 H (74-99) mg/dL Microbiology - Last 24 Hours (Table) 10/15/21 15:12 Blood Culture - Preliminary Blood No Growth after 24 hours 10/15/21 14:58 Blood Culture - Preliminary Blood No Growth after 24 hours Assessment and Plan Assessment: Acute hypoxic respiratory failure Acute pulmonary edema Non-STEMI Occult pneumonia Sepsis History of significant coronary artery disease and bypass surgery History of COPD Plan: IV antibiotics Breathing treatments IV steroids, we'll start titrating down in next 24 hours Gentle diuresis Anticoagulation per cardiovascular services with further management of non-STEMI Supplemental oxygen Deep breathing exercises incentive spirometry Further plan of care as per clinical response of the patient Time with Patient: Greater than 30
--- NOTE | 2021-10-18 16:05 | P.PN ---
Subjective Progress Note Date: 10/18/21 Principal diagnosis: Acute hypoxic respiratory failure Acute pulmonary edema Non-STEMI Occult pneumonia Sepsis History of significant coronary artery disease and bypass surgery History of COPD 10/18/2021, patient seen eval examined during the rounds labs reviewed medications reviewed, respiratory status is much improved now on 2 L oxygen, we will start tapering down the steroids continue antibiotics for now 10/17/2021, patient seen eval reexamined during the rounds care plan discussed with staff at length, blood pressure medicine are being adjusted by cardiovascular services, hydralazine 50 mg 2 times a day being admitted with the escalation in dose of losartan,, respiratory status more stable and improved now off of BiPAP machine on high flow oxygen 15 down 2 L is being titrated down, chest x-ray from today reviewed improved volume status with decreasing pleural effusion and interstitial edema noted. WBC count is 22,000 with stable chemistry BUN/creatinine however is 35/1.48, blood cultures no growth Patient is a pleasant 76-year-old male with history of COPD as well as coronary artery disease patient starting having shortness of breath intermittent cough which started about 2 days ago also has chest pain earlier however by the time he presented into the hospital pain improved significantly, cough is mostly dry and nonproductive denies any sputum production denies any fever or chills past medical history significant for dyslipidemia coronary artery disease hypertension hypertensive cardiovascular disease as well as bronchial asthma. On arrival his chest x-ray positive for pulmonary edema occult pneumonia cannot be excluded, computed tomography scan of the chest just been done, hard copies reviewed, and report are pending however no major filling defects seen, no significant infiltrate noted, bilateral small pleural effusion seen, pulmonary vascular congestion seen as well. White cell count is 15,500, hemoglobin hematocrit 12.8/41 PT/INR 10/19.6 chemistry BUN/creatinine is 14 1.16, lactic acid is 2.8 came down to 2.3, troponin 0.88950 second is up 2.6 BNP is 5430, covert testing is negative. Currently patient is on IV Rocephin 2 g was does have been given IV Lasix 40 mg every 8 continuation of home medications as well as IV Solu-Medrol Objective - Vital Signs Vital signs: Vital Signs Temp 97.7 F 10/17/21 16:00 Pulse 74 10/18/21 12:18 Resp 16 10/18/21 12:18 BP 160/74 10/18/21 12:18 Pulse Ox 93 L 10/18/21 12:18 FiO2 Intake & Output 10/17/21 10/18/21 10/18/21 18:59 06:59 18:59 Intake Total 240 420 Balance 240 420 Weight 89.4 kg Intake: Oral 240 420 Other: Voiding Method Urinal Urinal Urinal # Voids 1 2 2 # Bowel Movements 1 - Exam - Constitutional General appearance: average body habitus, cooperative, disheveled - EENT Eyes: EOMI, PERRLA, normal appearance ENT: normal oropharynx Ears: bilateral: normal - Neck Neck: normal ROM Carotids: bilateral: upstroke normal Thyroid: bilateral: normal size - Respiratory Respiratory: bilateral: rales (Basal bilateral Rales), wheezing (Bilateral diffuse wheezing) - Cardiovascular Rhythm: irregularly irregular Heart sounds: normal: S1, S2 - Gastrointestinal General gastrointestinal: normal bowel sounds, soft - Integumentary Integumentary: normal turgor - Neurologic Neurologic: CNII-XII intact - Musculoskeletal Musculoskeletal: gait normal, generalized weakness, strength equal bilaterally - Psychiatric Psychiatric: A&O x's 3, appropriate affect, intact judgment & insight - Labs CBC & Chem 7: 10/18/21 09:24 10/18/21 09:24 Labs: Abnormal Lab Results - Last 24 Hours (Table) 10/18/21 10/18/21 Range/Units 09:24 09:24 WBC 20.1 H (3.8-10.6) k/uL MCHC 30.9 L (31.0-37.0) g/dL Neutrophils # 18.1 H (1.3-7.7) k/uL Lymphocytes # 0.8 L (1.0-4.8) k/uL BUN 40 H (9-20) mg/dL Creatinine 1.41 H (0.66-1.25) mg/dL Glucose 142 H (74-99) mg/dL Microbiology - Last 24 Hours (Table) 10/15/21 15:12 Blood Culture - Preliminary Blood No Growth after 48 hours 10/15/21 14:58 Blood Culture - Preliminary Blood No Growth after 48 hours Assessment and Plan Assessment: Acute hypoxic respiratory failure Acute pulmonary edema Non-STEMI Occult pneumonia Sepsis History of significant coronary artery disease and bypass surgery History of COPD Plan: IV antibiotics Breathing treatments IV steroids, we'll start titrating down Gentle diuresis Anticoagulation per cardiovascular services with further management of non-STEMI Supplemental oxygen Deep breathing exercises incentive spirometry Further plan of care as per clinical response of the patient Time with Patient: Greater than 30
[2021-10-18] MEDS: MONTELUKAST 10 MG TAB PO SCH (19:34)
[2021-10-19] MEDS: PANTOPRAZOLE 40 MG TABLET PO SCH (06:40)
[2021-10-19] MEDS: FUROSEMIDE 40 MG TAB PO SCH (08:01)
[2021-10-19] MEDS: hydrALAZINE HCL 50 MG TAB PO SCH ×2 (08:01→21:15)
[2021-10-19] MEDS: methylPREDNISolone SOD SUCCI 40 MG/ML 1 ML VIAL IV SCH ×2 (08:01→21:15)
[2021-10-19] MEDS: FERROUS SULFATE 325 MG TAB PO SCH (08:01)
[2021-10-19] MEDS: LOSARTAN 50 MG TAB PO SCH (08:01)
[2021-10-19] MEDS: ISOSORBIDE MONONITRATE ER 30 MG TAB.ER.24H PO SCH (08:01)
[2021-10-19] MEDS: FLUoxetine HCL 20 MG CAP PO SCH (08:01)
[2021-10-19] MEDS: METOPROLOL SUCCINATE (ER) 100 MG TAB.ER.24H PO SCH (08:01)
[2021-10-19] MEDS: NON FORMULARY DRUG (Simvastatin [Simvastatin] 40 MG Tablet) PO SCH (08:11)
[2021-10-19] MEDS: IPRATROPIUM-ALBUTEROL 3 ML NEB INHALATION SCH ×4 (08:36→19:36)
[2021-10-19 09:02] LABS: Basophils % (A) 0 %; Eosinophils % (A) 0 %; HCT 41.6 % (39.0-53.0); HGB 12.5 gm/dL (13.0-17.5); Lymphocytes # (A) 1.7 k/uL (1.0-4.8); Lymphocytes % (A) 12 %; MCH 26.9 pg (25.0-35.0); MCV 89.5 fL (80.0-100.0); Mean Platelet Volume 8.9; Monocytes % (A) 7 %; Neutrophils # (A) 10.9 k/uL (1.3-7.7); Neutrophils % (A) 79 %; Platelet Count 224 k/uL (150-450); RBC 4.65 m/uL (4.30-5.90); RDW 12.9 % (11.5-15.5); WBC 13.8 k/uL (3.8-10.6)
[2021-10-19 09:11] LABS: Albumin 3.5 g/dL (3.5-5.0); Calcium 9.6 mg/dL (8.4-10.2); Potassium 3.4 mmol/L (3.5-5.1); Total Bilirubin 0.3 mg/dL (0.2-1.3)
--- NOTE | 2021-10-19 12:55 | P.PN ---
Subjective Progress Note Date: 10/19/21 HISTORY OF PRESENT ILLNESS: This is a 76-year-old male with a history of coronary artery disease with previous CABG, hypertension, hyperlipidemia, and bronchial asthma. Patient is admitted to the hospital secondary to congestive heart failure. Patient examined this morning at the bedside. Patient states he is feeling better today. He denies chest pain or pressure. He reports improvement in his shortness of breath. Echocardiogram completed revealing ejection fraction 50-55%. 10/19: Vital signs are stable. WBC is improved to 13.8 and hemoglobin stable 12.5. Potassium 3.4 and was replaced. BUN 44 creatinine 1.3. Patient is followed by pulmonary medicine. He remains on oral Lasix, maintained on Solu- Medrol by pulmonary medicine PHYSICAL EXAM: VITAL SIGNS: Reviewed. GENERAL: Well-developed in no acute distress. NECK: Supple. No JVD or thyromegaly LUNGS: Respirations even and unlabored. Lungs diminished with scattered rhonchi. HEART: Regular rate and rhythm. S1 and S2 heard. EXTREMITIES: Normal range of motion. No clubbing or cyanosis. Peripheral pulses intact. 1+ lower extremity edema ASSESSMENT: Acute on chronic heart failure with preserved ejection fraction Coronary artery disease with previous CABG Hypertension Hyperlipidemia Bronchial asthma PLAN: Continue current cardiac medications Continue oral Lasix Patient receiving IV steroids per primary medicine Further recommendations pending patient course Nurse practitioner note has been reviewed by physician. Signing provider agrees with the documented findings, assessment, and plan of care. Objective - Vital Signs Vital signs: Vital Signs Temp 97.7 F 10/17/21 16:00 Pulse 68 10/19/21 08:08 Resp 16 10/19/21 08:08 BP 144/71 10/19/21 08:08 Pulse Ox 97 10/19/21 08:08 FiO2 Intake & Output 10/18/21 10/19/21 10/19/21 18:59 06:59 18:59 Intake Total 540 240 240 Output Total 2 Balance 540 238 240 Weight 89.7 kg Intake: Oral 540 240 240 Output: Stool 2 Other: Voiding Method Urinal Urinal # Voids 2 1 - Labs CBC & Chem 7: 10/19/21 08:39 10/19/21 08:39 Labs: Abnormal Lab Results - Last 24 Hours (Table) 10/18/21 10/18/21 10/19/21 Range/Units 09:24 09:24 08:39 WBC 20.1 H 13.8 H (3.8-10.6) k/uL Hgb 12.5 L (13.0-17.5) gm/dL MCHC 30.9 L 30.0 L (31.0-37.0) g/dL Neutrophils # 18.1 H 10.9 H (1.3-7.7) k/uL Lymphocytes # 0.8 L (1.0-4.8) k/uL Potassium (3.5-5.1) mmol/L Carbon Dioxide (22-30) mmol/L BUN 40 H (9-20) mg/dL Creatinine 1.41 H (0.66-1.25) mg/dL Glucose 142 H (74-99) mg/dL Total Protein (6.3-8.2) g/dL 10/19/21 Range/Units 08:39 WBC (3.8-10.6) k/uL Hgb (13.0-17.5) gm/dL MCHC (31.0-37.0) g/dL Neutrophils # (1.3-7.7) k/uL Lymphocytes # (1.0-4.8) k/uL Potassium 3.4 L (3.5-5.1) mmol/L Carbon Dioxide 31 H (22-30) mmol/L BUN 44 H (9-20) mg/dL Creatinine 1.30 H (0.66-1.25) mg/dL Glucose 127 H (74-99) mg/dL Total Protein 6.0 L (6.3-8.2) g/dL Microbiology - Last 24 Hours (Table) 10/15/21 15:12 Blood Culture - Preliminary Blood No Growth after 72 hours 10/15/21 14:58 Blood Culture - Preliminary Blood No Growth after 72 hours
--- NOTE | 2021-10-19 16:00 | PN ---
PROGRESS NOTE 36-year-old white male was admitted with congestive heart failure, possible non STEMI. Echocardiogram showed ejection fraction 50 to 55% which is grossly normal. His breathing is improved with diuretics as well inpatient. White count down to 13.8. Hemoglobin is 12.5. Potassium 3.4, BUN 44, creatinine 1.3. He is on oral Lasix, Solu-Medrol. Lungs are diminished, but clear. Heart S1-S2. Neck is supple. Well-nourished. No acute distress. Extremities 1+ peripheral edema. ASSESSMENT: 1. Acute on chronic heart failure with preserved ejection fraction. 2. Coronary artery disease, previous coronary artery bypass grafting. 3. Hypertension. 4. Dyslipidemia. 5. Bronchial asthma. Oral Lasix, cardiac medications, wean steroids. Possible go home soon. Sating in the high 90s, possibly send him home. MMODL / IJN: [id number] /
[2021-10-19] MEDS: MONTELUKAST 10 MG TAB PO SCH (21:15)
[2021-10-20] MEDS: PANTOPRAZOLE 40 MG TABLET PO SCH (06:16)
[2021-10-20] MEDS: methylPREDNISolone SOD SUCCI 40 MG/ML 1 ML VIAL IV SCH (08:17)
[2021-10-20] MEDS: ISOSORBIDE MONONITRATE ER 30 MG TAB.ER.24H PO SCH (08:18)
[2021-10-20] MEDS: FUROSEMIDE 40 MG TAB PO SCH (08:18)
[2021-10-20] MEDS: hydrALAZINE HCL 50 MG TAB PO SCH (08:18)
[2021-10-20] MEDS: LOSARTAN 50 MG TAB PO SCH (08:18)
[2021-10-20] MEDS: FERROUS SULFATE 325 MG TAB PO SCH (08:18)
[2021-10-20] MEDS: FLUoxetine HCL 20 MG CAP PO SCH (08:18)
[2021-10-20] MEDS: METOPROLOL SUCCINATE (ER) 100 MG TAB.ER.24H PO SCH (08:18)
[2021-10-20 08:25] VITALS: RESP 16; TEMP 97.5
[2021-10-20] MEDS: IPRATROPIUM-ALBUTEROL 3 ML NEB INHALATION SCH ×3 (08:29→15:23)
[2021-10-20] MEDS: NON FORMULARY DRUG (Simvastatin [Simvastatin] 40 MG Tablet) PO SCH (12:21)
--- NOTE | 2021-10-20 12:30 | P.PN ---
Subjective This is a 76-year-old male with a history of coronary artery disease with previous CABG in 2019, hypertension, hyperlipidemia, and bronchial asthma. He follows in the office with Dr. Townsend. Patient is admitted to the hospital secondary to congestive heart failure. Patient examined this morning at the bedside, up in the bedside chair, no acute distress. Denies shortness of breath, orthopnea, or PND. He denies chest pain or pressure. He reports improvement in his shortness of breath. Echocardiogram completed revealing ejection fraction 50-55%. Decrease in weight noted since admission. Patient is currently maintained on Lasix 40 mg daily, hydralazine 50 mg twice a day, Imdur 30 mg daily, losartan 100 mg daily, metoprolol succinate 100 mg daily, simvastatin 40 mg daily PHYSICAL EXAM: VITAL SIGNS: Reviewed. GENERAL: Well-developed in no acute distress. NECK: Supple. No JVD or thyromegaly LUNGS: Respirations even and unlabored. Lungs diminished with expiratory wheezing noted. HEART: Regular rate and rhythm. S1 and S2 heard. EXTREMITIES: Normal range of motion. No clubbing or cyanosis. Peripheral pulses intact. 1+ lower extremity edema ASSESSMENT: Acute on chronic heart failure with preserved ejection fraction Coronary artery disease with previous CABG Hypertension Hyperlipidemia Bronchial asthma PLAN: Continue current cardiac medications Patient has been transitioned to oral Lasix Patient receiving IV steroids per pulmonary Patient stable from a cardiology perspective. We will follow the patient as needed. Please reconsult if needed. Close follow up outpatient in the office. Nurse practitioner note has been reviewed by physician. Signing provider agrees with the documented findings, assessment, and plan of care. Objective - Vital Signs Vital signs: Vital Signs Temp 97.5 F L 10/20/21 08:25 Pulse 86 10/20/21 12:07 Resp 16 10/20/21 08:25 BP 163/75 10/20/21 08:25 Pulse Ox 93 L 10/20/21 08:29 FiO2 Intake & Output 10/19/21 10/20/21 10/20/21 18:59 06:59 18:59 Intake Total 240 Balance 240 Intake: Oral 240 Other: Voiding Method Urinal Urinal Urinal # Voids 3 1 - Labs CBC & Chem 7: 10/19/21 08:39 10/19/21 08:39 Labs: Microbiology - Last 24 Hours (Table) 10/15/21 15:12 Blood Culture - Preliminary Blood No Growth after 96 hours 10/15/21 14:58 Blood Culture - Preliminary Blood No Growth after 96 hours
[2021-10-20 16:26] VITALS: BP 147/67; PULSE 78
[2021-10-20] MEDS ORDERED: predniSONE 20 MG TAB PO SCH (16:30)
--- NOTE | 2021-10-20 16:45 | P.PN ---
Subjective Progress Note Date: 10/19/21 Principal diagnosis: Acute hypoxic respiratory failure Acute pulmonary edema Non-STEMI Occult pneumonia Sepsis History of significant coronary artery disease and bypass surgery History of COPD 10/19/2021, respiratory status continued to improve, less short of breath as patient is being diuresed intermittent cough with clear sputum production is present, vital signs stable mostly on room air now, cultures have been negative, labs from today reviewed white cell count continue to improve is 13.8 BUN/creatinine 44/1.3 patient on Lasix and Solu-Medrol 10/18/2021, patient seen eval examined during the rounds labs reviewed medications reviewed, respiratory status is much improved now on 2 L oxygen, we will start tapering down the steroids continue antibiotics for now 10/17/2021, patient seen eval reexamined during the rounds care plan discussed with staff at length, blood pressure medicine are being adjusted by cardiovascular services, hydralazine 50 mg 2 times a day being admitted with the escalation in dose of losartan,, respiratory status more stable and improved now off of BiPAP machine on high flow oxygen 15 down 2 L is being titrated down, chest x-ray from today reviewed improved volume status with decreasing pleural effusion and interstitial edema noted. WBC count is 22,000 with stable chemistry BUN/creatinine however is 35/1.48, blood cultures no growth Patient is a pleasant 76-year-old male with history of COPD as well as coronary artery disease patient starting having shortness of breath intermittent cough which started about 2 days ago also has chest pain earlier however by the time he presented into the hospital pain improved significantly, cough is mostly dry and nonproductive denies any sputum production denies any fever or chills past medical history significant for dyslipidemia coronary artery disease hypertension hypertensive cardiovascular disease as well as bronchial asthma. On arrival his chest x-ray positive for pulmonary edema occult pneumonia cannot be excluded, computed tomography scan of the chest just been done, hard copies reviewed, and report are pending however no major filling defects seen, no significant infiltrate noted, bilateral small pleural effusion seen, pulmonary vascular congestion seen as well. White cell count is 15,500, hemoglobin hematocrit 12.8/41 PT/INR 10/19.6 chemistry BUN/creatinine is 14 1.16, lactic acid is 2.8 came down to 2.3, troponin 0.64884 second is up 2.6 BNP is 5430, covert testing is negative. Currently patient is on IV Rocephin 2 g was does have been given IV Lasix 40 mg every 8 continuation of home medications as well as IV Solu-Medrol Objective - Vital Signs Vital signs: Vital Signs Temp 97.7 F 10/17/21 16:00 Pulse 68 10/19/21 08:08 Resp 16 10/19/21 08:08 BP 144/71 10/19/21 08:08 Pulse Ox 97 10/19/21 08:08 FiO2 Intake & Output 10/18/21 10/19/21 10/19/21 18:59 06:59 18:59 Intake Total 540 240 240 Output Total 2 Balance 540 238 240 Weight 89.7 kg Intake: Oral 540 240 240 Output: Stool 2 Other: Voiding Method Urinal Urinal Urinal # Voids 2 1 1 - Exam - Constitutional General appearance: average body habitus, cooperative, disheveled - EENT Eyes: EOMI, PERRLA, normal appearance ENT: normal oropharynx Ears: bilateral: normal - Neck Neck: normal ROM Carotids: bilateral: upstroke normal Thyroid: bilateral: normal size - Respiratory Respiratory: bilateral: rales (Basal bilateral Rales), wheezing (Bilateral diffuse wheezing) - Cardiovascular Rhythm: irregularly irregular Heart sounds: normal: S1, S2 - Gastrointestinal General gastrointestinal: normal bowel sounds, soft - Integumentary Integumentary: normal turgor - Neurologic Neurologic: CNII-XII intact - Musculoskeletal Musculoskeletal: gait normal, generalized weakness, strength equal bilaterally - Psychiatric Psychiatric: A&O x's 3, appropriate affect, intact judgment & insight - Labs CBC & Chem 7: 10/19/21 08:39 10/19/21 08:39 Labs: Abnormal Lab Results - Last 24 Hours (Table) 10/19/21 10/19/21 Range/Units 08:39 08:39 WBC 13.8 H (3.8-10.6) k/uL Hgb 12.5 L (13.0-17.5) gm/dL MCHC 30.0 L (31.0-37.0) g/dL Neutrophils # 10.9 H (1.3-7.7) k/uL Potassium 3.4 L (3.5-5.1) mmol/L Carbon Dioxide 31 H (22-30) mmol/L BUN 44 H (9-20) mg/dL Creatinine 1.30 H (0.66-1.25) mg/dL Glucose 127 H (74-99) mg/dL Total Protein 6.0 L (6.3-8.2) g/dL Microbiology - Last 24 Hours (Table) 10/15/21 15:12 Blood Culture - Preliminary Blood No Growth after 72 hours 10/15/21 14:58 Blood Culture - Preliminary Blood No Growth after 72 hours Assessment and Plan Assessment: Acute hypoxic respiratory failure Acute pulmonary edema Non-STEMI COPD exacerbation Occult pneumonia Sepsis History of significant coronary artery disease and bypass surgery History of COPD Plan: IV antibiotics Breathing treatments IV steroids, we'll start titrating down Gentle diuresis Anticoagulation per cardiovascular services with further management of non-STEMI Supplemental oxygen Deep breathing exercises incentive spirometry Further plan of care as per clinical response of the patient Time with Patient: Greater than 30
--- NOTE | 2021-10-20 16:48 | P.PN ---
Subjective Progress Note Date: 10/20/21 Principal diagnosis: Acute hypoxic respiratory failure Acute pulmonary edema Non-STEMI Occult pneumonia Sepsis History of significant coronary artery disease and bypass surgery History of COPD 10/20/2021, patient seen eval reexamined during the rounds labs reviewed medications reviewed care plan discussed patient is now on room air off of oxygen breathing comfortably occasional cough is present, patient remains on oral antibiotics along with IV Rocephin, Rocephin can be discontinued patient can be continued on Augmentin and tapering steroids can be discharged from pul monary standpoint with follow-up on outpatient 10/19/2021, respiratory status continued to improve, less short of breath as patient is being diuresed intermittent cough with clear sputum production is present, vital signs stable mostly on room air now, cultures have been negative, labs from today reviewed white cell count continue to improve is 13.8 BUN/creatinine 44/1.3 patient on Lasix and Solu-Medrol 10/18/2021, patient seen eval examined during the rounds labs reviewed medications reviewed, respiratory status is much improved now on 2 L oxygen, we will start tapering down the steroids continue antibiotics for now 10/17/2021, patient seen eval reexamined during the rounds care plan discussed with staff at length, blood pressure medicine are being adjusted by cardiovascular services, hydralazine 50 mg 2 times a day being admitted with the escalation in dose of losartan,, respiratory status more stable and improved now off of BiPAP machine on high flow oxygen 15 down 2 L is being titrated down, chest x-ray from today reviewed improved volume status with decreasing pleural effusion and interstitial edema noted. WBC count is 22,000 with stable chemistry BUN/creatinine however is 35/1.48, blood cultures no growth Patient is a pleasant 76-year-old male with history of COPD as well as coronary artery disease patient starting having shortness of breath intermittent cough which started about 2 days ago also has chest pain earlier however by the time he presented into the hospital pain improved significantly, cough is mostly dry and nonproductive denies any sputum production denies any fever or chills past medical history significant for dyslipidemia coronary artery disease hypertension hypertensive cardiovascular disease as well as bronchial asthma. On arrival his chest x-ray positive for pulmonary edema occult pneumonia cannot be excluded, computed tomography scan of the chest just been done, hard copies reviewed, and report are pending however no major filling defects seen, no significant infiltrate noted, bilateral small pleural effusion seen, pulmonary vascular congestion seen as well. White cell count is 15,500, hemoglobin hematocrit 12.8/41 PT/INR 10/19.6 chemistry BUN/creatinine is 14 1.16, lactic acid is 2.8 came down to 2.3, troponin 0.63176 second is up 2.6 BNP is 5430, covert testing is negative. Currently patient is on IV Rocephin 2 g was does have been given IV Lasix 40 mg every 8 continuation of home medications as well as IV Solu-Medrol Objective - Vital Signs Vital signs: Vital Signs Temp 97.5 F L 10/20/21 08:25 Pulse 78 10/20/21 16:25 Resp 16 10/20/21 16:25 BP 147/67 10/20/21 16:25 Pulse Ox 94 L 10/20/21 16:25 FiO2 Intake & Output 10/19/21 10/20/21 10/20/21 18:59 06:59 18:59 Intake Total 240 778 Balance 240 778 Intake: Oral 240 778 Other: Voiding Method Urinal Urinal Urinal # Voids 3 1 2 - Exam - Constitutional General appearance: average body habitus, cooperative, disheveled - EENT Eyes: EOMI, PERRLA, normal appearance ENT: normal oropharynx Ears: bilateral: normal - Neck Neck: normal ROM Carotids: bilateral: upstroke normal Thyroid: bilateral: normal size - Respiratory Respiratory: bilateral: rales (Basal bilateral Rales), wheezing (Bilateral diffuse wheezing) - Cardiovascular Rhythm: irregularly irregular Heart sounds: normal: S1, S2 - Gastrointestinal General gastrointestinal: normal bowel sounds, soft - Integumentary Integumentary: normal turgor - Neurologic Neurologic: CNII-XII intact - Musculoskeletal Musculoskeletal: gait normal, generalized weakness, strength equal bilaterally - Psychiatric Psychiatric: A&O x's 3, appropriate affect, intact judgment & insight - Labs CBC & Chem 7: 10/19/21 08:39 10/19/21 08:39 Labs: Microbiology - Last 24 Hours (Table) 10/15/21 15:12 Blood Culture - Preliminary Blood No Growth after 96 hours 10/15/21 14:58 Blood Culture - Preliminary Blood No Growth after 96 hours Assessment and Plan Assessment: Acute hypoxic respiratory failure Acute pulmonary edema Non-STEMI COPD exacerbation Occult pneumonia Sepsis History of significant coronary artery disease and bypass surgery History of COPD Plan: IV antibiotics, changed to by mouth at the time of discharge Breathing treatments IV steroids, we'll start titrating down, changed to by mouth at the time of discharge Gentle diuresis Anticoagulation per cardiovascular services with further management of non-STEMI Supplemental oxygen, continue monitor off of oxygen check pulse oximetry before and after exertion for home O2 requirement Deep breathing exercises incentive spirometry Further plan of care as per clinical response of the patient Time with Patient: Greater than 30
[2021-10-20] MEDS ORDERED: AMOXIC-POT CLAV 875-125MG 1 EACH TAB PO SCH (21:00)
[2021-10-21] MEDS ORDERED: ASPIRIN 81 MG PO SCH (09:00)
--- NOTE | 2021-10-26 15:10 | PN ---
PROGRESS NOTE ADDENDUM: Please add sepsis confirmed. MMODL / IJN: [id number] /
== END 2021-10-20 18:27 | disposition home health service (06) | DRG 871 ==
LOC: EC 12:08 → 3SCARD 14:47 → 2SICU 19:06 → 3SCARD 10-17 18:29
PROVIDERS: ADMIT Family Medicine; ATTEND Family Medicine
PROC: 5A09357 Assistance with Respiratory Ventilation, Less than 24 Consecutive Hours, Continuous Positive Airway Pressure (ICD-10-PCS; principal; 2021-10-16)
PROC: 5A0935A Assistance with Respiratory Ventilation, Less than 24 Consecutive Hours, High Flow/Velocity Cannula (ICD-10-PCS; principal; 2021-10-16)
DX: A41.9 Sepsis, unspecified organism (principal); I21.4 Non-ST elevation (NSTEMI) myocardial infarction; I50.33 Acute on chronic diastolic (congestive) heart failure; J18.9 Pneumonia, unspecified organism; J96.01 Acute respiratory failure with hypoxia; J44.0 Chronic obstructive pulmonary disease with (acute) lower respiratory infection; J44.1 Chronic obstructive pulmonary disease with (acute) exacerbation; E78.5 Hyperlipidemia, unspecified; I11.0 Hypertensive heart disease with heart failure; I25.10 Atherosclerotic heart disease of native coronary artery without angina pectoris; J40 Bronchitis, not specified as acute or chronic; R01.1 Cardiac murmur, unspecified; K21.9 Gastro-esophageal reflux disease without esophagitis; R29.90 Unspecified symptoms and signs involving the nervous system; I71.2 Thoracic aortic aneurysm, without rupture; M54.50 Low back pain, unspecified; G89.29 Other chronic pain; M19.071 Primary osteoarthritis, right ankle and foot; M21.961 Unspecified acquired deformity of right lower leg; F32.A Depression, unspecified; Z20.822 Contact with and (suspected) exposure to COVID-19; Z91.81 History of falling; Z79.82 Long term (current) use of aspirin; Z79.899 Other long term (current) drug therapy; Z95.5 Presence of coronary angioplasty implant and graft; Z95.1 Presence of aortocoronary bypass graft; Z86.73 Personal history of transient ischemic attack (TIA), and cerebral infarction without residual deficits; Z86.718 Personal history of other venous thrombosis and embolism; Z86.12 Personal history of poliomyelitis; Z99.81 Dependence on supplemental oxygen; Z82.3 Family history of stroke; Z82.49 Family history of ischemic heart disease and other diseases of the circulatory system; Z82.41 Family history of sudden cardiac death
CPT/HCPCS: 36415; 71045; 71046; 71260; 80048; 80053; 83605; 83735; 83880; 84484; 85025; 85027; 85610; 85730; 87040; 87635; 93005; 93306; 94640; 94760; 96374; 96375; 99285

== ENCOUNTER → 2022-01-15 | Outpatient (CLI) | payer MEDICARE, OTHER ==
[2022-01-15 15:54] LABS: African American GFR (CKD) 61.9 (60.0-200.0); Anion Gap 10.7 mmol/L (10.00-18.00); BUN/Creat Ratio 13.92 Ratio (12.00-20.00); Blood Urea Nitrogen 18.1 mg/dL (9.0-27.0); Calcium 9.9 mg/dL (8.7-10.3); Carbon Dioxide 23.3 mmol/L (20.0-27.5); Non-African American GFR(CKD) 53.4 (60.0-200.0); Potassium 4.5 mmol/L (3.5-5.5)
== END | disposition home or self-care (01) ==
LOC: LABWHC1 08:25
PROVIDERS: ATTEND Internal Medicine
DX: I50.32 Chronic diastolic (congestive) heart failure (principal)
CPT/HCPCS: 36415; 80048

== ENCOUNTER → 2022-04-13 | Outpatient (CLI) | payer MEDICARE, OTHER ==
[2022-04-13 15:05] LABS: Basophils # (A) 0.03 X 10*3/uL (0.00-0.10); Basophils % (A) 0.4 %; Eosinophils # (A) 0.23 X 10*3/uL (0.04-0.35); Eosinophils % (A) 2.9 %; HCT 40.5 % (39.6-50.0); HGB 13.2 g/dL (13.0-17.0); Immature Grans, Automated 1.2 %; Lymphocytes % (A) 23.7 %; MCH 29.4 pg (27.0-32.0); MCHC 32.6 g/dL (32.0-37.0); MCV 90.2 fL (80.0-97.0); Mean Platelet Volume 11.6 fL (9.5-12.2); Monocytes # (A) 0.66 X 10*3/uL (0.20-1.00); Monocytes % (A) 8.2 %; NRBC Per 100 WBC 0 /100 WBCS (0.0-0.0); Neutrophils # (A) 5.09 X 10*3/uL (1.80-7.70); Neutrophils % (A) 63.6 %; Platelet Count 179 X 10*3/uL (140-440); RBC 4.49 X 10*6/uL (4.40-5.60); RDW 12.7 % (11.5-14.5); WBC 8.01 X 10*3/uL (4.50-10.00)
== END | disposition home or self-care (01) ==
LOC: LABPAT 07:55
PROVIDERS: ATTEND Surgery
DX: Z01.812 Encounter for preprocedural laboratory examination (principal); K40.91 Unilateral inguinal hernia, without obstruction or gangrene, recurrent
CPT/HCPCS: 36415; 85025; 93005

== ENCOUNTER 2022-04-21 05:35 | Day surgery (SDC) | payer MEDICARE, OTHER ==
[~2022-04-21 05:35] MED LIST changes: +ACETAMINOPHEN TAB 500 MG TAB PO PRN; -ALBUMIN HUMAN 25% 50 ML IV ONE; -ALBUMIN HUMAN 5% 250 ML IVPB ONE; -ASPIRIN 325 MG TAB PO ONE; -ATORVASTATIN 10 MG TAB PO ONE; -CALCIUM CHLORIDE 100 MG/ML 10 ML SYRINGE IV ONE; -CHLORHEXIDINE GLUCONATE 15 ML CUP MUCOUS MEM ONE; -DEXTROSE 5% IN WATER 1,000 ML with POTASSIUM CHLORIDE 110 MEQ, MAGNESIUM SULFATE 16 MEQ... IV ONE; -DEXTROSE 5% IN WATER 1,000 ML with POTASSIUM CHLORIDE 25 MEQ, SODIUM CHLORIDE 2.5MEQ/ML... IRRIGATION ONE; -HEPARIN SODIUM 1,000 UN/ML (10ML VL) IV ONE; -HEPARIN SODIUM,PORCINE 5,000 UNIT in SODIUM CHLORIDE 0.9% 500 ML 500 ML IV ONE; +HEPARIN SODIUM,PORCINE/PF 5,000 UNIT/0.5 ML SYRINGE SQ PRN; -INSULIN REGULAR 100 UNIT in SODIUM CHLORIDE 0.9% 100 ML IV ONE; -LACTATED RINGERS 1,000 ML IV ONE; -LACTATED RINGERS 1,000 ML IV SCH; -MAGNESIUM SULFATE MG 500 MG/ML IV ONE; -MANNITOL 25% 12.5 GM/50 ML VIAL IV ONE; -METOPROLOL TARTRATE 12.5 MG TAB PO ONE; -MIDAZOLAM (PF) 2 MG/2 ML VIAL IV PRN; -MUPIROCIN 2% OINT 22 GM TUBE NASAL ONE; -NITROGLYCERIN-D5W PMX 25 MG/250 ML BTL IV ONE; -NITROGLYCERIN-D5W PMX 50 MG in DEXTROSE/WATER 1 250ML.BAG IV ONE; -NOREPINEPHRINE 4 MG in SODIUM CHLORIDE 0.9% 250 ML IV ONE; -PAPAVERINE 360 MG in SODIUM CHLORIDE 0.9% 90 ML IV ONE; -PHENYLEPHRINE 40 MG in SODIUM CHLORIDE 0.9% 250 ML IV ONE; -PHENYLEPHRINE-0.9% NACL SYG 1 MG/10 ML SYRINGE IV ONE; -PROPOFOL 1,000 MG/100 ML VIAL IV ONE; -PROTAMINE SULFATE 10 MG/ML 25 ML VIAL IV ONE; -PROTAMINE SULFATE 250 MG in EMPTY BAG 1 BAG IV ONE; -SODIUM BICARB 8.4% 50 ML SYR (1 MEQ/ML) IV ONE; -SODIUM CHLORIDE 0.9% 1,000 ML IV ONE; -TRANEXAMIC ACID 2,000 MG in SODIUM CHLORIDE 0.9% 180 ML IV ONE; -ceFAZolin 1,000 MG in SODIUM CHLORIDE 0.9% IRRIGATIO 1,000 ML IRRIGATION ONE; -ceFAZolin 2,000 MG in SODIUM CHLORIDE 0.9% 30 ML IVPB ONE
[2022-04-21] MEDS ORDERED: ONDANSETRON 4 MG/2 ML VIAL IVP ONE (05:46)
[2022-04-21] MEDS ORDERED: HYDROmorphone 0.5 MG/0.5 ML SYRINGE IVP PRN (05:46)
[2022-04-21] MEDS ORDERED: DEXAMETHASONE SOD PHOSPHATE 4 MG/ML 1 ML VIAL IV ONE (05:46)
[2022-04-21] MEDS: LACTATED RINGERS 1,000 ML IV SCH ×2 (06:26→07:36)
[2022-04-21 07:06] LABS: Potassium 4.2 mmol/L (3.5-5.1)
[2022-04-21] MEDS ORDERED: fentaNYL (PF) 50 MCG/1 ML VIAL IVP ONE (07:10)
[2022-04-21] MEDS ORDERED: MIDAZOLAM 2 MG/2 ML VIAL IVP ONE (07:10)
[2022-04-21] MEDS ORDERED: PROPOFOL 10 MG/ML 20 ML VIAL IV ONE (07:35)
[2022-04-21] MEDS ORDERED: ePHEDrine 50 MG/ML 1 ML VIAL ONE (07:35)
[2022-04-21] MEDS ORDERED: LIDOCAINE 2% INJ 20 MG/ML (2 ML VIAL) ONE (07:35)
[2022-04-21] MEDS ORDERED: ROCURONIUM 10 MG/ML (5 ML VIAL) IV ONE (07:35)
[2022-04-21] MEDS ORDERED: SODIUM CHLORIDE 0.9% (PF) 10 ML VIAL ONE (07:35)
[2022-04-21] MEDS ORDERED: KETAMINE 10 MG/ML 20 ML VIAL ONE (07:35)
[2022-04-21] MEDS ORDERED: fentaNYL (PF) 50 MCG/ML 2 ML AMP ONE (07:35)
[2022-04-21] MEDS ORDERED: ROPIVACAINE 5 MG/ML 30 ML VIAL ONE (07:35)
[2022-04-21] MEDS ORDERED: NEOSTIGMINE 1 MG/ML 10 ML VIAL ONE (07:35)
[2022-04-21] MEDS ORDERED: SUCCINYLCHOLINE CHLORIDE 200 MG/10 ML VIAL IV ONE (07:35)
[2022-04-21] MEDS ORDERED: GLYCOPYRROLATE 0.2 MG/ML 2 ML VIAL ONE (07:35)
--- NOTE | 2022-04-21 07:47 | P.GSHP ---
History of Present Illness H&P Date: 04/21/22 Chief Complaint: Right inguinal hernia This a 77-year-old male who presents today for laparoscopic robotic cyst repair of right inguinal hernia. Patient developed tender masses right groin. 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 with past falls, TIA in 2016 no residual, DVT left upper extremity, thoracic aortic aneurysm, chronic low back pain, arthritis R foot, History of Any Multi-Drug Resistant Organisms: None Reported Past Surgical History: Cholecystectomy, Coronary Bypass/CABG, Heart Catheterization, Orthopedic Surgery Additional Past Surgical History / Comment(s): 06/20/18 CABG 2 vessels, colonoscopy, 3 right foot surgeries due to polio 194 Past Anesthesia/Blood Transfusion Reactions: No Reported Reaction Additional Past Anesthesia/Blood Transfusion Reaction / Comment(s): no blood tranfusions Smoking Status: Never smoker - Past Family History Mother Sister(s) Family Medical History: CVA/TIA, Hypertension Additional Family Medical History / Comment(s): His mother from a [facility] at age 81 Father Family Medical History: CVA/TIA Additional Family Medical History / Comment(s): His father from a stroke at age 80. Brother(s) Family Medical History: [place] Infarction ([place]) Additional Family Medical History / Comment(s): 2 of his brothers have had m yocardial infarctions one at age 50, and one at age 48. brother of a stroke Sister(s) Family Medical History: Myocardial Infarction ([place]) Additional Family Medical History / Comment(s): He is 13 total siblings. One of his sisters had a myocardial infarction in her late 50s and another sister had a myocardial infarction in her 40s. Medications and Allergies Home Medications Medication Instructions Recorded Confirmed Type Pantoprazole Sodium [Protonix] 40 mg PO DAILY 12/15/17 04/21/22 History Simvastatin 40 mg PO DAILY 03/30/18 04/21/22 History Aspirin EC [Ecotrin] 325 mg PO DAILY 10/15/21 04/21/22 History FLUoxetine HCL [PROzac] 20 mg PO DAILY 10/15/21 04/21/22 History Ferrous Sulfate [Feosol] 325 mg PO DAILY 10/15/21 04/21/22 History Losartan Potassium 50 mg PO DAILY 10/15/21 04/21/22 History Metoprolol Succinate (ER) [Toprol 100 mg PO DAILY 10/15/21 04/21/22 History Xl] Montelukast [Singulair] 10 mg PO HS 10/15/21 04/21/22 History Furosemide [Lasix] 20 mg PO DAILY 04/16/22 04/21/22 History Allergies Allergy/AdvReac Type Severity Reaction Status Date / Time atorvastatin [From Lipitor] AdvReac muscle Verified 04/21/22 06:10 cramps Surgical - Exam Vital Signs Temp Pulse Resp BP Pulse Ox 97.7 F 66 18 169/76 97 04/21/22 06:14 04/21/22 06:14 04/21/22 06:14 04/21/22 06:14 04/21/22 06:14 - General well developed, well nourished, no distress - Eyes PERRL - ENT normal pinna - Neck no masses - Respiratory normal expansion - Cardiovascular Rhythm: regular - Abdomen Abdomen: soft, non tender Hernia: inguinal (Right inguinal hernia) Results - Labs 04/21/22 06:23 Diabetes panel 04/21/22 Range/Units 06:23 Sodium 140 (137-145) mmol/L Potassium 4.2 (3.5-5.1) mmol/L Chloride 105 (98-107) mmol/L Carbon Dioxide 28 (22-30) mmol/L Pituitary panel 04/21/22 Range/Units 06:23 Sodium 140 (137-145) mmol/L Potassium 4.2 (3.5-5.1) mmol/L Chloride 105 (98-107) mmol/L Carbon Dioxide 28 (22-30) mmol/L Adrenal panel 04/21/22 Range/Units 06:23 Sodium 140 (137-145) mmol/L Potassium 4.2 (3.5-5.1) mmol/L Chloride 105 (98-107) mmol/L Carbon Dioxide 28 (22-30) mmol/L Assessment and Plan Assessment: Right inguinal hernia. We'll perform laparoscopic robotic-assisted repair.
[2022-04-21] MEDS ORDERED: BUPIVACAIN-EPI 0.25%-1:200,000 30 ML VIAL SQ ONE ×2 (07:59→08:02)
[2022-04-21 08:48] VITALS: TEMP 96.9
--- NOTE | 2022-04-21 09:20 | P.ANPRN ---
Procedure Note - Anesthesia - Nerve Block Performed Bilateral Erector Spinae Single Time Out Performed: Yes ([id number]) Date of Procedure: 04/21/22 Procedure Start Time: 07:10 Procedure Stop Time: 07:17 Location of Patient: PreOp Indication: Acute Post-Operative Pain, Requested by Surgeon Specifically requested for management of pain by : Mike Watt Sedation Type: Sedate with meaningful contact maintained Preparation: Sterile Prep, Sterile Dressing Position: Sitting Catheter: None Needle Types: Pajunk Needle Gauge: 21 Ultrasound used to visualize needle placement: Yes Ultrasound used to observe medication spread: Yes Injectate: 0.5% Ropivacaine (see comment for volume) (15cc + 10cc nacl pf each side) Blood Aspirated: No Pain Paresthesia on Injection Noted: No Resistance on Injection: Normal Image Stored and Saved: Yes Events: Uneventful and Well Tolerated
--- NOTE | 2022-04-21 10:08 | P.OP ---
Date of Procedure: 04/21/22 Preoperative Diagnosis: Right inguinal hernia Postoperative Diagnosis: Right inguinal hernia Procedure(s) Performed: Laparoscopic robotic repair of radial hernia Transversus abdominis plane block Anesthesia: YONATHAN Surgeon: Mike Watt Estimated Blood Loss (ml): 5 Pathology: none sent Condition: stable Disposition: PACU Description of Procedure: The patient's placed on the operating table in the supine position. The patient received general anesthesia. The patient's abdomen was prepped and draped in usual sterile fashion. The skin was anesthetized 1% local Xylocaine at the incision sites. Using an 11 blade a skin incision was made at the umbilicus. The fascia was grasped with a Jeanine and then the peritoneal cavity was entered with the Veress needle. Position of the Veress needle was confirmed with a positive drop test. After adequate insufflation a 5 mm trocar was placed into the peritoneal cavity. The Laparoscope was placed the peritoneal cavity. And a robotic 8 mm trocar was placed in the right lateral position and then another 8 mm robotic trochars placed in the left lateral position. The original 5 mm trocar was exchanged for a 12 mm trocar. Next, a four-quadrant transversus abdominis plane block was performed using 1% local Xylocaine. The patient was placed in reverse Trendelenburg and then the patient was docked to the robot. Next the peritoneum over top of the hernia was incised and then using blunt and sharp dissection and electrocautery the hernia sac was dissected free from the floor of the inguinal canal. The hernia sac was completely reduced into the peritoneal cavity. And then using the Pro infant lead teacher mesh the hernia was repaired. The peritoneum was then sutured with 20V lock suture. The patient was then undocked the robot. The needle was withdrawn from the peritoneal cavity. The umbilical trocar site was closed with 0 Ethibond suture. The skin was closed interrupted 3-0 Monocryl suture. Dermabond dressing was applied. Patient was sent to recovery in stable condition.
[2022-04-21 10:37] VITALS: RESP 16
[2022-04-21 10:45] VITALS: BP 157/77; PULSE 57
== END 2022-04-21 11:07 | disposition home or self-care (01) ==
LOC: OR 05:35
PROVIDERS: ATTEND Surgery
DX: K40.90 Unilateral inguinal hernia, without obstruction or gangrene, not specified as recurrent (principal); J44.9 Chronic obstructive pulmonary disease, unspecified; I25.10 Atherosclerotic heart disease of native coronary artery without angina pectoris; I10 Essential (primary) hypertension; E78.5 Hyperlipidemia, unspecified; Z86.718 Personal history of other venous thrombosis and embolism; Z86.73 Personal history of transient ischemic attack (TIA), and cerebral infarction without residual deficits; Z90.49 Acquired absence of other specified parts of digestive tract; Z95.1 Presence of aortocoronary bypass graft; Z82.49 Family history of ischemic heart disease and other diseases of the circulatory system
CPT/HCPCS: 49650; 64461; 80051; C1781; J2250; J0330; J1100; J2710; J0690; J2405; J3010 ×2; J2795; J2704; J1170; J1644; J2001; 86850; 86900; 86901

== ENCOUNTER 2022-04-30 02:42 | Emergency (ER) | payer MEDICARE, OTHER ==
[2022-04-30 02:49] VITALS: BP 180/81; PULSE 60; RESP 16; TEMP 97.9
[2022-04-30] MEDS ORDERED: hydrOXYzine HCL 25 MG TAB PO STA (03:18)
--- NOTE | 2022-04-30 03:22 | ED ---
General Adult HPI - General Chief complaint: Skin/Abscess/Foreign Body Stated complaint: Rash Time Seen by Provider: 04/30/22 03:11 Source: patient Mode of arrival: ambulatory Limitations: no limitations - History of Present Illness Initial comments: Dictation was produced using [employer] dictation software. please excuse any grammatical, word or spelling errors. Chief Complaint: 77-year-old male presents to the emergency department for rash around surgical site History of Present Illness: Is 77-year-old male he is postop day 6 for umbilical hernia repair performed by one of our local surgeons. Patient after the surgery noticed that there was redness and itching to the laparoscopic sites. He had a follow-up appointment with a surgeon who instructed him to use hydrocortisone cream to help with the symptoms. Patient denies any fever, chills or night sweats. No drainage. Patient states that the itching is very bothersome which is making it hard for him to go to sleep. The ROS documented in this emergency department record has been reviewed and confirmed by me. Those systems with pertinent positive or negative responses have been documented in the HPI. All other systems are other negative and/or noncontributory. PHYSICAL EXAM: General Impression: Alert and oriented x3, not in acute distress HEENT: Normocephalic atraumatic, extra-ocular movements intact, pupils equal and reactive to light bilaterally, mucous membranes moist. Cardiovascular: Heart regular rate and rhythm Chest: Able to complete full sentences, no retractions, no tachypnea Abdomen: abdomen soft, non-tender, non-distended, no organomegaly Musculoskeletal: Pulses present and equal in all extremities, no peripheral edema Motor: no focal deficits noted Neurological: CN II-XII grossly intact, no focal motor or sensory deficits noted Skin: Surgical sites clean and dry. There is some erythema with dermatitic changes to the outside, nonindurated, nonblanching not warm to touch Psych: Normal affect and mood ED course: 7-year-old male presents emergency department for itching around his surgical sites. Clinical presentation consistent with contact dermatitis likely secondary to adhesive. Vital signs upon arrival are within acceptable limits. No concern for infection at this time. Patient given dose of Atarax. Patient also given a small prescription for antipruritic medications. Nursing notes and chart review was performed - Related Data Home Medications Medication Instructions Recorded Confirmed Pantoprazole Sodium [Protonix] 40 mg PO DAILY 12/15/17 04/21/22 Simvastatin 40 mg PO DAILY 03/30/18 04/21/22 Aspirin EC [Ecotrin] 325 mg PO DAILY 10/15/21 04/21/22 FLUoxetine HCL [PROzac] 20 mg PO DAILY 10/15/21 04/21/22 Ferrous Sulfate [Feosol] 325 mg PO DAILY 10/15/21 04/21/22 Losartan Potassium 50 mg PO DAILY 10/15/21 04/21/22 Metoprolol Succinate (ER) [Toprol 100 mg PO DAILY 10/15/21 04/21/22 Xl] Montelukast [Singulair] 10 mg PO HS 10/15/21 04/21/22 Furosemide [Lasix] 20 mg PO DAILY 04/16/22 04/21/22 Previous Rx's Medication Instructions Recorded Acetaminophen Tab [Tylenol] 650 mg PO Q6H #30 tab 04/21/22 Docusate [Colace] 100 mg PO BID #20 capsule 04/21/22 Ibuprofen [Motrin] 600 mg PO Q6HR PRN #40 tab 04/21/22 oxyCODONE HCL [OxyIR] 5 mg PO Q6H PRN 3 Days #10 tab 04/21/22 hydrOXYzine HCL [Atarax] 25 mg PO TID PRN #12 tab 04/30/22 Allergies Allergy/AdvReac Type Severity Reaction Status Date / Time atorvastatin [From Lipitor] AdvReac muscle Verified 04/30/22 02:45 cramps Review of Systems ROS Statement: Those systems with pertinent positive or pertinent negative responses have been documented in the HPI. ROS Other: All systems not noted in ROS Statement are negative. 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, DVT left upper extremity, thoracic aortic aneurysm, chronic low back pain, arthritis R foot, History of Any Multi-Drug Resistant Organisms: None Reported Past Surgical History: Cholecystectomy, Coronary Bypass/CABG, Heart Catheterization, Hernia Repair, Orthopedic Surgery Additional Past Surgical History / Comment(s): 06/20/18 CABG 2 vessels, colonoscopy, 3 right foot surgeries due to polio 1948 Past Anesthesia/Blood Transfusion Reactions: No Reported Reaction Additional Past Anesthesia/Blood Transfusion Reaction / Comment(s): no blood tranfusions Past Psychological History: Depression Smoking Status: Never smoker Past Alcohol Use History: None Reported Past Drug Use History: None Reported - Past Family History Mother Sister(s) Family Medical History: CVA/TIA, Hypertension Additional Family Medical History / Comment(s): His mother from a stroke at age 81 Father Family Medical History: CVA/TIA Additional Family Medical History / Comment(s): His father from a stroke at age 80. Brother(s) Family Medical History: Myocardial Infarction ([place]) Additional Family Medical History / Comment(s): 2 of his brothers have had myocardial infarctions one at age 50, and one at age 48. brother of a stroke Sister(s) Family Medical History: Myocardial Infarction ([place]) Additional Family Medical History / Comment(s): He is 13 total siblings. One of his sisters had a myocardial infarction in her late 50s and another sister had a myocardial infarction in her 40s. General Exam Limitations: no limitations Course Vital Signs 04/30/22 02:47 Temperature 97.9 F Pulse Rate 60 Respiratory 16 Rate Blood Pressure 180/81 O2 Sat by Pulse 98 Oximetry Disposition Clinical Impression: Contact dermatitis Disposition: HOME SELF-CARE Condition: Good Instructions (If sedation given, give patient instructions): Contact Dermatitis (ED) Prescriptions: hydrOXYzine HCL [Atarax] 25 mg PO TID PRN #12 tab PRN Reason: Itching Is patient prescribed a controlled substance at d/c from ED?: No Referrals: Mike Watt MD [STAFF PHYSICIAN] - 1-2 days Time of Disposition: 03:22
== END 2022-04-30 03:35 | disposition home or self-care (01) ==
LOC: EC 02:42
DX: L23.9 Allergic contact dermatitis, unspecified cause (principal); I25.10 Atherosclerotic heart disease of native coronary artery without angina pectoris; J44.9 Chronic obstructive pulmonary disease, unspecified; Z86.73 Personal history of transient ischemic attack (TIA), and cerebral infarction without residual deficits; Z86.718 Personal history of other venous thrombosis and embolism; E78.5 Hyperlipidemia, unspecified; I10 Essential (primary) hypertension; M19.90 Unspecified osteoarthritis, unspecified site; F32.A Depression, unspecified; Z79.82 Long term (current) use of aspirin; Z88.8 Allergy status to other drugs, medicaments and biological substances; Z79.899 Other long term (current) drug therapy
CPT/HCPCS: 99282

== ENCOUNTER → 2022-09-29 | Outpatient (CLI) | payer MEDICARE, OTHER ==
[2022-09-29 16:22] LABS: ALT 15 U/L (10-49); AST 17 U/L (14-35); Chol/HDL Ratio 4.66 Ratio; LDL Cholesterol,Calculated 116.9 mg/dL (0.0-131.0)
== END | disposition home or self-care (01) ==
LOC: LABWHC1 08:39
PROVIDERS: ATTEND Internal Medicine Cardiovascular Disease
DX: E78.2 Mixed hyperlipidemia (principal)
CPT/HCPCS: 36415; 80061; 84450; 84460

== ENCOUNTER → 2023-05-28 | Outpatient (CLI) | payer MEDICARE ==
[2023-05-28 20:28] LABS: HCT 41.7 % (39.6-50.0); HGB 13.7 g/dL (13.0-17.0); MCH 29.7 pg (27.0-32.0); MCHC 32.9 g/dL (32.0-37.0); MCV 90.3 FL (80.0-97.0); Mean Platelet Volume 10.9 FL (9.5-12.2); NRBC Per 100 WBC 0 X 10*3/uL (0.00-0.01); Platelet Count 223 X 10*3/uL (140-440); RBC 4.62 X 10*6/uL (4.40-5.60); RDW 12.4 % (11.5-14.5); WBC 7.99 X 10*3/uL (4.50-10.00)
[2023-05-28 21:12] LABS: ALT 13 U/L (10-49); AST 21 U/L (14-35); Albumin 4.1 g/dL (3.8-4.9); Albumin/Globulin Ratio 1.95 Ratio (1.60-3.17); Alkaline Phosphatase 116 U/L (41-126); BUN/Creat Ratio 12.86 Ratio (12.00-20.00); Calcium 10.1 mg/dL (8.7-10.3); Carbon Dioxide 23.5 mmol/L (21.6-31.8); Chloride 104 mmol/L (96-109); Chol/HDL Ratio 5.62 Ratio; Globulin 2.1 g/dL (1.6-3.3); Glucose 104 mg/dL (70-110); LDL Cholesterol,Calculated 115.5 mg/dL (0.0-131.0); Potassium 4.4 mmol/L (3.5-5.5); Prostate Specific Antigen 4.31 ng/mL (0.000-6.500); Sodium 140 mmol/L (135-145); Total Bilirubin 0.8 mg/dL (0.3-1.2); Total Protein 6.2 g/dL (6.2-8.2)
== END | disposition home or self-care (01) ==
LOC: LABWHC1 12:21
PROVIDERS: ATTEND Family Medicine
DX: I50.30 Unspecified diastolic (congestive) heart failure (principal); D63.1 Anemia in chronic kidney disease; N18.2 Chronic kidney disease, stage 2 (mild); K86.1 Other chronic pancreatitis
CPT/HCPCS: 36415; 80053; 80061; 83036; 84153; 84443; 85027

== ENCOUNTER → 2023-09-24 | Outpatient (CLI) | payer MEDICARE ==
[2023-09-24 14:32] LABS: Basophils # (A) 0.11 X 10*3/uL (0.00-0.10); Basophils % (A) 0.8 %; Eosinophils # (A) 0.01 X 10*3/uL (0.04-0.35); Eosinophils % (A) 0.1 %; HCT 41.5 % (39.6-50.0); HGB 13.6 g/dL (13.0-17.0); Lymphocytes % (A) 12.3 %; MCH 30.1 pg (27.0-32.0); MCHC 32.8 g/dL (32.0-37.0); MCV 91.8 FL (80.0-97.0); Mean Platelet Volume 10.8 FL (9.5-12.2); Monocytes # (A) 0.92 X 10*3/uL (0.20-1.00); Monocytes % (A) 6.7 %; NRBC Per 100 WBC 0 X 10*3/uL (0.00-0.01); Neutrophils # (A) 10.46 X 10*3/uL (1.80-7.70); Neutrophils % (A) 75.6 %; Platelet Count 236 X 10*3/uL (140-440); RBC 4.52 X 10*6/uL (4.40-5.60); RDW 12.4 % (11.5-14.5); WBC 13.82 X 10*3/uL (4.50-10.00)
[2023-09-24 17:10] LABS: ALT 17 U/L (10-49); AST 17 U/L (14-35); Albumin 4.3 g/dL (3.8-4.9); Albumin/Globulin Ratio 2.26 Ratio (1.60-3.17); Alkaline Phosphatase 109 U/L (41-126); Blood Urea Nitrogen 22.5 mg/dL (9.0-27.0); Carbon Dioxide 29.1 mmol/L (21.6-31.8); Chloride 106 mmol/L (96-109); Chol/HDL Ratio 4.03 Ratio; Globulin 1.9 g/dL (1.6-3.3); Glucose 95 mg/dL (70-110); LDL Cholesterol,Calculated 100.4 mg/dL (0.0-131.0); Potassium 4.7 mmol/L (3.5-5.5); Prostate Specific Antigen 3.33 ng/mL (0.000-6.500); Sodium 143 mmol/L (135-145); Total Bilirubin 0.6 mg/dL (0.3-1.2); Total Protein 6.2 g/dL (6.2-8.2)
== END | disposition home or self-care (01) ==
LOC: LABWHC1 08:01
PROVIDERS: ATTEND Family Medicine
DX: I10 Essential (primary) hypertension (principal); E11.9 Type 2 diabetes mellitus without complications; R97.20 Elevated prostate specific antigen [PSA]
CPT/HCPCS: 36415; 80053; 80061; 83036; 84153; 84443; 85025

== ENCOUNTER 2023-10-11 08:18 | Inpatient (IN) | payer MEDICARE ==
--- NOTE | 2023-10-11 08:45 | ED ---
SOB HPI - General Chief Complaint: Shortness of Breath Stated Complaint: Coughing/Weakness Time Seen by Provider: 10/11/23 08:25 Source: patient, family, RN notes reviewed Mode of arrival: ambulatory Limitations: no limitations - History of Present Illness Initial Comments: This is a 78-year-old male who presents to the emergency department for coughing, congestion, and shortness of breath. Symptoms started 2 weeks ago. He followed up with his PCP and has been on 2 rounds of steroids as well as a round of antibiotics. Symptoms improved initially, but then got worse again. States that he is barely able to sleep due to all of the coughing and difficulty breathing. He wears 2 L of oxygen at night, but has not had to increase his oxygen use. He does use breathing treatments at home 2-3 times daily. He has minor temporary improvement with them. Denies any fever/chills. Also denies any chest pain. MD Complaint: shortness of breath, cough - Related Data Home Medications Medication Instructions Recorded Confirmed RX: Pantoprazole Sodium [Protonix] 40 mg PO DAILY 12/15/17 10/11/23 Aspirin EC [Ecotrin] 325 mg PO DAILY 10/15/21 10/11/23 Ferrous Sulfate [Feosol] 325 mg PO DAILY 10/15/21 10/11/23 Metoprolol Succinate (ER) [Toprol 100 mg PO DAILY 10/15/21 10/11/23 Xl] Montelukast [Singulair] 10 mg PO HS 10/15/21 10/11/23 RX: FLUoxetine HCL [PROzac] 20 mg PO DAILY 10/15/21 10/11/23 RX: Losartan Potassium 50 mg PO DAILY 10/15/21 10/11/23 Furosemide [Lasix] 20 mg PO DAILY 04/16/22 10/11/23 Loratadine [Claritin] 10 mg PO DAILY 10/11/23 10/11/23 Simvastatin [Zocor] 80 mg PO DAILY 10/11/23 10/11/23 Allergies Allergy/AdvReac Type Severity Reaction Status Date / Time adhesive tape Allergy Rash/Hives Verified 06/18/22 09:59 atorvastatin [From Lipitor] AdvReac muscle Verified 06/18/22 09:59 cramps Review of Systems ROS Statement: Those systems with pertinent positive or pertinent negative responses have been documented in the HPI. ROS Other: All systems not noted in ROS Statement are negative. 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 with past falls, TIA in 2016 no residual, DVT left upper extremity, thoracic aortic aneurysm, chronic low back pain, arthritis R foot, History of Any Multi-Drug Resistant Organisms: None Reported Past Surgical History: Cholecystectomy, Coronary Bypass/CABG, Heart Catheterization, Hernia Repair, Orthopedic Surgery Additional Past Surgical History / Comment(s): 06/20/18 CABG 2 vessels, colon oscopy, 3 right foot surgeries due to polio 194 Past Anesthesia/Blood Transfusion Reactions: No Reported Reaction Additional Past Anesthesia/Blood Transfusion Reaction / Comment(s): States broke out in a rash from the adhesive tape from his last surgery. Past Psychological History: Depression Smoking Status: Never smoker - Past Family History Mother Sister(s) Family Medical History: CVA/TIA, Hypertension Additional Family Medical History / Comment(s): His mother from a stroke at age 81 Father Family Medical History: CVA/TIA Additional Family Medical History / Comment(s): His father from a stroke at age 80. Brother(s) Family Medical History: Myocardial Infarction ([place]) Additional Family Medical History / Comment(s): 2 of his brothers have had myocardial infarctions one at age 50, and one at age 48. brother of a stroke Sister(s) Family Medical History: Myocardial Infarction ([place]) Additional Family Medical History / Comment(s): He is 13 total siblings. One of his sisters had a myocardial infarction in her late 50s and another sister had a myocardial infarction in her 40s. General Exam Limitations: no limitations General appearance: alert, in no apparent distress Head exam: Present: atraumatic, normocephalic, normal inspection Respiratory exam: Present: wheezes, decreased breath sounds, prolonged expiratory Cardiovascular Exam: Present: regular rate, normal rhythm, normal heart sounds. Absent: systolic murmur, diastolic murmur, rubs, gallop, clicks Neurological exam: Present: alert, oriented X3, CN II-XII intact Psychiatric exam: Present: normal affect, normal mood Skin exam: Present: warm, dry, intact, normal color. Absent: rash Course Vital Signs 10/11/23 10/11/23 10/11/23 08:20 08:26 09:15 Temperature 98 F Pulse Rate 80 Respiratory 20 18 Rate Blood Pressure 151/82 O2 Sat by Pulse 94 L 89 L Oximetry 10/11/23 10/11/23 10/11/23 09:22 10:00 10:37 Temperature Pulse Rate 66 70 Respiratory 20 20 Rate Blood Pressure 113/65 O2 Sat by Pulse 95 94 L 91 L Oximetry 10/11/23 10/11/23 11:03 11:14 Temperature Pulse Rate 68 72 Respiratory Rate Blood Pressure O2 Sat by Pulse Oximetry Medical Decision Making - Medical Decision Making This is a 78 year old male who presents to the emergency department for shortness of breath and coughing. Was pt. sent in by a medical professional or institution? @ -No Did you speak to anyone other than the patient for history? @ -No Did you review nursing and triage notes? @ -Yes, and I agree, it is accurate with regards to the patient's symptoms. Were old charts reviewed? @ -No Differential Diagnosis? @ -Differential Dyspnea: Coronary syndrome, arrhythmia, tamponade, asthma, COPD, pulmonary embolism, pneumonia, pneumothorax, pulmonary effusion, anaphylaxis, diabetic ketoacidosis, flailed chest, pulmonary contusion, diaphragmatic rupture, anemia, neuromuscular, this is not meant to be an all-inclusive list. EKG interpreted by me (3pts min.)? @ -EKG interpreted by me demonstrating the following: Sinus rhythm. Ventricular rate 72 bpm, TX interval 165 ms, QRS duration 85 ms, QTc 355 ms. X-rays interpreted by me (1pt min.)? @ -Chest x-ray obtained, my interpretation identifies no localized consolidations or infiltrates. CT interpreted by me (1pt min.)? @ -Not obtained U/S interpreted by me (1pt. min.)? @ -Not obtained What testing was considered but not performed? (CT, X-rays, U/S, labs)? Why? @ -None What meds were considered but not given? Why? @ -None Did you discuss the management of the patient with other professionals? @ -Yes, Dr. Gregorio, who accepts the patient for admission. Did you reconcile home meds? @ -No Was smoking cessation discussed for >3mins.? @ -No Was critical care preformed (if so, how long)? @ -No Were there social determinants of health that impacted care today? How? (Homelessness, low income, unemployed, alcoholism, drug addiction, transportation, low edu. Level, literacy, decrease access to med. care, prison, rehab)? @ -No Was there de-escalation of care discussed even if they declined? (Discuss DNR or withdrawal of care, Hospice)? @ -No What co-morbidities impacted this encounter? (DM, HTN, Smoking, COPD, CAD, Cancer, CVA, Hep., AIDS, mental health diagnosis, sleep apnea, morbid obesity)? @ -CAD, COPD, HLD, HTN Was patient admitted / discharged? @ -Admitted. Lab work demonstrates signs of dehydration and was otherwise fairly unremarkable. COVID, influenza, and RSV testing negative. Chest x-ray reveals no acute process. While in the examination room, patient's oxygen was dropping to the mid to high 80s on room air and he was subsequently put on a nasal cannula at 2 L. Patient has already been on 2 rounds of steroids on an outpatient basis as well as antibiotics without sustained improvement in symptoms. Given that he is worsening clinically and has already tried outpatient management, he was admitted to medicine for COPD exacerbation. Consult placed for pulmonology. Undiagnosed new problem with uncertain prognosis? @ -None Drug Therapy requiring intensive monitoring for toxicity (Heparin, Nitro, Insulin, Cardizem)? @ -None Were any procedures done? @ -None Diagnosis/symptom? @ -COPD exacerbation Acute, or Chronic, or Acute on Chronic? @ -Acute on chronic Uncomplicated (without systemic symptoms) or Complicated (systemic symptoms)? @ -Uncomplicated Side effects of treatment? @ -None Exacerbation, Progression, or Severe Exacerbation] @ -Exacerbation Poses a threat to life or bodily function? @ -Yes, can lead to respiratory failure This case was discussed in detail with the attending ED physician, Dr. Schroeder. Presentation, findings, and treatment plan discussed in detail as well. - Lab Data Result diagrams: 10/11/23 09:05 10/11/23 09:05 Lab Results 10/11/23 10/11/23 10/11/23 Range/Units 09:05 09:05 09:05 WBC 6.1 (3.8-10.6) k/uL RBC 4.69 (4.30-5.90) m/uL Hgb 14.4 (13.0-17.5) gm/dL Hct 42.5 (39.0-53.0) % MCV 90.6 (80.0-100.0) fL MCH 30.8 (25.0-35.0) pg MCHC 33.9 (31.0-37.0) g/dL RDW 13.2 (11.5-15.5) % Plt Count 143 L (150-450) k/uL MPV 9.8 Neutrophils % 70 % Lymphocytes % 12 % Monocytes % 9 % Eosinophils % 4 % Basophils % 0 % Neutrophils # 4.3 (1.3-7.7) k/uL Lymphocytes # 0.8 L (1.0-4.8) k/uL Monocytes # 0.6 (0-1.0) k/uL Eosinophils # 0.3 (0-0.7) k/uL Basophils # 0.0 (0-0.2) k/uL PT 10.7 (10.0-12.5) sec INR 1.0 (<1.2) APTT 27.1 (22.0-30.0) sec D-Dimer (<0.60) mg/L FEU Sodium 139 (137-145) mmol/L Potassium 4.4 (3.5-5.1) mmol/L Chloride 109 H (98-107) mmol/L Carbon Dioxide 24 (22-30) mmol/L Anion Gap 6 mmol/L BUN 26 H (9-20) mg/dL Creatinine 1.63 H (0.66-1.25) mg/dL Est GFR (CKD-EPI)AfAm 46 (>60 ml/min/1.73 sqM) Est GFR (CKD-EPI)NonAf 40 (>60 ml/min/1.73 sqM) Glucose 115 H (74-99) mg/dL Plasma Lactic Acid Rodolfo (0.7-2.0) mmol/L Calcium 9.3 (8.4-10.2) mg/dL Magnesium 1.9 (1.6-2.3) mg/dL Total Bilirubin 0.9 (0.2-1.3) mg/dL AST 29 (17-59) U/L ALT 23 (4-49) U/L Alkaline Phosphatase 102 (38-126) U/L Troponin I (0.000-0.034) ng/mL NT-Pro-B Natriuret Pep 451 pg/mL Total Protein 6.3 (6.3-8.2) g/dL Albumin 3.9 (3.5-5.0) g/dL Influenza Type A (PCR) (Not Detectd) Influenza Type B (PCR) (Not Detectd) RSV (PCR) (Not Detectd) SARS-CoV-2 (PCR) (Not Detectd) 10/11/23 10/11/23 10/11/23 Range/Units 09:05 09:05 09:05 WBC (3.8-10.6) k/uL RBC (4.30-5.90) m/uL Hgb (13.0-17.5) gm/dL Hct (39.0-53.0) % MCV (80.0-100.0) fL MCH (25.0-35.0) pg MCHC (31.0-37.0) g/dL RDW (11.5-15.5) % Plt Count (150-450) k/uL MPV Neutrophils % % Lymphocytes % % Monocytes % % Eosinophils % % Basophils % % Neutrophils # (1.3-7.7) k/uL Lymphocytes # (1.0-4.8) k/uL Monocytes # (0-1.0) k/uL Eosinophils # (0-0.7) k/uL Basophils # (0-0.2) k/uL PT (10.0-12.5) sec INR (<1.2) APTT (22.0-30.0) sec D-Dimer (<0.60) mg/L FEU Sodium (137-145) mmol/L Potassium (3.5-5.1) mmol/L Chloride (98-107) mmol/L Carbon Dioxide (22-30) mmol/L Anion Gap mmol/L BUN (9-20) mg/dL Creatinine (0.66-1.25) mg/dL Est GFR (CKD-EPI)AfAm (>60 ml/min/1.73 sqM) Est GFR (CKD-EPI)NonAf (>60 ml/min/1.73 sqM) Glucose (74-99) mg/dL Plasma Lactic Acid Rodolfo 1.4 (0.7-2.0) mmol/L Calcium (8.4-10.2) mg/dL Magnesium (1.6-2.3) mg/dL Total Bilirubin (0.2-1.3) mg/dL AST (17-59) U/L ALT (4-49) U/L Alkaline Phosphatase (38-126) U/L Troponin I <0.012 (0.000-0.034) ng/mL NT-Pro-B Natriuret Pep pg/mL Total Protein (6.3-8.2) g/dL Albumin (3.5-5.0) g/dL Influenza Type A (PCR) Not Detected (Not Detectd) Influenza Type B (PCR) Not Detected (Not Detectd) RSV (PCR) Not Detected (Not Detectd) SARS-CoV-2 (PCR) Not Detected (Not Detectd) 10/11/23 Range/Units 09:05 WBC (3.8-10.6) k/uL RBC (4.30-5.90) m/uL Hgb (13.0-17.5) gm/dL Hct (39.0-53.0) % MCV (80.0-100.0) fL MCH (25.0-35.0) pg MCHC (31.0-37.0) g/dL RDW (11.5-15.5) % Plt Count (150-450) k/uL MPV Neutrophils % % Lymphocytes % % Monocytes % % Eosinophils % % Basophils % % Neutrophils # (1.3-7.7) k/uL Lymphocytes # (1.0-4.8) k/uL Monocytes # (0-1.0) k/uL Eosinophils # (0-0.7) k/uL Basophils # (0-0.2) k/uL PT (10.0-12.5) sec INR (<1.2) APTT (22.0-30.0) sec D-Dimer 0.34 (<0.60) mg/L FEU Sodium (137-145) mmol/L Potassium (3.5-5.1) mmol/L Chloride (98-107) mmol/L Carbon Dioxide (22-30) mmol/L Anion Gap mmol/L BUN (9-20) mg/dL Creatinine (0.66-1.25) mg/dL Est GFR (CKD-EPI)AfAm (>60 ml/min/1.73 sqM) Est GFR (CKD-EPI)NonAf (>60 ml/min/1.73 sqM) Glucose (74-99) mg/dL Plasma Lactic Acid Rodolfo (0.7-2.0) mmol/L Calcium (8.4-10.2) mg/dL Magnesium (1.6-2.3) mg/dL Total Bilirubin (0.2-1.3) mg/dL AST (17-59) U/L ALT (4-49) U/L Alkaline Phosphatase (38-126) U/L Troponin I (0.000-0.034) ng/mL NT-Pro-B Natriuret Pep pg/mL Total Protein (6.3-8.2) g/dL Albumin (3.5-5.0) g/dL Influenza Type A (PCR) (Not Detectd) Influenza Type B (PCR) (Not Detectd) RSV (PCR) (Not Detectd) SARS-CoV-2 (PCR) (Not Detectd) - Radiology Data Radiology results: report reviewed, image reviewed Disposition Clinical Impression: COPD exacerbation Disposition: ADMITTED IP TO THIS [facility] Time of Disposition: 10:44
--- NOTE | 2023-10-11 09:03 | XR ---
EXAMINATION TYPE: XR chest 2V DATE OF EXAM: 10/11/2023 8:43 AM CLINICAL INDICATION:Male, 78 years old with history of difficulty breathing; COMPARISON: Chest radiographs from 10/17/2021 TECHNIQUE: XR chest 2V Frontal and lateral views of the chest. FINDINGS: Lungs/Pleura: There is no evidence of pleural effusion, focal consolidation, or pneumothorax. Pulmonary vascularity: Unremarkable. Heart/mediastinum: Cardiomediastinal silhouette is enlarged and stable. Musculoskeletal: Degenerative changes of the shoulder joints. Midline sternotomy wires are noted. IMPRESSION: No acute cardiopulmonary disease/process.
[2023-10-11 09:12] LABS: Basophils % (A) 0 %; Eosinophils # (A) 0.3 k/uL (0-0.7); Eosinophils % (A) 4 %; HCT 42.5 % (39.0-53.0); HGB 14.4 gm/dL (13.0-17.5); Lymphocytes # (A) 0.8 k/uL (1.0-4.8); Lymphocytes % (A) 12 %; MCH 30.8 pg (25.0-35.0); MCHC 33.9 g/dL (31.0-37.0); MCV 90.6 fL (80.0-100.0); Mean Platelet Volume 9.8; Monocytes # (A) 0.6 k/uL (0-1.0); Monocytes % (A) 9 %; Neutrophils # (A) 4.3 k/uL (1.3-7.7); Neutrophils % (A) 70 %; Platelet Count 143 k/uL (150-450); RBC 4.69 m/uL (4.30-5.90); RDW 13.2 % (11.5-15.5); WBC 6.1 k/uL (3.8-10.6)
[2023-10-11] MEDS: methylPREDNISolone SOD SUCCI 125 MG/2 ML VIAL IV STA (09:21)
[2023-10-11 09:26] LABS: Partial Thromboplastin Time 27.1 sec (22.0-30.0); Prothrombin Time 10.7 sec (10.0-12.5)
[2023-10-11 09:39] LABS: ALT 23 U/L (4-49); AST 29 U/L (17-59); African American GFR (CKD) 46 (>60 ml/min/1.73 sqM); Albumin 3.9 g/dL (3.5-5.0); Alkaline Phosphatase 102 U/L (38-126); Anion Gap 6 mmol/L; Blood Urea Nitrogen 26 mg/dL (9-20); Calcium 9.3 mg/dL (8.4-10.2); Carbon Dioxide 24 mmol/L (22-30); Chloride 109 mmol/L (98-107); Glucose 115 mg/dL (74-99); Magnesium 1.9 mg/dL (1.6-2.3); Non-African American GFR(CKD) 40 (>60 ml/min/1.73 sqM); Potassium 4.4 mmol/L (3.5-5.1); Sodium 139 mmol/L (137-145); Total Bilirubin 0.9 mg/dL (0.2-1.3); Total Protein 6.3 g/dL (6.3-8.2)
[2023-10-11 09:47] LABS: NT-Pro-B-Type Natriuretic Pept 451 pg/mL
[2023-10-11] MEDS: ONDANSETRON 4 MG/2 ML VIAL IVP STA (09:57)
[2023-10-11] MEDS ORDERED: HYDROcodone/APAP 5-325MG 1 EACH TAB PO PRN (10:44)
[2023-10-11] MEDS ORDERED: ACETAMINOPHEN TAB 325 MG TAB PO PRN (10:44)
[2023-10-11] MEDS ORDERED: NALOXONE 0.4 MG/ML 1 ML VIAL IV PRN (10:44)
[2023-10-11] MEDS ORDERED: ONDANSETRON 4 MG/2 ML VIAL IVP PRN (10:44)
[2023-10-11] MEDS: SODIUM CHLORIDE 0.9% 500 ML 500 ML IV ONE (10:56)
[2023-10-11] MEDS: IPRATROPIUM-ALBUTEROL 3 ML NEB INHALATION STA (11:00)
[2023-10-11] MEDS: ACETAMINOPHEN TAB 325 MG TAB PO SCH (11:31)
[2023-10-11] MEDS: AZITHROMYCIN 500 MG in SODIUM CHLORIDE 0.9% 250 ML IVPB SCH (11:31)
[2023-10-11] MEDS: MORPHINE SULFATE 4 MG/ML SYRINGE IV PRN (11:31)
[2023-10-11 15:09] LABS: Appearance,Urine Clear (Clear); Bilirubin,Urine Negative (Negative); Blood,Urine Negative (Negative); Color,Urine Light Yellow; Glucose,Urine (UA) Negative (Negative); Ketones,Urine Negative (Negative); Leukocyte Esterase,Urine Negative (Negative); Nitrite,Urine Negative (Negative); PH, Urine 5.5 (5.0-8.0); Protein,Urine Negative (Negative); Specific Gravity,Urine 1.014 (1.001-1.035); Urobilinogen,Urine <2.0 mg/dL (<2.0)
[2023-10-11] MEDS: IPRATROPIUM-ALBUTEROL 3 ML NEB INHALATION SCH (15:47)
[2023-10-11] MEDS: methylPREDNISolone SOD SUCCI 125 MG/2 ML VIAL IV SCH (15:55)
--- NOTE | 2023-10-11 17:12 | P.CNPUL ---
History of Present Illness Consult date: 10/11/23 Reason for consult: dyspnea, cough, COPD, hypoxemia Chief complaint: shortness breath cough and wheezing History of present illness: patient is a 78-year-old male who presented emergency department with increased cough shortness of breath and congestion and comes have been progressive for the last several has multiple rounds of antibiotics and steroids without any significant improvement, patient has chronic hypoxic respiratory failure has been on home oxygen 2 L nasal cannula patient does not smoke but however 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 Labs reviewed in BUN/creatinine 11/06. 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 with past falls, TIA in 2016 no residual, DVT left upper extremity, thoracic aortic aneurysm, chronic low back pain, arthritis R foot, History of Any Multi-Drug Resistant Organisms: None Reported Past Surgical History: Cholecystectomy, Coronary Bypass/CABG, Heart Catheterization, Hernia Repair, Orthopedic Surgery Additional Past Surgical History / Comment(s): 06/20/18 CABG 2 vessels, colonoscopy, 3 right foot surgeries due to polio 1948 Past Anesthesia/Blood Transfusion Reactions: No Reported Reaction Additional Past Anesthesia/Blood Transfusion Reaction / Comment(s): States broke out in a rash from the adhesive tape from his last surgery. Past Psychological History: Depression Smoking Status: Never smoker - Past Family History Mother Sister(s) Family Medical History: CVA/TIA, Hypertension Additional Family Medical History / Comment(s): His mother from a stroke at age 81 Father Family Medical History: CVA/TIA Additional Family Medical History / Comment(s): His father from a stroke at age 80. Brother(s) Family Medical History: Myocardial Infarction ([place]) Additional Family Medical History / Comment(s): 2 of his brothers have had myocardial infarctions one at age 50, and one at age 48. brother of a stroke Sister(s) Family Medical History: Myocardial Infarction ([place]) Additional Family Medical History / Comment(s): He is 13 total siblings. One of his sisters had a myocardial infarction in her late 50s and another sister had a myocardial infarction in her 40s. Medications and Allergies Home Medications Medication Instructions Recorded Confirmed Type Pantoprazole Sodium [Protonix] 40 mg PO DAILY 12/15/17 10/11/23 History Aspirin EC [Ecotrin] 325 mg PO DAILY 10/15/21 10/11/23 History FLUoxetine HCL [PROzac] 20 mg PO DAILY 10/15/21 10/11/23 History Ferrous Sulfate [Feosol] 325 mg PO DAILY 10/15/21 10/11/23 History Losartan Potassium 50 mg PO DAILY 10/15/21 10/11/23 History Metoprolol Succinate (ER) [Toprol 100 mg PO DAILY 10/15/21 10/11/23 History Xl] Montelukast [Singulair] 10 mg PO HS 10/15/21 10/11/23 History Furosemide [Lasix] 20 mg PO DAILY 04/16/22 10/11/23 History Loratadine [Claritin] 10 mg PO DAILY 10/11/23 10/11/23 History Simvastatin [Zocor] 80 mg PO DAILY 10/11/23 10/11/23 History Allergies Allergy/AdvReac Type Severity Reaction Status Date / Time adhesive tape Allergy Rash/Hives Verified 06/18/22 09:59 atorvastatin [From Lipitor] AdvReac muscle Verified 06/18/22 09:59 cramps Physical Exam Vitals: Vital Signs Temp Pulse Resp BP Pulse Ox 10/11/23 15:59 70 10/11/23 15:49 66 10/11/23 13:39 98.1 F 69 20 114/60 96 10/11/23 11:14 72 10/11/23 11:03 68 10/11/23 10:37 70 20 91 L 10/11/23 10:00 66 20 113/65 94 L 10/11/23 09:22 95 05/27/24 09:15 89 L 10/11/23 08:26 18 10/11/23 08:20 98 F 80 20 151/82 94 L Intake and Output 10/11/23 10/11/23 10/11/23 06:59 14:59 22:59 Other: Weight 102.058 kg - Constitutional General appearance: average body habitus, cooperative, disheveled, mild distress - EENT Eyes: EOMI, PERRLA ENT: normal oropharynx Ears: bilateral: normal - Neck Neck: normal ROM Carotids: bilateral: upstroke normal Thyroid: bilateral: normal size - Respiratory Respiratory: bilateral: rhonchi, wheezing - Cardiovascular Rhythm: regular Heart sounds: normal: S1, S2 - Gastrointestinal General gastrointestinal: normal bowel sounds, soft - Integumentary Integumentary: normal, normal turgor - Neurologic Neurologic: CNII-XII intact, focal deficits - Musculoskeletal Musculoskeletal: gait normal, generalized weakness, strength equal bilaterally - Psychiatric Psychiatric: A&O x's 3, appropriate affect, intact judgment & insight Results - Laboratory Findings CBC and BMP: 10/11/23 09:05 10/11/23 09:05 PT/INR, D-dimer PT 10.7 sec (10.0-12.5) 10/11/23 09:05 INR 1.0 (<1.2) 10/11/23 09:05 D-Dimer 0.34 mg/L FEU (<0.60) 10/11/23 09:05 Abnormal lab findings: Abnormal Labs 10/11/23 10/11/23 09:05 09:05 Plt Count 143 L Lymphocytes # 0.8 L Chloride 109 H BUN 26 H Creatinine 1.63 H Glucose 115 H - Diagnostic Findings Chest x-ray: report reviewed, image reviewed (finding as noted above) Assessment and Plan Assessment: acute COPD exacerbation Tracheobronchitis Hypertension hypertensive cardiovascular disease GERD Benign prostatic hypertrophy Dyslipidemia coronary artery disease History of DVT Plan: Continue bronchodilator IV steroids continue home antihypertensive agents continue broad-spectrum antibiotics Antidepressant from a home Follow closely patient will benefit from sleep study as outpatient Time with Patient: Greater than 30
[2023-10-11] MEDS: MONTELUKAST 10 MG TAB PO SCH (20:14)
[2023-10-11] MEDS: DOCUSATE 100 MG CAP PO SCH (20:14)
[2023-10-11] MEDS: SODIUM CHLORIDE 0.9% 1,000 ML IV SCH (22:22)
--- NOTE | 2023-10-12 01:08 | HP ---
HISTORY AND PHYSICAL 78-year-old white male, came to the emergency room with cough, congestion, shortness of breath 2 weeks ago. He has been on 2 rounds of steroids, antibiotics, slightly improved, but now not better. He does seem to have significant cough and he wears oxygen at night, does 2 to 3 breathing treatments a day at home. HOME MEDICINES: Include, 1. Protonix 40 daily. 2. Metoprolol 100 mg daily. 3. Singulair 10 mg daily. 4. Prozac 20 mg daily. 5. Losartan 50 daily. 6. Lasix 20 daily. 7. Claritin 10 mg daily. 8. Zocor 80 mg daily. REVIEW OF SYSTEMS: 14-point review of systems otherwise negative. PAST MEDICAL HISTORY: Coronary artery disease, COPD, CVA, TIA, DVTs, GERD, hypertension, history of DVT. FAMILY HISTORY: Mother, sister, CVA, hypertension. Brother, myocardial infarction. Father, CVA, TIA. PHYSICAL EXAMINATION: VITAL SIGNS: Temp 98, pulse 70-80, respiratory rate 18 to 20, blood pressure 151/82, O2 89-94. CARDIOVASCULAR: S1, S2. LUNGS: Wheezes x4. CARDIOVASCULAR: S1, S2. NEUROLOGIC: Alert and oriented x3. PSYCH: Fair mood and affect. SKIN: Warm, dry. NEUROLOGIC: Alert and oriented x3. ASSESSMENT: O2 sats of 89-93, acute hypoxemic respiratory failure secondary to COPD, asthma, probable pneumonia, acute tubular necrosis with elevated BUN and creatinine of 26 and 1.63. We will rehydrate the patient. Give IV steroids, updraft treatments. Treat for pneumonia. May have to run a CAT scan of his chest. He is admitted with COPD exacerbation. PROGNOSIS: Extremely guarded. MMODL / IJN: [id number] /
--- NOTE | 2023-10-12 05:37 | CT ---
EXAMINATION TYPE: CT chest wo con DATE OF EXAM: 10/11/2023 COMPARISON: Chest CT October 15, 2021. Chest x-ray one day earlier HISTORY: COPD exacerbation. Nondiagnostic x-ray. CT DLP: 521.7 mGycm. Automated Exposure Control for Dose Reduction was Utilized. TECHNIQUE: CT scan of the thorax is performed without IV contrast. FINDINGS: LUNGS: Slightly suboptimal due to respiratory motion artifact making evaluation particularly for subc entimeter nodules less than ideal. Faint nodular opacities in the posterior right lung base are noted near axial images 41 through 49 for reference. Left lung is clear. No pleural effusion or pneumothor ax is seen. MEDIASTINUM: Lack of IV contrast is noted to limit evaluation for mediastinal and especially hilar ad enopathy. Enlarged main pulmonary artery of 3.8 cm raising concern for underlying pulmonary artery hy pertension is redemonstrated. Post-CABG changes with overlying sternal wires and mediastinal clips is redemonstrated. No cardiomegaly or pericardial effusion is seen. No greater than 1 cm mediastinal ad enopathy. OTHER: Contracted gallbladder and/or gallbladder remnant with small internal gallstones. No surroundi ng inflammatory change. IMPRESSION: 1. There are faint nodular opacities in the periphery of the right lung base worrisome for developing infectious process, atypical infection is in differential. Clinical correlation and follow-up advise [place]
[2023-10-12 08:33] LABS: Basophils # (A) 0.01 X 10*3/uL (0.00-0.10); Basophils % (A) 0.2 %; Eosinophils # (A) 0 X 10*3/uL (0.04-0.35); Eosinophils % (A) 0 %; HCT 39.7 % (39.6-50.0); HGB 12.9 g/dL (13.0-17.0); Lymphocytes # (A) 0.56 X 10*3/uL (0.90-5.00); Lymphocytes % (A) 12.8 %; MCH 29.5 pg (27.0-32.0); MCHC 32.5 g/dL (32.0-37.0); MCV 90.6 FL (80.0-97.0); Mean Platelet Volume 11.1 FL (9.5-12.2); Monocytes # (A) 0.15 X 10*3/uL (0.20-1.00); Monocytes % (A) 3.4 %; NRBC Per 100 WBC 0 X 10*3/uL (0.00-0.01); Neutrophils # (A) 3.61 X 10*3/uL (1.80-7.70); Neutrophils % (A) 82.9 %; Platelet Count 142 X 10*3/uL (140-440); RBC 4.38 X 10*6/uL (4.40-5.60); RDW 12.9 % (11.5-14.5); WBC 4.36 X 10*3/uL (4.50-10.00)
[2023-10-12] MEDS ORDERED: PANTOPRAZOLE 40 MG TABLET PO SCH (09:00)
[2023-10-12 09:05] LABS: ALT 20 U/L (10-49); AST 24 U/L (14-35); Albumin 4.1 g/dL (3.8-4.9); Albumin/Globulin Ratio 2.28 Ratio (1.60-3.17); Alkaline Phosphatase 94 U/L (41-126); BUN/Creat Ratio 15.13 Ratio (12.00-20.00); Blood Urea Nitrogen 22.7 mg/dL (9.0-27.0); Calcium 9.1 mg/dL (8.7-10.3); Carbon Dioxide 20.1 mmol/L (21.6-31.8); Chloride 102 mmol/L (96-109); Globulin 1.8 g/dL (1.6-3.3); Glucose 189 mg/dL (70-110); Potassium 4.5 mmol/L (3.5-5.5); Sodium 134 mmol/L (135-145); Total Bilirubin 0.5 mg/dL (0.3-1.2); Total Protein 5.9 g/dL (6.2-8.2)
[2023-10-12] MEDS: NON FORMULARY DRUG (Simvastatin [Simvastatin] 40 MG Tablet) PO SCH (09:07)
[2023-10-12] MEDS: NON FORMULARY DRUG (Simvastatin [Zocor] 80 MG Tablet) PO SCH (09:07)
--- NOTE | 2023-10-12 09:19 | P.PN ---
Subjective Progress Note Date: 10/12/23 Principal diagnosis: acute COPD exacerbation Tracheobronchitis Hypertension hypertensive cardiovascular disease GERD Benign prostatic hypertrophy Dyslipidemia coronary artery disease History of DVT 10/12/2023, patient seen eval reexamined during the rounds labs reviewed me dications reviewed care plan discussed with the patient at length, ongoing shortness of breath and wheezing is present slightly improved compared to yesterday exam patient remains on bronchodilator broad-spectrum antibiotics and IV steroids,On supplemental oxygen 2 L nasal cannula oxygen saturation is mid 90s, patient underwent a computed tomography scan of the chest noted to have a faint nodular opacities at the right base is still developing right lower lobe pneumonia patient is a 78-year-old male who presented emergency department with increased cough shortness of breath and congestion and comes have been progressive for the last several has multiple rounds of antibiotics and steroids without any significant improvement, patient has chronic hypoxic respiratory failure has been on home oxygen 2 L nasal cannula patient does not smoke but however 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 Labs reviewed in BUN/creatinine 26/1.6 the rest of the chemistry fairly within normal limit, influenza A and B and RSV as well as cord all negative, chest x-ray no acute infiltrative pulmonary process and Objective - Vital Signs Vital signs: Vital Signs Temp 97.6 F 10/12/23 07:11 Pulse 68 10/12/23 08:21 Resp 17 10/12/23 07:11 BP 155/77 10/12/23 07:11 Pulse Ox 94 L 10/12/23 08:12 FiO2 Intake & Output 10/11/23 10/12/23 10/12/23 18:59 06:59 18:59 Weight 102.058 kg - Exam - Constitutional General appearance: average body habitus, cooperative, disheveled, mild distress - EENT Eyes: EOMI, PERRLA ENT: normal oropharynx Ears: bilateral: normal - Neck Neck: normal ROM Carotids: bilateral: upstroke normal Thyroid: bilateral: normal size - Respiratory Respiratory: bilateral: rhonchi, wheezing - Cardiovascular Rhythm: regular Heart sounds: normal: S1, S2 - Gastrointestinal General gastrointestinal: normal bowel sounds, soft - Integumentary Integumentary: normal, normal turgor - Neurologic Neurologic: CNII-XII intact, focal deficits - Musculoskeletal Musculoskeletal: gait normal, generalized weakness, strength equal bilaterally - Psychiatric Psychiatric: A&O x's 3, appropriate affect, intact judgment & insight - Labs CBC & Chem 7: 10/12/23 03:09 10/12/23 03:09 Labs: Abnormal Lab Results - Last 24 Hours (Table) 10/11/23 10/12/23 10/12/23 Range/Units 09:05 03:09 03:09 WBC 4.36 L (4.50-10.00) X 10*3/uL RBC 4.38 L (4.40-5.60) X 10*6/uL Hgb 12.9 L (13.0-17.0) g/dL Lymphocytes # 0.56 L (0.90-5.00) X 10*3/uL Monocytes # 0.15 L (0.20-1.00) X 10*3/uL Eosinophils # 0 L (0.04-0.35) X 10*3/uL Sodium 134 L (135-145) mmol/L Chloride 109 H (98-107) mmol/L Carbon Dioxide 20.1 L (21.6-31.8) mmol/L BUN 26 H (9-20) mg/dL Creatinine 1.63 H (0.66-1.25) mg/dL Est GFR (CKD-EPI) 48 L (>=60) Glucose 115 H 189 H (74-99) mg/dL Total Protein 5.9 L (6.2-8.2) g/dL Assessment and Plan Assessment: right lower lobe community acquired pneumonia acute COPD exacerbation Tracheobronchitis Hypertension hypertensive cardiovascular disease GERD Benign prostatic hypertrophy Dyslipidemia coronary artery disease History of DVT Plan: Continue antibiotics Continue bronchodilator IV steroids continue home antihypertensive agents Antidepressant from a home Follow closely patient will benefit from sleep study as outpatient Time with Patient: Greater than 30
[2023-10-12] MEDS: FERROUS SULFATE 325 MG TAB PO SCH (09:21)
[2023-10-12] MEDS: FLUoxetine HCL 20 MG CAP PO SCH (09:21)
[2023-10-12] MEDS: ASPIRIN 325 MG TAB PO SCH (09:21)
[2023-10-12] MEDS: METOPROLOL SUCCINATE (ER) 100 MG TAB.ER.24H PO SCH (09:21)
[2023-10-12] MEDS: LORATADINE 10 MG TAB PO SCH (09:22)
[2023-10-12] MEDS: PANTOPRAZOLE 40 MG/10 ML VIAL IV SCH (09:22)
[2023-10-12 11:19] LABS: Glucose,Whole Blood 182 mg/dL (70-110)
--- NOTE | 2023-10-12 14:18 | PN ---
PROGRESS NOTE SUBJECTIVE: Fredy Bro came in with a 2-week history of cough, congestion, shortness of breath, and cold. Failed outpatient treatment, steroids, antibiotics x2. Faint nodular opacities in the posterior right lung. Mediastinum has enlarged. Main pulmonary artery 3.8 cm. Pulmonary hypertension. Possible right lung base worrisome for Infectious Disease process. Remains on his breathing treatments. Cardiovascular, S1 and S2. Lungs, transmitted upper sounds. Hematology, negative for Homans. White count is low at 4.36 and hemoglobin is down to 12.9. Glucose is mid 100s. His creatinine is improved with a GFR currently 48. OBJECTIVE: VITAL SIGNS: He is 94% pulse oximetry on 2 L. Pulse 70s to 80s. CARDIOVASCULAR: S1 and S2. LUNGS: Scattered wheeze and rhonchi. PSYCH: Fair mood and affect. NEUROLOGIC: Alert and oriented x3. ASSESSMENT: 1. Acute on chronic hypoxemic respiratory failure. 2. Chronic obstructive pulmonary disease. 3. Tracheobronchitis. 4. Possible pneumonia in the right lung. 5. Pulmonary hypertension. 6. Gastroesophageal reflux disease. 7. Benign prostatic hypertrophy. 8. Dyslipidemia. 9. Coronary artery disease. 10.Prior history of deep vein thrombosis. 11.Leukopenia. 12.Right lower lobe community-acquired pneumonia. 13.Chronic obstructive pulmonary disease exacerbation. 14.Hypertensive cardiovascular disease. 15.Deep vein thrombosis. PLAN: Continue IV antibiotics for another couple days, bronchodilators, steroids, and antihypertensive medications. Continue current treatment. Prognosis guarded. MMODL / IJN: [id number] /
[2023-10-12 16:16] LABS: Glucose,Whole Blood 180 mg/dL (70-110)
[2023-10-12] MEDS: SIMVASTATIN 40 MG PO SCH (16:17)
[2023-10-12] MEDS: BENZONATATE 100 MG CAP PO PRN (18:31)
[2023-10-12 19:57] LABS: Glucose,Whole Blood 163 mg/dL (70-110)
[2023-10-13 06:01] LABS: Glucose,Whole Blood 143 mg/dL (70-110)
[2023-10-13 06:43] LABS: Basophils % (A) 0 %; Eosinophils % (A) 0 %; HGB 11.9 gm/dL (13.0-17.5); Lymphocytes # (A) 0.5 k/uL (1.0-4.8); Lymphocytes % (A) 4 %; MCH 29.4 pg (25.0-35.0); MCHC 32.2 g/dL (31.0-37.0); MCV 91.3 fL (80.0-100.0); Monocytes # (A) 0.4 k/uL (0-1.0); Monocytes % (A) 3 %; Neutrophils # (A) 13.2 k/uL (1.3-7.7); Neutrophils % (A) 93 %; Platelet Count 148 k/uL (150-450); RBC 4.05 m/uL (4.30-5.90); RDW 13.2 % (11.5-15.5); WBC 14.1 k/uL (3.8-10.6)
[2023-10-13 07:14] LABS: ALT 20 U/L (4-49); AST 27 U/L (17-59); African American GFR (CKD) 58 (>60 ml/min/1.73 sqM); Albumin 3.3 g/dL (3.5-5.0); Alkaline Phosphatase 76 U/L (38-126); Anion Gap 5 mmol/L; Blood Urea Nitrogen 32 mg/dL (9-20); Carbon Dioxide 23 mmol/L (22-30); Chloride 108 mmol/L (98-107); Glucose 135 mg/dL (74-99); Non-African American GFR(CKD) 50 (>60 ml/min/1.73 sqM); Potassium 4.5 mmol/L (3.5-5.1); Sodium 136 mmol/L (137-145); Total Bilirubin 0.4 mg/dL (0.2-1.3); Total Protein 5.4 g/dL (6.3-8.2)
--- NOTE | 2023-10-13 09:34 | P.PN ---
Subjective Progress Note Date: 10/13/23 Principal diagnosis: acute COPD exacerbation Tracheobronchitis Hypertension hypertensive cardiovascular disease GERD Benign prostatic hypertrophy Dyslipidemia coronary artery disease History of DVT 10/13/2023, patient seen eval examined during the rounds labs reviewed medi cations reviewed care plan discussed, is still of ongoing shortness of breath and wheezing but severity has improved, patient remains on IV antibiotics steroids and breathing treatments well,labs are reviewed blood cultures no growth so far. White cell count is up to 14.1 from 4.36, hemoglobin and hematocrit stable at 11.9/37 rest of the chemistry fairly stable with BUN/creatinine slightly up 32/1.36. Computed tomography scan of the chest performed on 10/04/2019 for finding reviewed with the patient, patient remains afebrile with stable hemodynamics off of oxygen on room air oxygen saturation 95% to 97%. 10/12/2023, patient seen eval reexamined during the rounds labs reviewed medications reviewed care plan discussed with the patient at length, ongoing shortness of breath and wheezing is present slightly improved compared to yesterday exam patient remains on bronchodilator broad-spectrum antibiotics and IV steroids,On supplemental oxygen 2 L nasal cannula oxygen saturation is mid 90s, patient underwent a computed tomography scan of the chest noted to have a faint nodular opacities at the right base is still developing right lower lobe pneumonia patient is a 78-year-old male who presented emergency department with increased cough shortness of breath and congestion and comes have been progressive for the last several has multiple rounds of antibiotics and steroids without any significant improvement, patient has chronic hypoxic respiratory failure has been on home oxygen 2 L nasal cannula patient does not smoke but however 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 Labs reviewed in BUN/creatinine 26/1.6 the rest of the chemistry fairly within normal limit, influenza A and B and RSV as well as cord all negative, chest x-ray no acute infiltrative pulmonary process and Objective - Vital Signs Vital signs: Vital Signs Temp 96.9 F L 10/13/23 07:55 Pulse 67 10/13/23 07:55 Resp 17 10/13/23 07:55 BP 132/72 10/13/23 07:55 Pulse Ox 97 10/13/23 07:55 FiO2 Intake & Output 10/12/23 10/13/23 10/13/23 18:59 06:59 18:59 Intake Total 354 Balance 354 Weight 102.058 kg Intake: Oral 354 Other: # Voids 2 - Exam - Constitutional General appearance: average body habitus, cooperative, disheveled, mild distress - EENT Eyes: EOMI, PERRLA ENT: normal oropharynx Ears: bilateral: normal - Neck Neck: normal ROM Carotids: bilateral: upstroke normal Thyroid: bilateral: normal size - Respiratory Respiratory: bilateral: rhonchi, wheezing - Cardiovascular Rhythm: regular Heart sounds: normal: S1, S2 - Gastrointestinal General gastrointestinal: normal bowel sounds, soft - Integumentary Integumentary: normal, normal turgor - Neurologic Neurologic: CNII-XII intact, focal deficits - Musculoskeletal Musculoskeletal: gait normal, generalized weakness, strength equal bilaterally - Psychiatric Psychiatric: A&O x's 3, appropriate affect, intact judgment & insight - Labs CBC & Chem 7: 10/13/23 06:11 10/13/23 06:11 Labs: Abnormal Lab Results - Last 24 Hours (Table) 10/12/23 10/12/23 10/12/23 Range/Units 11:17 16:14 19:55 WBC (3.8-10.6) k/uL RBC (4.30-5.90) m/uL Hgb (13.0-17.5) gm/dL Hct (39.0-53.0) % Plt Count (150-450) k/uL Neutrophils # (1.3-7.7) k/uL Lymphocytes # (1.0-4.8) k/uL Sodium (137-145) mmol/L Chloride (98-107) mmol/L BUN (9-20) mg/dL Creatinine (0.66-1.25) mg/dL Glucose (74-99) mg/dL POC Glucose (mg/dL) 182 H 180 H 163 H (70-110) mg/dL Total Protein (6.3-8.2) g/dL Albumin (3.5-5.0) g/dL 10/13/23 10/13/23 10/13/23 Range/Units 06:00 06:11 06:11 WBC 14.1 H (3.8-10.6) k/uL RBC 4.05 L (4.30-5.90) m/uL Hgb 11.9 L (13.0-17.5) gm/dL Hct 37.0 L (39.0-53.0) % Plt Count 148 L (150-450) k/uL Neutrophils # 13.2 H (1.3-7.7) k/uL Lymphocytes # 0.5 L (1.0-4.8) k/uL Sodium 136 L (137-145) mmol/L Chloride 108 H (98-107) mmol/L BUN 32 H (9-20) mg/dL Creatinine 1.36 H (0.66-1.25) mg/dL Glucose 135 H (74-99) mg/dL POC Glucose (mg/dL) 143 H (70-110) mg/dL Total Protein 5.4 L (6.3-8.2) g/dL Albumin 3.3 L (3.5-5.0) g/dL Microbiology - Last 24 Hours (Table) 10/11/23 11:26 Blood Culture - Preliminary Blood 10/11/23 11:00 Blood Culture - Preliminary Blood Assessment and Plan Assessment: right lower lobe community acquired pneumonia acute COPD exacerbation Tracheobronchitis Hypertension hypertensive cardiovascular disease GERD Benign prostatic hypertrophy Dyslipidemia coronary artery disease History of DVT Plan: given the rise of WBC Will obtain a chest x-ray Continue antibiotics Continue bronchodilator IV steroids continue home antihypertensive agents Antidepressant from a home Follow closely patient will benefit from sleep study as outpatient Time with Patient: Greater than 30
--- NOTE | 2023-10-13 09:58 | XR ---
EXAMINATION TYPE: XR chest 2V DATE OF EXAM: 10/13/2023 COMPARISON: 10/11/2023 TECHNIQUE: PA and lateral views submitted. HISTORY: Pneumonia FINDINGS: The lungs are clear and there is no pneumothorax, pleural effusion, or focal pneumonia. Heart is enl arged but no overt failure. Osseous structures demonstrate hypertrophic and degenerative changes of t he spine. AC joint arthropathy. Partial eventration of the right hemidiaphragm. Ectasia of the thorac ic aorta. Median sternotomy changes. IMPRESSION: 1. No acute process.
[2023-10-13 11:28] LABS: Glucose,Whole Blood 229 mg/dL (70-110)
[2023-10-13 16:44] LABS: Glucose,Whole Blood 130 mg/dL (70-110)
--- NOTE | 2023-10-13 16:51 | CA ---
Transthoracic Echo Report Name: Fredy Bro Age: 78 Gender: M : 1945 Exam Date: 10/13/2023 11:27 Exam Location: [facility] Ht (in): 68 Wt (lb): 225 Ordering Physician: Ismael Gregorio MD Attending/Referring Phys: Cd [employer]er Helper Maria E Alvarado RDCS Procedure CPT: Indications: dyspnea Cardiac Hx: Technical Quality: Technically difficult study Contrast 1: Definity Total Dose (mL): 2 Contrast 2: Total Dose (mL): MEASUREMENTS (Male / Female) Normal Values 2D ECHO LV Diastolic Diameter PLAX 5.1 cm 4.2 - 5.9 / 3.9 - 5.3 cm LV Systolic Diameter PLAX 3.7 cm IVS Diastolic Thickness 1.6 cm 0.6 - 1.0 / 0.6 - 0.9 cm LVPW Diastolic Thickness 1.5 cm 0.6 - 1.0 / 0.6 - 0.9 cm LV Relative Wall Thickness 0.6 RV Internal Dim ED PLAX 3.5 cm LA Volume 49.0 cm??? 18 - 58 / 22 - 52 cm??? LA Volume Index 21.8 cm???/m??? 16 - 28 cm???/m??? M-MODE Aortic Root Diameter MM 4.3 cm LA Systolic Diameter MM 4.7 cm LA Ao Ratio MM 1.1 AV Cusp Separation MM 2.1 cm DOPPLER AV Peak Velocity 134.3 cm/s AV Peak Gradient 7.2 mmHg AV Mean Velocity 83.5 cm/s AV Mean Gradient 3.2 mmHg AV Velocity Time Integral 25.7 cm MV Area PHT 2.8 cm??? Mitral E Point Velocity 52.1 cm/s Mitral A Point Velocity 97.5 cm/s Mitral E to A Ratio 0.5 MV Deceleration Time 273.3 ms MV E' Velocity 6.3 cm/s Mitral E to MV E' Ratio 8.3 FINDINGS Left Ventricle Moderately increased left ventricular wall thickness. Left ventricular cavity size normal. Abnormal (paradoxical) septal motion consistent with postoperative state. Left ventricular ejection fraction is estimated at 45-50 %. Grade 1 diastolic dysfunction. Apical and periapical apical hypokinesia Right Ventricle Mild right ventricular dilatation. Right ventricular systolic pressure within normal limits. Right Atrium Right atrium not well visualized. Left Atrium Left atrium not well visualized. Normal left atrial size. Mitral Valve Structurally normal mitral valve. Mild mitral annular calcification. Mild mitral regurgitation. Aortic Valve No aortic valve stenosis or regurgitation. Tricuspid Valve Structurally normal tricuspid valve. Mild tricuspid regurgitation. Pulmonic Valve Pulmonic valve not well visualized. Pericardium No pericardial effusion. Aorta Aortic dilatation. Mild aortic dilatation at the level of the sinuses of valsalva (root). Mildly dilated proximal ascending aorta (tube). CONCLUSIONS LV EF is estimated at 45-50 %. Apical and periapical apical hypokinesia. Paradoxical septal motion Moderate concentric LVH. Grade I Diastolic dysfunction Mild MR. Mild LA dilatation No pericardial effusion Previewed by: Dr Meliton Grant (Electronically Signed) Final Date: 13 Oct 2023 16:49
[2023-10-13 20:01] LABS: Glucose,Whole Blood 154 mg/dL (70-110)
[2023-10-13] MEDS: methylPREDNISolone SOD SUCCI 40 MG/ML 1 ML VIAL IV SCH (21:06)
[2023-10-14] MEDS: PIPERACILLIN-TAZOBACTAM 3.375 GM in SODIUM CHLORIDE 0.9% 100 ML IVPB SCH (02:24)
--- NOTE | 2023-10-14 03:50 | PN ---
PROGRESS NOTE SUBJECTIVE: A 78-year-old white male, still has severe congestive cough, shortness of breath. OBJECTIVE: CARDIOVASCULAR: S1, S2. LUNGS: Scattered rhonchi and wheeze. HEMATOLOGY: Negative Homans. PSYCH: Fair mood and affect. NEUROLOGIC: Alert and oriented x3. He is on IV Solu-Medrol. Severely congested cough. We will start him on some antibiotics. As for sure he has bronchitis if not pneumonia. Prognosis guarded. Continue current treatment. Please see further orders. MMODL / IJN: [id number] /
[2023-10-14 05:59] LABS: Glucose,Whole Blood 127 mg/dL (70-110)
[2023-10-14 07:03] LABS: Glucose,Whole Blood 110 mg/dL (70-110)
--- NOTE | 2023-10-14 09:45 | P.PN ---
Subjective Progress Note Date: 10/14/23 Principal diagnosis: acute COPD exacerbation Tracheobronchitis Hypertension hypertensive cardiovascular disease GERD Benign prostatic hypertrophy Dyslipidemia coronary artery disease History of DVT October 14, 2023, patient seen and examined during rounds labs reviewed medications reviewed patient remains on bronchodilators steroids antibiotics breathing slightly better continue to have intermittent cough and shortness of breath however severity has improved. Labs not done today. Blood cultures x 2 no growth so far. Would recommend to switch IV steroids and antibiotics to oral at the time of discharge last chest x-ray no acute process seen 10/13/2023, patient seen eval examined during the rounds labs reviewed medications reviewed care plan discussed, is still of ongoing shortness of breath and wheezing but severity has improved, patient remains on IV antibiotics steroids and breathing treatments well,labs are reviewed blood cultures no g rowth so far. White cell count is up to 14.1 from 4.36, hemoglobin and hematocrit stable at 11.9/37 rest of the chemistry fairly stable with BUN/creatinine slightly up 32/1.36. Computed tomography scan of the chest performed on 10/04/2019 for finding reviewed with the patient, patient remains afebrile with stable hemodynamics off of oxygen on room air oxygen saturation 95% to 97%. 10/12/2023, patient seen eval reexamined during the rounds labs reviewed medications reviewed care plan discussed with the patient at length, ongoing shortness of breath and wheezing is present slightly improved compared to yesterday exam patient remains on bronchodilator broad-spectrum antibiotics and IV steroids,On supplemental oxygen 2 L nasal cannula oxygen saturation is mid 90s, patient underwent a computed tomography scan of the chest noted to have a faint nodular opacities at the right base is still developing right lower lobe pneumonia patient is a 78-year-old male who presented emergency department with increased cough shortness of breath and congestion and comes have been progressive for the last several has multiple rounds of antibiotics and steroids without any significant improvement, patient has chronic hypoxic respiratory failure has been on home oxygen 2 L nasal cannula patient does not smoke but however 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 Labs reviewed in BUN/creatinine 26/1.6 the rest of the chemistry fairly within normal limit, influenza A and B and RSV as well as cord all negative, chest x-ray no acute infiltrative pul monary process and Objective - Vital Signs Vital signs: Vital Signs Temp 97.7 F 10/14/23 07:42 Pulse 70 10/14/23 08:36 Resp 18 10/14/23 07:42 BP 153/73 10/14/23 07:42 Pulse Ox 98 10/14/23 08:26 FiO2 Intake & Output 10/13/23 10/14/23 10/14/23 18:59 06:59 18:59 Intake Total 900 190 Balance 900 190 Intake: IV 10 Invasive Line 1 10 Intake, IV Titration 900 Amount Sodium Chloride 0.9% 1, 900 000 ml @ 50 mls/hr IV . Q20H [facility] Rx#:[id number] Oral 180 Other: Voiding Method Toilet # Voids 3 1 # Bowel Movements 0 - Exam - Constitutional General appearance: average body habitus, cooperative, disheveled, mild distress - EENT Eyes: EOMI, PERRLA ENT: normal oropharynx Ears: bilateral: normal - Neck Neck: normal ROM Carotids: bilateral: upstroke normal Thyroid: bilateral: normal size - Respiratory Respiratory: bilateral: rhonchi, wheezing - Cardiovascular Rhythm: regular Heart sounds: normal: S1, S2 - Gastrointestinal General gastrointestinal: normal bowel sounds, soft - Integumentary Integumentary: normal, normal turgor - Neurologic Neurologic: CNII-XII intact, focal deficits - Musculoskeletal Musculoskeletal: gait normal, generalized weakness, strength equal bilaterally - Psychiatric Psychiatric: A&O x's 3, appropriate affect, intact judgment & insight - Labs CBC & Chem 7: 10/13/23 06:11 10/13/23 06:11 Labs: Abnormal Lab Results - Last 24 Hours (Table) 10/13/23 10/13/23 10/13/23 Range/Units 11:27 16:40 19:59 POC Glucose (mg/dL) 229 H 130 H 154 H (70-110) mg/dL 10/14/23 Range/Units 05:57 POC Glucose (mg/dL) 127 H (70-110) mg/dL Microbiology - Last 24 Hours (Table) 10/11/23 11:26 Blood Culture - Preliminary Blood 10/11/23 11:00 Blood Culture - Preliminary Blood Assessment and Plan Assessment: right lower lobe community acquired pneumonia acute COPD exacerbation Tracheobronchitis Hypertension hypertensive cardiovascular disease GERD Benign prostatic hypertrophy Dyslipidemia coronary artery disease History of DVT Plan: given the rise of WBC Will obtain a chest x-ray Continue antibiotics Continue bronchodilator IV steroids continue home antihypertensive agents Antidepressant from a home Follow closely patient will benefit from sleep study as outpatient Time with Patient: Greater than 30
[2023-10-14] MEDS: AZITHROMYCIN 500 MG in SODIUM CHLORIDE 0.9% 250 ML IVPB SCH (10:10)
[2023-10-14 12:20] LABS: Glucose,Whole Blood 110 mg/dL (70-110)
[2023-10-14 17:07] LABS: Glucose,Whole Blood 141 mg/dL (70-110)
[2023-10-14 20:03] LABS: Glucose,Whole Blood 158 mg/dL (70-110)
[2023-10-15 07:28] LABS: Glucose,Whole Blood 108 mg/dL (70-110)
--- NOTE | 2023-10-15 09:06 | P.PN ---
Subjective Progress Note Date: 10/15/23 Principal diagnosis: acute COPD exacerbation Tracheobronchitis Hypertension hypertensive cardiovascular disease GERD Benign prostatic hypertrophy Dyslipidemia coronary artery disease History of DVT 10/15/2023, patient seen eval reexamined his labs reviewed medications Disc ussed,patient now afebrile, hemodynamic status stable on 2 L oxygen saturation is 97%, patient remains on bronchodilator along with IV steroids and antibiotics tolerating well, echocardiogram performed reviewed ejection fraction of 45-50% along with the apical hypokinesia, paradoxical septal motion have been noted, LVH noted as well, will recommend cardiovascular evaluation October 14, 2023, patient seen and examined during rounds labs reviewed medications reviewed patient remains on bronchodilators steroids antibiotics breathing slightly better continue to have intermittent cough and shortness of breath however severity has improved. Labs not done today. Blood cultures x 2 no growth so far. Would recommend to switch IV steroids and antibiotics to oral at the time of discharge last chest x-ray no acute process seen 10/13/2023, patient seen eval examined during the rounds labs reviewed medications reviewed care plan discussed, is still of ongoing shortness of riaz th and wheezing but severity has improved, patient remains on IV antibiotics steroids and breathing treatments well,labs are reviewed blood cultures no growth so far. White cell count is up to 14.1 from 4.36, hemoglobin and hematocrit stable at 11.9/37 rest of the chemistry fairly stable with BUN/c reatinine slightly up 32/1.36. Computed tomography scan of the chest performed on 10/04/2019 for finding reviewed with the patient, patient remains afebrile with stable hemodynamics off of oxygen on room air oxygen saturation 95% to 97%. 10/12/2023, patient seen eval reexamined during the rounds labs reviewed medications reviewed care plan discussed with the patient at length, ongoing shortness of breath and wheezing is present slightly improved compared to yesterday exam patient remains on bronchodilator broad-spectrum antibiotics and IV steroids,On supplemental oxygen 2 L nasal cannula oxygen saturation is mid 90s, patient underwent a computed tomography scan of the chest noted to have a faint nodular opacities at the right base is still developing right lower lobe pneumonia patient is a 78-year-old male who presented emergency department with increased cough shortness of breath and congestion and comes have been progressive for the last several has multiple rounds of antibiotics and steroids without any significant improvement, patient has chronic hypoxic respiratory failure has been on home oxygen 2 L nasal cannula patient does not smoke but however 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 Labs reviewed in BUN/creatinine 26/1.6 the rest of the chemistry fairly within normal limit, influenza A and B and RSV as well as cord all negative, chest x-ray no acute infiltrative pulmonary process and Objective - Vital Signs Vital signs: Vital Signs Temp 97.6 F 10/15/23 08:00 Pulse 72 10/15/23 08:59 Resp 18 10/15/23 08:00 BP 163/72 10/15/23 08:00 Pulse Ox 97 10/15/23 08:00 FiO2 Intake & Output 10/14/23 10/15/23 10/15/23 18:59 06:59 18:59 Intake Total 1410 1200 Balance 1410 1200 Intake: Intake, IV Titration 1050 700 Amount Azithromycin 500 mg In 250 Sodium Chloride 0.9% 250 ml @ 250 mls/hr IVPB DAILY@0900 [facility] Rx#: [id number] Piperacillin-Tazobactam 3 200 100 .375 gm In Sodium Chloride 0.9% 100 ml @ 25 mls/hr IVPB Q8H [facility] Rx#: [id number] Sodium Chloride 0.9% 1, 600 600 000 ml @ 50 mls/hr IV . Q20H [facility] Rx#:[id number] Oral 360 500 Other: # Voids 2 - Exam - Constitutional General appearance: average body habitus, cooperative, disheveled, mild distress - EENT Eyes: EOMI, PERRLA ENT: normal oropharynx Ears: bilateral: normal - Neck Neck: normal ROM Carotids: bilateral: upstroke normal Thyroid: bilateral: normal size - Respiratory Respiratory: bilateral: rhonchi, wheezing - Cardiovascular Rhythm: regular Heart sounds: normal: S1, S2 - Gastrointestinal General gastrointestinal: normal bowel sounds, soft - Integumentary Integumentary: normal, normal turgor - Neurologic Neurologic: CNII-XII intact, focal deficits - Musculoskeletal Musculoskeletal: gait normal, generalized weakness, strength equal bilaterally - Psychiatric Psychiatric: A&O x's 3, appropriate affect, intact judgment & insight - Labs CBC & Chem 7: 10/13/23 06:11 10/13/23 06:11 Labs: Abnormal Lab Results - Last 24 Hours (Table) 10/14/23 10/14/23 Range/Units 17:01 20:01 POC Glucose (mg/dL) 141 H 158 H (70-110) mg/dL Microbiology - Last 24 Hours (Table) 10/11/23 11:26 Blood Culture - Preliminary Blood 10/11/23 11:00 Blood Culture - Preliminary Blood Assessment and Plan Assessment: ischemic cardiomyopathy involving apical area with a baseline ejection fraction of 45% right lower lobe community acquired pneumonia acute COPD exacerbation Tracheobronchitis Hypertension hypertensive cardiovascular disease GERD Benign prostatic hypertrophy Dyslipidemia coronary artery disease History of DVT Plan: recommend cardiovascular evaluation fall wall motion abnormality and low ejection fraction of 40-45% given the rise of WBC Reviewed chest x-ray, no significant change Continue antibiotics Continue bronchodilator IV steroids continue home antihypertensive agents Antidepressant from a home Follow closely patient will benefit from sleep study as outpatient Time with Patient: Greater than 30
[2023-10-15] MEDS: LOSARTAN 50 MG TAB PO SCH (10:16)
--- NOTE | 2023-10-15 11:17 | P.CRDCN ---
History of Present Illness Consult date: 10/15/23 Reason for Consult (text): Abnormal echocardiogram History of present illness: History of present illness: This is a 78-year-old male patient of Dr. Elsa Miranda with past medical history of coronary artery disease status post bypass surgery, hypertension, dyslipidemia, mitral regurgitation. We have been asked to evaluate for abnormal echocardio gram. Patient presented to the hospital due to COPD exacerbation and has been under the care of of pulmonary medicine. Echocardiogram performed on 10/13/2023 during this hospital stay revealed EF 45 to 50%, apical and periapical hypokinesia. Paradoxical septal motion. Moderate concentric left ventricular hypertrophy. Grade 1 diastolic dysfunction. Mild MR, mild LA dilatation. No pericardial effusion. Patient denies having any chest pain. No palpitations. It appears that losartan from his home medication list was placed on hold due to acute kidney injury. 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 EKG performed on 10/10 revealed sinus rhythm nonspecific ST changes. Chest x-ray performed on 10/12 revealed no acute process. Chest CT reveals faint nodular opacities in the periphery of the right lung base worrisome for developing infectious process, atypical infection not excluded. WBC initially 6.1 now 14.1, hemoglobin 11.9. Sodium 136, potassium 4.5, BUN 32 and creatinine 1.36 which is improved from 1.63. Troponin negative x 1. proBNP 451. Home cardiac medications: Aspirin 325 mg daily, Lasix 20 mg daily, losartan 50 mg daily, Toprol-XL 100 mg daily, simvastatin 80 mg daily. Echocardiogram performed in the office on 11/18/2022 with copy sent to Dr. Ismael Gregorio revealed EF of 45 to 50%. Medium size hypokinetic areas in the inferior septal and anterior septal polk from the mid wall to the apex. Small hypokinetic areas of the lateral and inferior polk at the apex. Grade 1 diastolic dysfunction. Mild left ventricular hypertrophy. Trace aortic regurgitation. Aortic valve is calcified. Ascending aorta is not well-seen. Moderate mitral regurgitation. Mild tricuspid regurgitation. PASP 42 mmHg. Mild pulmonic regurgitation. Lexiscan Cardiolite stress test performed in the office on 10/01/2021 was negative Lexiscan stress test. Probably normal study with mild fixed defect of the apex could be secondary to soft tissue attenuation. Gated images showed mild generalized hypokinesia with EF 40%. Left ventricle is slightly dilated and fixed. Review Of Systems: At the time of my exam: CONSTITUTIONAL: Denies fever or chills. HEENT: Denies blurred vision, vision changes, or eye pain. Denies hemoptysis CARDIOVASCULAR: Denies chest pain. Denies orthopnea. Denies PND. Denies pal pitations RESPIRATORY: Denies shortness of breath. GASTROINTESTINAL: Denies abdominal pain. Denies nausea or vomiting. HEMATOLOGIC: Denies bleeding disorders. GENITOURINARY: Denies any blood in urine. SKIN: Denies pruitis. Denies rash. Physical examination: Gen: This is a 78-year-old male in no acute distress VS: reviewed HEENT: Head is atraumatic, normocephalic. Pupils equal, round. Sclerae is anicteric. NECK: Supple. No JVD. LUNGS: Clear to auscultation. No wheezes or rhonchi. No intercostal retractions. HEART: Regular rate and rhythm. No murmur. ABDOMEN: Soft No tenderness. EXTREMITIES: No pedal edema. No calf tenderness. NEUROLOGICAL: Patient is awake, alert and oriented x3. Assessment: COPD exacerbation Tracheobronchitis Stable CAD Hypertension Dyslipidemia Moderate mitral regurgitation Plan: Continue patient's home cardiac medications Start patient on losartan 50 mg daily now No further cardiac workup at this time Cardiology will sign off this case and follow on an as-needed basis. Please reconsult for any new concerns. Patient may follow-up in the office in one to [address] Elsa Miranda. Thank you kindly for this consultation. Nurse practitioner note has been reviewed, I agree with documented findings and plan of care. Patient was seen and examined. 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 with past falls, TIA in 2016 no residual, DVT left upper extremity, thoracic aortic aneurysm, chronic low back pain, arthritis R foot, History of Any Multi-Drug Resistant Organisms: None Reported Past Surgical History: Cholecystectomy, Coronary Bypass/CABG, Heart Catheteriz ation, Hernia Repair, Orthopedic Surgery Additional Past Surgical History / Comment(s): 06/20/18 CABG 2 vessels, colonoscopy, 3 right foot surgeries due to polio 1948 Past Anesthesia/Blood Transfusion Reactions: No Reported Reaction Additional Past Anesthesia/Blood Transfusion Reaction / Comment(s): States broke out in a rash from the adhesive tape from his last surgery. Past Psychological History: Depression Additional Psychological History / Comment(s): Pt resides with his spouse. He uses home oxygen at 2L/NC at HS. He has a nebulizer. Pt drives. Smoking Status: Never smoker Past Alcohol Use History: None Reported Past Drug Use History: None Reported - Past Family History Mother Sister(s) Family Medical History: CVA/TIA, Hypertension Additional Family Medical History / Comment(s): His mother from a stroke at age 81 Father Family Medical History: CVA/TIA Additional Family Medical History / Comment(s): His father from a stroke at age 80. Brother(s) Family Medical History: Myocardial Infarction ([place]) Additional Family Medical History / Comment(s): 2 of his brothers have had myocardial infarctions one at age 50, and one at age 48. brother of a stroke Sister(s) Family Medical History: Myocardial Infarction ([place]) Additional Family Medical History / Comment(s): He is 13 total siblings. One of his sisters had a myocardial infarction in her late 50s and another sister had a myocardial infarction in her 40s. Medications and Allergies Home Medications Medication Instructions Recorded Confirmed Type Pantoprazole Sodium [Protonix] 40 mg PO DAILY 12/15/17 10/11/23 History Aspirin EC [Ecotrin] 325 mg PO DAILY 10/15/21 10/11/23 History FLUoxetine HCL [PROzac] 20 mg PO DAILY 10/15/21 10/11/23 History Ferrous Sulfate [Feosol] 325 mg PO DAILY 10/15/21 10/11/23 History Losartan Potassium 50 mg PO DAILY 10/15/21 10/11/23 History Metoprolol Succinate (ER) [Toprol 100 mg PO DAILY 10/15/21 10/11/23 History Xl] Montelukast [Singulair] 10 mg PO HS 10/15/21 10/11/23 History Furosemide [Lasix] 20 mg PO DAILY 04/16/22 10/11/23 History Loratadine [Claritin] 10 mg PO DAILY 10/11/23 10/11/23 History Simvastatin [Zocor] 80 mg PO DAILY 10/11/23 10/11/23 History Allergies Allergy/AdvReac Type Severity Reaction Status Date / Time adhesive tape Allergy Rash/Hives Verified 06/18/22 09:59 atorvastatin [From Lipitor] AdvReac muscle Verified 06/18/22 09:59 cramps Physical Exam Vitals: Vital Signs Temp Pulse Pulse Resp BP BP Pulse Ox 10/15/23 08:59 72 10/15/23 08:50 72 10/15/23 08:00 97.6 F 68 18 163/72 97 10/15/23 02:00 97.8 F 66 16 152/76 97 10/14/23 20:00 97.8 F 76 16 134/67 97 10/14/23 19:21 69 10/14/23 19:11 66 10/14/23 15:50 66 10/14/23 15:39 66 10/14/23 13:04 97.8 F 68 17 138/60 97 10/14/23 11:55 72 10/14/23 11:46 68 Intake and Output 10/14/23 10/15/23 10/15/23 22:59 06:59 14:59 Intake Total 1050 1200 Balance 1050 1200 Intake: Intake, IV Titration 1050 700 Amount Azithromycin 500 mg In 250 Sodium Chloride 0.9% 250 ml @ 250 mls/hr IVPB DAILY@0900 [facility] Rx#: [id number] Piperacillin-Tazobactam 3 200 100 .375 gm In Sodium Chloride 0.9% 100 ml @ 25 mls/hr IVPB Q8H [facility] Rx#: [id number] Sodium Chloride 0.9% 1, 600 600 000 ml @ 50 mls/hr IV . Q20H [facility] Rx#:[id number] Oral 500 Other: # Voids 2 Results 10/13/23 06:11 10/13/23 06:11 Current Medications Generic Name Dose Route Start Last Admin Trade Name Freq PRN Reason Stop Dose Admin Acetaminophen 650 mg 10/11/23 10:44 Acetaminophen Tab 325 Mg Tab PO Q6HR PRN Mild Pain or Fever > 100.5 Acetaminophen 650 mg 10/11/23 11:00 10/15/23 05:09 Acetaminophen Tab 325 Mg Tab PO 650 mg Q6H [facility] Administration Hydrocodone Bitart/Acetaminophen 1 each 10/11/23 10:44 Hydrocodone/Apap 5-325mg 1 Each Tab PO Q4HR PRN Moderate Pain (Scale 4 to 6) Albuterol/Ipratropium 3 ml 10/11/23 16:00 10/15/23 08:50 Ipratropium-Albuterol 3 Ml Neb INHALATION 3 ml RT-QID [facility] Administration Aspirin 325 mg 10/12/23 09:00 10/15/23 09:49 Aspirin 325 Mg Tab PO 325 mg DAILY [facility] Administration Benzonatate 200 mg 10/12/23 16:24 10/15/23 02:51 Benzonatate 100 Mg Cap PO 200 mg TID PRN Administration Cough Docusate Sodium 100 mg 10/11/23 21:00 10/15/23 09:49 Docusate 100 Mg Cap PO 100 mg BID [facility] Administration Ferrous Sulfate 325 mg 10/12/23 09:00 10/15/23 09:49 Ferrous Sulfate 325 Mg Tab PO 325 mg DAILY [facility] Administration Fluoxetine HCl 20 mg 10/12/23 09:00 10/15/23 09:49 Fluoxetine Hcl 20 Mg Cap PO 20 mg DAILY [facility] Administration Sodium Chloride 1,000 mls @ 50 mls/hr 10/11/23 22:00 10/15/23 05:11 Saline 0.9% IV 50 mls/hr .Q20H [facility] Administration Azithromycin 500 mg/ Sodium 250 mls @ 250 mls/hr 10/14/23 09:00 10/14/23 13:31 Chloride IVPB 10/16/23 09:59 250 mls/hr DAILY@0900 [facility] Administration Protocol Piperacillin Sod/Tazobactam 100 mls @ 25 mls/hr 10/14/23 01:00 10/15/23 09:49 Sod 3.375 gm/ Sodium Chloride IVPB 25 mls/hr Q8H [facility] Administration Protocol Loratadine 10 mg 10/12/23 09:00 10/15/23 09:49 Loratadine 10 Mg Tab PO 10 mg DAILY [facility] Administration Methylprednisolone Sodium Succinate 40 mg 10/13/23 21:00 10/15/23 09:49 Methylprednisolone Sod Succi 40 Mg/Ml 1 Ml Vial IV 40 mg Q12HR [facility] Administration Metoprolol Succinate 100 mg 10/12/23 09:00 10/15/23 09:49 Metoprolol Succinate (Er) 100 Mg Tab.Er.24h PO 100 mg DAILY [facility] Administration Montelukast Sodium 10 mg 10/11/23 21:00 10/14/23 20:10 Montelukast 10 Mg Tab PO 10 mg HS [facility] Administration Morphine Sulfate 4 mg 10/11/23 10:44 10/11/23 11:31 Morphine Sulfate 4 Mg/Ml Syringe IV 4 mg Q4HR PRN Administration Severe Pain (Scale 7 to 10) Naloxone HCl 0.2 mg 10/11/23 10:44 Naloxone 0.4 Mg/Ml 1 Ml Vial IV Q2M PRN Opioid Reversal Simvastatin [ 40 mg 10/12/23 13:00 10/15/23 09:50 Simvastatin] 40 Mg PO 40 mg Tablet DAILY [facility] Administration Ondansetron HCl 4 mg 10/11/23 10:44 Ondansetron 4 Mg/2 Ml Vial IVP Q8HR PRN Nausea And Vomiting Pantoprazole Sodium 40 mg 10/12/23 09:00 10/15/23 09:49 Pantoprazole 40 Mg/10 Ml Vial IV 40 mg DAILY [facility] Administration Intake and Output 10/14/23 10/15/23 10/15/23 22:59 06:59 14:59 Intake Total 1050 1200 Balance 1050 1200 Intake: Intake, IV Titration 1050 700 Amount Azithromycin 500 mg In 250 Sodium Chloride 0.9% 250 ml @ 250 mls/hr IVPB DAILY@0900 [facility] Rx#: [id number] Piperacillin-Tazobactam 3 200 100 .375 gm In Sodium Chloride 0.9% 100 ml @ 25 mls/hr IVPB Q8H [facility] Rx#: [id number] Sodium Chloride 0.9% 1, 600 600 000 ml @ 50 mls/hr IV . Q20H [facility] Rx#:[id number] Oral 500 Other: # Voids 2 10/13/23 06:11 10/13/23 06:11
[2023-10-15 12:08] LABS: Glucose,Whole Blood 114 mg/dL (70-110)
[2023-10-15 17:22] LABS: Glucose,Whole Blood 167 mg/dL (70-110)
[2023-10-15 19:31] LABS: Glucose,Whole Blood 148 mg/dL (70-110)
--- NOTE | 2023-10-16 05:26 | PN ---
PROGRESS NOTE DATE OF SERVICE: 10/14/2023 SUBJECTIVE: This is a 78-year-old white male with COPD exacerbation, tracheobronchitis. The patient appears to be improving slowly since I switched his antibiotics around. Continue current antibiotics in another day or 2. He still has congestive cough. OBJECTIVE: CARDIOVASCULAR: S1, S2. LUNGS: Transmitted upper sounds. GI: Soft. HEMATOLOGY: Negative for Homans. Prognosis guarded. Continue current treatment. Please see further orders. MMODL / IJN: [id number] /
[2023-10-16 07:24] LABS: Glucose,Whole Blood 108 mg/dL (70-110)
[2023-10-16 07:36] VITALS: BP 169/87; PULSE 60; RESP 18; TEMP 97.5
--- NOTE | 2023-10-16 08:14 | PN ---
PROGRESS NOTE SUBJECTIVE: 78-year-old white male, admitted with pneumonia, COPD, asthma. The patient is slowly improving. He will be discharged home on oral steroids and antibiotics today. OBJECTIVE: VITAL SIGNS: Reviewed. CARDIOVASCULAR: S1, S2. LUNGS: Transmitted upper airway sounds. GI: Soft. HEMATOLOGY: Negative Homans. IMPRESSION: 1. Dehydration. 2. Tracheobronchitis. 3. Pneumonia. 4. COPD. 5. Asthma. PLAN: Continue current treatments. Medrol Dosepak. Doxycycline for a week. PROGNOSIS: Guarded. Continue current treatment. Please see further orders. MMODL / IJN: [id number] /
[2023-10-16] MEDS: methylPREDNISolone 4 MG TAB TAPER PO SCH (08:18)
[2023-10-16] MEDS: DOXYCYCLINE 100 MG CAP PO SCH (08:18)
[2023-10-16 09:42] LABS: Basophils # (A) 0.04 X 10*3/uL (0.00-0.10); Basophils % (A) 0.4 %; Eosinophils # (A) 0 X 10*3/uL (0.04-0.35); Eosinophils % (A) 0 %; HGB 11.6 g/dL (13.0-17.0); Lymphocytes % (A) 6.2 %; MCH 29.1 pg (27.0-32.0); MCHC 31.4 g/dL (32.0-37.0); MCV 92.7 FL (80.0-97.0); Mean Platelet Volume 10.7 FL (9.5-12.2); Monocytes # (A) 0.45 X 10*3/uL (0.20-1.00); Monocytes % (A) 4.6 %; NRBC Per 100 WBC 0 X 10*3/uL (0.00-0.01); Neutrophils % (A) 86.6 %; Platelet Count 162 X 10*3/uL (140-440); RBC 3.99 X 10*6/uL (4.40-5.60); RDW 12.9 % (11.5-14.5)
[2023-10-16 11:12] LABS: ALT 25 U/L (10-49); AST 19 U/L (14-35); Albumin 3.8 g/dL (3.8-4.9); Albumin/Globulin Ratio 2.38 Ratio (1.60-3.17); Alkaline Phosphatase 71 U/L (41-126); BUN/Creat Ratio 20.53 Ratio (12.00-20.00); Blood Urea Nitrogen 30.8 mg/dL (9.0-27.0); Calcium 9.3 mg/dL (8.7-10.3); Carbon Dioxide 24.5 mmol/L (21.6-31.8); Chloride 109 mmol/L (96-109); Globulin 1.6 g/dL (1.6-3.3); Glucose 130 mg/dL (70-110); Sodium 142 mmol/L (135-145); Total Bilirubin 0.5 mg/dL (0.3-1.2); Total Protein 5.4 g/dL (6.2-8.2)
== END 2023-10-16 12:20 | disposition home or self-care (01) | DRG 193 ==
LOC: EC 08:18 → 4SSUR 10:42 → 1SOBS 10-12 06:11 → 5NMEDONC 10-14 06:44
PROVIDERS: ADMIT Family Medicine; ATTEND Family Medicine
DX: J18.9 Pneumonia, unspecified organism (principal); J96.21 Acute and chronic respiratory failure with hypoxia; N17.0 Acute kidney failure with tubular necrosis; J44.0 Chronic obstructive pulmonary disease with (acute) lower respiratory infection; J44.1 Chronic obstructive pulmonary disease with (acute) exacerbation; J40 Bronchitis, not specified as acute or chronic; E86.0 Dehydration; E78.5 Hyperlipidemia, unspecified; I11.9 Hypertensive heart disease without heart failure; I25.10 Atherosclerotic heart disease of native coronary artery without angina pectoris; I25.5 Ischemic cardiomyopathy; G89.29 Other chronic pain; M21.961 Unspecified acquired deformity of right lower leg; B91 Sequelae of poliomyelitis; I27.20 Pulmonary hypertension, unspecified; I34.0 Nonrheumatic mitral (valve) insufficiency; K21.9 Gastro-esophageal reflux disease without esophagitis; M54.50 Low back pain, unspecified; N40.0 Benign prostatic hyperplasia without lower urinary tract symptoms; Z99.81 Dependence on supplemental oxygen; Z79.82 Long term (current) use of aspirin; Z79.899 Other long term (current) drug therapy; Z86.718 Personal history of other venous thrombosis and embolism; Z86.73 Personal history of transient ischemic attack (TIA), and cerebral infarction without residual deficits; Z95.1 Presence of aortocoronary bypass graft; Z11.52 Encounter for screening for COVID-19; Z91.81 History of falling; Z57.5 Occupational exposure to toxic agents in other industries; Z88.8 Allergy status to other drugs, medicaments and biological substances
CPT/HCPCS: 36415; 71046; 71250; 80053; 81003; 83605; 83735; 83880; 84484; 85025; 85379; 85610; 85730; 87040; 87636; 93005; 93306; 94640; 94760; 96361; 96365; 96375; 96376; 99285

== ENCOUNTER → 2024-03-31 | Outpatient (CLI) | payer MEDICARE ==
--- NOTE | 2024-03-31 12:24 | CT ---
EXAMINATION TYPE: CT chest wo con DATE OF EXAM: 03/31/2024 COMPARISON: 10/11/2023 CLINICAL INDICATION: Male, 78 years old with history of J15.7 PNEUMONIA DUE TO MYCOPLASMA PNEUMONIAE; PHH, Cough from pneumonia x 2 weeks TECHNIQUE: CT scan of the thorax is performed without IV contrast. CT DLP: 489.[address] CTDI: mGy Automated exposure control for dose reduction was used. FINDINGS: The lungs are clear with no suspicious lung mass or nodule or airspace consolidation or abnormal inte rstitial density. The nodule seen in the posterior right lower lobe on the prior study have resolved in the interval. There is no pleural effusion or pneumothorax. There is mild dilatation of the ascending thoracic aorta which measures 4.2 cm. The main pulmonary ar titi is dilated to 3.7 cm raising the question of pulmonary hypertension. There are postsurgical changes in the anterior mediastinum. There is no mediastinal, hilar or axillar y adenopathy. Limited scanning through the upper abdomen reveals mild renal atrophy and cholecystectomy. There is no suspicious osseous abnormality. IMPRESSION: 1. Resolution of the previously described right lower lobe pulmonary nodules. 2. No acute cardiopulmonary disease. 3. 4.2 cm dilatation of the ascending thoracic aorta. 4. 3.7 cm dilatation of the main pulmonary artery raising the question of pulmonary hypertension and clinical correlation is recommended. [facility], , 03/31/2024 12:21 PM
== END | disposition home or self-care (01) ==
LOC: RADCTMAIN 11:45
PROVIDERS: ATTEND Family Medicine
DX: J15.7 Pneumonia due to Mycoplasma pneumoniae (principal); N26.1 Atrophy of kidney (terminal)
CPT/HCPCS: 71250

== ENCOUNTER 2024-05-29 12:00 | Day surgery (SDC) | payer MEDICARE ==
[2024-05-23 11:38] VITALS: BMI 33.7
[~2024-05-29 12:00] MED LIST changes: -ACETAMINOPHEN TAB 500 MG TAB PO PRN; -HEPARIN SODIUM,PORCINE/PF 5,000 UNIT/0.5 ML SYRINGE SQ PRN; +LACTATED RINGERS 1,000 ML IV SCH; +LIDOCAINE 1% (10MG/ML) FOR IV START INTRADERMA PRN
[2024-05-29 12:40] VITALS: RESP 16; TEMP 97.4
[2024-05-29] MEDS: SODIUM CHLORIDE 0.9% 1,000 ML IV ONE (12:46)
[2024-05-29] MEDS ORDERED: PROPOFOL 10 MG/ML 20 ML VIAL IV ONE (13:18)
--- NOTE | 2024-05-29 13:24 | P.GSHP ---
History of Present Illness H&P Date: 05/29/24 Chief Complaint: History of colon polyps This a 71-year-old male with history of colon polyps. Patient presents today for colonoscopy. 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 with past falls, TIA in 2016 no residual, DVT left upper extremity, thoracic aortic aneurysm, chronic low back pain, arthritis R foot, Last Myocardial Infarction Date:: 2018 History of Any Multi-Drug Resistant Organisms: None Reported Past Surgical History: Cholecystectomy, Coronary Bypass/CABG, Heart Catheterization, Hernia Repair, Orthopedic Surgery Additional Past Surgical History / Comment(s): 06/20/18 CABG 2 vessels, colonoscopy, 3 right foot surgeries due to polio 1948, colonoscopy Past Anesthesia/Blood Transfusion Reactions: No Reported Reaction Additional Past Anesthesia/Blood Transfusion Reaction / Comment(s): States broke out in a rash from the adhesive tape from his last surgery. Smoking Status: Never smoker - Past Family History Mother Sister(s) Family Medical History: CVA/TIA, Hypertension Additional Family Medical History / Comment(s): His mother from a stroke at age 81 Father Family Medical History: CVA/TIA Additional Family Medical History / Comment(s): His father from a stroke at age 80. Brother(s) Family Medical History: Myocardial Infarction ([place]) Additional Family Medical History / Comment(s): 2 of his brothers have had myocardial infarctions one at age 50, and one at age 48. brother of a stroke Sister(s) Family Medical History: Myocardial Infarction ([place]) Additional Family Medical History / Comment(s): He is 13 total siblings. One of his sisters had a myocardial infarction in her late 50s and another sister had a myocardial infarction in her 40s. Medications and Allergies Home Medications Medication Instructions Recorded Confirmed Type Pantoprazole Sodium [Protonix] 40 mg PO BID 12/15/17 05/29/24 History Aspirin EC [Ecotrin] 325 mg PO DAILY 10/15/21 05/29/24 History FLUoxetine HCL [PROzac] 20 mg PO DAILY 10/15/21 05/29/24 History Ferrous Sulfate [Iron (65 MG 325 mg PO DAILY 10/15/21 05/29/24 History Elemental)] Losartan Potassium 50 mg PO DAILY 10/15/21 05/29/24 History Metoprolol Succinate (ER) [Toprol 50 mg PO DAILY 10/15/21 05/29/24 History XL] Montelukast [Singulair] 10 mg PO HS 10/15/21 05/29/24 History Loratadine [Claritin] 10 mg PO DAILY 10/11/23 05/29/24 History Simvastatin [Zocor] 80 mg PO DAILY 10/11/23 05/29/24 History Acetaminophen Tab [Tylenol] 650 mg PO Q6H tab 10/16/23 05/29/24 Rx Ipratropium-Albuterol Nebulize 3 ml INHALATION RT-QID 30 Days 10/16/23 05/29/24 Rx [Duoneb 0.5 mg-3 mg/3 ml Soln] #120 each Allergies Allergy/AdvReac Type Severity Reaction Status Date / Time adhesive tape Allergy Rash/Hives Verified 05/29/24 12:33 atorvastatin [From Lipitor] AdvReac muscle Verified 05/29/24 12:33 cramps Surgical - Exam Vital Signs Temp Pulse Resp BP Pulse Ox 97.4 F L 73 16 188/85 96 05/29/24 12:38 05/29/24 12:38 05/29/24 12:38 05/29/24 12:38 05/29/24 12:38 - General well developed, well nourished, no distress - Eyes PERRL - ENT normal pinna - Neck no masses - Respiratory normal expansion - Cardiovascular Rhythm: regular - Abdomen Abdomen: soft, non tender Assessment and Plan Plan: History colon polyps. Will perform colonoscopy.
--- NOTE | 2024-05-29 13:37 | P.OP ---
Date of Procedure: 05/29/24 Preoperative Diagnosis: History of colon polyps Postoperative Diagnosis: Normal colonoscopy Procedure(s) Performed: Colonoscopy Anesthesia: MAC Surgeon: Mike Watt Pathology: none sent Condition: stable Disposition: PACU Description of Procedure: The patient was placed on the endoscopy table in the lateral position. He received IV sedation. Digital rectal exam was performed. This revealed no abnormalities. Flexible colonoscope was then placed patient anus and passed throughout the entire colon. The ileocecal valve was visualized. The cecum appeared normal. The ascending colon appeared normal. Transverse colon appeared normal. The descending a colon appeared normal. In the sigmoid colon there is a few scattered diverticuli. Scope was back the rectum this appeared normal. Scope withdrawn for the patient.
[2024-05-29 13:52] VITALS: BP 147/81; PULSE 60
== END 2024-05-29 14:15 | disposition home or self-care (01) ==
LOC: ORWHC2ENDO 12:00
PROVIDERS: ATTEND Surgery
DX: Z12.11 Encounter for screening for malignant neoplasm of colon (principal); E78.5 Hyperlipidemia, unspecified; I10 Essential (primary) hypertension; I25.10 Atherosclerotic heart disease of native coronary artery without angina pectoris; I25.2 Old myocardial infarction; J44.9 Chronic obstructive pulmonary disease, unspecified; K21.9 Gastro-esophageal reflux disease without esophagitis; M19.90 Unspecified osteoarthritis, unspecified site; Z86.718 Personal history of other venous thrombosis and embolism; Z86.73 Personal history of transient ischemic attack (TIA), and cerebral infarction without residual deficits; Z90.49 Acquired absence of other specified parts of digestive tract; Z95.1 Presence of aortocoronary bypass graft; Z86.0100 Personal history of colon polyps, unspecified; Z99.81 Dependence on supplemental oxygen; Z79.82 Long term (current) use of aspirin; Z79.899 Other long term (current) drug therapy; Z88.8 Allergy status to other drugs, medicaments and biological substances
CPT/HCPCS: 45378

== ENCOUNTER → 2024-09-14 | Outpatient (CLI) | payer MEDICARE ==
[2024-09-14 15:50] LABS: ALT 22 U/L (10-49); AST 26 U/L (14-35); Chol/HDL Ratio 4.68 Ratio; LDL Cholesterol,Calculated 93.6 mg/dL (0.0-131.0)
== END | disposition home or self-care (01) ==
LOC: LABWHC1 08:56
PROVIDERS: ATTEND Internal Medicine Cardiovascular Disease
DX: E78.2 Mixed hyperlipidemia (principal)
CPT/HCPCS: 36415; 80061; 84450; 84460